=== PATIENT | female | born 1950 | race Caucasian/White ===

== ENCOUNTER 2019-03-05 12:47 | Outpatient (CLI) | payer MEDICARE, OTHER, SELFPAY ==
[2019-03-05 13:00] VITALS: BP 111/69; PULSE 90; RESP 16; TEMP 36.6; O2SAT 98
[2019-03-05] MEDS: denosumab 60 mg SDV SUBCUT (13:09)
[2019-03-05 13:19] VITALS: BP 114/70; PULSE 88; RESP 16; TEMP 36.6
== END 2019-03-05 12:48 | disposition home or self-care (01) ==
LOC: RHEOACUTE 12:50
PROVIDERS: Family Provider Family Medicine; PCP Family Medicine; Visit Provider Family Medicine
DX: M81.0 Age-related osteoporosis without current pathological fracture (principal)
CPT/HCPCS: 96372; J0897

== ENCOUNTER → 2019-03-27 10:48 | Outpatient (BNVA) | payer MEDICARE, OTHER, SELFPAY | PROVIDERS: Family Provider Family Medicine; PCP Family Medicine; Visit Provider Anesthesiology | DX: M48.061 Spinal stenosis, lumbar region without neurogenic claudication (principal); Z79.891 Long term (current) use of opiate analgesic | CPT/HCPCS: 99213; 99214 ==

== ENCOUNTER → 2019-09-28 09:53 | Outpatient (BNVA) | payer MEDICARE, OTHER, SELFPAY | PROVIDERS: Family Provider Family Medicine; PCP Family Medicine; Visit Provider Nurse Practitioner | DX: M48.061 Spinal stenosis, lumbar region without neurogenic claudication (principal); Z79.891 Long term (current) use of opiate analgesic | CPT/HCPCS: 99213 ==

== ENCOUNTER 2019-10-03 09:43 | Outpatient (CLI) | payer MEDICARE, OTHER, SELFPAY ==
[2019-10-03 10:00] VITALS: BP 127/77; PULSE 74; RESP 16; TEMP 36.8; O2SAT 91
[2019-10-03] MEDS: denosumab 60 mg SDV SUBCUT (10:00)
[2019-10-03 10:08] VITALS: BMI 39.0
[2019-10-03 10:45] VITALS: BP 109/68; PULSE 67; TEMP 36.8; O2SAT 93
== END 2019-10-03 09:44 | disposition home or self-care (01) ==
LOC: RHEOACUTE 09:46
PROVIDERS: Family Provider Family Medicine; PCP Family Medicine; Visit Provider Internal Medicine Rheumatology
DX: M81.0 Age-related osteoporosis without current pathological fracture (principal)
CPT/HCPCS: 96372; J0897

== ENCOUNTER 2019-11-16 09:39 | Outpatient (CLI) | payer MEDICARE, OTHER, SELFPAY ==
--- NOTE | 2019-11-16 09:44 | MM_ITS ---
WS: [id number] BILATERAL SCREENING DIGITAL MAMMOGRAM WITH CAD HISTORY: SCREENING COMPARISON: 12/28/2017 and 07/16/2014 Bilateral CC and MLO views submitted. Computer aided detection analyzed. Breast composition: There are scattered areas of fibroglandular density. No suspicious masses, microc alcifications or architectural distortion. Breast arterial calcifications. MM/[place] [id number] IMPRESSION: BI-RADS: 2-Benign FOLLOW UP: 1 Year Follow-up
== END 2019-11-16 09:40 | disposition home or self-care (01) ==
PROVIDERS: PCP Nurse Practitioner Family; Visit Provider Nurse Practitioner Family
DX: Z12.31 Encounter for screening mammogram for malignant neoplasm of breast (principal)
CPT/HCPCS: 77067

== ENCOUNTER → 2019-12-18 08:58 | Outpatient (BNVA) | payer MEDICARE, OTHER, SELFPAY | PROVIDERS: PCP Nurse Practitioner Family; Visit Provider Anesthesiology | DX: G89.29 Other chronic pain (principal); M48.061 Spinal stenosis, lumbar region without neurogenic claudication; Z79.891 Long term (current) use of opiate analgesic | CPT/HCPCS: 99212; 99214 ==

== ENCOUNTER → 2020-03-28 09:54 | Outpatient (BNVA) | payer MEDICARE, OTHER, SELFPAY | PROVIDERS: PCP Nurse Practitioner Family; Visit Provider Anesthesiology | DX: G89.29 Other chronic pain (principal); M48.061 Spinal stenosis, lumbar region without neurogenic claudication; Z79.891 Long term (current) use of opiate analgesic | CPT/HCPCS: 99213 ==

== ENCOUNTER 2020-05-19 09:19 | Outpatient (CLI) | payer MEDICARE, OTHER, SELFPAY ==
--- NOTE | 2020-05-19 09:34 | XR_ITS ---
WS: [id number] CERVICAL SPINE TECHNIQUE: 3 views of the cervical spine CLINICAL INFORMATION: NECK PAIN COMPARISON: March 10, 2016 FINDINGS: Straightening of the normal cervical lordosis. Anterior interbody cervical fusion C3-C7. Alignment is unchanged from previous. Slight retrolisthesis C2 on C3 is stable. Normal C1-C2 articulation. Normal prevertebral soft tissues. Moderate facet arthropathy throughout the cervical spine. XR/XR cervical spine 3V* [id number] IMPRESSION: Stable postoperative changes anterior interbody cervical fusion C3-C7.
--- NOTE | 2020-05-19 09:34 | XR_ITS ---
WS: [id number] THORACIC SPINE TECHNIQUE: 3 views of the thoracic spine CLINICAL INFORMATION: NECK PAIN COMPARISON: FINDINGS: Moderate thoracic kyphosis. Chronic anterior wedging in the lower thoracic spine and thoracolumbar ju nction. Prior vertebroplasty changes with chronic compression at the thoracolumbar junction. Dorsal s winsome stimulator. Thoracic spine appears unchanged since 2019 IMPRESSION: Thoracic spine appears unchanged since
== END 2020-05-19 09:20 | disposition home or self-care (01) ==
PROVIDERS: PCP Nurse Practitioner Family
DX: M54.2 Cervicalgia (principal)
CPT/HCPCS: 72040; 72070

== ENCOUNTER 2020-06-10 07:09 | Outpatient (CLI) | payer MEDICARE, OTHER, SELFPAY ==
--- NOTE | 2020-06-10 07:13 | USCV_ITS ---
Zoë Calderon Age: 70 Gender: F : 1950 Exam Date: 06/10/2020 07:29 Ordering Phys: Jayjay Rashid Technologist: Kati Mata [place]am Location[place] [facility] [place] Indication: MURMUR BP: 110 / 64 HR: 78 Rhythm: Sinus Technical Quality: Technically difficult study MEASUREMENTS (Male / Female) Normal Values 2D ECHO LV Diastolic Diameter PLAX 2.7 cm 4.2 - 5.9 / 3.9 - 5.3 cm LV Systolic Diameter PLAX 1.8 cm IVS Diastolic Thickness 1.5 cm 0.6 - 1.0 / 0.6 - 0.9 cm IVS Systolic Thickness 1.4 cm LVPW Diastolic Thickness 1.3 cm 0.6 - 1.0 / 0.6 - 0.9 cm LVPW Systolic Thickness 1.4 cm RV Chamber Size 3.4 cm LVOT Diameter 2.0 cm LV Ejection Fraction 2D Teich 62.9 % LV Ejection Fraction MOD 2C 55.4 % LV Ejection Fraction 2C AL 54.5 % LA Diameter 2.7 cm LA Width 3.8 cm LA Height 5.0 cm RA Width 3.6 cm RA Height 4.3 cm Aorta at Sinotubular Diameter 2.6 cm M-MODE LV Diastolic Diameter MM 3.3 cm 4.2 - 5.9 / 3.9 - 5.3 cm LV Systolic Diameter MM 2.1 cm LV Ejection Fraction MM Teich 65.9 % IVS Diastolic Thickness MM 1.1 cm 0.6 - 1.0 / 0.6 - 0.9 cm IVS Systolic Thickness MM 1.1 cm LVPW Diastolic Thickness MM 1.2 cm 0.6 - 1.0 / 0.6 - 0.9 cm LVPW Systolic Thickness MM 1.3 cm Aortic Annulus Diameter 2.9 cm LA Ao Ratio MM 0.9 DOPPLER AV Peak Velocity 194.0 cm/s LVOT Peak Velocity 100.0 cm/s AV Area Cont Eq vti 2.0 cm squared AV Area Cont Eq pk 1.6 cm squared MV Area PHT 4.5 cm squared Mitral E to A Ratio 1.0 MV E' Velocity 61.5 cm/s Mitral E to MV E' Ratio 13.2 Mitral E to LV E' Lateral Ratio 12.8 Mitral E to LV E' Septal Ratio 13.9 TR Peak Velocity 305.5 cm/s TR Peak Gradient 37.3 mmHg TV Peak E Velocity 77.0 cm/s Right Atrial Pressure 3.0 mmHg Pulmonary Artery Systolic Pressu 40.3 mmHg PV Peak Velocity 89.0 cm/s RV Acceleration Time 0.1 s RV Ejection Time 0.3 s RV AcT/ET 0.6 FINDINGS Left Ventricle Normal left ventricular size, systolic function with no regional wall motion abnormalities. LVEF is 55-60%. Normal diastolic filling pattern. Right Ventricle The right ventricle is normal in size and function. Right Atrium The right atrium is normal in size. Left Atrium The left atrium is normal in size. Mitral Valve Grossly normal without significant stenosis or prolapse. There is no mitral regurgitation. Aortic Valve Grossly normal without significant sclerosis or stenosis. There is no aortic regurgitation. Tricuspid Valve Not well visualized. No significant stenosis. Trace tricuspid regurgitation. Insufficient TR jet to calculate RVSP Pulmonic Valve Not well visualized Pericardium Normal pericardium without effusion. Aorta Normal ascending aorta dimension. CONCLUSIONS This is a technically limited study with poor ultrasonic windows LV systolic function is normal with EF of 55-60% Diastolic function is normal Trace tricuspid regurgitation is noted Compared to prior echocardiogram from 12/03/2015, no significant changes are noted Tom Guillermo MD (Electronically Signed) Final Date: 10 Jun 2020 12:26 S
== END 2020-06-10 07:10 | disposition home or self-care (01) ==
LOC: US 07:10
PROVIDERS: PCP Nurse Practitioner Family
DX: R01.1 Cardiac murmur, unspecified (principal); I07.1 Rheumatic tricuspid insufficiency
CPT/HCPCS: 93306

== ENCOUNTER → 2020-06-17 10:56 | Outpatient (BNVA) | payer MEDICARE, OTHER, SELFPAY | PROVIDERS: PCP Nurse Practitioner Family; Visit Provider Anesthesiology | DX: G89.29 Other chronic pain (principal); M48.061 Spinal stenosis, lumbar region without neurogenic claudication; Z79.891 Long term (current) use of opiate analgesic | CPT/HCPCS: 99213 ==

== ENCOUNTER 2020-06-18 11:21 | Outpatient (CLI) | payer MEDICARE, OTHER, SELFPAY ==
--- NOTE | 2020-06-18 15:25 | PC.NURSE ---
Venipuncture to right ac space with use of vacu-needle for calicum level per Rheumatology clinic orders.mm
== END 2020-06-18 11:22 | disposition home or self-care (01) ==
LOC: ONCMED 11:25
PROVIDERS: Internal Medicine Rheumatology
DX: M81.0 Age-related osteoporosis without current pathological fracture (principal)
CPT/HCPCS: 36415; 82310

== ENCOUNTER 2020-07-09 10:50 | Outpatient (CLI) | payer MEDICARE, OTHER, SELFPAY ==
[2020-07-09 12:15] LABS: Calcium 9.2 mg/dL (8.5-10.5)
[2020-07-09 12:16] LABS: 25 Hydroxy Vitamin D > 100 ng/mL (30-100)
--- NOTE | 2020-07-09 14:36 | PC.NURSE ---
Peripheral labs from left forearm using 23G butterfly needle. Site cleaned with alcohol, betadine, alcohol. Pt tolerated well and site covered with sterile gauze and coban.
== END 2020-07-09 10:51 | disposition home or self-care (01) ==
LOC: ONCMED 10:54
PROVIDERS: PCP Family Medicine; Visit Provider Clinical Nurse Specialist Adult Health
DX: M81.0 Age-related osteoporosis without current pathological fracture (principal)
CPT/HCPCS: 82306; 82310; 82565

== ENCOUNTER 2020-07-15 06:31 | Outpatient (CLI) | payer MEDICARE, OTHER, SELFPAY ==
[2020-07-15 13:32] VITALS: BP 130/81; PULSE 73; RESP 18; TEMP 36.3; O2SAT 94
[2020-07-15] MEDS: denosumab 60 mg SDV SUBCUT (14:50)
== END 2020-07-15 06:32 | disposition home or self-care (01) ==
PROVIDERS: PCP Family Medicine; Referring Provider Clinical Nurse Specialist Adult Health; Visit Provider Internal Medicine Medical Oncology
DX: M81.0 Age-related osteoporosis without current pathological fracture (principal)
CPT/HCPCS: 96372; J0897

== ENCOUNTER → 2020-09-09 09:02 | Outpatient (BNVA) | payer MEDICARE, OTHER, SELFPAY | PROVIDERS: PCP Family Medicine; Visit Provider Anesthesiology | DX: G89.29 Other chronic pain (principal); M48.061 Spinal stenosis, lumbar region without neurogenic claudication; Z79.891 Long term (current) use of opiate analgesic | CPT/HCPCS: 99213 ==

== ENCOUNTER → 2020-12-05 10:29 | Outpatient (BNVA) | payer MEDICARE, OTHER, SELFPAY | PROVIDERS: PCP Family Medicine; Visit Provider Anesthesiology | DX: G89.29 Other chronic pain (principal); M48.061 Spinal stenosis, lumbar region without neurogenic claudication; Z79.891 Long term (current) use of opiate analgesic; Z87.891 Personal history of nicotine dependence | CPT/HCPCS: 99213 ==

== ENCOUNTER 2021-01-07 08:25 | Outpatient (CLI) | payer MEDICARE, OTHER, SELFPAY ==
[2021-01-07 10:21] LABS: Alanine Aminotransferase 13 U/L (0-33); Albumin Level 3.6 g/dL (3.5-5.2); Alkaline Phosphatase 93 IU/L (35-105); Anion Gap 12.7 (5-19); Aspartate Amino Transferase 19 U/L (0-32); Blood Urea Nitrogen 24 mg/dL (8-23); Calcium 9.1 mg/dL (8.5-10.5); Carbon Dioxide 27 mmol/L (22-29); Chloride 107 mmol/L (98-107); Globulin 2.3 g/dL (1.3-4.6); Glucose 94 mg/dL (65-115); Osmolality Calculated 298 mOsm/kg (285-295); Potassium 4.7 mmol/L (3.5-5.1); Sodium 142 mmol/L (136-145); Total Bilirubin 0.2 mg/dL (0.15-1.2); Total Protein 5.9 g/dL (6.6-8.7)
== END 2021-01-07 08:26 | disposition home or self-care (01) ==
PROVIDERS: PCP Family Medicine; Visit Provider Clinical Nurse Specialist Adult Health
DX: M81.0 Age-related osteoporosis without current pathological fracture (principal)
CPT/HCPCS: 36415; 80053

== ENCOUNTER 2021-01-15 07:55 | Outpatient (CLI) | payer MEDICARE, OTHER, SELFPAY ==
[2021-01-15] MEDS: denosumab 60 mg SDV SUBCUT (08:11)
[2021-01-15 08:17] VITALS: BP 130/83; PULSE 73; RESP 18; TEMP 36.4; O2SAT 96
[2021-01-15 08:21] VITALS: BP 136/90; PULSE 78; RESP 18; TEMP 36.3; O2SAT 92
== END 2021-01-15 07:56 | disposition home or self-care (01) ==
LOC: ONCMED 07:58
PROVIDERS: PCP Family Medicine; Visit Provider Clinical Nurse Specialist Adult Health
DX: M81.0 Age-related osteoporosis without current pathological fracture (principal)
CPT/HCPCS: 96372; J0897

== ENCOUNTER → 2021-03-17 09:24 | Outpatient (BNVA) | payer MEDICARE, OTHER, SELFPAY | PROVIDERS: PCP Family Medicine; Visit Provider Anesthesiology | DX: G89.29 Other chronic pain (principal); M48.061 Spinal stenosis, lumbar region without neurogenic claudication; Z79.891 Long term (current) use of opiate analgesic; Z87.891 Personal history of nicotine dependence | CPT/HCPCS: 99213 ==

== ENCOUNTER 2021-07-20 09:44 | Outpatient (CLI) | payer MEDICARE, OTHER, SELFPAY ==
[2021-07-20 10:31] LABS: Albumin Level 3.9 g/dL (3.5-5.2); Calcium 9.3 mg/dL (8.5-10.5)
[2021-07-20 10:54] VITALS: BP 135/81; PULSE 84; RESP 18; TEMP 36.3; O2SAT 92
[2021-07-20] MEDS: denosumab 60 mg SDV SUBCUT (11:00)
[2021-07-20 11:09] VITALS: BP 135/72; PULSE 76; RESP 18; TEMP 36.4; O2SAT 93
[2021-07-20 11:13] LABS: 25 Hydroxy Vitamin D > 100 ng/mL (30-100)
== END 2021-07-20 09:45 | disposition home or self-care (01) ==
PROVIDERS: PCP Family Medicine; Referring Provider Nurse Practitioner Family; Visit Provider Nurse Practitioner Family
DX: M81.0 Age-related osteoporosis without current pathological fracture (principal)
CPT/HCPCS: 36415; 82040; 82306; 82310; 82565; 96372; J0897

== ENCOUNTER 2021-09-09 11:06 | Outpatient (CLI) | payer MEDICARE, OTHER, SELFPAY ==
[2021-09-09 12:10] LABS: Albumin Level 3.9 g/dL (3.5-5.2); Anion Gap 13.8 (5-19); Blood Urea Nitrogen 30 mg/dL (8-23); Calcium 9.4 mg/dL (8.5-10.5); Carbon Dioxide 29 mmol/L (22-29); Chloride 102 mmol/L (98-107); Glucose 108 mg/dL (65-115); Phosphorus 4.5 mg/dL (2.5-4.5); Potassium 4.8 mmol/L (3.5-5.1); Sodium 140 mmol/L (136-145)
[2021-09-09 12:14] LABS: Urine Creatinine 325 mg/dL (28-217)
[2021-09-09 12:16] LABS: Urine Protein Random 33 mg/dL
[2021-09-09 13:00] LABS: Bilirubin Urine 2+ (Negative); Blood Urine Neg (Negative); Glucose Urine UA Norm (Normal); Ketones Urine 1+ (Negative); Nitrate Urine Negative (Negative); Protein Urine Trace (Negative); Specific Gravity, Urine 1.025 (1.005-1.030); Urine Appearance Cloudy (CLEAR); Urine Color Amber (Yellow); pH Urine 5 (5-7)
[2021-09-09 13:01] LABS: Leukocyte Esterase Urine 1+ (Negative); Urobilinogen Urine 1 mg/dL (Negative)
[2021-09-09 13:02] LABS: Bacteria Urine 2+ /hpf; RBC Urine 0-4 /hpf (0-2); Squamous Epithelial Cell Urine 15-25 /hpf (0-5)
[2021-09-09 13:03] LABS: Mucus Urine TRACE /hpf
[2021-09-09 13:04] LABS: Add Urine Culture? No
[2021-09-10 05:58] LABS: PROTEIN, TOTAL 7.1 g/dL (6.1-8.1)
[2021-09-10 12:22] LABS: KAPPA LIGHT CHAIN, FREE, SERUM 48.8 mg/L (3.3-19.4); KAPPA/LAMBDA LIGHT CHAINS FREE 1.39 (0.26-1.65)
[2021-09-10 16:09] LABS: ALBUMIN 3.7 g/dL (3.8-4.8); ALPHA 1 GLOBULIN 0.3 g/dL (0.2-0.3); ALPHA 2 GLOBULIN 0.8 g/dL (0.5-0.9); BETA 1 GLOBULIN 0.5 g/dL (0.4-0.6); BETA 2 GLOBULIN 0.4 g/dL (0.2-0.5); GAMMA GLOBULIN 1.3 g/dL (0.8-1.7)
== END 2021-09-09 11:07 | disposition home or self-care (01) ==
PROVIDERS: PCP Clinical Nurse Specialist Adult Health; Visit Provider Internal Medicine Nephrology
DX: N18.32 Chronic kidney disease, stage 3b (principal)
CPT/HCPCS: 36415; 80069; 81001; 82570; 83883; 84155; 84156; 84165

== ENCOUNTER 2021-09-25 10:34 | Outpatient (CLI) | payer MEDICARE, OTHER, SELFPAY ==
[2021-09-25 12:04] LABS: Anion Gap 14.1 (5-19); Blood Urea Nitrogen 20 mg/dL (8-23); Calcium 9.6 mg/dL (8.5-10.5); Carbon Dioxide 29 mmol/L (22-29); Chloride 103 mmol/L (98-107); Glucose 91 mg/dL (65-115); Osmolality Calculated 294 mOsm/kg (285-295); Potassium 5.1 mmol/L (3.5-5.1); Sodium 141 mmol/L (136-145)
== END 2021-09-25 10:35 | disposition home or self-care (01) ==
PROVIDERS: PCP Clinical Nurse Specialist Adult Health; Visit Provider Registered Nurse
DX: N18.32 Chronic kidney disease, stage 3b (principal)
CPT/HCPCS: 36415; 80048

== ENCOUNTER 2021-10-01 11:41 | Outpatient (CLI) | payer MEDICARE, OTHER, SELFPAY ==
--- NOTE | 2021-10-01 11:49 | XR_ITS ---
WS: [id number] Right hip, 2 views, are described today. Clinical Data: right hip pain Comparison: Pelvis and right hip, 10/15/2015 Findings: No fractures or dislocations are seen. The right hip shows no erosion, sclerosis narrowing or fragmen tation of the femoral head. There is a small spur of the medial right femoral head. There is a small acetabular spur.. The soft tissues are not remarkable. The adjacent pelvis is normal. XR/XR hip RT 2-3V wo/w pel* [id number] Impression: Minimal osteoarthritis of the right hip. Tonnis classification: grade 1: sclerosis of femoral head and acetabulum or sli ght joint space narrowing or slight lipping at joint margins
== END 2021-10-01 11:42 | disposition home or self-care (01) ==
LOC: RAD 11:43
PROVIDERS: PCP Clinical Nurse Specialist Adult Health; Visit Provider Family Medicine
DX: M16.11 Unilateral primary osteoarthritis, right hip
CPT/HCPCS: 73502

== ENCOUNTER 2021-10-21 06:22 | Outpatient (CLI) | payer MEDICARE, OTHER, SELFPAY ==
--- NOTE | 2021-10-21 | US_ITS ---
WS: [id number] RENAL ULTRASOUND HISTORY: CKD STAGE 3B COMPARISON: None available. TECHNIQUE: 2-D and color Doppler imaging of the kidney submitted. Right kidney: 8.4 cm x 3.4 cm x 3.2 cm. Mild atrophy and diffuse cortical thinning of the RIGHT kidney. Cortex measures 1.0 cm in diameter. N o mass or hydronephrosis. Echogenicity is normal compared to the adjacent liver. Left kidney: 8.3 cm x 3.9 cm x 5.5 cm. Mild atrophy and diffuse cortical thinning. Cortex measures 1.1 cm in diameter. No hydronephrosis. Ec hogenicity is normal. Aorta: Mild ectasia and atherosclerosis. Urinary Bladder: Nondistended. US/US renal BI* [id number] IMPRESSION: 1. Mild renal atrophy and diffuse cortical thinning. 2. No hydronephrosis.
== END 2021-10-21 06:23 | disposition home or self-care (01) ==
LOC: RAD 06:23
PROVIDERS: PCP Clinical Nurse Specialist Adult Health; Visit Provider Internal Medicine Nephrology
DX: N18.32 Chronic kidney disease, stage 3b (principal); N26.1 Atrophy of kidney (terminal)
CPT/HCPCS: 76770

== ENCOUNTER → 2021-11-05 09:36 | Outpatient (BNVA) | payer MEDICARE, OTHER, SELFPAY | PROVIDERS: PCP Clinical Nurse Specialist Adult Health; Referring Provider Family Medicine; Visit Provider Anesthesiology Pain Medicine | DX: G89.29 Other chronic pain (principal); M48.061 Spinal stenosis, lumbar region without neurogenic claudication; M25.551 Pain in right hip; M79.604 Pain in right leg; M79.605 Pain in left leg; Z87.891 Personal history of nicotine dependence | CPT/HCPCS: 99204 ==

== ENCOUNTER 2021-12-10 06:15 | Outpatient (CLI) | payer MEDICARE, OTHER, SELFPAY ==
--- NOTE | 2021-12-10 06:30 | CTR_ITS ---
PROCEDURE INFORMATION: Exam: CT Lumbar Spine Without Contrast Exam date and time: 12/10/2021 6:32 AM Age: 71 years old Clinical indication: Low back pain and sciatica; Right; Prior surgery; Surgery type: Pain stimulator; Additional info: M54.16 - radiculopathy, lumbar region TECHNIQUE: Imaging protocol: Computed tomography of the lumbar spine without contrast. Radiation optimization: All CT scans at this facility use at least one of these dose optimization techniques: automated exposure control; mA and/or kV adjustment per patient size (includes targeted exams where dose is matched to clinical indication); or iterative reconstruction. COMPARISON: CT lumbar spine wo con* [id number] 09/25/2018 2:48 PM RADIATION DOSE METRICS: Total DLP (mGy-cm): 1585 FINDINGS: Bones/joints: T12 vertebroplasty changes, similar to prior exam. Chronic L1, L2 and L3 vertebral body compression fractures without retropulsion of bony fragments appear chronic, similar to prior exam. S1 superior endplate compression deformity without retropulsion of bony fragments appears chronic with some degenerative vacuum phenomenon, however, is new compared to prior exam. Lumbar spine dextroscoliosis. L1-L2: L1-L2 facet and mild foraminal narrowing again seen similar to prior exam. L2-L3: L2-L3 facet arthropathy and productive degenerative endplate changes are again seen resulting in moderate right and slzc-no-gzkyuzjl left foraminal narrowing, somewhat similar to prior exam. L3-L4: L3-L4 broad-based disc bulge with productive degenerative endplate changes and facet arthropathy resulting in xeum-ax-dhyckcpx bilateral foraminal narrowing similar to prior exam. L4-L5: L4-L5 broad-based posterior disc bulge resulting in mild to moderate spinal canal and bilateral foraminal narrowing similar to prior exam. L5-S1: L5/S1 broad-based disc bulge with facet arthropathy resulting in moderate spinal canal and moderate to severe bilateral foraminal narrowing, similar to prior exam. Vasculature: Fusiform aneurysmal of the abdominal aorta to 2.3 cm, similar to prior exam. Soft tissues: Unremarkable. CT/CT lumbar spine wo con* [id number] IMPRESSION: 1. T12 vertebroplasty changes, similar to prior exam. 2. Chronic L1, L2 and L3 vertebral body compression fractures without retropulsion bony fragments appear chronic, similar to prior exam. 3. S1 superior endplate compression deformity without retropulsion of bony fragments appears chronic with some degenerative vacuum phenomenon, however, is new compared to prior exam. 4. Fusiform aneurysmal of the abdominal aorta to 2.3 cm. 5. Lumbar spine dextroscoliosis, similar to prior exam. 6. L1-L2 facet and mild foraminal narrowing again seen similar to prior exam. 7. L2-L3 facet arthropathy and productive degenerative endplate changes are again seen resulting in moderate right and bedr-pp-wnvlwyiw left foraminal narrowing, somewhat similar to prior exam. 8. L3-L4 broad-based disc bulge with productive degenerative endplate changes and facet arthropathy resulting in bmuy-xu-pwzjsyvb bilateral foraminal narrowing similar to prior exam. 9. L4-L5 broad-based posterior disc bulge resulting in mild to moderate spinal canal and bilateral foraminal narrowing similar to prior exam. 10. L5/S1 broad-based disc bulge with facet arthropathy resulting in moderate spinal canal and moderate to severe bilateral foraminal narrowing, similar to prior exam.
== END 2021-12-10 06:16 | disposition home or self-care (01) ==
LOC: RAD 06:15
PROVIDERS: PCP Clinical Nurse Specialist Adult Health; Visit Provider Anesthesiology Pain Medicine
DX: M51.17 Intervertebral disc disorders with radiculopathy, lumbosacral region (principal); M41.86 Other forms of scoliosis, lumbar region; M48.07 Spinal stenosis, lumbosacral region; M48.56XA Collapsed vertebra, not elsewhere classified, lumbar region, initial encounter for fracture
CPT/HCPCS: 72131

== ENCOUNTER → 2021-12-15 10:30 | Outpatient (BNVA) | payer MEDICARE, OTHER, SELFPAY | PROVIDERS: PCP Clinical Nurse Specialist Adult Health; Visit Provider Anesthesiology Pain Medicine | DX: G89.29 Other chronic pain (principal); M48.061 Spinal stenosis, lumbar region without neurogenic claudication; M25.551 Pain in right hip; M79.604 Pain in right leg; M79.605 Pain in left leg; Z87.891 Personal history of nicotine dependence | CPT/HCPCS: 99214 ==

== ENCOUNTER → 2022-01-05 09:22 | Outpatient (BNVA) | payer MEDICARE, OTHER, SELFPAY | PROVIDERS: PCP Clinical Nurse Specialist Adult Health; Visit Provider Clinical Nurse Specialist Adult Health | DX: M25.521 Pain in right elbow (principal); M48.061 Spinal stenosis, lumbar region without neurogenic claudication; M71.9 Bursopathy, unspecified | CPT/HCPCS: 84550 ==

== ENCOUNTER → 2022-01-12 14:06 | Outpatient (BNVA) | payer MEDICARE, OTHER, SELFPAY | PROVIDERS: PCP Clinical Nurse Specialist Adult Health; Visit Provider Anesthesiology Pain Medicine | DX: G89.29 Other chronic pain (principal); M47.816 Spondylosis without myelopathy or radiculopathy, lumbar region; Z87.891 Personal history of nicotine dependence | CPT/HCPCS: 64493; 64494; 64495; J3490 ==

== ENCOUNTER 2022-02-11 08:55 | Outpatient (CLI) | payer MEDICARE, OTHER, SELFPAY ==
[2022-02-11 10:02] LABS: 25 Hydroxy Vitamin D 54 ng/mL (30-100); Calcium 9.4 mg/dL (8.5-10.5)
[2022-02-11 10:48] VITALS: BP 120/74; PULSE 77; RESP 18; TEMP 36.2; O2SAT 94
[2022-02-11] MEDS: denosumab 60 mg SDV SUBCUT (10:58)
[2022-02-11 11:05] VITALS: BP 132/73; PULSE 76; RESP 18; TEMP 36.1; O2SAT 96
== END 2022-02-11 08:56 | disposition home or self-care (01) ==
LOC: ONCMED 08:55
PROVIDERS: PCP Clinical Nurse Specialist Adult Health; Visit Provider Clinical Nurse Specialist Adult Health
DX: M81.0 Age-related osteoporosis without current pathological fracture (principal)
CPT/HCPCS: 36415; 82306; 82310; 96372; J0897

== ENCOUNTER → 2022-02-15 11:00 | Outpatient (BNVA) | payer MEDICARE, OTHER, SELFPAY | PROVIDERS: PCP Clinical Nurse Specialist Adult Health; Visit Provider Anesthesiology Pain Medicine | DX: G89.29 Other chronic pain (principal); M48.061 Spinal stenosis, lumbar region without neurogenic claudication; M79.604 Pain in right leg; M79.605 Pain in left leg; M25.551 Pain in right hip | CPT/HCPCS: 99214 ==

== ENCOUNTER 2022-02-18 13:55 | Outpatient (CLI) | payer MEDICARE, OTHER, SELFPAY ==
--- NOTE | 2022-02-18 14:30 | XR_ITS ---
WS: [id number] DEXA (DUAL ENERGY X-RAY ABSORPTIOMETRY) Bone mineral density was performed using a magnetU machine. HISTORY: osteoporosis COMPARISON: 11/10/2018 Left forearm BMD: 0.741 g/cm2. T score: -1.5 Z score: 0.5 Total hip BMD: Left: 0.755 g/cm2. T score: -2.0 Z score: -1.2 Right: 0.719 g/cm2. T score: -2.3 Z score: -1.5 10 year probability of a major osteoporotic fracture is 16.3%. Compared to the prior study from 11/10/2018. LEFT forearm bone mineral density has increased by 5.7%. Bilateral hips bone mineral density has decreased by 2.4%. XR/XR DEXA axial skeleton* [id number] IMPRESSION: OSTEOPENIA based upon the WHO classification for females. Significant decrease in bone mineral density within the hips since the prior st udy. Significant increase in bone mineral density within the LEFT forearm since the prior study.
== END 2022-02-18 13:56 | disposition home or self-care (01) ==
LOC: RAD 13:57
PROVIDERS: PCP Clinical Nurse Specialist Adult Health; Visit Provider Clinical Nurse Specialist Adult Health
DX: M81.0 Age-related osteoporosis without current pathological fracture (principal)
CPT/HCPCS: 77080

== ENCOUNTER 2022-02-22 15:15 | Outpatient (CLI) | payer MEDICARE, OTHER, SELFPAY ==
--- NOTE | 2022-02-22 15:28 | XR_ITS ---
WS: [id number] Sacrum and coccyx, 3 views, 02/22/2022 Clinical Data: fell and landed on sacrum Comparison: None. Findings: No fractures or dislocations are seen. The SI joints and pubic symphysis are unremarkable. No bone de struction or erosion is seen. The hips show no significant abnormalities. There is a generator overlying the right lower quadrant. XR/XR sacrum coccyx min 2V [id number] Impression: Negative sacrum and coccyx.
== END 2022-02-22 15:16 | disposition home or self-care (01) ==
LOC: RAD 15:21
PROVIDERS: PCP Clinical Nurse Specialist Adult Health; Visit Provider Clinical Nurse Specialist Adult Health
DX: M53.3 Sacrococcygeal disorders, not elsewhere classified (principal)
CPT/HCPCS: 72220

== ENCOUNTER → 2022-03-16 09:40 | Outpatient (BNVA) | payer MEDICARE, OTHER, SELFPAY | PROVIDERS: PCP Clinical Nurse Specialist Adult Health; Visit Provider Clinical Nurse Specialist Adult Health | DX: M81.0 Age-related osteoporosis without current pathological fracture (principal); N18.32 Chronic kidney disease, stage 3b; D63.1 Anemia in chronic kidney disease | CPT/HCPCS: 80069; 82043; 82306; 82310; 83970; 85025 ==

== ENCOUNTER → 2022-04-13 14:17 | Outpatient (BNVA) | payer MEDICARE, OTHER, SELFPAY | PROVIDERS: PCP Clinical Nurse Specialist Adult Health; Visit Provider Anesthesiology Pain Medicine | DX: M47.816 Spondylosis without myelopathy or radiculopathy, lumbar region (principal); M53.3 Sacrococcygeal disorders, not elsewhere classified | CPT/HCPCS: 64635; 64636 ==

== ENCOUNTER → 2022-06-03 10:38 | Outpatient (BNVA) | payer MEDICARE, OTHER, SELFPAY | PROVIDERS: PCP Clinical Nurse Specialist Adult Health; Visit Provider Anesthesiology Pain Medicine | DX: G89.29 Other chronic pain (principal); M48.061 Spinal stenosis, lumbar region without neurogenic claudication; M25.551 Pain in right hip; M53.3 Sacrococcygeal disorders, not elsewhere classified | CPT/HCPCS: 99214 ==

== ENCOUNTER → 2022-06-29 14:09 | Outpatient (BNVA) | payer MEDICARE, OTHER, SELFPAY | PROVIDERS: PCP Clinical Nurse Specialist Adult Health; Visit Provider Anesthesiology Pain Medicine | DX: M54.16 Radiculopathy, lumbar region (principal); M53.3 Sacrococcygeal disorders, not elsewhere classified | CPT/HCPCS: 64483; 64484; J1100; J3490 ==

== ENCOUNTER → 2022-07-13 13:48 | Outpatient (BNVA) | payer MEDICARE, OTHER, SELFPAY | PROVIDERS: PCP Clinical Nurse Specialist Adult Health; Visit Provider Anesthesiology Pain Medicine | DX: M54.16 Radiculopathy, lumbar region (principal); M53.3 Sacrococcygeal disorders, not elsewhere classified | CPT/HCPCS: 64483; 64484; J1100; J3490 ==

== ENCOUNTER → 2022-07-27 09:29 | Outpatient (BNVA) | payer MEDICARE, OTHER, SELFPAY | PROVIDERS: PCP Clinical Nurse Specialist Adult Health; Visit Provider Anesthesiology Pain Medicine | DX: G89.29 Other chronic pain (principal); M53.3 Sacrococcygeal disorders, not elsewhere classified; M48.061 Spinal stenosis, lumbar region without neurogenic claudication; M54.16 Radiculopathy, lumbar region; M25.551 Pain in right hip | CPT/HCPCS: 99214 ==

== ENCOUNTER 2022-08-17 08:33 | Oncology outpatient (recurring) (ONCR) | payer MEDICARE, OTHER, SELFPAY ==
[2022-08-17 09:12] VITALS: BP 127/73; PULSE 76; RESP 20; TEMP 36.8; O2SAT 90
[2022-08-17 10:14] LABS: Calcium 9.2 mg/dL (8.5-10.5)
[2022-08-17] MEDS: denosumab 60 mg SDV SUBCUT (10:23)
[2022-08-17 10:28] VITALS: BP 106/66; PULSE 70; RESP 16; TEMP 36.2; O2SAT 90
== END 2022-09-06 23:59 | disposition home or self-care (01) ==
PROVIDERS: PCP Clinical Nurse Specialist Adult Health; Visit Provider Clinical Nurse Specialist Adult Health
DX: M81.0 Age-related osteoporosis without current pathological fracture (principal)
CPT/HCPCS: 36415; 82310; 96372; J0897

== ENCOUNTER → 2022-08-31 08:37 | Outpatient (BNVA) | payer MEDICARE, OTHER, SELFPAY | PROVIDERS: PCP Clinical Nurse Specialist Adult Health; Visit Provider Physician Assistant | DX: M51.36 Other intervertebral disc degeneration, lumbar region (principal); M48.062 Spinal stenosis, lumbar region with neurogenic claudication | CPT/HCPCS: 72110; 99203 ==

== ENCOUNTER 2022-09-14 08:39 | Outpatient (CLI) | payer MEDICARE, OTHER, SELFPAY ==
--- NOTE | 2022-09-14 09:00 | IR_ITS ---
WS: [email or web address] MYELOGRAM LUMBAR SPINE Fluoroscopic guided lumbar myelogram CLINICAL INFORMATION: M51.36 - Other intervertebral disc degeneration, lumbar r... COMPARISON: None. TECHNIQUE: The procedure, including risks, benefits, and complications, were discussed with the patie nt who agreed to proceed. A timeout was performed to confirm correct patient, procedure, and site. Using sterile technique, the patient was prepped and draped in the usual sterile fashion. After admin istration of local anesthesia using 1% preservative-free lidocaine and using fluoroscopic guidance, a 22-gauge spinal needle was advanced into the subarachnoid space at the L3-L4 level. Subsequently 13 cc of Omnipaque 240 was administered into the thecal sac. The needle was removed and hemostasis was a chieved. Spot fluoroscopic images were obtained. FLUOROSCOPIC TIME: 2min [id number] # of spot films: 9 Spot fluoroscopic images demonstrate lumbar curve. Osteoporosis. Prior vertebroplasty changes at T12 and L1 with chronic compression. Spinal stimulator. Aortic calcification. Vacuum disc phenomenon at T 11-L3. Unilateral chronic spondylolysis at right L5-S1. Slight grade 1 anterolisthesis L5 on S1. Please see CT myelogram report for additional detail. IMPRESSION: Uncomplicated lumbar myelogram. Please see CT myelogram report for additional detail.
--- NOTE | 2022-09-14 09:00 | CT_ITS ---
WS: [email or web address] CT LUMBAR SPINE TECHNIQUE: Contrast-enhanced CT of the lumbar spine with coronal and sagittal reformatted images. CLINICAL INFORMATION: M48.062 - Spinal stenosis, lumbar region with neurogenic ... COMPARISON: CT 12/10/21 DLP: 899.[address] scans at [facility] use at least one of these dose optimization techniques: automated e xposure control; mA and/or kV adjustment per patient size (includes targeted exams where dose is matc hed to clinical indication); or iterative reconstruction. FINDINGS: Lumbar scoliosis. Chronic appearing compression fractures at T12, and L1 with anterior wedging and pr ior vertebroplasty changes. This is unchanged from previous. Disc space narrowing throughout the lumb ar spine. Grade 1 anterolisthesis L5 on S1 with right spondylolysis. Grade 1 anterolisthesis measures 4 mm. L1-L2: Mild annular bulging. Disc osteophytic ridging. Mild left and no significant right foraminal n arrowing. Slight narrowing of the left subarticular recess. L2-L3: Mild disc osteophyte complex with endplate ridging. Vacuum disc phenomenon. Narrowing of the s ubarticular recess bilaterally. Right posterior projecting osteophyte impinges the right subarticular recess and traversing right L3 nerve root. Moderate left and no significant right foraminal narrowin g. Mild facet arthropathy. L3-L4: Left hemilaminectomy. Mild disc bulging. Slight narrowing the subarticular recess bilaterally. Disc osteophytic ridging with small bilateral foraminal protrusions. Moderate right and mild left fo raminal narrowing. Moderate facet arthropathy. L4-L5: Slight anterolisthesis L4 on L5. Shallow central protrusion. Moderate right and mild left fora manuel narrowing. Moderate facet arthropathy. L5-S1: Grade 1 anterolisthesis. Moderate central canal stenosis. Impingement of traversing S1 nerve r oots. Advanced facet arthropathy. Moderate left greater than right foraminal narrowing. Visualized pelvic bony structures: Normal. Paravertebral soft tissues: Normal. Atelectasis right lower lobe with small subpleural nodule measuring 5 mm. This can be followed up wit h chest CT. Adrenal glands are normal. Splenic artery calcification. IMPRESSION: 1. Lumbar curve. Chronic compression fractures T12 and L1 with vertebroplasty changes stable compare d to previous. 2. Grade 1 anterolisthesis L5 on S1 with unilateral right spondylolysis. 3. Moderate central canal stenosis L5-S1 with impingement of traversing S1 nerve roots bilaterally. 4. Posterior protruding osteophyte in the right subarticular recess at L2-3 with impingement agustin ing right L3 nerve root. This is unchanged from previous 5. Prior left hemilaminectomy left L3-4. 6. Moderate multilevel foraminal narrowing worse at left L1-2, left L2-3, right L3-4, right L4-5, an d left L5-S1. Advanced arthropathy L4-L5 and L5-S1.
== END 2022-09-14 08:40 | disposition home or self-care (01) ==
PROVIDERS: PCP Clinical Nurse Specialist Adult Health; Visit Provider Physician Assistant
DX: G89.29 Other chronic pain (principal); M51.36 Other intervertebral disc degeneration, lumbar region; M47.817 Spondylosis without myelopathy or radiculopathy, lumbosacral region; M48.07 Spinal stenosis, lumbosacral region; M25.78 Osteophyte, vertebrae; M48.55XA Collapsed vertebra, not elsewhere classified, thoracolumbar region, initial encounter for fracture
CPT/HCPCS: 62304; 72132; Q9966

== ENCOUNTER → 2022-09-30 07:31 | Outpatient (BNVA) | payer MEDICARE, OTHER, SELFPAY | PROVIDERS: PCP Clinical Nurse Specialist Adult Health; Visit Provider Physician Assistant | DX: Z01.818 Encounter for other preprocedural examination (principal); M51.36 Other intervertebral disc degeneration, lumbar region; M48.062 Spinal stenosis, lumbar region with neurogenic claudication; M54.17 Radiculopathy, lumbosacral region | CPT/HCPCS: 36415; 80053; 81001; 85025; 99213 ==

== ENCOUNTER 2022-10-05 15:47 | Outpatient (CLI) | payer MEDICARE, OTHER, SELFPAY ==
--- NOTE | 2022-10-05 15:59 | XRR_ITS ---
PROCEDURE INFORMATION: Exam: XR Chest Exam date and time: 10/05/2022 4:02 PM Age: 72 years old Clinical indication: Other: Abnormal lung sounds in lll; Prior surgery; Surgery date: 6+ months; Surgery type: Kyphoplasty, stimulator TECHNIQUE: Imaging protocol: Radiologic exam of the chest. Views: 2 views. COMPARISON: CR XR chest 1V [id number] 07/07/2017 1:24 PM FINDINGS: Tubes, catheters and devices: Neurostimulator leads terminate in the midthoracic spine. Lungs: Unremarkable. No consolidation. Pleural spaces: Unremarkable. No pleural effusion. No pneumothorax. Heart/Mediastinum: Unremarkable. No cardiomegaly. Bones/joints: The bones are demineralized. The patient has had lower thoracic kyphoplasties. There is a metallic plate in the mid and lower cervical spine. No acute findings. XR/XR chest 2V* [id number] IMPRESSION: Nonacute findings.
== END 2022-10-05 15:48 | disposition home or self-care (01) ==
PROVIDERS: PCP Clinical Nurse Specialist Adult Health; Visit Provider Clinical Nurse Specialist Adult Health
DX: R09.89 Other specified symptoms and signs involving the circulatory and respiratory systems (principal)
CPT/HCPCS: 71046

== ENCOUNTER → 2022-10-14 15:56 | Outpatient (BNVA) | payer MEDICARE, OTHER, SELFPAY | PROVIDERS: PCP Clinical Nurse Specialist Adult Health; Visit Provider Family Medicine | DX: Z01.818 Encounter for other preprocedural examination (principal) | CPT/HCPCS: 81000 ==

== ENCOUNTER 2022-10-20 09:09 | Day surgery (SDC) | payer MEDICARE, OTHER, SELFPAY ==
[2022-10-20] VITALS (7 sets, daily range): BP systolic 127–156; BP diastolic 60–111; PULSE 70–85; RESP 15–16; TEMP 36.1–36.6; O2SAT 92–100; BMI 44.1
--- NOTE | 2022-10-20 | XR_ITS ---
WS: [id number] C-ARM RADIOGRAPHS LUMBAR SPINE; 4 IMAGES HISTORY: TEDDY PICS COMPARISON: None available. Intraoperative imaging during spinal decompression surgery. IMPRESSION: Intraoperative imaging during spinal decompression.
[2022-10-20] MEDS: sodium chloride 0.9% 1,000 ML 30 ML IV (10:07)
--- NOTE | 2022-10-20 11:25 | P.ANESASSM_ITS ---
Pre-Anesthetic Assessment Height/Weight: Height 1.52 m Weight 102.512 kg Temp Pulse Resp BP Pulse Ox O2 Del Method 97.2 F L 85 16 156/111 95 Room Air 10/20/22 09:38 10/20/22 09:38 10/20/22 09:38 10/20/22 09:38 10/20/22 09:38 10/20/22 09:38 Preop Diagnosis: Lumbar stenosis with neurogenic claudication Operation Date: 10/20/22 11:10 Proposed Procedures p Stand on Right:76098,L4/5 decompression,61902,L 5/S1 decompression(Not Applicable) - Morris Baker, Familial anesthetic complications: none Was Beta Viet taken within 24 hours: N/A Was Clonidine taken within 24 hours: N/A Last intake: Intake Last Liquid Date 10/20/22 Last Liquid Time 05:30 Last Solid Date 10/19/22 Last Solid Time 20:00 Social No alcohol and No tobacco (h/o smoking) Exam alert, oriented x 3, clear to auscultation bilaterally and regular rate & rhythm Airway Submandibular: within normal limits Cervical ROM: within normal limits Mallampati: Class II Pulmonary Chronic Obstructive Pulmonary Disease CV/HEM Anemia Metabolic Morbid Obesity [facility] [place] Lower Back Pain and Osteoarthritis/DJD Anesthetic Plan ASA status: 3 Anesthesia: General Medications/Allergies Home Medications Medication Instructions Recorded Confirmed Last Taken Type sennosides 8.6 mg capsule (senna) 8.6 mg PO BID PRN Constipation 03/27/19 10/20/22 10/17/22 History calcium carbonate 500 mg calcium 2,000 mg PO DAILY 08/14/21 10/20/22 10/19/22 History (1,250 mg) tablet diclofenac sodium 75 mg 75 mg PO DAILY #90 tabs 01/05/22 10/20/22 10/17/22 Rx tablet,delayed release gabapentin 600 mg tablet 600 mg PO QID 90 days #360 tabs 01/05/22 10/20/22 10/19/22 Rx denosumab 60 mg/mL subcutaneous 60 mg SUBCUT ONCE #1 mL 02/10/22 10/20/22 Unknown Rx syringe (Prolia) tramadol 50 mg tablet See Rx Instructions PO TID PRN 10/05/22 10/20/22 10/19/22 Rx pain 30 days #180 tabs nortriptyline 25 mg capsule 25 - 50 mg PO .BEDTIME PRN insomnia 10/20/22 10/20/22 10/19/22 History Allergies Allergy/AdvReac Type Severity Reaction Status Date / Time meperidine [From Demerol] Allergy Unknown Unknown Verified 10/14/22 10:03 codeine AdvReac Unknown UNKNOWN Verified 10/14/22 10:03 Egg Derived AdvReac Unknown UNKNOWN Verified 10/14/22 10:03 morphine AdvReac Unknown UNKNOWN Verified 10/14/22 10:03 propoxyphene [From Darvon] AdvReac Unknown UNKNOWN Verified 10/14/22 10:03 Current Medications Generic Name Dose Route Start Last Admin Trade Name Freq PRN Reason Stop Dose Admin Sodium Chloride 1,000 mls @ 30 mls/hr 10/20/22 09:30 10/20/22 10:07 Sodium Chloride 0.9% IV 10/21/22 09:29 30 mls/hr .Q24H BERNARDO Administration PFSH Anesthesia Medical History (Updated 10/05/22 @ 15:48 by Jayjay Rashid NP) Aftercare for long-term (current) use of non-steroidal anti-inflammatories Bursitis Degenerative lumbar spinal stenosis Encounter for long-term use of opiate analgesic Hx of iron deficiency anemia Opioid contract exists Osteoporosis Surgical History H/O adenoidectomy H/O cervical spine surgery H/O tubal ligation History of implanted electronic device [employer] Medical History of thoracic surgery S/P cervical spinal fusion Family History Other Cancer Denies family history of Anesthesia complication Bleeding disorder Social History Smoking and tobacco status: former smoker Second hand smoke exposure: No Alcohol intake: current Alcohol intake frequency: 0-2 Drinks per Day Alcohol type: wine Substance/Drug Use: never Data Anesthesia Cardiac Studies: Echocardiogram Ultrasound 06/10/20
--- NOTE | 2022-10-20 11:36 | W.PM.OPSUD ---
Surgery/Procedure H&P Update DATE OF PROCEDURE: October 20, 2022 DATE H&P PERFORMED: 09/30/22 H&P UPDATE INFORMATION: I have reviewed H&P completed within last 30 days, I have examined patient prior to procedure and No changes to prior documentation PREOP DIAGNOSIS: Lumbar stenosis with neurogenic claudication PLANNED PROCEDURE: Operation Date: 10/20/22 11:10 Proposed Procedures p Stand on Right:95936,L4/5 decompression,88754,L 5/S1 decompression(Not Applicable) - Morris Baker DO
[2022-10-20] MEDS: ceFAZolin 2,000 MG in sodium chloride 0.9% (plus) 50 ML 100 MG IV (11:58)
[2022-10-20] MEDS: lidocaine-epi 2% 20 mL INJ INJECTION (12:23)
--- NOTE | 2022-10-20 13:33 | PM.OP ---
Operative Report Date of procedure: October 20, 2022 Pre-op diagnosis: Lumbar stenosis with neurogenic claudication Post-op diagnosis: same Procedure done: L4-5 laminectomy with partial facetectomy L5-S1 laminectomy with partial facetectomy Surgeon: Morris Baker DO Work Station Support Specialist: Leonel Nino Work Station Support Specialist: The surgical garment fitter, NGUYỄN Mayen was needed for his expertise under the microscope. He was important and necessary throughout the procedure to complete in a safe and timely manner. He assisted with patient positioning prepping and draping tissue retraction suctioning of the operative field protection of the dural sac and tissue closure Estimated blood loss (mL): 50 Procedure: L4-5 laminectomy with partial facetectomy L5-S1 laminectomy with partial facetectomy Patient is brought to the operative suite. After undergoing anesthesia they are placed in the prone position. All areas of impingement are well padded. Patient is then prepped and draped in the normal sterile fashion. A skin incision is made over the L4/5 level. This is confirmed under c-arm guidance. A series of dilators are passed and the tubular retractor is docked on the L4 lamina. A bovie is used to clear the soft tissue off the lamina and the L 4/5 facet joint. A high speed nikolai is then used to perform the laminectomy and take down the medial aspect of the L 4/5 facet joint. A kerrison rongeure was then used to take down the remaining lamina and smooth the edge of the laminectomy up to the point where the ligamentum flavum attaches. Attention was then brought to the medial aspect of the facet joint. The remaining medial aspect of the superior and inferior aspect of the facet joint were taken down with the kerrison from the pedicle of L4 to L 5. The facet joint had significant hypertrophy. Attention was then brought to the Ligamentum Flavum. The ligament was taken down from the lamina of L4 to L5 and out medially to the remaining facet joint. The ligament was calcified and scarred. The dura was then exposed. The dura was in good repair. The L4 nerve was then traced with a curette out the L4/5 foramen and found to be adequately decompressed. The L5 nerve was traced with a curette around the L5 pedicle. The lateral recess was opened with a kerrison helping to further decompress the L5 nerve. Wound is then irrigated copiously with saline and surgiflo is used to stop any bleeding. The tubular retractor is removed and the A skin incision is made over the L5/S1 level. This is confirmed under c-arm guidance. A series of dilators are passed and the tubular retractor is docked on the L5 lamina. A bovie is used to clear the soft tissue off the lamina and the L 5/S1 facet joint. A high speed nikolai is then used to perform the laminectomy and take down the medial aspect of the L 5/S1 facet joint. A kerrison rongeure was then used to take down the remaining lamina and smooth the edge of the laminectomy up to the point where the ligamentum flavum attaches. Attention was then brought to the medial aspect of the facet joint. The remaining medial aspect of the superior and inferior aspect of the facet joint were taken down with the kerrison from the pedicle of L5 to S1. The facet joint had significant hypertrophy. Attention was then brought to the Ligamentum Flavum. The ligament was taken down from the lamina of L5 to S1 and out medially to the remaining facet joint. The ligament was calcified. The dura was then exposed. The dura was in good repair. The L5 nerve was then traced with a curette out the L5/S1 foramen and found to be adequately decompressed. The S1 nerve was traced with a curette around the S1 pedicle. The lateral recess was opened with a kerrison helping to further decompress the S1 nerve. Wound is then irrigated copiously with saline and surgiflo is used to stop any bleeding. The tubular retractor is removed and the wound is closed with vicryl and monocryl suture. Glue is then used to protect the wound. A sterile dressing is then placed. Patient was then placed in the supine position and transferred to the PACU in stable condition.
--- NOTE | 2022-10-20 14:46 | SUR.PHASEII ---
1415 pt states that she is afraid to take hydrocodone at home for pain due to allergy to codeine and she stated that she has tramadol at home for pain, i also instructed pt to also take tylenol and or ibuprofen as needed for pain,pt and verbalized understanding
--- NOTE | 2022-10-20 16:45 | ANE.PACU2 ---
Inpatient post-anesthesia follow up: Airway intact: Yes Vital signs: Temperature 98 F Pulse Rate 70 Respiratory Rate 16 Blood Pressure 139/73 Pulse Oximetry 97 Oxygen Delivery Me thod Room Air Oxygen Flow Rate 6 Fraction of Inspir ed Oxygen Hydration adequate: Yes Nausea and vomiting: No Pain level: 3 Mental status: Baseline
== END 2022-10-20 15:15 | disposition home or self-care (01) ==
PROVIDERS: PCP Clinical Nurse Specialist Adult Health; Visit Provider Orthopaedic Surgery
PROC: (CPT 63005; principal; 2022-10-20 11:00)
DX: M48.062 Spinal stenosis, lumbar region with neurogenic claudication (principal); J44.9 Chronic obstructive pulmonary disease, unspecified; E66.01 Morbid (severe) obesity due to excess calories; Z68.41 Body mass index [BMI] 40.0-44.9, adult; Z87.891 Personal history of nicotine dependence
CPT/HCPCS: 63047; 63048; 72020; 76000; J0131; J0690; J1100; J2371; J2405; J2704; J2710; J3010; J3490; J7030

== ENCOUNTER → 2022-11-04 10:38 | Outpatient (BNVA) | payer MEDICARE, OTHER, SELFPAY | PROVIDERS: PCP Clinical Nurse Specialist Adult Health; Visit Provider Orthopaedic Surgery | DX: Z47.89 Encounter for other orthopedic aftercare (principal) | CPT/HCPCS: 99024 ==

== ENCOUNTER → 2022-11-23 08:04 | Outpatient (BNVA) | payer MEDICARE, OTHER, SELFPAY | PROVIDERS: PCP Clinical Nurse Specialist Adult Health; Visit Provider Physician Assistant | DX: M54.17 Radiculopathy, lumbosacral region (principal); M51.36 Other intervertebral disc degeneration, lumbar region; M48.062 Spinal stenosis, lumbar region with neurogenic claudication; Z98.890 Other specified postprocedural states | CPT/HCPCS: 72110; 99024 ==

== ENCOUNTER → 2022-12-09 08:01 | Outpatient (BNVA) | payer MEDICARE, OTHER, SELFPAY | PROVIDERS: PCP Clinical Nurse Specialist Adult Health; Visit Provider Physician Assistant | DX: M48.062 Spinal stenosis, lumbar region with neurogenic claudication (principal); M51.36 Other intervertebral disc degeneration, lumbar region; M54.17 Radiculopathy, lumbosacral region | CPT/HCPCS: 99213 ==

== ENCOUNTER 2022-12-28 09:51 | Outpatient (CLI) | payer MEDICARE, OTHER, SELFPAY ==
[2022-12-28 10:25] LABS: Basophils # 0.1 10^3/uL (0.0-0.1); Basophils % 0.7 %; Eosinophils # 0.4 10^3/uL (0.0-0.8); Eosinophils % 5.4 %; Hematocrit 40.4 % (36-47); Lymphocytes # 2.3 10^3/uL (0.8-4.8); Lymphocytes % 32.9 %; Mean Corpuscular HGB Conc 30.7 g/dL (30-55); Mean Corpuscular Hemoglobin 28.3 pg (27-33); Mean Corpuscular Volume 92.2 fl (85-98); Mean Platelet Volume 9.9 fL (7.4-10.4); Monocytes # 0.6 10^3/uL (0.2-0.9); Monocytes % 8.9 %; Neutrophils # 3.55 10^3/uL (1.8-7.7); Neutrophils % 51.8 %; Nucleated Red Blood Cells % 0 %; Platelet Count 267 10^3/cmm (157-399); Red Blood Count 4.38 10^6/uL (3.85-5.65); Red Cell Distribution Width 16.2 % (12.1-15.1); White Blood Count 6.86 10^3/uL (3.29-11.43)
[2022-12-28 10:47] LABS: Alanine Aminotransferase 14 U/L (0-33); Albumin Level 3.8 g/dL (3.5-5.2); Alkaline Phosphatase 98 U/L (35-105); Anion Gap 13.9 (5-19); Aspartate Amino Transferase 20 U/L (0-32); Blood Urea Nitrogen 18 mg/dL (8-23); Calcium 9.5 mg/dL (8.5-10.5); Carbon Dioxide 28 mmol/L (22-29); Chloride 107 mmol/L (98-107); Globulin 3.3 g/dL (1.3-4.6); Glucose 94 mg/dL (65-115); Osmolality Calculated 300 mOsm/kg (285-295); Potassium 4.9 mmol/L (3.5-5.1); Sodium 144 mmol/L (136-145); Total Bilirubin 0.2 mg/dL (0.15-1.2); Total Protein 7.1 g/dL (6.6-8.7)
[2022-12-28 10:51] LABS: Add Urine Microscopic? YES; Bilirubin Urine 1+ (Negative); Blood Urine 2+ (Negative); Glucose Urine UA Norm (Normal); Ketones Urine 1+ (Negative); Leukocyte Esterase Urine 2+ (Negative); Nitrate Urine Negative (Negative); Protein Urine 1+ (Negative); Specific Gravity, Urine 1.025 (1.005-1.030); Urine Appearance Cloudy (CLEAR); Urine Color Yellow (Yellow); Urobilinogen Urine 4 mg/dL (Negative); pH Urine 5 (5-7)
[2022-12-28 10:58] LABS: Bacteria Urine 1+ /hpf; Mucus Urine 3+ /hpf; Squamous Epithelial Cell Urine 25-40 /hpf (0-5); Transitional Epi Cells Urine 0-4 /hpf; WBC Urine 40-55 /hpf (0-5)
[2022-12-28 10:59] LABS: Add Urine Culture? Yes; Amorphous Sediment Urine TRACE /hpf; Hyaline Casts Urine 15-25 /lpf
== END 2022-12-28 09:52 | disposition home or self-care (01) ==
LOC: LAB 09:52
PROVIDERS: PCP Clinical Nurse Specialist Adult Health; Visit Provider Physician Assistant
DX: M48.062 Spinal stenosis, lumbar region with neurogenic claudication (principal)
CPT/HCPCS: 36415; 80053; 81001; 85025; 87086

== ENCOUNTER → 2023-01-05 10:59 | Outpatient (BNVA) | payer MEDICARE, OTHER, SELFPAY | PROVIDERS: PCP Clinical Nurse Specialist Adult Health; Visit Provider Family Medicine | DX: Z01.818 Encounter for other preprocedural examination (principal) | CPT/HCPCS: 80048; 81003 ==

== ENCOUNTER 2023-01-10 13:27 | Inpatient (IN) | payer MEDICARE, OTHER, SELFPAY ==
[2023-01-10] VITALS (70 sets, daily range): BP systolic 88–162; BP diastolic 45–99; PULSE 72–93; RESP 7–98; TEMP 36.1–36.9; O2SAT 12–100; BMI 44.7
--- NOTE | 2023-01-10 | XR_ITS ---
WS: [id number] INTRAOPERATIVE TECHNIQUE: 8 Spot fluoroscopic images for intraoperative purposes. FLUOROSCOPY TIME: 48 seconds CLINICAL INFORMATION: T10 to pelvis instrumented fusion COMPARISON: None. FINDINGS: Intraoperative changes thoracolumbar fusion pedicle screw fixation. Interconnecting rods extend from the T10-S1 with bilateral sacroiliac fixation screws. Prior kyphoplasty at T12 and L1 IMPRESSION: Images obtained for intraoperative purposes.
[2023-01-10] MEDS: ceFAZolin 2,000 MG in sodium chloride 0.9% (plus) 50 ML 100 MG IV ×3 (07:16→22:48)
[2023-01-10] MEDS: sodium chloride 0.9% 1,000 ML 30 ML IV (07:16)
--- NOTE | 2023-01-10 08:04 | ANES.PREANE2 ---
Pre-Anesthetic Assessment Height/Weight: Height 1.52 m Temp Pulse Resp BP Pulse Ox O2 Del Method 98.4 F 93 16 162/87 94 Room Air 01/10/23 06:01 01/10/23 06:01 01/10/23 06:01 01/10/23 06:01 01/10/23 06:01 01/10/23 06:01 Preop Diagnosis: Lumbar stenosis with neurogenic claudication,DDD Lumbar Operation Date: 01/10/23 07:00 Proposed Procedures s Posterior Lumbar Interbody Fusion PLIF:L5/S1: 06698(Not Applicable) - Morris Baker DO p Thoracic Fusion: T10 to the pelvis instrumented fusion(Not Applicable) - DO gonzalez Johnson Sacroiliac Joint Fusion SI Joint Fusion: Open SI Joint fusion : [id number](Not Applicable) - Morris Baker DO s Lumbar Spine Decompression Lumbar Decompression: L ?: 88331 L 4/5: 59373 L 5/S1: 62658(Not Applicable) - Morris Baker DO s Spinal Stimulator Removal and Paddle removal(Not Applicable) - Morris Baker DO Familial anesthetic complications: none Was Beta Viet taken within 24 hours: N/A Was Clonidine taken within 24 hours: N/A Last intake: Intake Last Liquid Date 01/09/23 Last Liquid Time 21:00 Last Solid Date 01/09/23 Last Solid Time 19:00 Social No alcohol and No tobacco Exam alert, oriented x 3, clear to auscultation bilaterally and regular rate & rhythm Airway Submandibular: within normal limits Cervical ROM: within normal limits Mallampati: Class II Dentition: false Pulmonary Chronic Obstructive Pulmonary Disease Metabolic Morbid Obesity [facility] [place] Lower Back Pain and Osteoarthritis/DJD Anesthetic Plan ASA status: 3 Anesthesia: General Other: A.line, discussed transfusion and ICU Medications/Allergies Home Medications Medication Instructions Recorded Confirmed Last Taken Type sennosides 8.6 mg capsule (senna) 8.6 mg PO PRN PRN Constipation 03/27/19 01/10/23 01/09/23 History calcium carbonate 500 mg calcium 2,400 mg PO DAILY 08/14/21 01/10/23 01/09/23 History (1,250 mg) tablet diclofenac sodium 75 mg 75 mg PO DAILY #90 tabs 01/05/22 01/10/23 01/03/23 Rx tablet,delayed release nortriptyline 25 mg capsule 25 - 50 mg PO .BEDTIME PRN insomnia 10/20/22 01/10/23 01/09/23 History gabapentin 600 mg tablet 600 mg PO QID 90 days #360 tabs 12/09/22 01/10/23 01/09/23 Rx tramadol 50 mg tablet See Rx Instructions PO TID PRN 12/24/22 01/10/23 01/09/23 Rx pain 30 days #180 tabs denosumab 60 mg/mL subcutaneous 60 mg SUBCUT DIRECTED 01/07/23 01/07/23 Unknown History syringe (Prolia) Allergies Allergy/AdvReac Type Severity Reaction Status Date / Time meperidine [From Demerol] Allergy Unknown Unknown Verified 01/07/23 15:34 codeine AdvReac Unknown UNKNOWN Verified 01/07/23 15:34 Egg Derived AdvReac Unknown UNKNOWN Verified 01/07/23 15:34 morphine AdvReac Unknown UNKNOWN Verified 01/07/23 15:34 propoxyphene [From Darvon] AdvReac Unknown UNKNOWN Verified 01/07/23 15:34 [facility] Anesthesia Medical History Hx of iron deficiency anemia Osteoporosis Bursitis Opioid contract exists Encounter for long-term use of opiate analgesic Aftercare for long-term (current) use of non-steroidal anti-inflammatories Degenerative lumbar spinal stenosis Surgical History History of implanted electronic device Fatigue Science History of thoracic surgery H/O tubal ligation H/O cervical spine surgery S/P cervical spinal fusion H/O adenoidectomy Family History Other Cancer Denies family history of Anesthesia complication Bleeding disorder Social History Smoking and tobacco/nicotine status: former use of tobacco/nicotine Second hand smoke exposure: No Alcohol intake: current Alcohol intake frequency: 0-2 Drinks per Day Alcohol type: wine Substance/Drug Use: never Data Anesthesia Blood Bank 01/10/23 06:39 Blood Type B Positive Rho(D) Type Rh positive Antibody Screen Negative Cardiac Studies: Echocardiogram Ultrasound 06/10/20
[2023-01-10] MEDS: heparin, porcine 1,000 unit/mL INJ 10 mL 10000 UNIT IRRIGATION (08:27)
[2023-01-10] MEDS: thrombin 5,000 unit SDV 5000 UNIT XX (08:28)
[2023-01-10] MEDS: lidocaine-epi 1% 20 mL INJ INJECTION (08:28)
[2023-01-10] MEDS: vancomycin 1,000 MG SDV 1000 MG XX (08:29)
--- NOTE | 2023-01-10 08:37 | W.PM.OPSUD ---
Surgery/Procedure H&P Update DATE OF PROCEDURE: January 10, 2023 DATE H&P PERFORMED: 01/05/23 H&P UPDATE INFORMATION: I have reviewed H&P completed within last 30 days, I have examined patient prior to procedure and No changes to prior documentation PREOP DIAGNOSIS: Lumbar stenosis with neurogenic claudication,DDD Lumbar PLANNED PROCEDURE: Operation Date: 01/10/23 07:00 Proposed Procedures s Posterior Lumbar Interbody Fusion PLIF:L5/S1: 09799(Not Applicable) - Morris Baker DO p Thoracic Fusion: T10 to the pelvis instrumented fusion(Not Applicable) - Morris Baker DO s Sacroiliac Joint Fusion SI Joint Fusion: Open SI Joint fusion : 73158(Not Applicable) - Morris Baker DO s Lumbar Spine Decompression Lumbar Decompression: L ?: 01256 L 4/5: 55422 L 5/S1: 11097(Not Applicable) - Morris Baker DO s Spinal Stimulator Removal and Paddle removal(Not Applicable) - Morris Baker DO
[2023-01-10] MEDS: ceFAZolin 1,000 mg SDV 2000 MG IVP (11:18)
--- NOTE | 2023-01-10 13:39 | P.OP_ITS ---
Operative Report Date of procedure: January 10, 2023 Pre-op diagnosis: Lumbar stenosis with neurogenic claudication and degenerative scoliosis. Post-op diagnosis: same Procedure done: 1.? Posterior fusion T10 -pelvis 3.? Instrumentation T10-S1 4.? Lumbopelvic instrumentation 5. open right Sacral iliac fusion 6. open left sacral iliac fusion 7. L3/4 laminectomy with partial facetectomies 8. L4/5 laminectomy with partial facetectomies 9. L5/S1 laminectomy with facetectomies 10. use of computer navigation / stereotactic spine 11. use of autograft from same incision 12. allograft 13. Bone marrow aspirate from right iliac crest 14. Removal of spinal cord stimulatator paddle 15. Removal of spinal cord stimulatore battery Surgeon: Morris Baker DO Estimated blood loss (mL): 750 Procedure: 1.? Posterior fusion T10 -pelvis 3.? Instrumentation T10-S1 4.? Lumbopelvic instrumentation 5. open right Sacral iliac fusion 6. open left sacral iliac fusion 7. L3/4 laminectomy with partial facetectomies 8. L4/5 laminectomy with partial facetectomies 9. L5/S1 laminectomy with facetectomies 10. use of computer navigation / stereotactic spine 11. use of autograft from same incision 12. allograft 13. Bone marrow aspirate from right iliac crest 14. Removal of spinal cord stimulatator paddle 15. Removal of spinal cord stimulatore battery Patient is brought to the operative suite.? After undergoing anesthesia, the patient had neuro monitoring attached.? Patient was then placed in the prone position on the Russ table.? All areas of impingement were well-padded.? Patient was then prepped and draped in the normal sterile fashion.? Attention was first brought to the removal of the paddle for the neurostimulator. This was done by making incision over the thoracic spine where the previous incision was. Dissection was made down subperiosteally over the wires. Wires were identified and traced down into the interlaminar space. Once the location was identified and rongeur was used to bite through the lamina order from some scar tissue a curved curette and Kerrisons were used to bite around the bone. Facilitate removal of the neurotransmitter. The paddle was removed. Wires were cut. Next tension was brought to removal of the battery. Again incision was made over the right flank where the battery was. The battery was identified and then removed from the pouch then the wires were removed and pulled through from the spine. Wound was irrigated and closed with Vicryl and Monocryl suture. Skin incision was then made over the T10 to the sacrum.? Subperiosteal dissection was made out to the transverse processes of of T10 bilaterally, T11 bilaterally, T12 bilaterally, L1 bilaterally, L2 bilaterally? L3 bilaterally L4 bilaterally L5 bilaterally and sacral ala bilaterally.? The [employer] bone marrow aspirate kit was used to aspirate bone marrow aspirate.? This was done by using the sharp probe to open up the bone.? Aspiration was performed and then the blunt probe was then used to dissect down to through the bone tunnel.? An aspirating well drawn back a millimeter approximately 10 cc of bone marrow aspirate was used.? Admixed with the allograft and autograft bone that will be used. Next tension was brought to placing the fiducial for the computer navigation.? 2 pins were placed into the right iliac crest.? The fiducial was attached.? The C- arm was brought in and information from the C arm was then linked to the computer used for placing the screws.? Next attention was brought to placing the pedicle screws.? This was done by using the gearshift probe.? The probe was used to identify the pedicle.? Then the pedicle feeler was used followed by placement of screw.? This was done at T10 bilaterally, T11 bilaterally, T12 and L1 was skipped because previous kyphoplasty's were placed there. L2 on the left. Attempts were made at the right however the pedicle was extremely skinny. It felt like it had a breach. L3 bilaterally L4 bilaterally, L5 bilaterally and S1 bilaterally. Next attension was brought to placing the iliac screws.? This was done using the sacral ala iliac technique.? The gearshift probe linked to computer navigation was then placed through the sacral ala into the sacroiliac joint into the iliac crest.? Next the pedicle feeler was used followed by the computer navigated tap.? And then the screw was passed a 80 mm screw was placed on the right side and a 60 mm screw was placed on the left side.? Both the screws were 9.5 mm in diameter. Next attension was brought to performing the open and sacral iliac fusion.? This was done by again using the gearshift probe linked to computer navigation.? Followed by pedicle feeler followed by placing a wire and then the drill drilled over the wire and then bone graft was packed into the sacroiliac joint and into the drill hole.? And the sacroiliac screw was then placed.? This technique was done on both the right and left side. Next attention was brought to performing the laminectomy of L3.? This was done using the high-speed bur Kerrisons and curettes.? Once the lamina was removed and then attention was brought to performing a partial facetectomy on the contralateral side.? This was done again using the high-speed bur curettes and Kerrisons.? The ligamentum flavum was taken down bilaterally from L3 to L4.? Attention was then brought to the facet on the ipsilateral side.? The facet was taken down.? The L4 nerve was decompressed as it passed around the L4 pedicle.? The laminectomy was done for purposes of decompressing the nerve.? The L3 nerve was identified as it traversed through the L3/4 foramen.? The L4 nerve was traced around the L4 pedicles bilateral.? The scar tissue was pulled off the dura.? There was found to be in good repair. Next attention was brought to performing the laminectomy of L4.? This was done using the high-speed bur Kerrisons and curettes.? Once the lamina was removed and then attention was brought to performing a partial facetectomy on the contralateral side.? This was done again using the high-speed bur curettes and Kerrisons.? The ligamentum flavum was taken down bilaterally from L4 to L5.? Attention was then brought to the facet on the ipsilateral side.? The facet was taken down.? The L5 nerve was decompressed as it passed around the L5 pedicle.? The laminectomy was done for purposes of decompressing the nerve.? The L4 nerve was identified as it traversed through the L4/5 foramen.? The L5 nerve was traced around the L5 pedicles bilateral.? The scar tissue was pulled off the dura.? There was found to be in good repair. Next attention was brought to performing the laminectomy of L5.? This was done using the high-speed bur Kerrisons and curettes.? Once the lamina was removed and then attention was brought to performing a partial facetectomy on the contralateral side.? This was done again using the high-speed bur curettes and Kerrisons.? The ligamentum flavum was taken down bilaterally from L5 to S1.? Attention was then brought to the facet on the ipsilateral side.? The facet was taken down.? The S1 nerve was decompressed as it passed around the S1 pedicle.? The laminectomy was done for purposes of decompressing the nerve.? The L5 nerve was identified as it traversed through the L5/S1 foramen.? The S1 nerve was traced around the S1 pedicles bilateral.? The scar tissue was pulled off the dura.? There was found to be in good repair. Attention was then brought to attaching the rods to the screws placed in the T10 bilaterally, T11 bilaterally, T12 bilaterally, L 2 on the left?L3 bilaterally L4 bilaterally L5 bilaterally and S1 bilaterally.? This was then attached to the sacroiliac screw providing the lumbopelvic fixation.? Caps were torqued into position. Locking the construct in place. Wound was copiously irrigated and then attention was brought to decorticating the facets and transverse processes laterally.? Bone that was taken down from the lamina was used along with osteoamp fibers and sponges were packed into the lateral gutters along the facet joints.? This was done bilaterally. Wound was then closed in a layered fashion starting with the thoracolumbar fascia.? 0-vicryl was used the sub cutaneous tissue was closed with 2-0 vicryl and skin with 4-0 monocryl.? Glue was then used to seal the skin and a steril dressing was applied.? Patient was then placed in the supine position. The endotracheal tube was removed and patient was transferred to the PACU in stable condition.
[2023-01-10] MEDS: lactated ringers 1,000 ML 90 ML IV (14:22)
[2023-01-10] MEDS: HYDROmorphone 1 mg/mL INJ 1 mL 0.2 MG IVP ×3 (14:51→21:48)
[2023-01-10] MEDS: ketorolac 30 mg/mL INJ IVP ×2 (15:32→22:08)
[2023-01-10] MEDS: TRAMadol 50 mg Tablet PO (16:50)
[2023-01-10] MEDS: docusate sodium 100 mg Capsule PO (16:50)
[2023-01-10] MEDS: gabapentin 300 mg Capsule 600 MG PO ×2 (16:50→19:42)
--- NOTE | 2023-01-10 17:23 | P.CONIM_ITS ---
Providers/Reason For Consult Consulting Physician/Specialty*: Frase/Hospitalist Reason for Consult*: Allergy to pain medications, CKD Requesting Physician: Dr Baker Attending Physician: Morris Baker DO Primary Care Provider: Jayjay Rashid History of Present Illness History of Present Illness Zoë Calderon is a 72 year old female who presented to [facility] on the day of admission for planned fusion from T10 to the pelvis along with laminectomy with partial facetectomy at L3/4, L4/5, L5/S1. Estimated blood loss was 750 mls. She has a history of developing shock requiring ICU care many yea rs ago. At the time it was attributed to narcotic pain medication. She describes having had a tubal at the time. She had a biopsy followed by a laparoscopy followed by a laparotomy. Outpatient she takes tramadol but indicates that it does not really help her much except for maybe the first dose of the day. Perioperatively today she received fentanyl without any noted adverse events. She has been admitted to the ICU with plan to see how she tolerates Dilaudid. Current pain is rated at an 8 out of 10 and is in the low back area. No nausea or vomiting. No chest pain. Breathing is doing okay. She can feel her feet and wiggle all of her toes. Past medical history predominantly involves osteoarthritis and osteoporosis. She does take Prolia. She has stage II chronic kidney disease. She had been on statin therapy in the past. No known coronary artery disease, diabetes, strokes. She has had multiple prior back surgeries and has an idea of what to expect. Last bowel m ovements were over the weekend. She had one on Tuesday and Tuesday. She does often have constipation and will take Senokot if needed usually with good result. Review of Systems General: Reports: Other (ROS as per HPI or as noted here) Medications/Allergies Home Medications Medication Instructions Recorded Confirmed Last Taken Type sennosides 8.6 mg capsule (senna) 8.6 mg PO PRN PRN Constipation 03/27/19 01/10/23 01/09/23 History calcium carbonate 500 mg calcium 2,400 mg PO DAILY 08/14/21 01/10/23 01/09/23 History (1,250 mg) tablet diclofenac sodium 75 mg 75 mg PO DAILY #90 tabs 01/05/22 01/10/23 01/03/23 Rx tablet,delayed release nortriptyline 25 mg capsule 25 - 50 mg PO .BEDTIME PRN insomnia 10/20/22 01/10/23 01/09/23 History gabapentin 600 mg tablet 600 mg PO QID 90 days #360 tabs 12/09/22 01/10/23 01/09/23 Rx tramadol 50 mg tablet See Rx Instructions PO TID PRN 12/24/22 01/10/23 01/09/23 Rx pain 30 days #180 tabs denosumab 60 mg/mL subcutaneous 60 mg SUBCUT DIRECTED 01/07/23 01/07/23 Unknown History syringe (Prolia) Allergies Allergy/AdvReac Type Severity Reaction Status Date / Time meperidine [From Demerol] Allergy Unknown Unknown Verified 01/07/23 15:34 codeine AdvReac Unknown UNKNOWN Verified 01/07/23 15:34 Egg Derived AdvReac Unknown UNKNOWN Verified 01/07/23 15:34 morphine AdvReac Unknown UNKNOWN Verified 01/07/23 15:34 propoxyphene [From Darvon] AdvReac Unknown UNKNOWN Verified 01/07/23 15:34 Current Medications Generic Name Dose Route Start Last Admin Trade Name Freq PRN Reason Stop Dose Admin Docusate Sodium 100 mg 01/10/23 18:00 01/10/23 16:50 Docusate Sodium 100 Mg Capsule PO 100 mg BID BERNARDO Administration Gabapentin 600 mg 01/10/23 17:00 01/10/23 16:50 Gabapentin 300 Mg Capsule PO 600 mg QID BERNARDO Administration Hydromorphone HCl 0.2 mg 01/10/23 13:22 01/10/23 16:33 Hydromorphone 1 Mg/Ml Inj 1 Ml IVP 0.2 mg Q1H PRN Administration PAIN Cefazolin Sodium 2,000 mg/ 50 mls @ 100 mls/hr 01/10/23 15:15 01/10/23 14:55 Sodium Chloride IV 01/11/23 07:44 Infused Q8H BERNARDO Infusion Protocol Lactated Ringer's 1,000 mls @ 90 mls/hr 01/10/23 13:30 01/10/23 14:22 Lactated Ringers IV 90 mls/hr .[id number] BERNARDO Administration Ketorolac Tromethamine 30 mg 01/10/23 13:22 01/10/23 15:32 Ketorolac 30 Mg/Ml Inj IVP 30 mg Q6H PRN Administration BREAKTHROUGH PAIN Tramadol HCl 50 - 100 mg 01/10/23 13:30 01/10/23 16:50 Tramadol 50 Mg Tablet PO 100 mg TID PRN Administration pain PFSH Acute PFSH: Medical History (Updated 01/10/23 @ 19:11 by Reyna Teixeira MD) 4 para 3 Chronic kidney disease Osteoarthritis Hx of iron deficiency anemia Osteoporosis On Prolia Bursitis Opioid contract exists Aftercare for long-term (current) use of non-steroidal anti-inflammatories Degenerative lumbar spinal stenosis Surgical History (Updated 01/10/23 @ 17:37 by Reyna Teixeira MD) S/P epidural steroid injection History of implanted electronic device Typesafe-Epocrates spinal stimulator History of thoracic surgery H/O tubal ligation H/O cervical spine surgery S/P cervical spinal fusion H/O adenoidectomy Family History (Updated 01/10/23 @ 17:37 by Reyna Teixeira MD) Mother Ovarian cancer Other Cancer Denies family history of Anesthesia complication Bleeding disorder Social History (Updated 01/10/23 @ 17:38 by Reyna Teixeira MD) Smoking and tobacco/nicotine status: former use of tobacco/nicotine Second hand smoke exposure: No Alcohol intake: current Alcohol intake frequency: 0-2 Drinks per Day Alcohol type: wine Substance/Drug Use: never Marital status: Vitals/I&O/Wt Last Vital Signs Temp 97.0 F L 01/10/23 14:28 Pulse 74 01/10/23 15:28 Resp 16 01/10/23 16:33 BP 117/71 01/10/23 14:28 Pulse Ox 97 01/10/23 16:33 O2 Del Method Nasal Cannula 01/10/23 15:28 O2 Flow Rate 3 01/10/23 15:28 01/10/23 01/10/23 01/10/23 06:59 14:59 22:59 Intake Total 1066.667 / 1066.667 Output Total 750 / 750 Balance 316.667 / 316.667 Weight last 48 hrs Weight 103.873 kg Physical Exam Narrative: Patient is awake and alert. Able to answer questions and provide history. Lungs are clear to auscultation bilaterally. Regular rate and rhythm is noted. Abdomen is soft. Extremities no pitting edema. Sensation intact to light touch both feet and able to wiggle toes equally with strength equal via foot pumps bilaterally. Moving both arms. A drain is in place. Speech is clear, face is symmetric and extraocular movements are intact. Urinary Catheter Management: Alba: Cath Placed During This Visit: yes Urinary Catheter Date of Insertion: 01/10/23 Urinary Catheter Time of Insertion: 07:30 Data Other Labs: Laboratory Tests 12/28/22 01/05/23 09:59 10:59 WBC 6.86 Hgb 12.40 Plt Count 267 Sodium 140 Potassium 4.7 Chloride 103 Carbon Dioxide 23 BUN 17 Creatinine 1.1 H Glucose 93 Calcium 9.6 A&P Assessment and plan (1) Status post laminectomy with spinal fusion: Postop day 0 from posterior fusion [id number], bi-sacral iliac fusion, L3/4, L4/5, L5/S1 laminectomy with partial facetectomies and removal of spinal stimulator by Dr. Baker. On chronic pain control for chronic back issues usually with diclofenac, gabapentin and as needed tramadol plus laxative therapy (2) Chronic kidney disease: Stage II. Most recent creatinine 1.1. Qualifiers: Chronic kidney disease stage: stage 2 (mild) Qualified Code(s): N18.2 - Chronic kidney disease, stage 2 (mild) (3) Osteoporosis: Chronically on Prolia as well as calcium Qualifiers: Osteoporosis type: age-related Presence of current pathological frac ture: without current pathological fracture Qualified Code(s): M81.0 - Age- related osteoporosis without current pathological fracture Plan Usual post op care as per Dr Baker Pain currently being controlled with scheduled Toradol x4 doses, as needed Tylenol, as needed tramadol which is a home medication along with as needed IV Dilaudid. In addition patient is on her home gabapentin dosing. Post op antibiotics are ordered to stop after 3 doses [address] is in place DVT prophylaxis currently with SCDs Laxative therapy currently with Colace IVFs ordered with LR Recommendations: Recheck renal function and hemoglobin in the morning Monitor blood pressures and mental status and response to pain management If tolerates Dilaudid and needs something stronger than tramadol for home management could consider transition to oral using the lowest dose that provides relief We will add scheduled Senokot to Colace Initiate pharmacological DVT prophylaxis when appropriate from postoperative standpoint Ensure Alba catheter removed within 24 to 48 hours We will continue IV fluids overnight with tentative plan to stop in the morning if she is tolerating oral intake Stop ordered Prolia as she will not receive in the inpatient setting, can resume usual schedule upon discharge Stop order diclofenac while patient is on Toradol; can resume once Toradol complete or at discharge if renal function remains stable Continue home calcium dosing as ordered Okay to continue home nortriptyline as ordered so long as not excessively sedate from pain management Plans were discussed with patient and her and son, both of whom were in the room and all were given opportunity to ask questions We will follow along while patient is here Thank you for consultation Consult Attestations Medical Necessity Statement: As per surgery Diagnoses Status post laminectomy with spinal fusion Z98.1 Stage 2 chronic kidney disease N18.2 Chronic kidney disease stage: stage 2 (mild) Age-related osteoporosis without current pathological fracture M81.0 Osteoporosis type: age-related Presence of current pathological fracture: without current pathological fracture
--- NOTE | 2023-01-10 17:58 | ANE.PACU2 ---
Inpatient post-anesthesia follow up: Airway intact: Yes Vital signs: Temperature 97.0 F Pulse Rate 74 Respiratory Rate 16 Blood Pressure 117/71 Pulse Oximetry 97 Oxygen Delivery Me thod Nasal Cannula Oxygen Flow Rate 3 Fraction of Inspir ed Oxygen Hydration adequate: Yes Nausea and vomiting: No Pain level: 3 Mental status: Baseline
--- NOTE | 2023-01-10 22:02 | PC.NURSE ---
Patient educated on PRN pain medications. Patient states Tramdol doesn't help me. It never has. Explained to patient that I can call the physician to see if we can try something different than Tramadol. Patient states I'm too scared to try Oxycodone or Hydrocodone. This nurse asked patient what her reaction to morphine/codeine is and patient states shock. Patient rating pain 5/10 at beginning of shift. Currently rating pain 10/10. PRN Dilaudid given and patient repositioned in bed.
[2023-01-10] MEDS: nortriptyline 25 mg Capsule PO (22:17)
[2023-01-11] VITALS (57 sets, daily range): BP systolic 75–117; BP diastolic 32–84; PULSE 78–103; RESP 4–36; TEMP 36.7–37; O2SAT 89–99
[2023-01-11] MEDS: TRAMadol 50 mg Tablet PO (00:41)
[2023-01-11] MEDS: lactated ringers 1,000 ML 90 ML IV (00:42)
[2023-01-11] MEDS: ketorolac 30 mg/mL INJ IVP (03:57)
--- NOTE | 2023-01-11 04:23 | PC.NURSE ---
Dr. Fajardo notified of urine output of 200 ml throughout shift and soft blood pressures throughout the night with currently blood pressure of 82/46. Now new orders received.
--- NOTE | 2023-01-11 06:08 | PC.NURSE ---
Addendum entered by Shayy Lr RN 01/11/23 06:22: Patient states I'm known for low blood pressure. Original Note: MAP is still maintaining in the 50s. Patient's blood pressure is currently 81/38. Dr. Fajardo notified. Ordered to have CBC drawn as soon as possible. Lab notified. Attempt to contact Dr. Baker with no answer.
[2023-01-11 06:19] LABS: Basophils % 0.2 %; Hematocrit 24.9 % (36-47); Lymphocytes % 10.9 %; Mean Corpuscular HGB Conc 30.1 g/dL (30-55); Mean Corpuscular Hemoglobin 28.7 pg (27-33); Mean Corpuscular Volume 95.4 fl (85-98); Mean Platelet Volume 10.5 fL (7.4-10.4); Neutrophils % 77.6 %; Nucleated Red Blood Cells % 0 %; Platelet Count 158 10^3/cmm (157-399); Red Blood Count 2.61 10^6/uL (3.85-5.65); Red Cell Distribution Width 16.3 % (12.1-15.1); White Blood Count 9.28 10^3/uL (3.29-11.43)
[2023-01-11] MEDS: ceFAZolin 2,000 MG in sodium chloride 0.9% (plus) 50 ML 100 MG IV (06:20)
--- NOTE | 2023-01-11 06:23 | PC.NURSE ---
Addendum entered by Shayy Lr RN 01/11/23 06:34: One unit PRBC ordered. Original Note: Dr. Fajardo notified of hemoglobin of 7.5.
[2023-01-11 06:38] LABS: Anion Gap 12.2 (5-19); Blood Urea Nitrogen 16 mg/dL (8-23); Calcium 7.6 mg/dL (8.5-10.5); Carbon Dioxide 23 mmol/L (22-29); Chloride 108 mmol/L (98-107); Creatinine Clr Calc Pharmacy 45.7282; Glucose 108 mg/dL (65-115); Osmolality Calculated 290 mOsm/kg (285-295); Potassium 4.2 mmol/L (3.5-5.1); Sodium 139 mmol/L (136-145)
[2023-01-11 07:46] LABS: Glucose Point of Care 110 mg/dL (70-110)
[2023-01-11] MEDS: gabapentin 300 mg Capsule 600 MG PO ×4 (09:41→21:56)
[2023-01-11] MEDS: HYDROmorphone 1 mg/mL INJ 1 mL 0.2 MG IVP ×5 (09:41→23:17)
[2023-01-11] MEDS: docusate sodium 100 mg Capsule PO ×2 (09:41→17:43)
[2023-01-11 10:59] LABS: Cortisol Random 1.12 ug/dL (2.47-19.5)
[2023-01-11 11:03] LABS: Ferritin 23 ng/mL (15-150); Folate Level 9.2 ng/mL (4.8-37.3); Iron 94 ug/dL (37-145); Percent Saturation 38.2 % (20-50); Thyroid Stimulating Hormone 0.31 uIU/mL (0.27-4.20); Total Iron Binding Capacity 246 mcg/dl; Unsaturated Iron Binding 152 ug/dL (112-347); Vitamin B12 150 pg/mL (232-1245)
[2023-01-11 12:19] LABS: Glucose Point of Care 121 mg/dL (70-110)
[2023-01-11] MEDS: lactated ringers 1,000 ML 50 ML IV (13:07)
[2023-01-11] MEDS: midodrine 5 mg TABLET PO ×2 (14:54→21:57)
[2023-01-11 15:06] LABS: Basophils % 0.2 %; Eosinophils % 0.3 %; Hematocrit 26.5 % (36-47); Lymphocytes # 1.6 10^3/uL (0.8-4.8); Lymphocytes % 17.5 %; Mean Corpuscular HGB Conc 30.6 g/dL (30-55); Mean Platelet Volume 10.6 fL (7.4-10.4); Monocytes # 0.8 10^3/uL (0.2-0.9); Monocytes % 9.2 %; Neutrophils # 6.47 10^3/uL (1.8-7.7); Neutrophils % 72.4 %; Nucleated Red Blood Cells % 0 %; Platelet Count 158 10^3/cmm (157-399); Red Blood Count 2.79 10^6/uL (3.85-5.65); White Blood Count 8.95 10^3/uL (3.29-11.43)
[2023-01-11 15:24] LABS: Lactate (Lactic Acid level) 2.5 mmol/L (0.5-2.2)
--- NOTE | 2023-01-11 17:06 | P.PN_ITS ---
Subjective 2 Subjective: Patient was examined this morning, she denies a history of GI bleeds, denies a history of blood transfusions, she had a colonoscopy with polyps removed, but no blood or black stools, she denies a history of hypothyroidism, no history of adrenal insufficiency, she does report that she is sensitive to narcotic medications, her blood pressures tend to be low when she is given narcotics, Vitals/I&O/Wt Last Vital Signs Temp 98.4 F 01/11/23 12:29 Pulse 96 01/11/23 16:00 Resp 13 01/11/23 16:00 BP 106/62 01/11/23 15:30 Pulse Ox 91 01/11/23 14:30 O2 Del Method Nasal Cannula 01/11/23 08:00 O2 Flow Rate 2 01/11/23 08:00 01/11/23 01/11/23 01/11/23 06:59 14:59 22:59 Intake Total 1610 / 2916.667 1610 / 1610 Output Total 575 / 1950 125 / 125 Balance 1035 / 461.614 6818 / 1485 Weight last 48 hrs Weight 105.188 kg Weight 103.873 kg Physical Exam 2 Const: COMMON NORMALS: no acute distress and patient oriented x3 Resp: COMMON NORMALS: normal respiratory effort, No retractions, No use of accessory muscles and clear to auscultation bilaterally AUSCULTATION: clear to auscultation bilaterally Cardio: COMMON NORMALS: regular rate, regular rhythm, S1 normal heart sound present and S2 normal heart sound present RATE: regular rate RHYTHM: r egular rhythm HEART SOUNDS: S1 normal heart sound present and S2 normal heart sound present GI: COMMON NORMALS: Normal to inspection, nondistended, normoactive bowel sounds present and non-tender Extremity: COMMON NORMALS: no pedal edema Neuro: COMMON NORMALS: patient oriented x3 Psych: COMMON NORMALS: mental status grossly normal Urinary Catheter Management: Alba: Cath Placed During This Visit: yes Reason for Continuing Indwelling Catheter: Perioperative Use in Selected Surgeries Urinary Catheter Date of Insertion: 01/10/23 Urinary Catheter Time of Insertion: 07:30 Data 01/11/23 14:18 01/11/23 05:39 A&P Assessment and plan (1) Status post laminectomy with spinal fusion: Postop day 0 from posterior fusion [id number], bi-sacral iliac fusion, L3/4, L4/5, L5/S1 laminectomy with partial facetectomies and removal of spinal stimulator by Dr. Baker. On chronic pain control for chronic back issues usually with diclofenac, gabapentin and as needed tramadol plus laxative therapy (2) Chronic kidney disease: Stage II. Most recent creatinine 1.1. Qualifiers: Chronic kidney disease stage: stage 2 (mild) Qualified Code(s): N18.2 - Chronic kidney disease, stage 2 (mild) (3) Osteoporosis: Chronically on Prolia as well as calcium Qualifiers: Osteoporosis type: age-related Presence of current pathological fracture: without current pathological fracture Qualified Code(s): M81.0 - Age- related osteoporosis without current pathological fracture (4) Postoperative anemia: (5) Postoperative hypotension: (6) Adrenal insufficiency: (7) Vitamin B12 deficiency: Plan Postop day 1 from posterior fusion [id number], bi-sacral iliac fusion, L3/4, L4/5, L5/S1 laminectomy with partial facetectomies and removal of spinal stimulator by Dr. Baker. On chronic pain control for chronic back issues usually with diclofenac, gabapentin and as needed tramadol plus laxative therapy Postoperative anemia ? ESBL 750 cc, ? Hemovac in place, ? Hemoglobin 7.5, status post 1 unit PRBC, ? Monitor hemodynamics closely, iron studies, Hemoccult stool ? No flank pain, no back pain ? Spoke to Dr. Baker, hold off on anticoagulant therapy for the next 24 hours, continue SCDs Postoperative hypotension, with anemia, elevated lactic acid, ? Her cortisol levels are low, possible adrenal insufficiency ? Start fludrocortisone, with hydrocortisone, with midodrine 5 mg 3 times daily, ? Monitor blood pressures closely, ? She also has postoperative anemia that could be playing a role, ? Monitor blood pressures closely especially with ambulation, ? TSH, Vitamin B12 deficiency, start vitamin B12 Attestations 2 Medical Necessity Statement*: Patient requires hospitalization for postoperative anemia, hypotension, concerns for adrenal insufficiency, requiring blood transfusion, midodrine Diagnoses Status post laminectomy with spinal fusion Z98.1 Stage 2 chronic kidney disease N18.2 Chronic kidney disease stage: stage 2 (mild) Age-related osteoporosis without current pathological fracture M81.0 Osteoporosis type: age-related Presence of current pathological fracture: without current pathological fracture Postoperative anemia D64.9 Postoperative hypotension I95.81 Adrenal insufficiency E27.40 Vitamin B12 deficiency E53.8
[2023-01-11] MEDS: fludrocortisone 0.1 mg Tablet PO (17:43)
[2023-01-11] MEDS: cyanocobalamin 1,000 mcg Tablet 1000 MCG PO (17:43)
[2023-01-11] MEDS: sennosides 8.6 mg Tablet PO (21:57)
[2023-01-11 22:07] LABS: Cortisol Random 8.15 ug/dL (2.47-19.5)
[2023-01-12] VITALS (54 sets, daily range): BP systolic 96–131; BP diastolic 40–82; PULSE 85–99; RESP 0–36; TEMP 37; O2SAT 90–99; BMI 44.9
[2023-01-12] MEDS: HYDROmorphone 1 mg/mL INJ 1 mL 0.2 MG IVP ×6 (01:41→19:52)
[2023-01-12] MEDS: acetaminophen 325 mg Tablet 650 MG PO (01:41)
[2023-01-12 04:25] LABS: Basophils % 0.2 %; Eosinophils # 0.1 10^3/uL (0.0-0.8); Eosinophils % 1.2 %; Hematocrit 25.1 % (36-47); Lymphocytes # 1.3 10^3/uL (0.8-4.8); Lymphocytes % 15.1 %; Mean Corpuscular HGB Conc 30.7 g/dL (30-55); Mean Corpuscular Hemoglobin 28.5 pg (27-33); Mean Platelet Volume 10.4 fL (7.4-10.4); Monocytes # 0.8 10^3/uL (0.2-0.9); Monocytes % 9.5 %; Neutrophils # 6.49 10^3/uL (1.8-7.7); Neutrophils % 73.3 %; Nucleated Red Blood Cells % 0 %; Platelet Count 154 10^3/cmm (157-399); Red Cell Distribution Width 16.3 % (12.1-15.1); White Blood Count 8.86 10^3/uL (3.29-11.43)
[2023-01-12 04:43] LABS: Alanine Aminotransferase < 5 U/L (0-33); Albumin Level 2.6 g/dL (3.5-5.2); Alkaline Phosphatase 67 U/L (35-105); Anion Gap 10.9 (5-19); Aspartate Amino Transferase 24 U/L (0-32); Blood Urea Nitrogen 17 mg/dL (8-23); Calcium 8.3 mg/dL (8.5-10.5); Carbon Dioxide 25 mmol/L (22-29); Chloride 110 mmol/L (98-107); Globulin 2.3 g/dL (1.3-4.6); Glucose 111 mg/dL (65-115); Magnesium 1.9 mg/dL (1.7-2.3); Osmolality Calculated 296 mOsm/kg (285-295); Phosphorus 2.6 mg/dL (2.5-4.5); Potassium 3.9 mmol/L (3.5-5.1); Sodium 142 mmol/L (136-145); Total Bilirubin 0.2 mg/dL (0.15-1.2); Total Protein 4.9 g/dL (6.6-8.7)
[2023-01-12 04:48] LABS: Lactate (Lactic Acid level) 0.6 mmol/L (0.5-2.2)
[2023-01-12 05:00] LABS: Cortisol Random 6.38 ug/dL (2.47-19.5)
[2023-01-12] MEDS: hydrocortisone 10 mg Tablet 5 MG PO ×2 (05:12→11:53)
--- NOTE | 2023-01-12 06:18 | P.PN_ITS ---
Subjective 2 Subjective: Patient is in bed currently in the process of putting a new IV in. Patient did well throughout the night her pressures were stable. Her hemoglobin was 7.7 this morning Vitals/I&O/Wt Last Vital Signs Temp 98.6 F 01/11/23 21:30 Pulse 93 01/12/23 04:30 Resp 16 01/12/23 05:12 BP 110/62 01/12/23 04:30 Pulse Ox 93 01/12/23 05:12 O2 Del Method Nasal Cannula 01/12/23 04:30 O2 Flow Rate 1 01/12/23 04:30 01/11/23 01/11/23 01/12/23 14:59 22:59 06:59 Intake Total 1610 / 1610 Output Total 125 / 125 950 / 1075 400 / 1475 Balance 1485 / 1485 -950 / 535 -400 / 135 Weight last 48 hrs Weight 231 lb 14.4 oz Weight 229 lb Physical Exam 2 Narrative: In bed getting IV. Currently drain output looks like it was above 224.. Slowed down from yesterday planning on leaving the drain in 1 more day. Urinary Catheter Management: Alba: Cath Placed During This Visit: yes Reason for Continuing Indwelling Catheter: Accurate Measurement of Urinary Output in Critically Ill Patients Urinary Catheter Date of Insertion: 01/10/23 Urinary Catheter Time of Insertion: 07:30 Data 01/12/23 04:00 01/12/23 04:00 A&P Assessment and plan (1) Status post laminectomy with spinal fusion: Postop day 2 T10 to pelvis. At this point patient is stable was up yesterday with PT. Will continue current treatment. Encourage up with PT today. Planning on taking out the drain tomorrow. Attestations 2 Medical Necessity Statement*: Pain control Coding Level of Care Code Acute Code for Chg Fwd Diagnoses Status post laminectomy with spinal fusion Z98.1
[2023-01-12] MEDS: cyanocobalamin 1,000 mcg Tablet 1000 MCG PO (09:18)
[2023-01-12] MEDS: gabapentin 300 mg Capsule 600 MG PO ×4 (09:18→21:06)
[2023-01-12] MEDS: docusate sodium 100 mg Capsule PO ×2 (09:18→17:50)
[2023-01-12] MEDS: TRAMadol 50 mg Tablet PO ×2 (09:18→15:23)
[2023-01-12] MEDS: midodrine 5 mg TABLET PO ×3 (09:18→21:06)
[2023-01-12] MEDS: fludrocortisone 0.1 mg Tablet PO (09:18)
[2023-01-12] MEDS: lactated ringers 1,000 ML 50 ML IV (09:19)
--- NOTE | 2023-01-12 09:53 | PC.SOCIAL ---
Pg 2 IMM Explained to pt Pg 2 IMM. No questions voiced. Provided pt a copy. Initialed, dated, & timed a copy & placed in chart.
[2023-01-12] MEDS: HYDROmorphone 1 mg/mL INJ 1 mL 0.4 MG IVP (10:19)
[2023-01-12] MEDS: polyethylene glycol 3350 Pkt 17 gm PO (10:22)
--- NOTE | 2023-01-12 14:07 | P.PN_ITS ---
Subjective 2 Subjective: Patient was seen this morning, she tells me that she has not had a bowel movement, she did work with physical therapy yesterday but had a significant amount of pain, that Dilaudid she is getting, is helping with her pain, but it does not last as long, her blood pressures look better, especially with the steroids and the midodrine, we discussed giving her a dose of 0.4 mg of Dilaudid she is agreeable, she has not had a bowel movement, so we will start her on MiraLAX, she is on Colace, she tells me that she still too weak, will keep in the Alba catheter plan on taking on the next 24 hours, once her strength improves discussed with Dr. Baker, hold off on anticoagulant therapy until tomorrow Vitals/I&O/Wt Last Vital Signs Temp 98.6 F 01/11/23 21:30 Pulse 91 01/12/23 13:30 Resp 18 01/12/23 13:36 BP 124/56 01/12/23 13:30 Pulse Ox 94 01/12/23 13:36 O2 Del Method Nasal Cannula 01/12/23 06:30 O2 Flow Rate 1 01/12/23 06:30 01/11/23 01/12/23 01/12/23 22:59 06:59 14:59 Intake Total 1422 / 1422 Output Total 950 / 1075 500 / 1575 Balance -950 / 535 -500 / 35 1422 / 1422 Weight last 48 hrs Weight 104.326 kg Weight 105.188 kg Weight 103.873 kg Physical Exam 2 Const: COMMON NORMALS: no acute distress and patient oriented x3 Resp: COMMON NORMALS: normal respiratory effort, No retractions, No use of accessory muscles and clear to auscultation bilaterally AUSCULTATION: clear to auscultation bilaterally Cardio: COMMON NORMALS: regular rate, regular rhythm, S1 normal heart sound present and S2 normal heart sound present RATE: regular rate RHYTHM: r egular rhythm HEART SOUNDS: S1 normal heart sound present and S2 normal heart sound present GI: COMMON NORMALS: Normal to inspection, nondistended, normoactive bowel sounds present and non-tender Extremity: COMMON NORMALS: no pedal edema Neuro: COMMON NORMALS: patient oriented x3 Psych: COMMON NORMALS: mental status grossly normal Urinary Catheter Management: Alba: Cath Placed During This Visit: yes Reason for Continuing Indwelling Catheter: Accurate Measurement of Urinary Output in Critically Ill Patients Urinary Catheter Date of Insertion: 01/10/23 Urinary Catheter Time of Insertion: 07:30 Data 01/12/23 04:00 01/12/23 04:00 A&P Assessment and plan (1) Status post laminectomy with spinal fusion: Postop day 0 from posterior fusion [id number], bi-sacral iliac fusion, L3/4, L4/5, L5/S1 laminectomy with partial facetectomies and removal of spinal stimulator by Dr. Baker. On chronic pain control for chronic back issues usually with diclofenac, gabapentin and as needed tramadol plus laxative therapy (2) Chronic kidney disease: Stage II. Most recent creatinine 1.1. Qualifiers: Chronic kidney disease stage: stage 2 (mild) Qualified Code(s): N18.2 - Chronic kidney disease, stage 2 (mild) (3) Osteoporosis: Chronically on Prolia as well as calcium Qualifiers: Osteoporosis type: age-related Presence of current pathological fracture: without current pathological fracture Qualified Code(s): M81.0 - Age- related osteoporosis without current pathological fracture (4) Postoperative anemia: (5) Postoperative hypotension: (6) Adrenal insufficiency: (7) Vitamin B12 deficiency: Plan Postop day 1 from posterior fusion [id number], bi-sacral iliac fusion, L3/4, L4/5, L5/S1 laminectomy with partial facetectomies and removal of spinal stimulator by Dr. Baker. On chronic pain control for chronic back issues usually with diclofenac, gabapentin and as needed tramadol plus laxative therapy Postoperative anemia ? ESBL 750 cc, ? Hemovac in place, ? Hemoglobin 7.7, status post 1 unit PRBC, ? Monitor hemodynamics closely, iron studies, Hemoccult stool ? No flank pain, no back pain ? Spoke to Dr. Baker, hold off on anticoagulant therapy for the next 24 hours, continue SCDs Postoperative hypotension, with anemia, elevated lactic acid, ? Her cortisol levels are low, possible adrenal insufficiency ? Start fludrocortisone, with hydrocortisone, with midodrine 5 mg 3 times daily, ? Monitor blood pressures closely, ? She also has postoperative anemia that could be playing a role, ? Monitor blood pressures closely especially with ambulation, ? TSH, Vitamin B12 deficiency, start vitamin B12 Plan for today, continue steroids continue midodrine, pain control, up out of bed, bowel regimen Attestations 2 Medical Necessity Statement*: Patient requires hospitalization for postoperative anemia, postop hypotension, intractable back pain Diagnoses Status post laminectomy with spinal fusion Z98.1 Stage 2 chronic kidney disease N18.2 Chronic kidney disease stage: stage 2 (mild) Age-related osteoporosis without current pathological fracture M81.0 Osteoporosis type: age-related Presence of current pathological fracture: without current pathological fracture Postoperative anemia D64.9 Postoperative hypotension I95.81 Adrenal insufficiency E27.40 Vitamin B12 deficiency E53.8
[2023-01-12] MEDS: sennosides 8.6 mg Tablet PO (21:06)
[2023-01-12] MEDS: nortriptyline 25 mg Capsule PO (21:36)
[2023-01-13] VITALS (36 sets, daily range): BP systolic 86–148; BP diastolic 47–84; PULSE 86–97; RESP 6–33; TEMP 36.8–37; O2SAT 85–100
[2023-01-13] MEDS: HYDROmorphone 1 mg/mL INJ 1 mL 0.2 MG IVP ×5 (00:02→09:36)
[2023-01-13 05:03] LABS: Alanine Aminotransferase < 5 U/L (0-33); Albumin Level 2.5 g/dL (3.5-5.2); Alkaline Phosphatase 74 U/L (35-105); Anion Gap 11.2 (5-19); Aspartate Amino Transferase 18 U/L (0-32); Blood Urea Nitrogen 13 mg/dL (8-23); Calcium 8.4 mg/dL (8.5-10.5); Carbon Dioxide 24 mmol/L (22-29); Chloride 107 mmol/L (98-107); Globulin 2.6 g/dL (1.3-4.6); Glucose 103 mg/dL (65-115); Magnesium 2.1 mg/dL (1.7-2.3); Osmolality Calculated 286 mOsm/kg (285-295); Phosphorus 2.2 mg/dL (2.5-4.5); Potassium 4.2 mmol/L (3.5-5.1); Sodium 138 mmol/L (136-145); Total Bilirubin 0.3 mg/dL (0.15-1.2); Total Protein 5.1 g/dL (6.6-8.7)
[2023-01-13] MEDS: hydrocortisone 10 mg Tablet 5 MG PO ×2 (05:15→11:05)
[2023-01-13 05:38] LABS: Basophils % 0.3 %; Eosinophils # 0.3 10^3/uL (0.0-0.8); Eosinophils % 3.5 %; Hematocrit 24.9 % (36-47); Lymphocytes # 1.6 10^3/uL (0.8-4.8); Lymphocytes % 17.2 %; Mean Corpuscular HGB Conc 30.1 g/dL (30-55); Mean Corpuscular Hemoglobin 29.1 pg (27-33); Mean Corpuscular Volume 96.5 fl (85-98); Monocytes # 0.9 10^3/uL (0.2-0.9); Monocytes % 9.8 %; Neutrophils # 6.46 10^3/uL (1.8-7.7); Neutrophils % 68.7 %; Nucleated Red Blood Cells % 0 %; Platelet Count 157 10^3/cmm (157-399); Red Blood Count 2.58 10^6/uL (3.85-5.65); Red Cell Distribution Width 16.2 % (12.1-15.1); White Blood Count 9.41 10^3/uL (3.29-11.43)
[2023-01-13 06:01] LABS: Lactate (Lactic Acid level) 0.6 mmol/L (0.5-2.2)
--- NOTE | 2023-01-13 08:06 | P.PN_ITS ---
Subjective 2 Subjective: Patient resting in bed at this point she is in some pain she needs her pain medication. When she gets her pain meds it is controlled. She was up with physical therapy yesterday when she walks she does well but getting up from bed to standing is difficult. Vitals/I&O/Wt Last Vital Signs Temp 98.6 F 01/13/23 02:00 Pulse 89 01/13/23 07:10 Resp 17 01/13/23 07:44 BP 124/67 01/13/23 06:00 Pulse Ox 95 01/13/23 07:10 O2 Del Method Nasal Cannula 01/13/23 07:10 O2 Flow Rate 2 01/13/23 07:10 01/12/23 01/13/23 01/13/23 22:59 06:59 14:59 Intake Total 320 / 1964 240 / 2204 Output Total 750 / 950 400 / 1350 Balance -430 / 1014 -160 / 854 Weight last 48 hrs Weight 229 lb 3.2 oz Weight 230 lb Physical Exam 2 Narrative: 5-5 strength bilateral lower extremities . Urinary Catheter Management: Alba: Cath Placed During This Visit: yes Reason for Continuing Indwelling Catheter: Accurate Measurement of Urinary Output in Critically Ill Patients Urinary Catheter Date of Insertion: 01/10/23 Urinary Catheter Time of Insertion: 07:30 Data 01/13/23 05:20 01/13/23 04:20 A&P Assessment and plan (1) Status post laminectomy with spinal fusion: Postop day 3 from T10 to pelvis fusion. DC Hemovac drain Up with physical therapy Continue to monitor hemoglobin Possible transfer to the floor today. Attestations 2 Medical Necessity Statement*: p pain control Coding Level of Care Code Acute Code for Chg Fwd Diagnoses Status post laminectomy with spinal fusion Z98.1
[2023-01-13] MEDS: polyethylene glycol 3350 Pkt 17 gm PO (09:36)
[2023-01-13] MEDS: midodrine 5 mg TABLET PO ×3 (09:37→20:27)
[2023-01-13] MEDS: docusate sodium 100 mg Capsule PO ×2 (09:37→17:19)
[2023-01-13] MEDS: gabapentin 300 mg Capsule 600 MG PO ×4 (09:37→20:27)
[2023-01-13] MEDS: fludrocortisone 0.1 mg Tablet PO (09:38)
[2023-01-13] MEDS: cyanocobalamin 1,000 mcg Tablet 1000 MCG PO (09:38)
--- NOTE | 2023-01-13 11:02 | PC.NURSE ---
Dilaudid IV pulled and was to give to pt prior to PT; however, the MD was in the room with the pt and wants to hold off on dilaudid IVP at this time and save the medication and try oxy 5mg po now instead. Medication was placed in the pt's locked medication drawer cabinet in the ICU med room at this time.
[2023-01-13] MEDS: oxyCODONE 5 mg IR Tab/Cap PO ×4 (11:05→20:34)
[2023-01-13] MEDS: enoxaparin 40 mg/0.4 mL Syringe SUBCUT (13:04)
[2023-01-13] MEDS: ondansetron 2 mg/ML SDV 2 mL 4 MG IVP (13:04)
[2023-01-13 14:15] LABS: Basophils % 0.3 %; Eosinophils # 0.2 10^3/uL (0.0-0.8); Eosinophils % 1.7 %; Hematocrit 27.9 % (36-47); Lymphocytes # 1.3 10^3/uL (0.8-4.8); Lymphocytes % 12.5 %; Mean Corpuscular HGB Conc 30.8 g/dL (30-55); Mean Corpuscular Volume 93.9 fl (85-98); Mean Platelet Volume 10.5 fL (7.4-10.4); Monocytes % 9.9 %; Neutrophils % 73.2 %; Nucleated Red Blood Cells % 0 %; Platelet Count 184 10^3/cmm (157-399); Red Blood Count 2.97 10^6/uL (3.85-5.65); White Blood Count 10.24 10^3/uL (3.29-11.43)
--- NOTE | 2023-01-13 16:15 | P.PN_ITS ---
Subjective 2 Subjective: Patient was seen this morning, she is quite teary, as she continues to have pain Vitals/I&O/Wt Last Vital Signs Temp 98.6 F 01/13/23 02:00 Pulse 91 01/13/23 16:00 Resp 21 H 01/13/23 16:00 BP 121/73 01/13/23 16:00 Pulse Ox 100 01/13/23 16:00 O2 Del Method Nasal Cannula 01/13/23 07:10 O2 Flow Rate 2 01/13/23 07:10 01/13/23 01/13/23 01/13/23 06:59 14:59 22:59 Intake Total 240 / 2204 600 / 600 Output Total 400 / 1350 1550 / 1550 Balance -160 / 854 -950 / -950 Weight last 48 hrs Weight 103.963 kg Weight 104.326 kg Physical Exam 2 Const: COMMON NORMALS: no acute distress and patient oriented x3 Resp: COMMON NORMALS: normal respiratory effort, No retractions, No use of accessory muscles and clear to auscultation bilaterally AUSCULTATION: clear to auscultation bilaterally Cardio: COMMON NORMALS: regular rate, regular rhythm, S1 normal heart sound present and S2 normal heart sound present RATE: regular rate RHYTHM: r egular rhythm HEART SOUNDS: S1 normal heart sound present and S2 normal heart sound present GI: COMMON NORMALS: Normal to inspection, nondistended, normoactive bowel sounds present and non-tender Extremity: COMMON NORMALS: no pedal edema Neuro: COMMON NORMALS: patient oriented x3 Psych: COMMON NORMALS: mental status grossly normal Urinary Catheter Management: Alba: Cath Placed During This Visit: yes Reason for Continuing Indwelling Catheter: Accurate Measurement of Urinary Output in Critically Ill Patients Urinary Catheter Date of Insertion: 01/10/23 Urinary Catheter Time of Insertion: 07:30 Data 01/14/23 05:17 01/14/23 05:17 A&P Assessment and plan (1) Status post laminectomy with spinal fusion: Postop day 0 from posterior fusion [id number], bi-sacral iliac fusion, L3/4, L4/5, L5/S1 laminectomy with partial facetectomies and removal of spinal stimulator by Dr. Baker. On chronic pain control for chronic back issues usually with diclofenac, gabapentin and as needed tramadol plus laxative therapy (2) Chronic kidney disease: Stage II. Most recent creatinine 1.1. Qualifiers: Chronic kidney disease stage: stage 2 (mild) Qualified Code(s): N18.2 - Chronic kidney disease, stage 2 (mild) (3) Osteoporosis: Chronically on Prolia as well as calcium Qualifiers: Osteoporosis type: age-related Presence of current pathological fracture: without current pathological fracture Qualified Code(s): M81.0 - Age- related osteoporosis without current pathological fracture (4) Postoperative anemia: (5) Postoperative hypotension: (6) Adrenal insufficiency: (7) Vitamin B12 deficiency: Plan Postop day 1 from posterior fusion [id number], bi-sacral iliac fusion, L3/4, L4/5, L5/S1 laminectomy with partial facetectomies and removal of spinal stimulator by Dr. Baker. On chronic pain control for chronic back issues usually with diclofenac, gabapentin and as needed tramadol plus laxative therapy Postoperative anemia ? ESBL 750 cc, ? Hemovac in place, ? Hemoglobin 7.7, status post 1 unit PRBC, ? Monitor hemodynamics closely, iron studies, Hemoccult stool ? No flank pain, no back pain ? Spoke to Dr. Baker, hold off on anticoagulant therapy for the next 24 hours, continue SCDs Postoperative hypotension, with anemia, elevated lactic acid, ? Her cortisol levels are low, possible adrenal insufficiency ? Start fludrocortisone, with hydrocortisone, with midodrine 5 mg 3 times daily, ? Monitor blood pressures closely, ? She also has postoperative anemia that could be playing a role, ? Monitor blood pressures closely especially with ambulation, ? TSH, Vitamin B12 deficiency, start vitamin B12 Plan for today, continue steroids continue midodrine, pain control, up out of bed, bowel regimen Attestations 2 Medical Necessity Statement*: Will moved to general medical floors requires pain control, PT OT Diagnoses Status post laminectomy with spinal fusion Z98.1 Stage 2 chronic kidney disease N18.2 Chronic kidney disease stage: stage 2 (mild) Age-related osteoporosis without current pathological fracture M81.0 Osteoporosis type: age-related Presence of current pathological fracture: without current pathological fracture Postoperative anemia D64.9 Postoperative hypotension I95.81 Adrenal insufficiency E27.40 Vitamin B12 deficiency E53.8
[2023-01-13] MEDS: sennosides 8.6 mg Tablet PO (20:27)
--- NOTE | 2023-01-13 20:32 | PC.NURSE ---
Dr. Fajardo notified that patient cannot have PRN Oxy for another hour. Notified that patient was on PRN Dilaudid but that this has been discontinued due to not being renewed. Ordered to give PRN Oxy now.
--- NOTE | 2023-01-13 21:54 | PC.NURSE ---
Report called to DEANDRA Solis. Patient transferred to Med-Surg. notified.
[2023-01-14] VITALS (10 sets, daily range): BP systolic 107–113; BP diastolic 65–73; PULSE 81–91; RESP 16–19; TEMP 36.6–37.1; O2SAT 93–99
[2023-01-14] MEDS: oxyCODONE 5 mg IR Tab/Cap PO (04:59)
[2023-01-14 05:24] LABS: Basophils % 0.5 %; Eosinophils # 0.4 10^3/uL (0.0-0.8); Eosinophils % 4.6 %; Hematocrit 27.3 % (36-47); Lymphocytes # 1.6 10^3/uL (0.8-4.8); Lymphocytes % 18.2 %; Mean Corpuscular HGB Conc 30.4 g/dL (30-55); Mean Corpuscular Volume 95.5 fl (85-98); Mean Platelet Volume 9.7 fL (7.4-10.4); Monocytes % 11.5 %; Neutrophils # 5.69 10^3/uL (1.8-7.7); Neutrophils % 64.6 %; Nucleated Red Blood Cells % 0 %; Platelet Count 183 10^3/cmm (157-399); Red Blood Count 2.86 10^6/uL (3.85-5.65); White Blood Count 8.79 10^3/uL (3.29-11.43)
[2023-01-14 05:42] LABS: Alanine Aminotransferase < 5 U/L (0-33); Albumin Level 2.6 g/dL (3.5-5.2); Alkaline Phosphatase 76 U/L (35-105); Anion Gap 10.4 (5-19); Aspartate Amino Transferase 16 U/L (0-32); Blood Urea Nitrogen 10 mg/dL (8-23); Calcium 8.7 mg/dL (8.5-10.5); Carbon Dioxide 30 mmol/L (22-29); Chloride 105 mmol/L (98-107); Globulin 2.7 g/dL (1.3-4.6); Glucose 106 mg/dL (65-115); Magnesium 1.9 mg/dL (1.7-2.3); Osmolality Calculated 291 mOsm/kg (285-295); Phosphorus 2.8 mg/dL (2.5-4.5); Potassium 4.4 mmol/L (3.5-5.1); Sodium 141 mmol/L (136-145); Total Bilirubin 0.3 mg/dL (0.15-1.2); Total Protein 5.3 g/dL (6.6-8.7)
[2023-01-14] MEDS: oxyCODONE 10 mg ER (12 HR) Tablet PO ×2 (09:42→17:13)
[2023-01-14] MEDS: midodrine 5 mg TABLET PO ×3 (09:43→22:10)
[2023-01-14] MEDS: docusate sodium 100 mg Capsule PO ×2 (09:43→17:13)
[2023-01-14] MEDS: fludrocortisone 0.1 mg Tablet PO (09:43)
[2023-01-14] MEDS: gabapentin 300 mg Capsule 600 MG PO ×4 (09:43→22:10)
[2023-01-14] MEDS: cyanocobalamin 1,000 mcg Tablet 1000 MCG PO (09:43)
--- NOTE | 2023-01-14 13:27 | PC.SOCIAL ---
IMM Update pg 2 of IMM updated and reviewed w/ patient. Copy provided and Copy dated, initialed and placed in chart.
--- NOTE | 2023-01-14 13:59 | P.PN_ITS ---
Subjective 2 Subjective: Patient was seen this morning, she is quite teary this morning, she tells me that she is hurting, Vitals/I&O/Wt Last Vital Signs Temp 98.7 F 01/14/23 12:32 Pulse 89 01/14/23 12:32 Resp 18 01/14/23 12:32 BP 111/72 01/14/23 12:32 Pulse Ox 97 01/14/23 12:32 O2 Del Method Nasal Cannula 01/14/23 12:32 O2 Flow Rate 2 01/13/23 22:22 01/13/23 01/14/23 01/14/23 22:59 06:59 14:59 Intake Total 240 / 840 960 / 960 Output Total 1425 / 2975 550 / 3525 200 / 200 Balance -1185 / -2135 -550 / -2685 760 / 760 Weight last 48 hrs Weight 108.068 kg Weight 103.963 kg Physical Exam 2 Const: COMMON NORMALS: no acute distress and patient oriented x3 Resp: COMMON NORMALS: normal respiratory effort, No retractions, No use of accessory muscles and clear to auscultation bilaterally AUSCULTATION: clear to auscultation bilaterally Cardio: COMMON NORMALS: regular rate, regular rhythm, S1 normal heart sound present and S2 normal heart sound present RATE: regular rate RHYTHM: r egular rhythm HEART SOUNDS: S1 normal heart sound present and S2 normal heart sound present GI: COMMON NORMALS: Normal to inspection, nondistended, normoactive bowel sounds present and non-tender Extremity: COMMON NORMALS: no pedal edema Neuro: COMMON NORMALS: patient oriented x3 Psych: COMMON NORMALS: mental status grossly normal Urinary Catheter Management: Alba: Cath Placed During This Visit: yes, but has since been removed by the nurse Reason for Continuing Indwelling Catheter: Decision to DC Catheter Urinary Catheter Date of Insertion: 01/10/23 Urinary Catheter Time of Insertion: 07:30 Date Urinary Catheter Removed: 01/14/23 Time Urinary Catheter Discontinued: 06:23 Data 01/14/23 05:17 01/14/23 05:17 A&P Assessment and plan (1) Status post laminectomy with spinal fusion: Postop day 0 from posterior fusion [id number], bi-sacral iliac fusion, L3/4, L4/5, L5/S1 laminectomy with partial facetectomies and removal of spinal stimulator by Dr. Baker. On chronic pain control for chronic back issues usually with diclofenac, gabapentin and as needed tramadol plus laxative therapy (2) Chronic kidney disease: Stage II. Most recent creatinine 1.1. Qualifiers: Chronic kidney disease stage: stage 2 (mild) Qualified Code(s): N18.2 - Chronic kidney disease, stage 2 (mild) (3) Osteoporosis: Chronically on Prolia as well as calcium Qualifiers: Osteoporosis type: age-related Presence of current pathological fracture: without current pathological fracture Qualified Code(s): M81.0 - Age- related osteoporosis without current pathological fracture (4) Postoperative anemia: (5) Postoperative hypotension: (6) Adrenal insufficiency: (7) Vitamin B12 deficiency: Plan Postop day 1 from posterior fusion [id number], bi-sacral iliac fusion, L3/4, L4/5, L5/S1 laminectomy with partial facetectomies and removal of spinal stimulator by Dr. Baker. On chronic pain control for chronic back issues usually with diclofenac, gabapentin and as needed tramadol plus laxative therapy Postoperative anemia ? Hemoglobin 8.3, status post 1 unit PRBC, ? Monitor hemodynamics closely, iron studies, Hemoccult stool ? No flank pain, no back pain ? Started on subcu Lovenox for DVT prophylaxis, SCDs Postoperative hypotension, with anemia, elevated lactic acid, ? Her cortisol levels are low, possible adrenal insufficiency ? Start fludrocortisone, with hydrocortisone, with midodrine 5 mg 3 times daily, ? Monitor blood pressures closely, ? She also has postoperative anemia that could be playing a role, ? Monitor blood pressures closely especially with ambulation, ? TSH, Vitamin B12 deficiency, start vitamin B12 Plan for today, continue steroids continue midodrine, pain control, up out of bed, bowel regimen ? Started on oxycodone IR q4hrs prn, OxyContin 10 twice daily Attestations 2 Medical Necessity Statement*: Patient requires hospitalization postoperative anemia, postoperative hypotension, intractable back pain Diagnoses Status post laminectomy with spinal fusion Z98.1 Stage 2 chronic kidney disease N18.2 Chronic kidney disease stage: stage 2 (mild) Age-related osteoporosis without current pathological fracture M81.0 Osteoporosis type: age-related Presence of current pathological fracture: without current pathological fracture Postoperative anemia D64.9 Postoperative hypotension I95.81 Adrenal insufficiency E27.40 Vitamin B12 deficiency E53.8
[2023-01-14] MEDS: oxyCODONE 5 mg IR Tab/Cap 10 MG PO ×2 (14:14→22:09)
[2023-01-14] MEDS: hydrocortisone 10 mg Tablet 5 MG PO (14:15)
[2023-01-14] MEDS: enoxaparin 40 mg/0.4 mL Syringe SUBCUT (14:15)
[2023-01-14] MEDS: sennosides 8.6 mg Tablet PO (22:10)
[2023-01-15] VITALS (14 sets, daily range): BP systolic 96–118; BP diastolic 55–71; PULSE 71–93; RESP 16–18; TEMP 36.8–37.5; O2SAT 94–100
[2023-01-15 06:17] LABS: Basophils % 0.4 %; Eosinophils # 0.4 10^3/uL (0.0-0.8); Eosinophils % 4.5 %; Hematocrit 30.3 % (36-47); Lymphocytes # 2.2 10^3/uL (0.8-4.8); Lymphocytes % 23.9 %; Mean Corpuscular HGB Conc 30.4 g/dL (30-55); Mean Corpuscular Hemoglobin 28.8 pg (27-33); Mean Platelet Volume 10.2 fL (7.4-10.4); Monocytes % 10.5 %; Neutrophils # 5.46 10^3/uL (1.8-7.7); Nucleated Red Blood Cells % 0 %; Platelet Count 237 10^3/cmm (157-399); Red Blood Count 3.19 10^6/uL (3.85-5.65); Red Cell Distribution Width 15.9 % (12.1-15.1); White Blood Count 9.09 10^3/uL (3.29-11.43)
[2023-01-15] MEDS: hydrocortisone 10 mg Tablet 5 MG PO ×2 (06:26→12:03)
[2023-01-15] MEDS: oxyCODONE 5 mg IR Tab/Cap 10 MG PO ×3 (06:26→22:05)
[2023-01-15 06:51] LABS: Anion Gap 13.1 (5-19); Blood Urea Nitrogen 11 mg/dL (8-23); Calcium 9.1 mg/dL (8.5-10.5); Carbon Dioxide 30 mmol/L (22-29); Chloride 103 mmol/L (98-107); Glucose 103 mg/dL (65-115); Osmolality Calculated 294 mOsm/kg (285-295); Potassium 4.1 mmol/L (3.5-5.1); Sodium 142 mmol/L (136-145)
[2023-01-15] MEDS: midodrine 5 mg TABLET PO ×3 (08:25→22:06)
[2023-01-15] MEDS: cyanocobalamin 1,000 mcg Tablet 1000 MCG PO (08:25)
[2023-01-15] MEDS: docusate sodium 100 mg Capsule PO ×2 (08:25→17:01)
[2023-01-15] MEDS: polyethylene glycol 3350 Pkt 17 gm PO (08:25)
[2023-01-15] MEDS: gabapentin 300 mg Capsule 600 MG PO ×4 (08:26→22:06)
[2023-01-15] MEDS: fludrocortisone 0.1 mg Tablet PO (08:26)
[2023-01-15] MEDS: oxyCODONE 10 mg ER (12 HR) Tablet PO ×2 (08:26→17:01)
--- NOTE | 2023-01-15 09:21 | P.PN_ITS ---
Subjective 2 Subjective: Patient in much better spirits this morning said she slept well last night. Currently she is sitting in chair. Vitals/I&O/Wt Last Vital Signs Temp 98.4 F 01/15/23 08:00 Pulse 71 01/15/23 08:00 Resp 16 01/15/23 08:00 BP 118/57 01/15/23 08:00 Pulse Ox 94 01/15/23 08:00 O2 Del Method Nasal Cannula 01/15/23 07:38 O2 Flow Rate 2 01/15/23 07:38 01/14/23 01/15/23 01/15/23 22:59 06:59 14:59 Intake Total 480 / 1440 Balance 480 / 1240 Weight last 48 hrs Weight 228 lb Weight 238 lb 4 oz Physical Exam 2 Narrative: 5 5 strength bilateral lower extremities pain controlled. Urinary Catheter Management: Alba: Cath Placed During This Visit: yes, but has since been removed by the nurse Reason for Continuing Indwelling Catheter: Decision to DC Catheter Urinary Catheter Date of Insertion: 01/10/23 Urinary Catheter Time of Insertion: 07:30 Date Urinary Catheter Removed: 01/14/23 Time Urinary Catheter Discontinued: 06:23 Data 01/15/23 05:34 01/15/23 05:34 A&P Assessment and plan (1) Status post laminectomy with spinal fusion: Patient is feeling much better today. At this point plan on discharge tomorrow. Having the pharmacy deliver the meds today since the pharmacy be closed tomorrow. Up with therapy today. Attestations 2 Medical Necessity Statement*: pain control Coding Level of Care Code Acute Code for Chg Fwd Diagnoses Status post laminectomy with spinal fusion Z98.1
[2023-01-15] MEDS: Fleet Enema 133 mL Enema PR (12:03)
--- NOTE | 2023-01-15 13:44 | P.PN_ITS ---
Subjective 2 Subjective: Patient was seen this morning,, her pain is more under control, she still having difficulty ambulating, Vitals/I&O/Wt Last Vital Signs Temp 98.2 F 01/15/23 11:16 Pulse 86 01/15/23 11:16 Resp 17 01/15/23 12:03 BP 104/64 01/15/23 11:16 Pulse Ox 97 01/15/23 11:16 O2 Del Method Room Air 01/15/23 11:16 O2 Flow Rate 2 01/15/23 07:38 01/14/23 01/15/23 01/15/23 22:59 06:59 14:59 Intake Total 480 / 1440 360 / 360 Balance 480 / 1240 360 / 360 Weight last 48 hrs Weight 103.419 kg Weight 108.068 kg Physical Exam 2 Const: COMMON NORMALS: no acute distress and patient oriented x3 Resp: COMMON NORMALS: normal respiratory effort, No retractions, No use of accessory muscles and clear to auscultation bilaterally AUSCULTATION: clear to auscultation bilaterally Cardio: COMMON NORMALS: regular rate, regular rhythm, S1 normal heart sound present and S2 normal heart sound present RATE: regular rate RHYTHM: r egular rhythm HEART SOUNDS: S1 normal heart sound present and S2 normal heart sound present GI: COMMON NORMALS: Normal to inspection, nondistended, normoactive bowel sounds present and non-tender Extremity: COMMON NORMALS: no pedal edema Neuro: COMMON NORMALS: patient oriented x3 Psych: COMMON NORMALS: mental status grossly normal Urinary Catheter Management: Alba: Cath Placed During This Visit: yes, but has since been removed by the nurse Reason for Continuing Indwelling Catheter: Decision to DC Catheter Urinary Catheter Date of Insertion: 01/10/23 Urinary Catheter Time of Insertion: 07:30 Date Urinary Catheter Removed: 01/14/23 Time Urinary Catheter Discontinued: 06:23 Data 01/15/23 05:34 01/15/23 05:34 A&P Assessment and plan (1) Status post laminectomy with spinal fusion: Postop day 0 from posterior fusion [id number], bi-sacral iliac fusion, L3/4, L4/5, L5/S1 laminectomy with partial facetectomies and removal of spinal stimulator by Dr. Baker. On chronic pain control for chronic back issues usually with diclofenac, gabapentin and as needed tramadol plus laxative therapy (2) Chronic kidney disease: Stage II. Most recent creatinine 1.1. Qualifiers: Chronic kidney disease stage: stage 2 (mild) Qualified Code(s): N18.2 - Chronic kidney disease, stage 2 (mild) (3) Osteoporosis: Chronically on Prolia as well as calcium Qualifiers: Osteoporosis type: age-related Presence of current pathological fracture: without current pathological fracture Qualified Code(s): M81.0 - Age- related osteoporosis without current pathological fracture (4) Postoperative anemia: (5) Postoperative hypotension: (6) Adrenal insufficiency: (7) Vitamin B12 deficiency: Plan Postop from posterior fusion [id number], bi-sacral iliac fusion, L3/4, L4/5, L5/S1 laminectomy with partial facetectomies and removal of spinal stimulator by Dr. Baker. On chronic pain control for chronic back issues usually with diclofenac, gabapentin and as needed tramadol plus laxative therapy Postoperative anemia ? Hemoglobin 9.2, status post 1 unit PRBC, ? Monitor hemodynamics closely, iron studies, Hemoccult stool ? No flank pain, no back pain ? Started on subcu Lovenox for DVT prophylaxis, SCDs Postoperative hypotension, with anemia, elevated lactic acid, ? Her cortisol levels are low, possible adrenal insufficiency ? Start fludrocortisone, with hydrocortisone, with midodrine 5 mg 3 times daily, ? Monitor blood pressures closely, ? She also has postoperative anemia that could be playing a role, ? Monitor blood pressures closely especially with ambulation, ? TSH, Vitamin B12 deficiency, start vitamin B12 Plan for today, continue steroids continue midodrine, pain control, up out of bed, bowel regimen ? Started on oxycodone IR q4hrs prn, OxyContin 10 twice daily Attestations 2 Medical Necessity Statement*: Patient requires hospitalization postoperative anemia, postoperative hypotension Diagnoses Status post laminectomy with spinal fusion Z98.1 Stage 2 chronic kidney disease N18.2 Chronic kidney disease stage: stage 2 (mild) Age-related osteoporosis without current pathological fracture M81.0 Osteoporosis type: age-related Presence of current pathological fracture: without current pathological fracture Postoperative anemia D64.9 Postoperative hypotension I95.81 Adrenal insufficiency E27.40 Vitamin B12 deficiency E53.8
[2023-01-15] MEDS: enoxaparin 40 mg/0.4 mL Syringe SUBCUT (14:18)
[2023-01-15] MEDS: sennosides 8.6 mg Tablet PO (22:06)
[2023-01-16] VITALS (14 sets, daily range): BP systolic 91–125; BP diastolic 50–77; PULSE 84–994; RESP 17–18; TEMP 36.6–37.3; O2SAT 91–99
[2023-01-16 03:18] LABS: Basophils % 0.5 %; Eosinophils # 0.4 10^3/uL (0.0-0.8); Eosinophils % 4.8 %; Hematocrit 27.9 % (36-47); Lymphocytes # 1.9 10^3/uL (0.8-4.8); Lymphocytes % 22.7 %; Mean Corpuscular HGB Conc 30.1 g/dL (30-55); Mean Corpuscular Hemoglobin 29.1 pg (27-33); Mean Corpuscular Volume 96.5 fl (85-98); Mean Platelet Volume 9.9 fL (7.4-10.4); Monocytes # 1.2 10^3/uL (0.2-0.9); Monocytes % 14.4 %; Neutrophils # 4.68 10^3/uL (1.8-7.7); Neutrophils % 57.1 %; Nucleated Red Blood Cells % 0 %; Platelet Count 229 10^3/cmm (157-399); Red Blood Count 2.89 10^6/uL (3.85-5.65); Red Cell Distribution Width 15.9 % (12.1-15.1); White Blood Count 8.19 10^3/uL (3.29-11.43)
[2023-01-16 03:41] LABS: Anion Gap 10.2 (5-19); Blood Urea Nitrogen 11 mg/dL (8-23); Carbon Dioxide 33 mmol/L (22-29); Chloride 100 mmol/L (98-107); Glucose 104 mg/dL (65-115); Osmolality Calculated 288 mOsm/kg (285-295); Potassium 4.2 mmol/L (3.5-5.1); Sodium 139 mmol/L (136-145)
[2023-01-16] MEDS: hydrocortisone 10 mg Tablet 5 MG PO ×2 (05:54→12:53)
[2023-01-16] MEDS: oxyCODONE 5 mg IR Tab/Cap 10 MG PO ×2 (05:54→21:42)
--- NOTE | 2023-01-16 07:04 | P.PN_ITS ---
Subjective 2 Subjective: Patient is resting in bed. Her pain is little better controlled. She has pain when she lays on her right side. Did discuss with her possibly going home today she said she might need 1 more day will check back this afternoon Vitals/I&O/Wt Last Vital Signs Temp 98.1 F 01/16/23 04:00 Pulse 93 01/16/23 06:00 Resp 18 01/16/23 05:54 BP 102/60 01/16/23 06:00 Pulse Ox 99 01/16/23 05:54 O2 Del Method Nasal Cannula 01/15/23 22:09 O2 Flow Rate 1 01/15/23 22:09 01/15/23 01/16/23 01/16/23 22:59 06:59 14:59 Intake Total 480 / 840 Balance 480 / 840 Weight last 48 hrs Weight 224 lb 9.6 oz Weight 228 lb Physical Exam 2 Narrative: Patient resting in bed wounds clean dry intact 5-5 strength bilateral lower extremities Urinary Catheter Management: Alba: Cath Placed During This Visit: yes, but has since been removed by the nurse Reason for Continuing Indwelling Catheter: Decision to DC Catheter Urinary Catheter Date of Insertion: 01/10/23 Urinary Catheter Time of Insertion: 07:30 Date Urinary Catheter Removed: 01/14/23 Time Urinary Catheter Discontinued: 06:23 Data 01/16/23 03:04 01/16/23 03:04 A&P Assessment and plan (1) Status post laminectomy with spinal fusion: Postop day #6 for T10 to the pelvis. Will check in with patient this afternoon to see if she wants to go home. At this point I will likely discharge either today or tomorrow. Attestations 2 Medical Necessity Statement*: Pain control Coding Level of Care Code Acute Code for Chg Fwd Diagnoses Status post laminectomy with spinal fusion Z98.1
[2023-01-16] MEDS: cyanocobalamin 1,000 mcg Tablet 1000 MCG PO (08:57)
[2023-01-16] MEDS: gabapentin 300 mg Capsule 600 MG PO ×4 (08:57→21:41)
[2023-01-16] MEDS: oxyCODONE 10 mg ER (12 HR) Tablet PO ×2 (08:57→18:02)
[2023-01-16] MEDS: fludrocortisone 0.1 mg Tablet PO (08:57)
[2023-01-16] MEDS: midodrine 5 mg TABLET PO ×3 (08:57→21:41)
[2023-01-16] MEDS: docusate sodium 100 mg Capsule PO ×2 (08:57→18:02)
[2023-01-16] MEDS: polyethylene glycol 3350 Pkt 17 gm PO (08:57)
[2023-01-16] MEDS: enoxaparin 40 mg/0.4 mL Syringe SUBCUT (14:34)
--- NOTE | 2023-01-16 15:11 | P.PN_ITS ---
Subjective 2 Subjective: patient was seen this morning she has complaints of back pain, she states she will be ready Vitals/I&O/Wt Last Vital Signs Temp 97.9 F 01/16/23 11:56 Pulse 90 01/16/23 14:00 Resp 18 01/16/23 11:56 BP 101/65 01/16/23 11:56 Pulse Ox 94 01/16/23 11:56 O2 Del Method Nasal Cannula 01/16/23 11:56 O2 Flow Rate 1 01/16/23 08:00 01/16/23 01/16/23 01/16/23 06:59 14:59 22:59 Intake Total 360 / 360 Output Total 100 / 100 Balance 260 / 260 Weight last 48 hrs Weight 101.877 kg Weight 103.419 kg Physical Exam 2 Const: COMMON NORMALS: no acute distress and patient oriented x3 Resp: COMMON NORMALS: normal respiratory effort, No retractions, No use of accessory muscles and clear to auscultation bilaterally AUSCULTATION: clear to auscultation bilaterally Cardio: COMMON NORMALS: regular rate, regular rhythm, S1 normal heart sound present and S2 normal heart sound present RATE: regular rate RHYTHM: r egular rhythm HEART SOUNDS: S1 normal heart sound present and S2 normal heart sound present GI: COMMON NORMALS: Normal to inspection, nondistended, normoactive bowel sounds present and non-tender Extremity: COMMON NORMALS: no pedal edema Neuro: COMMON NORMALS: patient oriented x3 Psych: COMMON NORMALS: mental status grossly normal Urinary Catheter Management: Alba: Cath Placed During This Visit: yes, but has since been removed by the nurse Reason for Continuing Indwelling Catheter: Decision to DC Catheter Urinary Catheter Date of Insertion: 01/10/23 Urinary Catheter Time of Insertion: 07:30 Date Urinary Catheter Removed: 01/14/23 Time Urinary Catheter Discontinued: 06:23 Data 01/16/23 03:04 01/16/23 03:04 A&P Assessment and plan (1) Status post laminectomy with spinal fusion: Postop from posterior fusion [id number], bi-sacral iliac fusion, L3/4, L4/5, L5/S1 laminectomy with partial facetectomies and removal of spinal stimulator by Dr. Baker. On chronic pain control for chronic back issues usually with diclofenac, gabapentin and as needed tramadol plus laxative therapy (2) Chronic kidney disease: Stage II. Most recent creatinine 1.1. Qualifiers: Chronic kidney disease stage: stage 2 (mild) Qualified Code(s): N18.2 - Chronic kidney disease, stage 2 (mild) (3) Osteoporosis: Chronically on Prolia as well as calcium Qualifiers: Osteoporosis type: age-related Presence of current pathological fracture: without current pathological fracture Qualified Code(s): M81.0 - Age- related osteoporosis without current pathological fracture (4) Postoperative anemia: (5) Postoperative hypotension: (6) Adrenal insufficiency: (7) Vitamin B12 deficiency: Plan Postop from posterior fusion [id number], bi-sacral iliac fusion, L3/4, L4/5, L5/S1 laminectomy with partial facetectomies and removal of spinal stimulator by Dr. Baker. On chronic pain control for chronic back issues usually with diclofenac, gabapentin and as needed tramadol plus laxative therapy Postoperative anemia ? Hemoglobin 9.2, status post 1 unit PRBC, ? Monitor hemodynamics closely, iron studies, Hemoccult stool ? No flank pain, no back pain ? Started on subcu Lovenox for DVT prophylaxis, SCDs Postoperative hypotension, with anemia, elevated lactic acid, ? Her cortisol levels are low, possible adrenal insufficiency ? Start fludrocortisone, with hydrocortisone, with midodrine 5 mg 3 times daily, ? Monitor blood pressures closely, ? She also has postoperative anemia that could be playing a role, ? Monitor blood pressures closely especially with ambulation, ? TSH, Vitamin B12 deficiency, start vitamin B12 Plan for today, continue steroids continue midodrine, pain control, up out of bed, bowel regimen ? Started on oxycodone IR q4hrs prn, OxyContin 10 twice daily Attestations 2 Medical Necessity Statement*: patient requires hospitalization for postoperative pain Diagnoses Status post laminectomy with spinal fusion Z98.1 Stage 2 chronic kidney disease N18.2 Chronic kidney disease stage: stage 2 (mild) Age-related osteoporosis without current pathological fracture M81.0 Osteoporosis type: age-related Presence of current pathological fracture: without current pathological fracture Postoperative anemia D64.9 Postoperative hypotension I95.81 Adrenal insufficiency E27.40 Vitamin B12 deficiency E53.8
[2023-01-16] MEDS: sennosides 8.6 mg Tablet PO (21:41)
[2023-01-16] MEDS: nortriptyline 25 mg Capsule PO (21:41)
[2023-01-17] VITALS (9 sets, daily range): BP systolic 96–112; BP diastolic 58–67; PULSE 87–93; RESP 16–18; TEMP 36.6–36.9; O2SAT 84–97
[2023-01-17] MEDS: oxyCODONE 5 mg IR Tab/Cap 10 MG PO ×2 (05:15→11:26)
[2023-01-17] MEDS: hydrocortisone 10 mg Tablet 5 MG PO ×2 (05:20→11:26)
[2023-01-17 06:18] LABS: Basophils % 0.5 %; Eosinophils # 0.3 10^3/uL (0.0-0.8); Hematocrit 26.4 % (36-47); Lymphocytes # 1.8 10^3/uL (0.8-4.8); Lymphocytes % 23.3 %; Mean Corpuscular HGB Conc 29.9 g/dL (30-55); Mean Corpuscular Hemoglobin 28.5 pg (27-33); Mean Corpuscular Volume 95.3 fl (85-98); Monocytes % 13.1 %; Neutrophils # 4.61 10^3/uL (1.8-7.7); Neutrophils % 58.3 %; Nucleated Red Blood Cells % 0 %; Platelet Count 287 10^3/cmm (157-399); Red Blood Count 2.77 10^6/uL (3.85-5.65); Red Cell Distribution Width 16.1 % (12.1-15.1); White Blood Count 7.91 10^3/uL (3.29-11.43)
[2023-01-17 06:32] LABS: Anion Gap 8.9 (5-19); Blood Urea Nitrogen 11 mg/dL (8-23); Calcium 9.1 mg/dL (8.5-10.5); Carbon Dioxide 36 mmol/L (22-29); Chloride 100 mmol/L (98-107); Glucose 101 mg/dL (65-115); Osmolality Calculated 292 mOsm/kg (285-295); Potassium 3.9 mmol/L (3.5-5.1); Sodium 141 mmol/L (136-145)
--- NOTE | 2023-01-17 07:08 | P.PN_ITS ---
Subjective 2 Subjective: POD 7 Patient resting comfortably. Denies chest pain shortness of breath. Reports improvement of her legs. Reports back pain. Vitals/I&O/Wt Last Vital Signs Temp 97.8 F 01/17/23 04:00 Pulse 93 01/17/23 06:00 Resp 17 01/17/23 05:15 BP 112/67 01/17/23 04:00 Pulse Ox 96 01/17/23 05:15 O2 Del Method Nasal Cannula 01/16/23 20:18 O2 Flow Rate 1 01/16/23 20:18 01/16/23 01/17/23 01/17/23 22:59 06:59 14:59 Intake Total 600 / 960 120 / 1080 Output Total 100 / 200 Balance 500 / 760 120 / 880 Weight last 48 hrs Weight 221 lb 9.6 oz Weight 224 lb 9.6 oz Physical Exam 2 Narrative: Patient presents alert and oriented x3 with a good general appearance normal mood and affect. Normal coordination normal stability. Mild tenderness around the incisional site with the incision appear to be healing nicely. No signs of erythema or drainage. No signs of infection. Patient denies any fevers or chills. 5/5 motor strength both lower extremities with negative straight leg raise bilaterally. Calves are supple no medial thigh tenderness. Pulses are 2+ at the dorsalis pedis and posterior tibial region. Good capillary refill throughout normal sensation light touch both lower extremities. Urinary Catheter Management: Alba: Cath Placed During This Visit: yes, but has since been removed by the nurse Reason for Continuing Indwelling Catheter: Decision to DC Catheter Urinary Catheter Date of Insertion: 01/10/23 Urinary Catheter Time of Insertion: 07:30 Date Urinary Catheter Removed: 01/14/23 Time Urinary Catheter Discontinued: 06:23 Data 01/17/23 05:43 01/17/23 05:43 A&P Assessment and plan (1) Postoperative anemia: Encouraged patient to continue walking program. No bending lifting or twisting. Continue incentive spirometry at home every hour when awake. See her back in the office in 1 week's time for wound check. (2) Status post laminectomy with spinal fusion: Attestations 2 Medical Necessity Statement*: Discharge home today Coding Level of Care Code Acute Code for Chg Fwd Diagnoses Postoperative anemia D64.9 Status post laminectomy with spinal fusion Z98.1
[2023-01-17] MEDS: midodrine 5 mg TABLET PO (07:54)
[2023-01-17] MEDS: gabapentin 300 mg Capsule 600 MG PO (07:54)
[2023-01-17] MEDS: docusate sodium 100 mg Capsule PO (07:55)
[2023-01-17] MEDS: oxyCODONE 10 mg ER (12 HR) Tablet PO (07:55)
[2023-01-17] MEDS: polyethylene glycol 3350 Pkt 17 gm PO (07:55)
[2023-01-17] MEDS: cyanocobalamin 1,000 mcg Tablet 1000 MCG PO (07:55)
[2023-01-17] MEDS: fludrocortisone 0.1 mg Tablet PO (07:55)
[2023-01-17] MEDS: magnesium hydroxide 30 mL UDC PO (13:05)
--- NOTE | 2023-01-17 13:39 | PC.NURSE ---
Discharge instructions given to pt and . NO questions or concerns at this time. Scripts had already been delivered and they have been given to pt. Pt to private vehicle via wheelchair with all belongings.
--- NOTE | 2023-01-24 06:44 | P.DS_ITS ---
Discharge Providers Date of Admission: 01/10/23 13:27 Date of Discharge: January 17, 2023 Attending Provider at Admission: Morris Baker DO Attending Provider at Discharge: Morris Baker DO Primary Care Provider: Jayjay Rashid Diagnoses at Discharge Discharge Diagnosis (1) Postoperative anemia: Status: Acute (2) Status post laminectomy with spinal fusion: Status: Acute Permanent problem details: Dr Baker - Posterior fusion [id number], bi-sacral iliac fusion, L3/4, L4/5, L5/S1 laminectomy with partial facetectomies Reason for Visit Reason for Visit: 66009 Physical Exam Urinary Catheter Management: Alba: Cath Placed During This Visit: yes, but has since been removed by the nurse Reason for Continuing Indwelling Catheter: Decision to DC Catheter Urinary Catheter Date of Insertion: 01/10/23 Urinary Catheter Time of Insertion: 07:30 Date Urinary Catheter Removed: 01/14/23 Time Urinary Catheter Discontinued: 06:23 Discharge Data Studies Completed and Pending Completed Studies During Hospitalization Category Date Time Status XR lumbar spine 2-3V* 12553 Routine Exams 01/10/23 Completed Laboratory Results WBC 7.91 10^3/uL (3.29-11.43) 01/17/23 05:43 Corrected WBC Cancelled 01/13/23 04:20 RBC 2.77 10^6/uL (3.85-5.65) L 01/17/23 05:43 Hgb 7.90 g/dL (11.27-16.99) L 01/17/23 05:43 Hct 26.4 % (36-47) L 01/17/23 05:43 MCV 95.3 fl (85-98) 01/17/23 05:43 MCH 28.5 pg (27-33) 01/17/23 05:43 MCHC 29.9 g/dL (30-55) L 01/17/23 05:43 RDW 16.1 % (12.1-15.1) H 01/17/23 05:43 Plt Count 287 10^3/cmm (157-399) 01/17/23 05:43 MPV 10.0 fL (7.4-10.4) 01/17/23 05:43 Gran % Cancelled 01/13/23 04:20 Neut % (Auto) 58.3 % 01/17/23 05:43 Lymph % (Auto) 23.3 % 01/17/23 05:43 [place]ham % (Auto) 13.1 % 01/17/23 05:43 Eos % (Auto) 4.0 % 01/17/23 05:43 Baso % (Auto) 0.5 % 01/17/23 05:43 Neut # (Auto) 4.61 10^3/uL (1.8-7.7) 01/17/23 05:43 Lymph # (Auto) 1.8 10^3/uL (0.8-4.8) 01/17/23 05:43 [place]ham # (Auto) 1.0 10^3/uL (0.2-0.9) H 01/17/23 05:43 Eos # (Auto) 0.3 10^3/uL (0.0-0.8) 01/17/23 05:43 Baso # (Auto) 0.0 10^3/uL (0.0-0.1) 01/17/23 05:43 Absolute Gran (auto) Cancelled 01/13/23 04:20 Nucleated RBC % (auto) 0 % 01/17/23 05:43 Nucleated RBCs # 0.0 /100WBC 01/17/23 05:43 Sodium 141 mmol/L (136-145) 01/17/23 05:43 Potassium 3.9 mmol/L (3.5-5.1) 01/17/23 05:43 Chloride 100 mmol/L (98-107) 01/17/23 05:43 Carbon Dioxide 36 mmol/L (22-29) H 01/17/23 05:43 Anion Gap 8.9 (5-19) 01/17/23 05:43 BUN 11 mg/dL (8-23) 01/17/23 05:43 Creatinine 0.9 mg/dL (0.5-0.9) 01/17/23 05:43 GFR Calculation Not Reportable 01/17/23 05:43 Glucose 101 mg/dL (65-115) 01/17/23 05:43 POC Glucose 121 mg/dL (70-110) H 01/11/23 11:45 Calculated Osmolality 292 mOsm/kg (285-295) 01/17/23 05:43 Lactate 0.6 mmol/L (0.5-2.2) 01/13/23 05:20 Calcium 9.1 mg/dL (8.5-10.5) 01/17/23 05:43 Phosphorus 2.8 mg/dL (2.5-4.5) 01/14/23 05:17 Magnesium 1.9 mg/dL (1.7-2.3) 01/14/23 05:17 Iron 94 ug/dL (37-145) 01/11/23 05:39 TIBC 246 mcg/dl 01/11/23 05:39 % Saturation 38.2 % (20-50) 01/11/23 05:39 Unsat Iron Binding 152 ug/dL (112-347) 01/11/23 05:39 Ferritin 23 ng/mL (15-150) 01/11/23 05:39 Total Bilirubin 0.3 mg/dL (0.15-1.2) 01/14/23 05:17 AST 16 U/L (0-32) 01/14/23 05:17 ALT < 5 U/L (0-33) 01/14/23 05:17 Alkaline Phosphatase 76 U/L (35-105) 01/14/23 05:17 Total Protein 5.3 g/dL (6.6-8.7) L 01/14/23 05:17 Albumin 2.6 g/dL (3.5-5.2) L 01/14/23 05:17 Globulin 2.7 g/dL (1.3-4.6) 01/14/23 05:17 Vitamin B12 150 pg/mL (232-1245) L 01/11/23 05:39 Folate 9.2 ng/mL (4.8-37.3) 01/11/23 05:39 TSH 0.31 uIU/mL (0.27-4.20) 01/11/23 05:39 Random Cortisol 6.38 ug/dL (2.47-19.5) 01/12/23 04:00 Blood Type B Positive 01/10/23 06:39 Rho(D) Type Rh positive 01/10/23 06:39 Antibody Screen Negative 01/10/23 06:39 Crossmatch See Detail 01/10/23 06:39 Vitals Last Vital Signs Temp 98.5 F 01/17/23 13:40 Pulse 90 12/11/23 13:40 Resp 16 01/17/23 13:40 BP 99/59 01/17/23 13:40 Pulse Ox 97 01/17/23 13:40 O2 Del Method Nasal Cannula 01/17/23 08:00 O2 Flow Rate 1 01/17/23 10:01 Discharge Plan Discharge Patient Disposition: Home Health Service Condition: Stable Prescriptions: Continued senna 8.6 mg capsule 8.6 mg PO PRN PRN (Reason: Constipation) calcium carbonate 500 mg calcium (1,250 mg) tablet 2,400 mg PO DAILY diclofenac sodium 75 mg tablet,delayed release (DR/EC) 75 mg PO DAILY Qty: 90 3RF tramadol 50 mg tablet See Rx Instructions PO TID PRN (Reason: pain) 30 Days Qty: 180 0RF Rx Instructions: 1-2 tabs PO three times daily PRN; gabapentin 600 mg tablet 600 mg PO QID 90 Days Qty: 360 3RF Prolia 60 mg/mL syringe 60 mg SUBCUT DIRECTED Rx Instructions: Takes twice a year nortriptyline 25 mg capsule 25 - 50 mg PO .BEDTIME PRN (Reason: insomnia) Discharge Orders: Discharge Order (Routine); Ordered 01/17/23 Ordered By: Leonel Nino Other Ambulatory Orders: DME: Oxygen (Order) Location: None Selected Ordered By: Morris Baker Referrals: [facility] [Outside] Morris Baker DO [Physician] - 01/25/23 3:00 pm Jayjay Rashid NP [Primary Care Provider] - 01/26/23 10:00 am Discharge Diet: Advance as tolerated Discharge Activity: Limit activity as instructed Patient Instructions: Oxycodone/Acetaminophen (By mouth), Oxycodone, Slow Release (By mouth), Lumbar Spinal Fusion (GEN), Opioid Safety Activity Restrictions/Additional Instructions: Thank you for [facility] for your care! The following is a list of instructions, from your provider, to follow upon your discharge to ensure you have the optimal recovery from your recent injury orsurgery. Follow-up care is a griffin part of your treatment and safety. Be sure to make and go to all appointments, and call your doctor if you are having problems. If you do not already have a follow-up appointment made, call Dr. Baker office in the next 1-3 days to make follow up appointment for 1 weeks at [phone]. It is also a good idea to know your test results and keep a list of the medicines you take. Medications will be prescribed for you at your provider's discretion. These medications are to be used as instructed; if they are taken more often that prescribed they will not be refilled early and in most cases will not be refilled at all. > When a refill is needed,you should contact elvin mock 2-3 business days before your prescription runs out. Medications will NOT be refilled by rn prior authorization providers after hours! > Many pain medications contain Tylenol (Acetaminophen). Do not consume more than 4,000 mg of Tylenol per day in total with any combination ofmedications. > Pain medications can cause constipation. Please use an over the counter stool softener as directed, while taking pain medications. Consulty our local pharmacist with questions or recommendations on stool softeners. If constipation persists, contact our office or your primary care provider. > While under our care,you are not to receive pain medications or other controlled substances from any other provider unless our office is notified and approves. Any attempts to do so will result in refusal to prescribe any further pain medications and possible dismissal from our practice. ? ? Showering is permitted, however we ask that you do not take a bath, sit in a whirlpool / Jacuzzi, or go swimming for 1 month. For only the first 2 days after surgery, lt wilt be necessary for you to cover your wound/dressing with plastic and tape to keep it dry. ? Walking is essential for the healing process after surgery. We would like you to slowly advance your walking. This should be done on relatively flat clear ground (inside or out) or can be done on a treadmill. Remember this goal does not have to happen all at once, slowly increase your distance and duration. This can be broken into more more than one walk per day as tolerated. Patients who walk as directed after surgery rarely require Physical Therapy. In the unlikely event this issue arises your provider will direct hospital staff to make the appropriate arrangements. ? No lifting over 5 pounds {a gallon of milk) or bending/twisting until further notice. Each of these activities places an unnecessary amount of stress onto the body and can impede the delicate healing process. > Instead of bending at the waist, keep your back straight and bend at the knees. > Instead of twisting your torso, keep your back straight and turn your entire body with your feet. ? You may sleep in any position which makes you comfortable. Many patients find comfort sleeping in a reclining chair. It is not abnormal to have difficulty sleeping for the first several weeks following your surgery. We recommend trying Benadry! or Tylenol PM as directed to help with your sleeping difficulties. Both medications are over the counter and available withou tprescription. ? NO SMOKING!!! Smoking dramatically increases the probability of developing postoperative wound infections. ? Common complaints after lumbar and/or thoracic spine surgery include, but are not limited to: numbness and/or tingling in the legs, pain around the incision and surrounding tissues, muscle spasms, or stiffness of the middle to low back. Contact our office if these symptoms persist or if an acute change occurs. ? No driving for the first 3-5days, and not while taking narcotics until seen at your follow-up appointment and cleared. There are no restrictions for riding on short trips, however if you take a longer trip, arrangements should be made to make regular stops to get out of the vehicle and stretch . ? Swelling is an unfortunate event that will take place with any surgery and is the primary source of your postoperative discomfort. While walking and regular approved activities helps control inflammation, there are additional steps you can take to minimizeswelling. > Place ice over the surgical site and surrounding tissue for twenty minutes, followed by applying a low/medium heat (heating pad) for an additional twenty minutes every 1-2 hours as needed for painrelief. > You may use of over the counter anti-inflammatory medications (Ibuprofen, Motrin, Aleve, Advil, etc) as directed on the package label. These types of medicines wm significantly reduce the amount of discomfort you experience after surgery from swelling. It should be noted that if you have and allergy to any of these medications, or a history of ulcers or kidney disease you should consult you primary care provider prior to starting these medications. Discharge Attestations Time Spent in Discharge Care*: less than 30 min Quality Metrics Clinical Quality Measures [ No reported AMI, CVA or VTE this stay] Coding Level of Care Code Acute Code for Chg Fwd Diagnoses Postoperative anemia D64.9 Status post laminectomy with spinal fusion Z98.1
== END 2023-01-17 13:43 | disposition home health service (06) | DRG 454 ==
LOC: ICU 13:27 → MEDSURG 01-13 21:53
PROVIDERS: Family Medicine; Hospitalist; Admitting Provider Orthopaedic Surgery; PCP Clinical Nurse Specialist Adult Health; Visit Provider Orthopaedic Surgery
PROC: 0RG707J Fusion of 2 to 7 Thoracic Vertebral Joints with Autologous Tissue Substitute, Posterior Approach, Anterior Column, Open Approach (ICD-10-PCS; CPT 22612; principal; 2023-01-10 07:00)
PROC: 0RG707J Fusion of 2 to 7 Thoracic Vertebral Joints with Autologous Tissue Substitute, Posterior Approach, Anterior Column, Open Approach (ICD-10-PCS; 2023-01-10 07:00)
PROC: 0RG707J Fusion of 2 to 7 Thoracic Vertebral Joints with Autologous Tissue Substitute, Posterior Approach, Anterior Column, Open Approach (ICD-10-PCS; CPT 27280; 2023-01-10 07:00)
PROC: 0RG707J Fusion of 2 to 7 Thoracic Vertebral Joints with Autologous Tissue Substitute, Posterior Approach, Anterior Column, Open Approach (ICD-10-PCS; CPT 63005; 2023-01-10 07:00)
PROC: 0RG707J Fusion of 2 to 7 Thoracic Vertebral Joints with Autologous Tissue Substitute, Posterior Approach, Anterior Column, Open Approach (ICD-10-PCS; 2023-01-10 07:00)
DX: M51.16 Intervertebral disc disorders with radiculopathy, lumbar region (principal); D62 Acute posthemorrhagic anemia; E27.40 Unspecified adrenocortical insufficiency; M48.062 Spinal stenosis, lumbar region with neurogenic claudication; M54.17 Radiculopathy, lumbosacral region; M81.0 Age-related osteoporosis without current pathological fracture; G89.29 Other chronic pain; K59.00 Constipation, unspecified; E53.8 Deficiency of other specified B group vitamins; N18.2 Chronic kidney disease, stage 2 (mild); I95.81 Postprocedural hypotension
CPT/HCPCS: 36415; 36416; 36430; 51702; 72100; 76000; 80048; 80053; 82533; 82607; 82728; 82746; 82962; 83540; 83550; 83605; 83735; 84100; 84443; 85025; 86850; 86900; 86920; 94760; 94762; 96372; 96376; 97116; 97161; 97530; C1713; C1762; J0690; J1100; J1170; J1644; J1650; J1885; J2371; J2405; J2704; J3010; J3370; J3490; J7030; J7120; J8499; P9016; P9045

== ENCOUNTER → 2023-01-25 14:45 | Outpatient (BNVA) | payer MEDICARE, OTHER, SELFPAY | PROVIDERS: PCP Clinical Nurse Specialist Adult Health; Visit Provider Physician Assistant | DX: Z98.1 Arthrodesis status (principal); Z47.89 Encounter for other orthopedic aftercare | CPT/HCPCS: 36415; 72100; 80048; 85025; 99024 ==

== ENCOUNTER → 2023-01-28 08:22 | Outpatient (BNVA) | payer MEDICARE, OTHER, SELFPAY | PROVIDERS: PCP Clinical Nurse Specialist Adult Health; Visit Provider Clinical Nurse Specialist Adult Health | DX: N17.9 Acute kidney failure, unspecified (principal) | CPT/HCPCS: 80053 ==

== ENCOUNTER → 2023-02-01 12:39 | Outpatient (BNVA) | payer MEDICARE, OTHER, SELFPAY | PROVIDERS: PCP Clinical Nurse Specialist Adult Health; Visit Provider Clinical Nurse Specialist Adult Health | DX: N17.9 Acute kidney failure, unspecified (principal) | CPT/HCPCS: 80048 ==

== ENCOUNTER 2023-02-05 02:51 | Day surgery (SDC) | payer MEDICARE, OTHER, SELFPAY ==
[2023-02-05] VITALS (20 sets, daily range): BP systolic 113–155; BP diastolic 64–95; PULSE 72–97; RESP 14–20; TEMP 36.2–37.1; O2SAT 89–100; BMI 41.0
--- NOTE | 2023-02-05 05:29 | PC.NURSE ---
pt o2 pt o2 was reading 84%. this nurse woke pt and it went back up to 89/90%. this nurse had a conversation with pt about home o2 and pt states her dr told her she didnt need it because she was mid 90's in the office. this nurse offered to put o2 on pt and pt declined.
--- NOTE | 2023-02-05 06:08 | ED_ITS ---
HPI - Wound/Laceration General: Chief Complaint: Wound/Laceration Stated Complaint: bleeding back wound open , surg on 01/10 Time Seen by Provider: 02/05/23 03:31 History of Present Illness: 72-year-old female presents em ergency room with wound dehiscence. Patient further reviews that she had back surgery done earlier this month and was discharged on the . Patient reveals that she has been sleeping on recliner since discharge but today attempted to sleep on the bed and while rolling over she felt a pop in the back and the wound opened up. Minimal bleeding from the wound and dressing was applied prior comes emergency room. Patient denies any fever, chills and no pain at this time. Review of Systems General: Reports: 10 or more systems reviewed and unremarkable except in HPI and below Skin/Breast: Reports: other (Open wound) [facility] ED PFSH: Medical History Spinal stenosis, lumbar region, with neurogenic claudication Chronic kidney disease stage 3A, baseline creatinine 1.1 Osteoarthritis Hx of iron deficiency anemia Osteoporosis On Prolia Vitamin B12 deficiency Bursitis Opioid contract exists Aftercare for long-term (current) use of non-steroidal anti-inflammatories Degenerative lumbar spinal stenosis 4 para 3 Surgical History Status post laminectomy with spinal fusion (01/10/23) Dr Baker - Posterior fusion [id number], bi-sacral iliac fusion, L3/4, L4/5, L5/S1 laminectomy with partial facetectomies S/P epidural steroid injection History of implanted electronic device [employer] spinal stimulator History of thoracic surgery H/O tubal ligation H/O cervical spine surgery S/P cervical spinal fusion H/O adenoidectomy Family History Mother Ovarian cancer Other Cancer Denies family history of Anesthesia complication Bleeding disorder Social History Smoking and tobacco/nicotine status: former use of tobacco/nicotine Second hand smoke exposure: No Alcohol intake: current Alcohol intake frequency: 0-2 Drinks per Day Alcohol type: wine Substance/Drug Use: never Marital status: Physical Exam Const: COMMON NORMALS: no acute distress, average body habitus, patient oriented x3, no limitations, healthy appearing, alert and well nourished HENMT: COMMON NORMALS: normocephalic, atraumatic, hearing grossly normal bilaterally, external ears normal, EAC's normal, TM's normal bilaterally, Normal external nose present, Normal nasal mucous membranes and turbinates present, moist oral mucous membranes, oropharynx normal, dentition normal and gingiva normal HEAD & SCALP: normocephalic and atraumatic NOSE: Normal external nose present and Normal nasal mucous membranes and turbinates present EXTERNAL EAR: Yes external ears normal EXTERNAL AUDITORY CANAL: EAC's normal TYMPANIC MEMBRANE: TM's normal bilaterally Chest: COMMONS NORMALS: normal inspection of the chest, normal palpation of entire chest wall, normal inspection of the breasts and normal palpation of the breasts Breast/axilla inspection: Yes normal inspection of the breasts BREAST/AXILLA PALPATION: Yes normal palpation of the breasts Resp: COMMON NORMALS: normal respiratory effort, No retractions, No use of accessory muscles, clear to auscultation bilaterally and percussion normal AUSCULTATION: clear to auscultation bilaterally PERCUSSION: percussion normal Neuro: COMMON NORMALS: patient oriented x3 SENSORIUM/ORIENTATION: Yes alert Skin: OTHER: 2 to 3 inches wound dehiscence around th e upper lumbar area minimal bleeding. No drainage or discharge mild tenderness around the wound Course Vital Signs: Vital signs: Vital Signs Temperature 98 F 02/05/23 03:05 Pulse Rate 86 02/05/23 05:00 Respiratory Rate 17 02/05/23 05:00 Blood Pressure 117/64 02/05/23 06:06 Pulse Oximetry 89 L 02/05/23 05:00 Oxygen Delivery Me thod Room Air 02/05/23 05:00 MDM - Wound/Laceration Medical Decision Making Patient was made comfortable emergency room. I was able to review recent medical record. I discussed patient with . Picture of the wound was sent to him via the phone. I reviewed the picture and felt that patient is a good OR. We made arrangements to take patient to the OR around 8 AM Differential Diagnosis Likely laceration (Wound dehiscence), abscess, abrasion and avulsion of skin No radiology studies performed this visit Discharge Plan Discharge Patient Disposition: Placed in Observation Clinical Impression: Dehiscence of external surgical wound Condition: Stable Prescriptions: No Action senna 8.6 mg capsule 8.6 mg PO PRN PRN (Reason: Constipation) calcium carbonate 500 mg calcium (1,250 mg) tablet 2,400 mg PO DAILY (DME) TERRY MILES See Rx Instructions .Route .MEDSUPPLY Qty: 1 0RF Rx Instructions: As directed tramadol 50 mg tablet See Rx Instructions PO TID PRN (Reason: pain) 30 Days Qty: 180 0RF Hold Instructions: Doctor's Order Rx Instructions: 1-2 tabs PO three times daily PRN; mecobalamin (vitamin B12) 1,000 mcg tablet,chewable 1,000 mcg PO DAILY Qty: 30 0RF gabapentin 600 mg tablet 600 mg PO QID 90 Days Qty: 360 3RF Prolia 60 mg/mL syringe 60 mg SUBCUT DIRECTED Rx Instructions: Takes twice a year nortriptyline 25 mg capsule 25 - 50 mg PO .BEDTIME PRN (Reason: insomnia) Referrals: Jayjay Rashid NP [Primary Care Provider] - Coding Level of Care Code ED Cover Cutter Machine for David Martinez
--- NOTE | 2023-02-05 07:37 | SUR.OPER ---
9153 pt stated no numbness in lower legs or feet. strong equal bilateral strength of feet -flexion and extension
--- NOTE | 2023-02-05 07:43 | P.ANESASSM_ITS ---
Pre-Anesthetic Assessment Height/Weight: Height 1.52 m Weight 95.254 kg Temp Pulse Resp BP Pulse Ox O2 Del Method 98.8 F 89 18 142/88 90 Room Air 02/05/23 07:32 02/05/23 07:32 02/05/23 07:32 02/05/23 07:32 02/05/23 07:32 02/05/23 07:32 Operation Date: 02/05/23 08:10 Proposed Procedures p lumbar Incision and Drainage with closure(Not Applicable) - Tre Emmanuel DO Familial anesthetic complications: None Was Beta Viet taken within 24 hours: N/A Was Clonidine taken within 24 hours: N/A Last intake: > 8 hrs Social No alcohol and No tobacco Exam alert, oriented x 3, clear to auscultation bilaterally and regular rate & rhythm Airway Dentition: other (no teeth) CV/HEM Anemia CASSANDRA Metabolic Morbid Obesity Anesthetic Plan ASA status: 3 Anesthesia: General Risk of > 500 ml blood loss (7ml/kg in children): No Medications/Allergies Home Medications Medication Instructions Recorded Confirmed Last Taken Type calcium carbonate 500 mg calcium 2,400 mg PO DAILY 08/14/21 02/05/23 01/09/23 History (1,250 mg) tablet nortriptyline 25 mg capsule 25 - 50 mg PO .BEDTIME PRN insomnia 10/20/22 02/05/23 01/09/23 History denosumab 60 mg/mL subcutaneous 60 mg SUBCUT DIRECTED 01/07/23 02/05/23 Unknown History syringe (Prolia) gabapentin 600 mg tablet 600 mg PO QID 90 days #360 tabs 01/26/23 02/05/23 Unknown Rx mecobalamin (vitamin B12) 1,000 1,000 mcg PO DAILY #30 tabs 01/26/23 02/05/23 Unknown Rx mcg chewable tablet MYRA MARKS, XL #1 ea 02/02/23 02/05/23 Unknown Rx tramadol 50 mg tablet See Rx Instructions PO TID PRN 02/02/23 02/05/23 Unknown Rx pain 30 days #180 tabs diclofenac sodium 75 mg 75 mg PO DAILY 02/05/23 02/05/23 Unknown History tablet,delayed release oxycodone 10 mg tablet 10 mg PO Q4H PRN pain. 02/05/23 02/05/23 Unknown History oxycodone 10 mg tablet,crush 10 mg PO BID 02/05/23 02/05/23 Unknown History resistant,extended release 12 hr (OxyContin) Allergies Allergy/AdvReac Type Severity Reaction Status Date / Time meperidine [From Demerol] Allergy Unknown Unknown Verified 02/02/23 09:58 codeine AdvReac Unknown UNKNOWN Verified 02/02/23 09:58 Egg Derived AdvReac Unknown UNKNOWN Verified 02/02/23 09:58 morphine AdvReac Unknown UNKNOWN Verified 02/02/23 09:58 propoxyphene [From Darvon] AdvReac Unknown UNKNOWN Verified 02/02/23 09:58 PFSH Anesthesia Medical History Spinal stenosis, lumbar region, with neurogenic claudication Chronic kidney disease stage 3A, baseline creatinine 1.1 Osteoarthritis Hx of iron deficiency anemia Osteoporosis On Prolia Vitamin B12 deficiency Bursitis Opioid contract exists Aftercare for long-term (current) use of non-steroidal anti-inflammatories Degenerative lumbar spinal stenosis 4 para 3 Surgical History Status post laminectomy with spinal fusion (01/10/23) Dr Baker - Posterior fusion [id number], bi-sacral iliac fusion, L3/4, L4/5, L5/S1 laminectomy with partial facetectomies S/P epidural steroid injection History of implanted electronic device [employer] spinal stimulator History of thoracic surgery H/O tubal ligation H/O cervical spine surgery S/P cervical spinal fusion H/O adenoidectomy Family History Mother Ovarian cancer Other Cancer Denies family history of Anesthesia complication Bleeding disorder Social History Smoking and tobacco/nicotine status: former use of tobacco/nicotine Second hand smoke exposure: No Alcohol intake: current Alcohol intake frequency: 0-2 Drinks per Day Alcohol type: wine Substance/Drug Use: never Marital status: Data Anesthesia Cardiac Studies: Echocardiogram Ultrasound 06/10/20
--- NOTE | 2023-02-05 07:55 | P.CONIM_ITS ---
Providers/Reason For Consult Consulting Physician/Specialty*: Tre Emmanuel DO/orthopedic surgery Reason for Consult*: Lumbar incision wound dehiscence Attending Physician: Tre Emmanuel DO Primary Care Provider: Jayjay Rashid History of Present Illness History of Present Illness Zoë Calderon is a 72 year old female presents to the emergency department secondary to moving around and feeling a opening sensation.On her back and subsequently has wound dehiscence she is status post a lumbar fusion from T10 to the pelvis with Dr. Dr. Baker my partner on 01/10/2023. Patient been followed up in the postoperative course and there according to patient as well as reviewing of the outpatient records patient had some small delayed wound healing. I suspect this subsequently propagated there have been no signs or concerns of anything infectious. Denying any fevers or chills. Patient states this happened while just moving around overnight. Orthopedics was consulted for recommendations given large dehiscence noted. Review of Systems General: Reports: 10 or more systems reviewed and unremarkable except in HPI and below Medications/Allergies Home Medications Medication Instructions Recorded Confirmed Last Taken Type calcium carbonate 500 mg calcium 2,400 mg PO DAILY 08/14/21 02/05/23 01/09/23 History (1,250 mg) tablet nortriptyline 25 mg capsule 25 - 50 mg PO .BEDTIME PRN insomnia 10/20/22 02/05/23 01/09/23 History denosumab 60 mg/mL subcutaneous 60 mg SUBCUT DIRECTED 01/07/23 02/05/23 Unkn own History syringe (Prolia) gabapentin 600 mg tablet 600 mg PO QID 90 days #360 tabs 01/26/23 02/05/23 Unknown Rx mecobalamin (vitamin B12) 1,000 1,000 mcg PO DAILY #30 tabs 01/26/23 02/05/23 Unknown Rx mcg chewable tablet MYRA MARKS, XL #1 ea 02/02/23 02/05/23 Unknown Rx tramadol 50 mg tablet See Rx Instructions PO TID PRN 02/02/23 02/05/23 Unknown Rx pain 30 days #180 tabs cephalexin 500 mg capsule 500 mg PO BID 7 days #14 caps 02/05/23 Unknown Rx diclofenac sodium 75 mg 75 mg PO DAILY 02/05/23 02/05/23 Unknown History tablet,delayed release ondansetron 4 mg disintegrating 4 mg PO Q8H Nausea and vomiting 02/05/23 Unknown Rx tablet postop 3 days #9 tabs oxycodone 10 mg tablet 10 mg PO Q4H PRN pain. 7 days #42 02/05/23 Unknown Rx tabs oxycodone 10 mg tablet,crush 10 mg PO BID 02/05/23 02/05/23 Unknown History resistant,extended release 12 hr (OxyContin) Allergies Allergy/AdvReac Type Severity Reaction Status Date / Time meperidine [From Demerol] Allergy Unknown Unknown Verified 02/02/23 09:58 codeine AdvReac Unknown UNKNOWN Verified 02/02/23 09:58 Egg Derived AdvReac Unknown UNKNOWN Verified 02/02/23 09:58 morphine AdvReac Unknown UNKNOWN Verified 02/02/23 09:58 propoxyphene [From Darvon] AdvReac Unknown UNKNOWN Verified 02/02/23 09:58 PFSH Acute PFSH: Medical History Spinal stenosis, lumbar region, with neurogenic claudication Chronic kidney disease stage 3A, baseline creatinine 1.1 Osteoarthritis Hx of iron deficiency anemia Osteoporosis On Prolia Vitamin B12 deficiency Bursitis Opioid contract exists Aftercare for long-term (current) use of non-steroidal anti-inflammatories Degenerative lumbar spinal stenosis 4 para 3 Surgical History Status post laminectomy with spinal fusion (01/10/23) Dr Baker - Posterior fusion [id number], bi-sacral iliac fusion, L3/4, L4/5, L5/S1 laminectomy with partial facetectomies S/P epidural steroid injection History of implanted electronic device [employer] spinal stimulator History of thoracic surgery H/O tubal ligation H/O cervical spine surgery S/P cervical spinal fusion H/O adenoidectomy Family History Mother Ovarian cancer Other Cancer Denies family history of Anesthesia complication Bleeding disorder Social History Smoking and tobacco/nicotine status: former use of tobacco/nicotine Second hand smoke exposure: No Alcohol intake: current Alcohol intake frequency: 0-2 Drinks per Day Alcohol type: wine Substance/Drug Use: never Marital status: Vitals/I&O/Wt Last Vital Signs Temp 98.8 F 02/05/23 07:32 Pulse 89 02/05/23 07:32 Resp 18 02/05/23 07:32 BP 142/88 02/05/23 07:32 Pulse Ox 90 02/05/23 07:32 O2 Del Method Room Air 02/05/23 07:32 Weight last 48 hrs Weight 210 lb Physical Exam Narrative: Obese female: Examination of the lumbar spine demonstrates a mid substance wound dehiscence opening of roughly 7 cm with deep wound exposure. There is no erythema or purulent drainage appreciated this just appears to be consistent with wound dehiscence and no signs of infection. Deep fascial layer is closed and there is no exposed hardware noted. Mild tenderness to palpation posterior at the site. Patient and pain and discomfort secondary to dehiscence. Const: COMMON NORMALS: no acute distress and alert HENMT: COMMON NORMALS: normocephalic and atraumatic HEAD & SCALP: nor mocephalic and atraumatic Resp: COMMON NORMALS: normal respiratory effort and No retractions Cardio: COMMON NORMALS: Peripheral pulses 2+ throughout PERIPHERAL PULSES: Peripheral pulses 2+ throughout Neuro: SENSORIUM/ORIENTATION: Yes alert A&P Assessment and plan (1) Dehiscence of external surgical wound: Qualifiers: Encounter type: initial encounter Qualified Code(s): T81.31XA - Disruption of external operation (surgical) wound, not elsewhere classified, initial encounter Plan Patient's been n.p.o. since last night Plan to take to the OR given the large amount of wound dehiscence and for infec tion prophylaxis plan for right lumbar incision irrigation and debridement with primary closure and incisional VAC placement. Talked about the ins and outs procedure the risk benefits complication alternatives with surgery through shared decision making patient and agreed to proceed with plan risk of surgery include not limited to make it better make it worse, further wound dehiscence or breakdown, infection. Understand risk of surgery she elects to proceed all questions answered at this time. Plan will be to discharge from PACU postoperatively as this is simply a wound dehiscence and closure and no concerning signs for infection or exposed hardware. MDM: Ms. Calderon is a 72-year-old female status post lumbar fusion with Dr. Dr. Baker on 01/10/2023 she had an episode this evening rolled over and had dehiscence of her incision site this is apparently had some issues in the postoperative course of some slow or delayed healing no signs or concerns of infection at this time given the large dehiscence and inability to close this in the emergency department plan was to take this back to the OR for I&D with primary closure and incisional VAC placement patient and understand agree with current plan. Questions answered. We will obtain intraoperative cultures as well as place her on antibiotics as a prophylaxis. She will discharge from PACU postoperatively and follow-up with Dr. Dr. Baker. Patient understands and agrees with current plan. All questions answered. Consult Attestations Medical Necessity Statement: Postoperative wound dehiscence lumbar spine Coding Level of Care Code Acute Code for Chg Fwd Diagnoses Dehiscence of external surgical wound T81.31XA Encounter type: initial encounter Time Spent (min) 45
[2023-02-05] MEDS: ceFAZolin 1,000 mg SDV 2000 MG IVP (07:56)
[2023-02-05] MEDS: sodium chloride 0.9% 1,000 ML 30 ML IV (08:00)
--- NOTE | 2023-02-05 08:05 | W.PM.OPSUD ---
Surgery/Procedure H&P Update DATE OF PROCEDURE: February 05, 2023 DATE H&P PERFORMED: 02/05/23 H&P UPDATE INFORMATION: I have reviewed H&P completed within last 30 days, I have examined patient prior to procedure and No changes to prior documentation CHANGES TO PREVIOUS DOCUMENTATION: Refer to consult note for full H&P PREOP DIAGNOSIS: Lumbar incision wound dehiscence PRIMARY INDICATION FOR PROCEDURE: Lumbar incision wound dehiscence PLANNED PROCEDURE: Operation Date: 02/05/23 08:10 Proposed Procedures p lumbar Incision and Drainage with closure(Not Applicable) - Tre Emmanuel DO
--- NOTE | 2023-02-05 08:53 | SUR.OPER ---
0853 back wound size measured by DR. LOPEZ: 8X2X4 cm.
--- NOTE | 2023-02-05 09:30 | P.BOP_ITS ---
Date of Procedure: 02/05/2023 Surgeon: Tre Emmanuel DO Pediatrician Active Practice(s): None Procedure(s) performed: Lumbar spine irrigation and debridement Lumbar wound dehiscence primary closure Lumbar incisional VAC placement Findings of the procedure(s): Patient was found to have wound dehiscence wound measuring 8 cm x 2 cm x 4 cm no enrico purulence and a close deep fascial layer noted. Procedure went as planned with a primary closure with a wilner incisional VAC applied. Estimated blood loss: 10 mL Specimen(s) removed: Cultures aerobic and anaerobic of the lumbar incision above the level of the deep fascial closure Post-operative diagnosis: Postop lumbar fusion incision wound dehiscence
[2023-02-05] MEDS: vancomycin 1,000 MG SDV 1000 MG XX (09:32)
--- NOTE | 2023-02-05 09:32 | P.OP_ITS ---
Operative Report Date of procedure: February 05, 2023 Pre-op diagnosis: Lumbar spine wound dehiscence Post-op diagnosis: same Procedure done: Lumbar spine irrigation and debridement (8 cm x 2 cm x 4 cm) Lumbar spine incision primary closure Lumbar incisional VAC wilner dressing applied Specimens removed/disposition: Cultures aerobic and anaerobic of the wound bed were taken sent for microbiology Surgeon: Tre Emmanuel DO Anesthesia: General Estimated blood loss: 10 mL IV fluids: See anesthesia record Complications: None Findings: See operative report narrative Condition: stable Disposition: same day Brief History: Patient is a 72-year-old female who underwent spine surgery with Dr. Dr. Baker on 01/10/2023. Patient has been followed up at 2-week follow-up visit there is some delayed closing of the wound bed noted but this was treating conservatively with local wound care. Patient subsequently last night moving around felt a opening sensation on her back and has subsequently wound dehiscence there is no enrico infection was noted given this is just a localized wound dehiscence spoke with emergency department. Recommendation at that time for lumbar irrigation debridement with primary closure. Talked about the ins and outs procedure risk benefits complication alternatives with patient as well as at bedside understand agree with current plan. All questions answered. My partner Dr. Dr. Baker is out of town we will plan to proceed as planned. All questions answered. Procedure: Patient was seen evaluate in the preoperative holding area. Consent was reviewed and signed with patient correct incision site was then subsequently marked. Explained the procedure in's and outs in detail. Once cleared for surgery by anesthesia was taken back to the operative suite. Patient underwent general anesthesia per the anesthesia part was placed in prone position all bony prominences well-padded patient appropriate secured to the bed. Patient's lumbar spine was then prepped and draped in standard orthopedic fashion. Final timeout performed. Patient received appropriate perioperative antibiotics. Patient was found to have dehiscence of the lumbar spine I subsequently started with cultures of the deep wound bed of aerobic and anaerobic and were sent for microbiology. There is no enrico purulence infection or erythema noted throughout the diane-incisional area. This appears to be a wound dehiscence. I subsequently thoroughly irrigated the wound bed and then evaluated its extent measuring 8 cm x 2 cm x 4 cm. The deep fascial layer over the hardware was close there is no evidence of infection or any tunneling deep to the hardware as the fascial layer was primarily closed and intact. At this point in time I u tilized a rongeur sharp scalpel excision and curette to debride the wound bed including muscle fascia tendon skin and subcutaneous tissue. This was all debrided of devitalized tissue to stable healthy bleeding tissue. Once this was then subsequently performed I then performed thoroughly irrigation of 3 L of normal saline. Once this was done I then performed hemostasis with electrocautery and once satisfied with this I then placed 1 g of vancomycin powder within the wound bed and then subsequently closed this in standard layered fashion with PDS suture Vicryl plus suture as well as close the incision with PDS 2-0 suture. This was closed in interrupted fashion. I then subsequently applied a wilner incisional VAC dressing that had good seal to help encourage blood flow healing as well as prevention of fluid accumulation at the incision site. Patient was then subsequently awakened from anesthesia and taken to PACU in stable condition. Disposition: Patient taken back in stable condition recovering well will discharge from PACU. Will be discharged on appropriate discharge instructions will be wilner incisional VAC dressing and will follow-up with with the spine team this coming week. Patient understands agrees current plan. Questions answered.
[2023-02-05] MEDS: fentaNYL 50 mcg/mL INJ 2mL IVP (09:57)
[2023-02-05] MEDS: oxyCODONE 5 mg IR Tab/Cap 10 MG PO (10:56)
== END 2023-02-05 11:17 | disposition home or self-care (01) ==
LOC: ER 06:16 → OR 07:07
PROVIDERS: Emergency Provider Family Medicine; PCP Clinical Nurse Specialist Adult Health; Visit Provider Student in an Organized Health Care Education/Training Program
PROC: (CPT 11043; principal; 2023-02-05 08:00)
DX: T81.30XA Disruption of wound, unspecified, initial encounter (principal); E66.01 Morbid (severe) obesity due to excess calories; Z68.41 Body mass index [BMI] 40.0-44.9, adult; N18.30 Chronic kidney disease, stage 3 unspecified; M81.0 Age-related osteoporosis without current pathological fracture; Z79.1 Long term (current) use of non-steroidal anti-inflammatories (NSAID); Z87.891 Personal history of nicotine dependence
CPT/HCPCS: 11043; 11046; 87070; 87075; 87205; J0690; J1100; J1170; J2405; J2704; J2710; J3010; J3370; J3490; J7030; P9045

== ENCOUNTER → 2023-02-08 14:09 | Outpatient (BNVA) | payer MEDICARE, OTHER, SELFPAY | PROVIDERS: PCP Clinical Nurse Specialist Adult Health; Visit Provider Physician Assistant | DX: Z98.1 Arthrodesis status (principal); Z47.89 Encounter for other orthopedic aftercare | CPT/HCPCS: 99024 ==

== ENCOUNTER → 2023-02-09 10:22 | Outpatient (BNVA) | payer MEDICARE, OTHER, SELFPAY | PROVIDERS: PCP Clinical Nurse Specialist Adult Health; Visit Provider Clinical Nurse Specialist Adult Health | DX: N17.9 Acute kidney failure, unspecified (principal) | CPT/HCPCS: 80048; 83880 ==

== ENCOUNTER 2023-02-15 15:38 | Outpatient (CLI) | payer MEDICARE, OTHER, SELFPAY ==
[2023-02-15 17:39] LABS: Alanine Aminotransferase < 5 U/L (0-33); Albumin Level 3.3 g/dL (3.5-5.2); Alkaline Phosphatase 175 U/L (35-105); Anion Gap 17.1 (5-19); Aspartate Amino Transferase 14 U/L (0-32); Blood Urea Nitrogen 13 mg/dL (8-23); Calcium 8.7 mg/dL (8.5-10.5); Carbon Dioxide 29 mmol/L (22-29); Chloride 99 mmol/L (98-107); Globulin 3.7 g/dL (1.3-4.6); Glucose 97 mg/dL (65-115); Osmolality Calculated 292 mOsm/kg (285-295); Potassium 4.1 mmol/L (3.5-5.1); Sodium 141 mmol/L (136-145); Total Bilirubin 0.3 mg/dL (0.15-1.2)
== END 2023-02-15 15:39 | disposition home or self-care (01) ==
LOC: LAB 15:40
PROVIDERS: Absent Provider Orthopaedic Surgery; PCP Clinical Nurse Specialist Adult Health; Visit Provider Clinical Nurse Specialist Adult Health
DX: M54.17 Radiculopathy, lumbosacral region (principal)
CPT/HCPCS: 36415; 80053; 99024

== ENCOUNTER 2023-02-16 18:00 | Inpatient (IN) | payer MEDICARE, OTHER, SELFPAY ==
[2023-02-16] VITALS (10 sets, daily range): BP systolic 67–170; BP diastolic 36–111; PULSE 78–109; RESP 17; TEMP 39.3; O2SAT 91–100; BMI 43.0
--- NOTE | 2023-02-16 18:22 | ECG_ITS ---
[facility] Test Date: 2023-02-16 Pat Name: Zoë Calderon Department: Room: Gender: Female Maintenance Analyst: : 1950 Requested By: Colby Emmanuel Order Number: [id number] Reveles MD: Tom Guillermo M.D. Measurements Intervals [place] Rate: 88 P: 24 DE: 145 QRS: 1 QRSD: 86 T: 4 QT: 342 QTc: 415 Interpretive Statements SINUS RHYTHM WITH OCCASIONAL SUPRAVENTRICULAR PREMATURE COMPLEXES Compared to ECG 05/18/2017 10:23:19 No significant changes Electronically Signed On 02-16-2023 19:41:18 MANAGEMENT DEPARTMENT CHAIR by Tom Guillermo M.D. [email or web address] [id number]
--- NOTE | 2023-02-16 18:23 | XRR_ITS ---
PROCEDURE INFORMATION: Exam: XR Chest Exam date and time: 02/16/2023 6:54 PM Age: 72 years old Clinical indication: Other: Weakness TECHNIQUE: Imaging protocol: Radiologic exam of the chest. Views: 1 view. COMPARISON: CR XR chest 2V* [id number] 10/05/2022 4:02 PM FINDINGS: Lungs: Left lower lobe retrocardiac atelectasis versus infiltrate. Pleural spaces: Unremarkable. No pleural effusion. No pneumothorax. Heart/Mediastinum: Cardiomegaly mild pulmonary vascular congestion. Bones/joints: Unremarkable. XR/XR chest 1V portable [id number] IMPRESSION: 1. Cardiomegaly mild pulmonary vascular congestion. 2. Left lower lobe retrocardiac atelectasis versus infiltrate.
--- NOTE | 2023-02-16 18:24 | ED_ITS ---
HPI - Weakness 2 General: Chief complaint: Weakness Stated complaint: Poss sepsis Time Seen by Provider: 02/16/23 18:12 History of Present Illness: 72-year-old female presents the emergenc y department with complaints of increased weakness throughout the day today. She states she is had a recent back surgery on January 10, [address] Emmanuel she states that she had to go back for a revision of her back surgery on February 05, 2023 and since that time she has had drainage from her back. She states that she was having difficulty ambulating today and her became concerned. She states she can move her feet and has sensation to her feet and that has not changed but she was unable to stand. She states that she has had increasing weakness and fatigue she states she did have a fever of 102.7 ?F today. She denies urinary incontinence or retention. She denies bowel incontinence or retention. Associated symptoms: Reports fever(s) Review of Systems 2 General: Reports: 10 or more systems reviewed and unremarkable except in HPI and below Const: Reports: fever(s) and fatigue Musc: Reports: back pain PFSH ED 2 PFSH: Medical History Spinal stenosis, lumbar region, with neurogenic claudication Chronic kidney disease stage 3A, baseline creatinine 1.1 Osteoarthritis Hx of iron deficiency anemia Osteoporosis On Prolia Vitamin B12 deficiency Bursitis Opioid contract exists Aftercare for long-term (current) use of non-steroidal anti-inflammatories Degenerative lumbar spinal stenosis 4 para 3 Surgical History Status post laminectomy with spinal fusion (01/10/23) Dr Baker - Posterior fusion [id number], bi-sacral iliac fusion, L3/4, L4/5, L5/S1 laminectomy with partial facetectomies S/P epidural steroid injection History of implanted electronic device [employer] spinal stimulator History of thoracic surgery H/O tubal ligation H/O cervical spine surgery S/P cervical spinal fusion H/O adenoidectomy Family History Mother Ovarian cancer Other Cancer Denies family history of Anesthesia complication Bleeding disorder Social History Smoking and tobacco/nicotine status: former use of tobacco/nicotine Second hand smoke exposure: No Alcohol intake: current Alcohol intake frequency: 0-2 Drinks per Day Alcohol type: wine Substance/Drug Use: never Marital status: Physical Exam 2 Narrative: EXAM NARRATIVE: Constitutional: the patient appears well nourished and with normal development. Vital signs reviewed as documented. HENMT: Normocephalic, atraumatic. Extermal ears with normal appearance without drainage. Nose without drainage, normal appearance. Mucus membranes moist. Neck is supple, No jugular venous distension, trachea is midline, no appreciable carotid bruits. No lymphadenopathy. No meningeal signs. Flexion, extension and lateral rotation is without pain. Eyes: Pupils are equal, round, reactive to light and accommodation. No scleral icterus. Extra-ocular movement are intact. Thorax is symmetrical and with equal rise and fall with respirations. Resp: Lungs are clear to auscultation. No wheezes, rales, crackles or ronchi at present. Cardio: Regular rate and rhythm. Positive S1, S2. No appreciable murmurs, rubs or gallops. GI: Abdominal exam reveals normal bowel sounds to all quadrants. No organomegaly. No obvious palpable masses noted. No hepatomegally appreciated. Soft, nontender to palpation. Extremity: Extremities are non-edematous and both femoral and pedal pulses are 2+ and equal bilaterally. Moves all extremities well, sensation in all extremities. Neuro: Alert and oriented x4, person, place, time and situation. Cranial nerves II through XII are grossly intact, there is no focal neurological deficits that I can appreciate at present. Motor strength in the upper and lower extremities are equal and bilateral 5/5. Psych: Cooperative, calm, normal thought process, appropriate judgment. Skin: No lesions, rashes. No gross abnormalities noted. Back: Symmetrical, no obvious deformity, No CVA tenderness Course 2 ED course: Procedure Note: Ultrasound Guided Central Venous Catheter (CVC) Placement Indication: Hemodynamic monitoring/Intravenous access Consent obtain as documented. Maximal Sterile Barrier Technique utilized and included appropriate hand washing before and after the procedure, use of Cap, mask, sterile gown, sterile gloves and sterile full body drape. A time-out was completed verifying correct patient, procedure, site, positioning, and special equipment if applicable. The patient was placed in a dependent position appropriate for central line placement based on the vein to be cannulated. The patient?s <right> < neck> was prepped and draped in sterile fashion. 1% Lidocaine was used to anesthetize the surrounding skin area. A triple lumen <9-Bulgarian> Cordis catheter was introduced into the the </internal jugular vein> using the Seldinger technique <and under ultrasound guidance>. The catheter was threaded smoothly over the guide wire and appropriate blood return was obtained. Each lumen of the catheter was evacuated of air and flushed with sterile saline. The catheter was then sutured in place to the skin and a sterile dressing applied. Perfusion to the extremity distal to the point of catheter insertion was checked and found to be adequate. Post-procedure xray was obtained and reviewed and proper placement of the catheter was verified. Estimated Blood Loss: <__5__> The patient tolerated the procedure well and there were no complications. Reevaluation(s): Reevaluation #1: I discussed the plan of care with the patient and advised her that I had contact the hospitalist physician for admission to the hospital and diet also contacted the on-call orthopedic physician Dr. Rubio who advised that we could consult Dr. Baker in the morning as he was the orthopedic physician that completed the patient's initial surgery. Time: 23:11 Vital Signs: Vital signs: Vital Signs Temperature 98.2 F 02/17/23 00:15 Pulse Rate 82 02/17/23 02:00 Respiratory Rate 15 02/17/23 02:00 Blood Pressure 122/74 02/17/23 02:00 Pulse Oximetry 100 02/17/23 01:10 Oxygen Delivery Me thod Nasal Cannula 02/17/23 00:57 Oxygen Flow Rate 4 02/16/23 21:24 MDM - Weakness Medical Decision Making Physical exam completed and documented, I will obtain a CBC CMP ESR CRP blood cultures as well as radiographic examination of the patient's back given her elevated temperature and her recent back surgery and continued drainage. I will also request that the nursing staff obtain wound cultures of the drainage from the postsurgical wound. Medical Records I reviewed the patient's medical records. Lab Data I reviewed the patient's lab results. 02/16/23 18:52 02/16/23 18:52 Radiology Impressions Lumbar Spine CT 02/16/23 18:59 IMPRESSION: 1. Bilateral pedicle screws seen at L2/3/4/5/S1/S2 with posterior fixation hardware which also extends superiorly off the field of view. 2. T12 and L1 vertebroplasty changes. 3. Fluid seen in the subcutaneous fat overlying the visualized thoracolumbar spine measuring up to 6.3 cm transverse by 3.5 cm AP by 11 cm craniocaudal may be postsurgical in nature, infection is not excluded. 4. L2-L3 moderate bilateral foraminal narrowing secondary to productive degenerative changes. 5. L3-L4 broad-based disc bulge with moderate bilateral foraminal narrowing. 6. L4-L5 broad-based disc bulge with mild spinal canal and moderate bilateral foraminal narrowing. 7. L5/S1 broad-based disc bulge with [id number] bilateral foraminal narrowing. 8. Trace right pleural effusion. 9. Right lower lobe atelectasis versus infiltrate. Thoracic Spine CT 02/16/23 18:59 IMPRESSION: 1. Fluid in the midline posterior subcutaneous fat overlying the spine extending from approximately level of T7 to the level of L2 with a small amount of air may reflect postsurgical fluid, infection is not excluded, measuring up to approximately 12 cm craniocaudal by 2.4 cm transverse. 2. Bilateral pedicle screws seen at T10, T11, L2 and L3 with posterior fixation hardware bridging this area. 3. Vertebroplasty changes seen in place at T12 and L1. 4. Surgical hardware seen in the cervical spine. 5. Cardiomegaly. 6. Diverticulosis without diverticulitis. 7. Bilateral dependent atelectasis. Chest X-Ray 02/16/23 21:08 IMPRESSION: 1. Right central venous catheter tip in the superior vena cava. 2. Cardiomegaly and pulmonary vascular congestion. 3. Surgical hardware somewhat visualized in the spine. Laboratory Results WBC 14.33 10^3/uL (3.29-11.43) H 02/16/23 18:52 RBC 2.87 10^6/uL (3.85-5.65) L 02/16/23 18:52 Hgb 7.40 g/dL (11.27-16.99) L 02/16/23 18:52 Hct 25.3 % (36-47) L 02/16/23 18:52 MCV 88.2 fl (85-98) 02/16/23 18:52 MCH 25.8 pg (27-33) L 02/16/23 18:52 MCHC 29.2 g/dL (30-55) L 02/16/23 18:52 RDW 17.3 % (12.1-15.1) H 02/16/23 18:52 Plt Count 400 10^3/cmm (157-399) H 02/16/23 18:52 MPV 9.5 fL (7.4-10.4) 02/16/23 18:52 Neut % (Auto) 89.5 % 02/16/23 18:52 Lymph % (Auto) 4.2 % 02/16/23 18:52 [place] % (Auto) 4.7 % 02/16/23 18:52 Eos % (Auto) 0.0 % 02/16/23 18:52 Baso % (Auto) 0.5 % 02/16/23 18:52 Neut # (Auto) 12.82 10^3/uL (1.8-7.7) H 02/16/23 18:52 Lymph # (Auto) 0.6 10^3/uL (0.8-4.8) L 02/16/23 18:52 [place] # (Auto) 0.7 10^3/uL (0.2-0.9) 02/16/23 18:52 Eos # (Auto) 0.0 10^3/uL (0.0-0.8) 02/16/23 18:52 Baso # (Auto) 0.1 10^3/uL (0.0-0.1) 02/16/23 18:52 Nucleated RBC % (auto) 0.3 % 02/16/23 18:52 Nucleated RBCs # 0.1 /100WBC 02/16/23 18:52 ESR 20 mm/hr (0-15) H 02/16/23 18:52 Sodium 139 mmol/L (136-145) 02/16/23 18:52 Potassium 4.7 mmol/L (3.5-5.1) 02/16/23 18:52 Chloride 102 mmol/L (98-107) 02/16/23 18:52 Carbon Dioxide 27 mmol/L (22-29) 02/16/23 18:52 Anion Gap 14.7 (5-19) 02/16/23 18:52 BUN 16 mg/dL (8-23) 02/16/23 18:52 Creatinine 1.5 mg/dL (0.5-0.9) H 02/16/23 18:52 GFR Calculation Not Reportable 02/16/23 18:52 Glucose 123 mg/dL (65-115) H 02/16/23 18:52 Calculated Osmolality 291 mOsm/kg (285-295) 02/16/23 18:52 Lactic Acid 1.8 mmol/L (0.5-2.2) 02/16/23 22:58 Calcium 8.1 mg/dL (8.5-10.5) L 02/16/23 18:52 Total Bilirubin 0.3 mg/dL (0.15-1.2) 02/16/23 18:52 AST 15 U/L (0-32) 02/16/23 18:52 ALT < 5 U/L (0-33) 02/16/23 18:52 Alkaline Phosphatase 146 U/L (35-105) H 02/16/23 18:52 Troponin T Baseline 32 ng/L (0-10) H 02/16/23 22:58 C-Reactive Protein 77.9 mg/L (0.0-4.9) H 02/16/23 18:52 Total Protein 6.0 g/dL (6.6-8.7) L 02/16/23 18:52 Albumin 2.8 g/dL (3.5-5.2) L 02/16/23 18:52 Globulin 3.2 g/dL (1.3-4.6) 02/16/23 18:52 Random Cortisol 16.67 ug/dL (2.47-19.5) 02/16/23 22:58 Urine Color Yellow (Yellow) 02/16/23 18:38 Urine Appearance Cloudy (CLEAR) A 02/16/23 18:38 Urine pH 6.5 (5-7) 02/16/23 18:38 Ur Specific [place] 1.015 (1.005-1.030) 02/16/23 18:38 Urine Protein Neg (Negative) 02/16/23 18:38 Urine Glucose (UA) Norm (Normal) 02/16/23 18:38 Urine Ketones Negative (Negative) 02/16/23 18:38 Urine Blood Neg (Negative) 02/16/23 18:38 Urine Nitrate Negative (Negative) 02/16/23 18:38 Urine Bilirubin Neg (Negative) 02/16/23 18:38 Urine Urobilinogen 4 mg/dL (Negative) H 02/16/23 18:38 Ur Leukocyte Esterase Negative (Negative) 02/16/23 18:38 Urine RBC 0-4 /hpf (0-2) H 02/16/23 18:38 Urine WBC 0-4 /hpf (0-5) H 02/16/23 18:38 Ur Squamous Epith Cells 25-40 /hpf (0-5) H 02/16/23 18:38 Ur Transition Epith Cell 0-4 /hpf 02/16/23 18:38 Amorphous Sediment Not Reportable 02/16/23 18:38 Urine Bacteria None /hpf (NONE) 02/16/23 18:38 Urine Mucus None /hpf 02/16/23 18:38 Influenza Type A Ag negative (Negative) 02/16/23 22:56 Influenza Type B Ag negative (Negative) 02/16/23 22:56 SARS-CoV-2 Ag (Rapid) negative (Negative) 02/16/23 22:56 All radiology interpretation(s) finalized by discharge Critical Care Time 2 Critical Care Time: Critical Care Time: Yes Total Critical Care Time: 70 Attestation: The patients was emergently evaluated as this patient's presentation and case had a high probability of a clinically significant, sudden, or life threatening deterioration of this patient's initial critical presentation or condition which required my full and direct attention, intervention and personal management. 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
[2023-02-16] MEDS: sodium chloride 0.9% 1,000 ML 999 ML IV ×2 (18:27→19:09)
[2023-02-16 18:55] LABS: Urine Appearance Cloudy (CLEAR); Urine Color Yellow (Yellow)
[2023-02-16 18:56] LABS: Bilirubin Urine Neg (Negative); Blood Urine Neg (Negative); Glucose Urine UA Norm (Normal); Ketones Urine Negative (Negative); Leukocyte Esterase Urine Negative (Negative); Nitrate Urine Negative (Negative); Protein Urine Neg (Negative); Specific Gravity, Urine 1.015 (1.005-1.030); Urobilinogen Urine 4 mg/dL (Negative); pH Urine 6.5 (5-7)
--- NOTE | 2023-02-16 18:59 | CTR_ITS ---
PROCEDURE INFORMATION: Exam: CT Lumbar Spine With Contrast Exam date and time: 02/16/2023 9:57 PM Age: 72 years old Clinical indication: Other: Infection; Prior surgery; Surgery date: 1-6 months; Surgery type: 01/10/2023; Additional info: Back pain/ R/O post-operative infection TECHNIQUE: Imaging protocol: Computed tomography of the lumbar spine with contrast. Radiation optimization: All CT scans at this facility use at least one of these dose optimization techniques: automated exposure control; mA and/or kV adjustment per patient size (includes targeted exams where dose is matched to clinical indication); or iterative reconstruction. Contrast material: OMNI 350; Contrast volume: 125 ml; Contrast route: INTRAVENOUS (IV); COMPARISON: CT lumbar spine w con [id number] 09/14/2022 9:55 AM RADIATION DOSE METRICS: Total DLP (mGy-cm): 1300 FINDINGS: Bones/joints: Bilateral pedicle screws seen at L2/3/4/5/S1/S2 with posterior fixation hardware which also extends superiorly off the field of view. Fluid seen in the subcutaneous fat overlying the visualized thoracolumbar spine measuring up to 6.3 cm transverse by 3.5 cm AP by 11 cm craniocaudal may be postsurgical in nature, infection is not excluded. T12-L1: T12 and L1 vertebroplasty changes. L1-L2: No significant disc bulge or herniation. No severe spinal canal stenosis. No significant neural foraminal narrowing. L2-L3: L2-L3 moderate bilateral foraminal narrowing secondary to productive degenerative changes. L3-L4: L3-L4 broad-based disc bulge with moderate bilateral foraminal narrowing. L4-L5: L4-L5 broad-based disc bulge with mild spinal canal and moderate bilateral foraminal narrowing. L5-S1: L5/S1 broad-based disc bulge with [id number] bilateral foraminal narrowing. Lungs: Right lower lobe atelectasis versus infiltrate. Pleural spaces: Trace right pleural effusion. Soft tissues: Unremarkable. CT/CT lumbar spine w con [id number] IMPRESSION: 1. Bilateral pedicle screws seen at L2/3/4/5/S1/S2 with posterior fixation hardware which also extends superiorly off the field of view. 2. T12 and L1 vertebroplasty changes. 3. Fluid seen in the subcutaneous fat overlying the visualized thoracolumbar spine measuring up to 6.3 cm transverse by 3.5 cm AP by 11 cm craniocaudal may be postsurgical in nature, infection is not excluded. 4. L2-L3 moderate bilateral foraminal narrowing secondary to productive degenerative changes. 5. L3-L4 broad-based disc bulge with moderate bilateral foraminal narrowing. 6. L4-L5 broad-based disc bulge with mild spinal canal and moderate bilateral foraminal narrowing. 7. L5/S1 broad-based disc bulge with [id number] bilateral foraminal narrowing. 8. Trace right pleural effusion. 9. Right lower lobe atelectasis versus infiltrate.
--- NOTE | 2023-02-16 18:59 | CTR_ITS ---
PROCEDURE INFORMATION: Exam: CT Thoracic Spine With Contrast Exam date and time: 02/16/2023 9:57 PM Age: 72 years old Clinical indication: Other: Infection; Prior surgery; Surgery date: 1-6 months; Surgery type: 01/10/2023; Additional info: Back pain/ R/O post-operative infection TECHNIQUE: Imaging protocol: Computed tomography of the thoracic spine with contrast. Radiation optimization: All CT scans at this facility use at least one of these dose optimization techniques: automated exposure control; mA and/or kV adjustment per patient size (includes targeted exams where dose is matched to clinical indication); or iterative reconstruction. Contrast material: OMNI 350; Contrast volume: 125 ml; Contrast route: INTRAVENOUS (IV); COMPARISON: CT thoracic spin wo con* [id number] 10/02/2018 4:03 PM RADIATION DOSE METRICS: Total DLP (mGy-cm): 1382 FINDINGS: Bones/joints: Fluid in the midline posterior subcutaneous fat overlying the spine extending from approximately level of T7 to the level of L2 with a small amount of air may reflect postsurgical fluid, infection is not excluded, measuring up to approximately 12 cm craniocaudal by 2.4 cm transverse. Bilateral pedicle screws seen at T10, T11, L2 and L3 with posterior fixation hardware bridging this area. Vertebroplasty changes seen in place at T12 and L1. Surgical hardware seen in the cervical spine. Left 10th chronic posterior rib fracture. T1-T2: No significant disc bulge or herniation. No severe spinal canal stenosis. No significant neural foraminal narrowing. T2-T3: No significant disc bulge or herniation. No severe spinal canal stenosis. No significant neural foraminal narrowing. T3-T4: No significant disc bulge or herniation. No severe spinal canal stenosis. No significant neural foraminal narrowing. T4-T5: No significant disc bulge or herniation. No severe spinal canal stenosis. No significant neural foraminal narrowing. T5-T6: No significant disc bulge or herniation. No severe spinal canal stenosis. No significant neural foraminal narrowing. T6-T7: No significant disc bulge or herniation. No severe spinal canal stenosis. No significant neural foraminal narrowing. T7-T8: No significant disc bulge or herniation. No severe spinal canal stenosis. No significant neural foraminal narrowing. T8-T9: No significant disc bulge or herniation. No severe spinal canal stenosis. No significant neural foraminal narrowing. T9-T10: No significant disc bulge or herniation. No severe spinal canal stenosis. No significant neural foraminal narrowing. T10-T11: No significant disc bulge or herniation. No severe spinal canal stenosis. No significant neural foraminal narrowing. T11-T12: No significant disc bulge or herniation. No severe spinal canal stenosis. No significant neural foraminal narrowing. T12-L1: No significant disc bulge or herniation. No severe spinal canal stenosis. No significant neural foraminal narrowing. Lungs: Bilateral dependent atelectasis. Heart: Cardiomegaly. Stomach and bowel: Diverticulosis without diverticulitis. CT/CT thoracic spine w con [id number] IMPRESSION: 1. Fluid in the midline posterior subcutaneous fat overlying the spine extending from approximately level of T7 to the level of L2 with a small amount of air may reflect postsurgical fluid, infection is not excluded, measuring up to approximately 12 cm craniocaudal by 2.4 cm transverse. 2. Bilateral pedicle screws seen at T10, T11, L2 and L3 with posterior fixation hardware bridging this area. 3. Vertebroplasty changes seen in place at T12 and L1. 4. Surgical hardware seen in the cervical spine. 5. Cardiomegaly. 6. Diverticulosis without diverticulitis. 7. Bilateral dependent atelectasis.
[2023-02-16 19:07] LABS: Add Urine Culture? No; RBC Urine 0-4 /hpf (0-2); Squamous Epithelial Cell Urine 25-40 /hpf (0-5); Transitional Epi Cells Urine 0-4 /hpf; WBC Urine 0-4 /hpf (0-5)
[2023-02-16] MEDS: acetaminophen 500 mg Tablet 1000 MG PO (19:08)
[2023-02-16 19:18] LABS: Basophils # 0.1 10^3/uL (0.0-0.1); Basophils % 0.5 %; Hematocrit 25.3 % (36-47); Lymphocytes # 0.6 10^3/uL (0.8-4.8); Lymphocytes % 4.2 %; Mean Corpuscular HGB Conc 29.2 g/dL (30-55); Mean Corpuscular Hemoglobin 25.8 pg (27-33); Mean Corpuscular Volume 88.2 fl (85-98); Mean Platelet Volume 9.5 fL (7.4-10.4); Monocytes # 0.7 10^3/uL (0.2-0.9); Monocytes % 4.7 %; Neutrophils # 12.82 10^3/uL (1.8-7.7); Neutrophils % 89.5 %; Nucleated Red Blood Cells # 0.1 /100WBC; Nucleated Red Blood Cells % 0.3 %; Platelet Count 400 10^3/cmm (157-399); Red Blood Count 2.87 10^6/uL (3.85-5.65); Red Cell Distribution Width 17.3 % (12.1-15.1); White Blood Count 14.33 10^3/uL (3.29-11.43)
[2023-02-16 19:34] LABS: Alanine Aminotransferase < 5 U/L (0-33); Albumin Level 2.8 g/dL (3.5-5.2); Alkaline Phosphatase 146 U/L (35-105); Anion Gap 14.7 (5-19); Aspartate Amino Transferase 15 U/L (0-32); Blood Urea Nitrogen 16 mg/dL (8-23); C Reactive Protein 77.9 mg/L (0.0-4.9); Calcium 8.1 mg/dL (8.5-10.5); Carbon Dioxide 27 mmol/L (22-29); Chloride 102 mmol/L (98-107); Globulin 3.2 g/dL (1.3-4.6); Glucose 123 mg/dL (65-115); Osmolality Calculated 291 mOsm/kg (285-295); Potassium 4.7 mmol/L (3.5-5.1); Sodium 139 mmol/L (136-145); Total Bilirubin 0.3 mg/dL (0.15-1.2)
[2023-02-16 19:37] LABS: Erythrocyte Sedimentation Rate 20 mm/hr (0-15)
[2023-02-16] MEDS: norepinephrine 4 MG/250 ML BAG 30 MG IV (20:26)
--- NOTE | 2023-02-16 21:08 | XRR_ITS ---
PROCEDURE INFORMATION: Exam: XR Chest Exam date and time: 02/16/2023 9:13 PM Age: 72 years old Clinical indication: Device placement; Other: Central line placement TECHNIQUE: Imaging protocol: Radiologic exam of the chest. Views: 1 view. COMPARISON: CR (CHEST, ) 02/16/2023 6:54 PM FINDINGS: Tubes, catheters and devices: Right central venous catheter tip in the superior vena cava. Lungs: See Heart/Mediastinum finding. Pleural spaces: Unremarkable. No pleural effusion. No pneumothorax. Heart/Mediastinum: Cardiomegaly and pulmonary vascular congestion. Bones/joints: Surgical hardware somewhat visualized in the spine. XR/XR chest 1V portable [id number] IMPRESSION: 1. Right central venous catheter tip in the superior vena cava. 2. Cardiomegaly and pulmonary vascular congestion. 3. Surgical hardware somewhat visualized in the spine.
--- NOTE | 2023-02-16 21:16 | PC.NURSE ---
ANTIBIOTIC DELAYED DUE TO NEED FOR CENTRAL LINE AND ONLY IV ACCESS USED FOR LEVOPHED.
[2023-02-16] MEDS: iohexol 350 mg/mL 500 mL Btl (per mL) IV (22:10)
--- NOTE | 2023-02-16 23:10 | ECG_ITS ---
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 Measurements Intervals [place] Rate: 91 P: 38 MT: 159 QRS: 3 QRSD: 92 T: 5 QT: 341 QTc: 420 Interpretive Statements SINUS RHYTHM Compared to ECG 02/16/2023 19:01:05 No significant changes Electronically Signed On 02-17-2023 21:47:19 DONATIONS ATTENDANT by Solis Dillon M.D. [id number]
--- NOTE | 2023-02-16 23:13 | PM.HP ---
Providers/Chief Complaint Admitting Physician: Debby Trimble MD Primary Care Provider: Jayjay Rashid Chief Complaint: Poss sepsis History of Present Illness Zoë Calderon is a 72 year old female without known significant comorbidities other than chronic low back, lumbar stenosis with neurogenic claudication, pain for which she has undergone L4-L5 S1 laminectomy with partial facetectomy in October 2022 and then more recently she underwent posterior fusion and instrumentation of T10-S1 and laminectomy with partial facetectomies at levels L3-S1 with Dr. Baker. She had a previously placed spinal cord stimulator which was also removed during the surgery as it was not really helping. Postop course was complicated by anemia, CASSANDRA on CKD and hypotension, she was thought to possibly have adrenal insufficiency for which she received fludrocortisone and midodrine while she was inpatient but it appears this was discontinued by the time she was discharged on 01/24/2023. Her postop course was then complicated by wound dehiscence for which she returned to the ER on 02/05/2023. She was evaluated by Dr. Emmanuel and underwent lumbar spine irrigation and debridement, primary closure and placement of lumbar incisional wound VAC. Area of wound dehiscence at the time was noted to be 8 x 2 cm. No enrico purulence was encountered at the time per review of brief operative note. Cultures were taken and were negative from the wound. Patient was discharged with cephalexin for 7 days. She reports that her wound VAC stopped working after 5 days as it ran out of battery and she has not used it since then. She was evaluated by Dr. Baker in the clinic yesterday where his wound was noted to be draining, she was started on Bactrim DS twice daily. She was brought into the emergency room by her today as she was very lethargic, disoriented at home and was unable to be awakened. Upon arrival to the emergency room she was hypotensive with blood pressure of 70 systolic, Tmax of 102.7 Fahrenheit, and pus discharge encountered at the wound over her back. She received 2 L fluid resuscitation in the emergency room and was started on Levophed infusion, which is currently running at 8 mics. Blood pressure is improved with these interventions, currently at 138/94 at the time of my assessment. With improvement in her blood pressure mental status has recovered. She is currently awake alert oriented, able to recall all events leading up to today's admission. She denies having any fever at home. Denies any chills. Denies any other symptoms such as runny nose cough dyspnea palpitations abdominal pain nausea or vomiting. Denies any past history of diabetes mellitus or hypertension. No significant known cardiac history in the past. She takes Lasix 40 mg p.o. daily but is unsure regarding indication of the same. Review of Systems General: Reports: 10 or more systems reviewed and unremarkable except in HPI and below Const: Denies: fever(s), chills or body aches Eyes: Denies: change in vision, blurry vision or photophobia ENMT: Reports: hoarseness; Denies: throat pain, enlarged tonsils, odynophagia or nasal congestion Card: Denies: chest pain, palpitations, irregular heart rhythm, edema, swelling of feet/ankles, lightheadedness, pre-syncope, dyspnea on exertion or orthopnea Resp: Denies: dyspnea, productive cough, non-productive cough, wheezing, stridor, pain on inspiration, change in phlegm color, hemoptysis or chest congestion GI: Denies: abdominal pain, nausea, vomiting, hematemesis, coffee ground emesis, dysphagia, heartburn, diarrhea, constipation, GI cramping, change in stool character, hematochezia or melena : Denies: flank pain, difficulty voiding, dysuria, urinary frequency, urinary urgency, urinary hesitancy or hematuria Musc: Denies: neck pain, back pain, extremity pain, joint swelling, joint warmth or deformity Neuro: Denies: headache(s), numbness in extremities, weakness in extremities, sensory changes, difficulty walking, frequent falls, dizziness, vertigo, behavioral changes, Slurred speech present or seizure-like activity Psych: Denies: anxiety, depression, suicidal ideation or homicidal ideation Endo: Denies: polyuria, polydipsia, tired all the time, cold intolerance or hot flashes Keanu/Lymph: Denies: easy bruising or easy bleeding Medications/Allergies Home Medications Medication Instructions Recorded Confirmed Last Taken Type calcium carbonate 500 mg calcium 2,400 mg PO DAILY 08/14/21 02/15/23 01/09/23 History (1,250 mg) tablet nortriptyline 25 mg capsule 25 - 50 mg PO .BEDTIME PRN insomnia 09/02/15/23 01/09/23 History denosumab 60 mg/mL subcutaneous 60 mg SUBCUT DIRECTED 01/07/23 02/15/23 Unknown History syringe (Prolia) gabapentin 600 mg tablet 600 mg PO QID 90 days #360 tabs 01/26/23 02/15/23 Unknown Rx mecobalamin (vitamin B12) 1,000 1,000 mcg PO DAILY #30 tabs 01/26/23 02/15/23 Unknown Rx mcg chewable tablet TERRY MILES #1 ea 02/02/23 02/15/23 Unknown Rx tramadol 50 mg tablet See Rx Instructions PO TID PRN 02/02/23 02/15/23 Unknown Rx pain 30 days #180 tabs oxycodone 10 mg tablet 10 mg PO Q4H PRN pain. 7 days #42 02/05/23 02/15/23 Unknown Rx tabs oxycodone 10 mg tablet,crush 10 mg PO BID 02/05/23 02/15/23 Unknown History resistant,extended release 12 hr (OxyContin) escitalopram oxalate 5 mg tablet 5 mg PO DAILY #30 tabs 02/09/23 02/15/23 Unknown Rx (Lexapro) furosemide 40 mg tablet 40 mg PO QAM #30 tabs 02/09/23 02/15/23 Unknown Rx potassium chloride 10 mEq 10 meq PO DAILY #30 tabs 02/09/23 02/15/23 Unknown Rx tablet,extended release sulfamethoxazole 800 1 tab PO BID #14 tabs 02/15/23 02/15/23 Unknown Rx mg-trimethoprim 160 mg tablet (Bactrim DS) Allergies Allergy/AdvReac Type Severity Reaction Status Date / Time meperidine [From Demerol] Allergy Unknown Unknown Verified 02/16/23 18:18 codeine AdvReac Unknown UNKNOWN Verified 02/16/23 18:18 Egg Derived AdvReac Unknown UNKNOWN Verified 02/16/23 18:18 morphine AdvReac Unknown UNKNOWN Verified 02/16/23 18:18 propoxyphene [From Darvon] AdvReac Unknown UNKNOWN Verified 02/16/23 18:18 PFSH Acute PFSH: Medical History Spinal stenosis, lumbar region, with neurogenic claudication Chronic kidney disease stage 3A, baseline creatinine 1.1 Osteoarthritis Hx of iron deficiency anemia Osteoporosis On Prolia Vitamin B12 deficiency Bursitis Opioid contract exists Aftercare for long-term (current) use of non-steroidal anti-inflammatories Degenerative lumbar spinal stenosis 4 para 3 Surgical History Status post laminectomy with spinal fusion (01/10/23) Dr Baker - Posterior fusion [id number], bi-sacral iliac fusion, L3/4, L4/5, L5/S1 laminectomy with partial facetectomies S/P epidural steroid injection History of implanted electronic device [email or web address] spinal stimulator History of thoracic surgery H/O tubal ligation H/O cervical spine surgery S/P cervical spinal fusion H/O adenoidectomy Family History Mother Ovarian cancer Other Cancer Denies family history of Anesthesia complication Bleeding disorder Social History Smoking and tobacco/nicotine status: former use of tobacco/nicotine Second hand smoke exposure: No Alcohol intake: current Alcohol intake frequency: 0-2 Drinks per Day Alcohol type: wine Substance/Drug Use: never Marital status: Vitals/I&O/Wt Last Vital Signs Temp 102.7 F H 02/16/23 18:06 Pulse 94 02/16/23 21:41 Resp 17 02/16/23 21:41 BP 138/94 02/16/23 21:41 Pulse Ox 92 02/16/23 21:41 O2 Del Method Nasal Cannula 02/16/23 21:24 O2 Flow Rate 4 02/16/23 21:24 02/16/23 02/16/23 02/17/23 14:59 22:59 06:59 Intake Total 1000 / 1000 81.5 / 1081.5 Balance 1000 / 1000 81.5 / 1081.5 Weight last 48 hrs Weight 99.79 kg Physical Exam Narrative: General: No acute distress, AO x3 HEENT: PERRLA, pupils bilaterally equal and reactive, pallors not present Chest: Normal vesicular breath sounds, no added sounds, equal good air entry bilaterally CVS: S1-S2 regular, no murmurs, no tachycardia, no gallops, no rubs Abdomen: Soft, nontender, no organomegaly, bowel sounds present Neuro: No focal deficits, no facial deformity, AO x3, power 5/5 in all limbs Extremities: No edema clubbing or cyanosis. Noted to have a midline spinal incision over lumbar sacral spine. Sutures in place. Noted to have pus discharge in between the sutures. Spontaneous oozing, unable to express any enrico purulence. Data 02/16/23 18:52 02/16/23 18:52 Other Labs: [employer] [address] [address] [address] Scan Report Signed Patient: Zoë Calderon Unit #: [id number] : 1950 Age/Sex: 72 / F ADM Date: 02/16/23 Loc: ER Room/Bed: Attending Dr: Debby Trimble MD Ordering Provider/Ordering MD: Colby Emmanuel MD Date of Service: 02/16/23 Procedure(s): CT thoracic spine w con [id number] Accession Number(s): [id number] Report Number: [id number] PROCEDURE INFORMATION: Exam: CT Thoracic Spine With Contrast Exam date and time: 02/16/2023 9:57 PM Age: 72 years old Clinical indication: Other: Infection; Prior surgery; Surgery date: 1-6 months; Surgery type: 01/10/2023; Additional info: Back pain/ R/O post-operative infection TECHNIQUE: Imaging protocol: Computed tomography of the thoracic spine with contrast. Radiation optimization: All CT scans at this facility use at least one of these dose optimization techniques: automated exposure control; mA and/or kV adjustment per patient size (includes targeted exams where dose is matched to clinical indication); or iterative reconstruction. Contrast material: OMNI 350; Contrast volume: 125 ml; Contrast route: INTRAVENOUS (IV); COMPARISON: CT thoracic spin wo con* [id number] 10/02/2018 4:03 PM RADIATION DOSE METRICS: Total DLP (mGy-cm): 1382 FINDINGS: Bones/joints: Fluid in the midline posterior subcutaneous fat overlying the spine extending from approximately level of T7 to the level of L2 with a small amount of air may reflect postsurgical fluid, infection is not excluded, measuring up to approximately 12 cm craniocaudal by 2.4 cm transverse. Bilateral pedicle screws seen at T10, T11, L2 and L3 with posterior fixation hardware bridging this area. Vertebroplasty changes seen in place at T12 and L1. Surgical hardware seen in the cervical spine. Left 10th chronic posterior rib fracture. T1-T2: No significant disc bulge or herniation. No severe spinal canal stenosis. No significant neural foraminal narrowing. T2-T3: No significant disc bulge or herniation. No severe spinal canal stenosis. No significant neural foraminal narrowing. T3-T4: No significant disc bulge or herniation. No severe spinal canal stenosis. No significant neural foraminal narrowing. T4-T5: No significant disc bulge or herniation. No severe spinal canal stenosis. No significant neural foraminal narrowing. T5-T6: No significant disc bulge or herniation. No severe spinal canal stenosis. No significant neural foraminal narrowing. T6-T7: No significant disc bulge or herniation. No severe spinal canal stenosis. No significant neural foraminal narrowing. T7-T8: No significant disc bulge or herniation. No severe spinal canal stenosis. No significant neural foraminal narrowing. T8-T9: No significant disc bulge or herniation. No severe spinal canal stenosis. No significant neural foraminal narrowing. T9-T10: No significant disc bulge or herniation. No severe spinal canal stenosis. No significant neural foraminal narrowing. T10-T11: No significant disc bulge or herniation. No severe spinal canal stenosis. No significant neural foraminal narrowing. T11-T12: No significant disc bulge or herniation. No severe spinal canal stenosis. No significant neural foraminal narrowing. T12-L1: No significant disc bulge or herniation. No severe spinal canal stenosis. No significant neural foraminal narrowing. Lungs: Bilateral dependent atelectasis. Heart: Cardiomegaly. Stomach and bowel: Diverticulosis without diverticulitis. CT/CT thoracic spine w con [id number] IMPRESSION: 1. Fluid in the midline posterior subcutaneous fat overlying the spine extending from approximately level of T7 to the level of L2 with a small amount of air may reflect postsurgical fluid, infection is not excluded, measuring up to approximately 12 cm craniocaudal by 2.4 cm transverse. 2. Bilateral pedicle screws seen at T10, T11, L2 and L3 with posterior fixation hardware bridging this area. 3. Vertebroplasty changes seen in place at T12 and L1. 4. Surgical hardware seen in the cervical spine. 5. Cardiomegaly. 6. Diverticulosis without diverticulitis. 7. Bilateral dependent atelectasis. Date of Service: 02/16/23 Procedure(s): CT lumbar spine w con [id number] CT/CT lumbar spine w con [id number] IMPRESSION: 1. Bilateral pedicle screws seen at L2/3/4/5/S1/S2 with posterior fixation hardware which also extends superiorly off the field of view. 2. T12 and L1 vertebroplasty changes. 3. Fluid seen in the subcutaneous fat overlying the visualized thoracolumbar spine measuring up to 6.3 cm transverse by 3.5 cm AP by 11 cm craniocaudal may be postsurgical in nature, infection is not excluded. 4. L2-L3 moderate bilateral foraminal narrowing secondary to productive degenerative changes. 5. L3-L4 broad-based disc bulge with moderate bilateral foraminal narrowing. 6. L4-L5 broad-based disc bulge with mild spinal canal and moderate bilateral foraminal narrowing. 7. L5/S1 broad-based disc bulge with [id number] bilateral foraminal narrowing. 8. Trace right pleural effusion. 9. Right lower lobe atelectasis versus infiltrate. [address] [address] XRay Report Signed Patient: Zoë Calderon Unit #: [id number] : 1950 Age/Sex: 72 / F ADM Date: 02/16/23 Loc: ER Room/Bed: Attending Dr: Ordering Provider/Ordering MD: Colby Emmanuel MD Date of Service: 02/16/23 Procedure(s): XR chest 1V portable [id number] Accession Number(s): [id number] Report Number: [id number] PROCEDURE INFORMATION: Exam: XR Chest Exam date and time: 02/16/2023 9:13 PM Age: 72 years old Clinical indication: Device placement; Other: Central line placement TECHNIQUE: Imaging protocol: Radiologic exam of the chest. Views: 1 view. COMPARISON: CR (CHEST, ) 02/16/2023 6:54 PM FINDINGS: Tubes, catheters and devices: Right central venous catheter tip in the superior vena cava. Lungs: See Heart/Mediastinum finding. Pleural spaces: Unremarkable. No pleural effusion. No pneumothorax. Heart/Mediastinum: Cardiomegaly and pulmonary vascular congestion. Bones/joints: Surgical hardware somewhat visualized in the spine. XR/XR chest 1V portable [id number] IMPRESSION: 1. Right central venous catheter tip in the superior vena cava. 2. Cardiomegaly and pulmonary vascular congestion. 3. Surgical hardware somewhat visualized in the spine. Micro: [facility] [address] [place] [id number] MERYL JEFFERY, WATCH GUARD GATE NAME: Zoë Calderon Yfn LOC: OR U #: [id number] AGE/SX: 72/F ROOM: RE02/05/[address]: Tre Emmanuel : 1950 BED: DIS: FAX #: STATUS: [facility] TLOC: Spec #: [id number] Pattie: 02/05/23 Status: COMP Req #: [id number] Recd: 02/05/[address]: Tre Emmanuel Src: Back SpDesc: Ordered: WC and GS, Anaer Comments: Comment lumbar wound aerobes gram stain c/s Comment lumbar wound anaerobes Procedure Result Verified Site Gram Stain Final 02/05/23-1355 Result FEW WHITE BLOOD CELLS NO ORGANISMS SEEN Anaerobic Culture Final 02/13/23-1534 NO ANAEROBES ISOLATED ON DAY 7 Anaerobic Culture Preliminary (changed) 02/12/23-1406 NO ANAEROBES ISOLATED ON DAY 6 Anaerobic Culture Preliminary (changed) 02/10/23-25 NO ANAEROBES ISOLATED ON DAY 5 Anaerobic Culture Preliminary (changed) 02/09/23-1134 NO ANAEROBES ISOLATED ON DAY 4 Anaerobic Culture Preliminary (changed) 02/08/23-1431 NO ANAEROBES ISOLATED ON DAY 3 Anaerobic Culture Preliminary (changed) 02/07/23-1239 NO ANAEROBES ISOLATED ON DAY 2 Anaerobic Culture Preliminary (changed) 02/06/23-1227 NO ANAEROBES ISOLATED ON DAY 1 Wound Culture Final 02/08/23-0900 NO GROWTH ON DAY 3 Wound Culture Preliminary (changed) 02/07/23-1005 NO GROWTH ON DAY 2 Wound Culture Preliminary (changed) 02/06/23-1102 NO GROWTH AFTER 1 DAY A&P Assessment and plan (1) Post-operative infection: (2) Sepsis: Qualifiers: Sepsis type: sepsis due to unspecified organism Sepsis acute organ dysfunction status: without acute organ dysfunction Qualified Code(s): A41.9 - Sepsis, unspecified organism Plan 72-year-old lady with recent T10-S1 spinal fusion surgery on January 10, 2023 complicated by postop wound dehiscence for which she underwent lumbar spine I&D, primary closure and incisional VAC placement on February 05, 2023. Wound cultures negative from this day. Thereafter course has been complicated by postoperative wound infection. She has previously been on cephalexin and most recently on Bactrim as outpatient. Currently has evidence of sepsis with fever 102.7, leukocytosis, hypotension, and source of infection by way of wound infection. Check stat lactate with reflex. Capillary refill is currently normal. She has received 2 L of normal saline bolus in the emergency room, continue IV hydration with D5 normal saline at 50 cc an hour. Gentle IV hydration being utilized currently due to elevated BNP and chest x-ray noting pulmonary vascular congestion. Continue Levophed infusion with a map goal of 65. On recent admission she was suspected to have adrenal insufficiency, will check random cortisol. It does not appear she has been on any fludrocortisone or midodrine since her discharge on January 24. Blood cultures taken prior to starting antibiotics. She has received empiric doses of piperacillin/tazobactam and vancomycin in the ER, will continue antibiotic coverage with cefepime 2 g IV every 12 hours and vancomycin at this time. CT of her lumbosacral spine is showing fluid collection posteriorly extending from T7-L2 with small amount of air which may be reflective of expected postsurgical changes, however given other peripheral signs of infection cannot rule out possibility of abscess. Spine surgery consultation with Dr. Baker to assess for surgical exploration and debridement. N.p.o. postmidnight UA not a clean-catch. Chest x-ray without any gross infiltrates. Noted to have some cardiomegaly and possibility of pulmonary vascular congestion without any other clinical signs of CHF. No reported cardiac history. Will check EKG and troponin series. Check rapid COVID and influenza antigens as viral pneumonitis could have similar radiological findings. DVT prophylaxis: Lovenox Full code Attestations Medical Necessity Statement*: Greater than 2 midnight admission is anticipated for management of sepsis, pressor support, wound infection, spine surgery assessment and possible debridements Critical Care Time: The high probability of a clinically significant, sudden or life threatening deterioration of the patient's [ID, circulatory] system(s) required my full and direct attention, intervention and personal management. The critical care time is as shown. This time is in addition to time spent performing any reported procedures but includes the following: [x] Data and vital sign review and interpretation [x] Patient assessment, examination and intervention [x] Documentation [x] Medication orders and management Critical Care Time (min): 60 Coding Level of Care Code Acute Code for Chg Fwd Diagnoses Post-operative infection T81.40XA Sepsis without acute organ dysfunction, due to unspecified organism A41.9 Sepsis type: sepsis due to unspecified organism Sepsis acute organ dysfunction status: without acute organ dysfunction
[2023-02-16 23:29] LABS: Influenza A by IFA negative (Negative); Influenza B by IFA negative (Negative)
[2023-02-16 23:31] LABS: SARS Covid-2 Antigen negative (Negative)
[2023-02-16 23:43] LABS: Troponin(5th) Baseline 32 ng/L (0-10)
[2023-02-16 23:44] LABS: Lactic Sepsis W/Reflex 1.8 mmol/L (0.5-2.2)
[2023-02-17] VITALS (101 sets, daily range): BP systolic 71–162; BP diastolic 39–98; PULSE 43–92; RESP 9–27; TEMP 35.9–36.8; O2SAT 81–100; BMI 44.5
[2023-02-17 00:06] LABS: Cortisol Random 16.67 ug/dL (2.47-19.5)
[2023-02-17] MEDS: vancomycin 1,500 MG/300 ML PIGGYBACK 200 MG IV (00:46)
[2023-02-17] MEDS: dextrose 5%-sod chloride 0.9% 1,000 ML 50 ML IV (00:46)
[2023-02-17] MEDS: piperacillin-tazobactam 3.375 GM in sodium chloride 0.9% (plus) 50 ML IV (01:10)
[2023-02-17 01:17] LABS: Troponin 5 2HR 36.02 ng/L (0-10); Troponin 5 2HR Delta 4.02 ABS# (0-10)
--- NOTE | 2023-02-17 05:12 | ECG_ITS ---
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 Measurements Intervals [place] Rate: 78 P: 12 AL: 168 QRS: 6 QRSD: 93 T: -3 QT: 375 QTc: 429 Interpretive Statements SINUS RHYTHM Compared to ECG 02/16/2023 23:10:32 No significant changes Electronically Signed On 02-17-2023 21:50:54 [employer] by Solis Dillon M.D. [id number]
[2023-02-17 05:42] LABS: Basophils % 0.3 %; Eosinophils # 0.4 10^3/uL (0.0-0.8); Eosinophils % 3.5 %; Hematocrit 24.8 % (36-47); Lymphocytes # 0.9 10^3/uL (0.8-4.8); Lymphocytes % 7.2 %; Mean Corpuscular HGB Conc 28.2 g/dL (30-55); Mean Corpuscular Hemoglobin 25.3 pg (27-33); Mean Corpuscular Volume 89.5 fl (85-98); Mean Platelet Volume 9.7 fL (7.4-10.4); Monocytes # 0.6 10^3/uL (0.2-0.9); Monocytes % 5.2 %; Neutrophils # 9.98 10^3/uL (1.8-7.7); Neutrophils % 83.1 %; Nucleated Red Blood Cells % 0 %; Platelet Count 365 10^3/cmm (157-399); Red Blood Count 2.77 10^6/uL (3.85-5.65); Red Cell Distribution Width 17.1 % (12.1-15.1); White Blood Count 12.02 10^3/uL (3.29-11.43)
[2023-02-17 06:08] LABS: Troponin 5 6HR 36.07 ng/L (0-10); Troponin 5 6HR Delta 4.07 ng/L (0-12)
[2023-02-17 06:09] LABS: Alanine Aminotransferase 9 U/L (0-33); Albumin Level 2.7 g/dL (3.5-5.2); Alkaline Phosphatase 141 U/L (35-105); Anion Gap 13.3 (5-19); Aspartate Amino Transferase 24 U/L (0-32); Blood Urea Nitrogen 19 mg/dL (8-23); Calcium 7.9 mg/dL (8.5-10.5); Carbon Dioxide 26 mmol/L (22-29); Chloride 104 mmol/L (98-107); Globulin 2.6 g/dL (1.3-4.6); Glucose 120 mg/dL (65-115); Osmolality Calculated 291 mOsm/kg (285-295); Potassium 4.3 mmol/L (3.5-5.1); Sodium 139 mmol/L (136-145); Total Bilirubin 0.2 mg/dL (0.15-1.2); Total Protein 5.3 g/dL (6.6-8.7)
[2023-02-17] MEDS: hydrocortisone 100 mg/2 mL SDV IVP (08:42)
[2023-02-17] MEDS: cefepime 2,000 MG in sodium chloride 0.9% (plus) 50 ML 100 MG IV ×2 (08:42→21:04)
[2023-02-17] MEDS: escitalopram 10 mg Tablet 5 MG PO (08:43)
[2023-02-17] MEDS: pantoprazole DR 40 mg Tablet PO (08:44)
[2023-02-17] MEDS: gabapentin 300 mg Capsule 600 MG PO ×3 (08:44→21:04)
[2023-02-17] MEDS: enoxaparin 40 mg/0.4 mL Syringe SUBCUT (08:45)
--- NOTE | 2023-02-17 08:47 | P.CONIM_ITS ---
Providers/Reason For Consult 2 Consulting Physician/Specialty*: Hospitalist Reason for Consult*: Wound infection Attending Physician: Sonny Lomas MD Primary Care Provider: Jayjay Rashid History of Present Illness History of Present Illness Zoë Calderon is a 72 year old female patient had a T10 to pelvis fusion on 01/10/2023. She had had to sit in bed and dehisced her wound open on 1230. She was taken back to the OR on 02/05/2023 for wound closure. I saw her in clinic yesterday the wound looked red but had minimal drainage looks serous in nature. She came to the OR last night with possible sepsis and some drainage. At this point I am going to take her back to the OR to explore the wound. Review of Systems 2 General: Reports: 10 or more systems reviewed and unremarkable except in HPI and below Const: Denies: fever(s), chills or body aches Eyes: Denies: change in vision, blurry vision or photophobia ENMT: Reports: hoarseness; Denies: throat pain, enlarged tonsils, odynophagia or nasal congestion Card: Denies: chest pain, palpitations, irregular heart rhythm, edema, swelling of feet/ankles, lightheadedness, pre-syncope, dyspnea on exertion or orthopnea Resp: Denies: dyspnea, productive cough, non-productive cough, wheezing, stridor, pain on inspiration, change in phlegm color, hemoptysis or chest congestion GI: Denies: abdominal pain, nausea, vomiting, hematemesis, coffee ground emesis, dysphagia, heartburn, diarrhea, constipation, GI cramping, change in stool character, hematochezia or melena : Denies: flank pain, difficulty voiding, dysuria, urinary frequency, urinary urgency, urinary hesitancy or hematuria Musc: Denies: neck pain, back pain, extremity pain, joint swelling, joint warmth or deformity Neuro: Denies: headache(s), numbness in extremities, weakness in extremities, sensory changes, difficulty walking, frequent falls, dizziness, vertigo, behavioral changes, Slurred speech present or seizure-like activity Psych: Denies: anxiety, depression, suicidal ideation or homicidal ideation Endo: Denies: polyuria, polydipsia, tired all the time, cold intolerance or hot flashes Keanu/Lymph: Denies: easy bruising or easy bleeding Medications/Allergies Home Medications Medication Instructions Recorded Confirmed Last Taken Type calcium carbonate 500 mg calcium 2,400 mg PO DAILY 08/14/21 02/15/23 01/09/23 History (1,250 mg) tablet nortriptyline 25 mg capsule 25 - 50 mg PO .BEDTIME PRN insomnia 10/20/22 02/15/23 01/09/23 History denosumab 60 mg/mL subcutaneous 60 mg SUBCUT DIRECTED 01/07/23 02/15/23 Unknown History syringe (Prolia) gabapentin 600 mg tablet 600 mg PO QID 90 days #360 tabs 01/26/23 02/15/23 Unknown Rx mecobalamin (vitamin B12) 1,000 1,000 mcg PO DAILY #30 tabs 01/26/23 02/15/23 Unknown Rx mcg chewable tablet MYRA SELINA, XL #1 ea 02/02/23 02/15/23 Unknown Rx tramadol 50 mg tablet See Rx Instructions PO TID PRN 02/02/23 02/15/23 Unknown Rx pain 30 days #180 tabs oxycodone 10 mg tablet 10 mg PO Q4H PRN pain. 7 days #42 02/05/23 02/15/23 Unknown Rx tabs oxycodone 10 mg tablet,crush 10 mg PO BID 02/05/23 02/15/23 Unknown History resistant,extended release 12 hr (OxyContin) escitalopram oxalate 5 mg tablet 5 mg PO DAILY #30 tabs 02/09/23 02/15/23 Unknown Rx (Lexapro) furosemide 40 mg tablet 40 mg PO QAM #30 tabs 02/09/23 02/15/23 Unknown Rx potassium chloride 10 mEq 10 meq PO DAILY #30 tabs 02/09/23 02/15/23 Unknown Rx tablet,extended release sulfamethoxazole 800 1 tab PO BID #14 tabs 02/15/23 02/15/23 Unknown Rx mg-trimethoprim 160 mg tablet (Bactrim DS) Allergies Allergy/AdvReac Type Severity Reaction Status Date / Time meperidine [From Demerol] Allergy Unknown Unknown Verified 02/16/23 18:18 codeine AdvReac Unknown UNKNOWN Verified 02/16/23 18:18 Egg Derived AdvReac Unknown UNKNOWN Verified 02/16/23 18:18 morphine AdvReac Unknown UNKNOWN Verified 02/16/23 18:18 propoxyphene [From Darvon] AdvReac Unknown UNKNOWN Verified 02/16/23 18:18 Current Medications Generic Name Dose Route Start Last Admin Trade Name Isabela PRN Reason Stop Dose Admin Enoxaparin Sodium 40 mg 02/17/23 09:00 02/17/23 08:45 Enoxaparin 40 Mg/0.4 Ml Syringe SUBCUT 40 mg DAILY BERNARDO Administration Escitalopram Oxalate 5 mg 02/17/23 09:00 02/17/23 08:43 Escitalopram 10 Mg Tablet PO 5 mg DAILY BERNARDO Administration Gabapentin 600 mg 02/17/23 09:00 02/17/23 08:44 Gabapentin 300 Mg Capsule PO 600 mg QID BERNARDO Administration norepinephrine 4 mg in 250 mls @ 0 mls/hr 02/16/23 20:30 02/17/23 06:25 Levophed IV 2 mcg/min .Q0M BERNARDO 7.5 mls/hr Titration Protocol Per Protocol Dextrose/Sodium Chloride 1,000 mls @ 50 mls/hr 02/16/23 23:15 02/17/23 00:46 Dextrose 5%-Sod Chloride 0.9% IV 50 mls/hr .Q20H BERNARDO Administration Cefepime HCl 2,000 mg/ Sodium 50 mls @ 100 mls/hr 02/17/23 09:30 02/17/23 08:42 Chloride IV 100 mls/hr Q12H BERNARDO Administration Protocol Vancomycin/PEG/NADA/Lysine/Water 1,500 mg in 300 mls @ 200 mls/hr 02/16/23 23:30 02/17/23 02:32 Vancocin IV Infused Q24H BERNARDO Infusion Pantoprazole Sodium 40 mg 02/17/23 09:00 02/17/23 08:[address] 40 Mg Tablet PO 40 mg DAILY BERNARDO Administration PFSH Acute 2 PFSH: Medical History Spinal stenosis, lumbar region, with neurogenic claudication Chronic kidney disease stage 3A, baseline creatinine 1.1 Osteoarthritis Hx of iron deficiency anemia Osteoporosis On Prolia Vitamin B12 deficiency Bursitis Opioid contract exists Aftercare for long-term (current) use of non-steroidal anti-inflammatories Degenerative lumbar spinal stenosis 4 para 3 Surgical History Status post laminectomy with spinal fusion (01/10/23) Dr Baker - Posterior fusion [id number], bi-sacral iliac fusion, L3/4, L4/5, L5/S1 laminectomy with partial facetectomies S/P epidural steroid injection History of implanted electronic device [employer] spinal stimulator History of thoracic surgery H/O tubal ligation H/O cervical spine surgery S/P cervical spinal fusion H/O adenoidectomy Family History Mother Ovarian cancer Other Cancer Denies family history of Anesthesia complication Bleeding disorder Social History Smoking and tobacco/nicotine status: former use of tobacco/nicotine Second hand smoke exposure: No Alcohol intake: current Alcohol intake frequency: 0-2 Drinks per Day Alcohol type: wine Substance/Drug Use: never Marital status: Vitals/I&O/Wt Last Vital Signs Temp 97.8 F 02/17/23 04:45 Pulse 77 02/17/23 06:15 Resp 19 H 02/17/23 06:15 BP 108/55 02/17/23 06:15 Pulse Ox 99 02/17/23 06:15 O2 Del Method Nasal Cannula 02/17/23 06:15 O2 Flow Rate 2 02/17/23 06:15 02/16/23 02/17/23 02/17/23 22:59 06:59 14:59 Intake Total 1999 535.875 / 2535.875 Balance 1999 535.875 / 2535.875 Weight last 48 hrs Weight 228 lb 2.855 oz Weight 228 lb 2.855 oz Weight 220 lb Physical Exam 2 Narrative: Neurovascular intact Data 02/17/23 05:17 02/17/23 05:17 A&P Assessment and plan (1) Post-operative infection: Patient is taken back to the OR today. Qualifiers: Encounter type: initial encounter Postoperative infection type: deep incisional surgical site Qualified Code(s): T81.42XA - Infection following a procedure, deep incisional surgical site, initial encounter Coding Level of Care Code Acute Code for [facility] Fwd Diagnoses Post-operative infection T81.42XA Encounter type: initial encounter Postoperative infection type: deep incisional surgical site
[2023-02-17 08:59] LABS: Cortisol Random 20.14 ug/dL (2.47-19.5)
--- NOTE | 2023-02-17 09:03 | PC.PHAR ---
PT STATES SHE TAKES CARE OF HER OWN MEDICATIONS-PT STATES SHE TAKES GABAPENTIN 600MG BID EXT SHOWS LAST FILLED 01/13/23 90D/S 600MG QID-PT STATES STOP TAKING THE KEFLEX 500MG BID FILLED 02/05/23 7D/S AND STARTED TAKING BACTRIM DS 1 TAB BID FILLED 02/15/23 7D/S-
--- NOTE | 2023-02-17 09:36 | ANES.PREANE2 ---
Pre-Anesthetic Assessment Height/Weight: Height 1.52 m Weight 103.5 kg Temp Pulse Resp BP Pulse Ox O2 Del Method O2 Flow Rate 98.1 F 85 19 H 113/65 90 Nasal Cannula 2 02/17/23 08:45 02/17/23 08:45 02/17/23 08:45 02/17/23 08:30 02/17/23 08:15 02/17/23 08:45 02/17/23 08:45 Operation Date: 02/17/23 09:10 Proposed Procedures p Incision and Drainage t-10 pelvis(Not Applicable) - Morris H Olivia, DO Familial anesthetic complications: None Was Beta Viet taken within 24 hours: N/A Was Clonidine taken within 24 hours: N/A Last intake: > 8 hrs Social No alcohol and No tobacco Exam alert and oriented x 3 Airway Submandibular: within normal limits Cervical ROM: within normal limits Mallampati: Class II Dentition: false Comments: Comments: Full dentures History/ROS No significant history except as noted and No significant complaints CV/HEM Anemia Sepsis from back incision wound, on norepinephrine CASSANDRA Metabolic Morbid Obesity Musc/[facility] Lower Back Pain Hx spine fusion, now with incision wound dehiscence Anesthetic Plan ASA status: 3 Anesthesia: General Other: Central line already in place; will place a-line in OR and transfuse PRBCs prior to surgery. Risk of > 500 ml blood loss (7ml/kg in children): Yes, adequate IV access and fluids planned Medications/Allergies Home Medications Medication Instructions Recorded Confirmed Last Taken Type calcium carbonate 500 mg calcium 2,500 mg PO BID 08/14/21 02/17/23 01/09/23 History (1,250 mg) tablet nortriptyline 25 mg capsule 25 - 50 mg PO BEDTIME PRN insomnia 10/20/22 02/17/23 01/09/23 History denosumab 60 mg/mL subcutaneous 60 mg SUBCUT DIRECTED 01/07/23 02/17/23 Unknown History syringe (Prolia) mecobalamin (vitamin B12) 1,000 1,000 mcg PO DAILY #30 tabs 01/26/23 02/17/23 Unknown Rx mcg chewable tablet MYRA SELINA, XL #1 ea 02/02/23 02/17/23 Unknown Rx oxycodone 10 mg tablet 10 mg PO Q4H PRN pain. 7 days #42 02/05/23 02/17/23 Unknown Rx tabs furosemide 40 mg tablet 40 mg PO QAM #30 tabs 02/09/23 02/17/23 Unknown Rx potassium chloride 10 mEq 10 meq PO DAILY #30 tabs 02/09/23 02/17/23 Unknown Rx tablet,extended release sulfamethoxazole 800 1 tab PO BID #14 tabs 02/15/23 02/17/23 02/16/23 Rx mg-trimethoprim 160 mg tablet (Bactrim DS) escitalopram oxalate 5 mg tablet 5 mg PO QAM 02/17/23 02/17/23 Unknown History gabapentin 600 mg tablet 600 mg PO BID 02/17/23 02/17/23 Unknown History ondansetron 4 mg disintegrating 4 mg PO Q8H PRN Nausea And Vomiting 02/17/23 02/17/23 Unknown History tablet tramadol 50 mg tablet 50 - 100 mg PO TID PRN Pain 02/17/23 02/17/23 Unknown History Allergies Allergy/AdvReac Type Severity Reaction Status Date / Time meperidine [From Demerol] Allergy Unknown Unknown Verified 02/16/23 18:18 codeine AdvReac Unknown UNKNOWN Verified 02/16/23 18:18 Egg Derived AdvReac Unknown UNKNOWN Verified 02/16/23 18:18 morphine AdvReac Unknown UNKNOWN Verified 02/16/23 18:18 propoxyphene [From Darvon] AdvReac Unknown UNKNOWN Verified 02/16/23 18:18 Current Medications Generic Name Dose Route Start Last Admin Trade Name Freq PRN Reason Stop Dose Admin Enoxaparin Sodium 40 mg 02/17/23 09:00 02/17/23 08:45 Enoxaparin 40 Mg/0.4 Ml Syringe SUBCUT 40 mg DAILY BERNARDO Administration Escitalopram Oxalate 5 mg 02/17/23 09:00 02/17/23 08:43 Escitalopram 10 Mg Tablet PO 5 mg DAILY BERNARDO Administration Gabapentin 600 mg 02/17/23 09:00 02/17/23 08:44 Gabapentin 300 Mg Capsule PO 600 mg QID BERNARDO Administration norepinephrine 4 mg in 250 mls @ 0 mls/hr 02/16/23 20:30 02/17/23 06:25 Levophed IV 2 mcg/min .Q0M BERNARDO 7.5 mls/hr Titration Protocol Per Protocol Dextrose/Sodium Chloride 1,000 mls @ 50 mls/hr 02/16/23 23:15 02/17/23 00:46 Dextrose 5%-Sod Chloride 0.9% IV 50 mls/hr .Q20H BERNARDO Administration Cefepime HCl 2,000 mg/ Sodium 50 mls @ 100 mls/hr 02/17/23 09:30 02/17/23 09:12 Chloride IV Infused Q12H BERNARDO Infusion Protocol Vancomycin/PEG/NADA/Lysine/Water 1,500 mg in 300 mls @ 200 mls/hr 02/16/23 23:30 02/17/23 02:32 Vancocin IV Infused Q24H BERNARDO Infusion Pantoprazole Sodium 40 mg 02/17/23 09:00 02/17/23 08:[address] 40 Mg Tablet PO 40 mg DAILY BERNARDO Administration PFSH Anesthesia Medical History Spinal stenosis, lumbar region, with neurogenic claudication Chronic kidney disease stage 3A, baseline creatinine 1.1 Osteoarthritis Hx of iron deficiency anemia Osteoporosis On Prolia Vitamin B12 deficiency Bursitis Opioid contract exists Aftercare for long-term (current) use of non-steroidal anti-inflammatories Degenerative lumbar spinal stenosis 4 para 3 Surgical History Status post laminectomy with spinal fusion (01/10/23) Dr Baker - Posterior fusion [id number], bi-sacral iliac fusion, L3/4, L4/5, L5/S1 laminectomy with partial facetectomies S/P epidural steroid injection History of implanted electronic device [employer] spinal stimulator History of thoracic surgery H/O tubal ligation H/O cervical spine surgery S/P cervical spinal fusion H/O adenoidectomy Family History Mother Ovarian cancer Other Cancer Denies family history of Anesthesia complication Bleeding disorder Social History Smoking and tobacco/nicotine status: former use of tobacco/nicotine Second hand smoke exposure: No Alcohol intake: current Alcohol intake frequency: 0-2 Drinks per Day Alcohol type: wine Substance/Drug Use: never Marital status: Data Anesthesia 02/17/23 05:17 02/17/23 05:17 Short CBC 02/16/23 02/17/23 Range/Units 18:52 05:17 WBC 14.33 H 12.02 H (3.29-11.43) 10^3/uL Hgb 7.40 L 7.00 L (11.27-16.99) g/dL Hct 25.3 L 24.8 L (36-47) % MCV 88.2 89.5 (85-98) fl Plt Count 400 H 365 (157-399) 10^3/cmm Neut % (Auto) 89.5 83.1 % Neut # (Auto) 12.82 H 9.98 H (1.8-7.7) 10^3/uL BMP 02/16/23 02/17/23 18:52 05:17 Sodium 139 139 Potassium 4.7 4.3 Chloride 102 104 Carbon Dioxide 27 26 BUN 16 19 Creatinine 1.5 H 1.5 H Glucose 123 H 120 H Calcium 8.1 L 7.9 L Cardiac Enzymes 02/16/23 02/17/23 02/17/23 Range/Units 22:58 00:52 05:17 Troponin T Baseline 32 H (0-10) ng/L Troponin T 120 Minute 36.02 H (0-10) ng/L Delta Troponin T 4.02 (0-10) ABS# Troponin T Hi Sens 6Hr 36.07 H (0-10) ng/L Troponin T Hi Sens 6Hr Delta 4.07 (0-12) ng/L Liver Function 02/16/23 02/17/23 Range/Units 18:52 05:17 Total Bilirubin 0.3 0.2 (0.15-1.2) mg/dL AST 15 24 (0-32) U/L ALT < 5 9 (0-33) U/L Alkaline Phosphatase 146 H 141 H (35-105) U/L Albumin 2.8 L 2.7 L (3.5-5.2) g/dL Urine 02/16/23 Range/Units 18:38 Urine Color Yellow (Yellow) Urine Appearance Cloudy A (CLEAR) Urine pH 6.5 (5-7) Ur Specific [place] 1.015 (1.005-1.030) Urine Protein Neg (Negative) Urine Glucose (UA) Norm (Normal) Urine Ketones Negative (Negative) Urine Nitrate Negative (Negative) Urine Bilirubin Neg (Negative) Ur Leukocyte Esterase Negative (Negative) Urine RBC 0-4 H (0-2) /hpf Urine WBC 0-4 H (0-5) /hpf COVID Results 02/16/23 22:56 SARS-CoV-2 Ag (Rapid) negative Coags 02/16/23 18:52 ESR 20 H C-Reactive Protein 77.9 H Cardiac Studies: Echocardiogram Ultrasound 06/10/20
--- NOTE | 2023-02-17 12:24 | PC.NURSE ---
Transfer Note Patient transferred to OR from ICU via bed. Patient oriented to environment and equipment. Covering service notified. Orders reviewed and will continue to monitor. Family notified. Upon transfer patient is alert/oriented x4 on 2LNC. Levophed infusing per protocol, see MAR for details.
--- NOTE | 2023-02-17 12:42 | ANES.PROC ---
Anesthesia Procedures Procedure/Date: 02/17/23 Arterial Line: Time Out Performed: Yes Consent: risks and benefits reviewed and patient agrees to proceed Size (Gauge): 20 Technique Used: guide wire technique Post-Procedure: dry sterile dressing placed Patient Tolerated Procedure: well and no complications Complications: none Site: right and radial Additional Comments: Line monitored
[2023-02-17] MEDS: vancomycin 1,000 MG SDV 1000 MG INTRA-ARTI (13:13)
[2023-02-17] MEDS: HYDROmorphone 1 mg/mL INJ 1 mL 0.5 MG IVP (14:56)
--- NOTE | 2023-02-17 15:00 | ANE.PACU2 ---
Inpatient post-anesthesia follow up: Airway intact: Yes Vital signs: Temperature 98.1 F Pulse Rate 78 Respiratory Rate 20 Blood Pressure 126/69 Pulse Oximetry 94 Oxygen Delivery Me thod Nasal Cannula Oxygen Flow Rate 2 Fraction of Inspir ed Oxygen Hydration adequate: Yes Nausea and vomiting: No Pain level: 3 Mental status: Baseline Additional Comments: Stable transfer back to ICU
[2023-02-17] MEDS: oxyCODONE 5 mg IR Tab/Cap 10 MG PO (16:22)
--- NOTE | 2023-02-17 17:02 | P.PN_ITS ---
Subjective 2 Subjective: Patient was seen preoperatively, does report feeling feverish, and chills, episodes of confusion, she is going to surgery with Dr. baker Vitals/I&O/Wt Last Vital Signs Temp 97.8 F 02/17/23 16:00 Pulse 77 02/17/23 16:39 Resp 14 02/17/23 16:22 BP 119/75 02/17/23 16:15 Pulse Ox 92 02/17/23 16:07 O2 Del Method Nasal Cannula 02/17/23 16:07 O2 Flow Rate 2 02/17/23 16:07 02/17/23 02/17/23 02/17/23 06:59 14:59 22:59 Intake Total 535.875 / 2535.875 1034.792 / 1034.792 Output Total 500 / 500 Balance 535.875 / 2535.875 534.792 / 534.792 Weight last 48 hrs Weight 103.5 kg Weight 103.5 kg Weight 99.79 kg Physical Exam 2 Const: COMMON NORMALS: no acute distress and patient oriented x3 Resp: COMMON NORMALS: normal respiratory effort, No retractions, No use of accessory muscles and clear to auscultation bilaterally AUSCULTATION: clear to auscultation bilaterally Cardio: COMMON NORMALS: regular rate, regular rhythm, S1 normal heart sound present and S2 normal heart sound present RATE: regular rate RHYTHM: r egular rhythm HEART SOUNDS: S1 normal heart sound present and S2 normal heart sound present GI: COMMON NORMALS: Normal to inspection, nondistended, normoactive bowel sounds present and non-tender Extremity: COMMON NORMALS: no pedal edema Neuro: COMMON NORMALS: patient oriented x3 Psych: COMMON NORMALS: mental status grossly normal Urinary Catheter Management: Alba: Cath Placed During This Visit: yes Urinary Catheter Date of Insertion: 02/17/23 Urinary Catheter Time of Insertion: 09:30 Data 02/17/23 05:17 02/17/23 05:17 A&P Assessment and plan (1) Post-operative infection: Qualifiers: Encounter type: initial encounter Postoperative infection type: deep incisional surgical site Qualified Code(s): T81.42XA - Infection following a procedure, deep incisional surgical site, initial encounter (2) Sepsis: Qualifiers: Sepsis acute organ dysfunction status: without acute organ dysfunction Sepsis type: sepsis due to unspecified organism Qualified Code(s): A41.9 - Sepsis, unspecified organism Plan 72-year-old lady with recent T10-S1 spinal fusion surgery on January 10, 2023 complicated by postop wound dehiscence for which she underwent lumbar spine I&D, primary closure and incisional VAC placement on February 05, 2023. Wound cultures negative from this day. Thereafter course has been complicated by postoperative wound infection. She has previously been on cephalexin and most recently on Bactrim as outpatient. Currently has evidence of sepsis with fever 102.7, leukocytosis, hypotension, and source of infection by way of wound infection. Continue Levophed infusion with a map goal of 65. Will give stress dose steroids for concerns for adrenal insufficiency, start fludrocortisone hydrocortisone tomorrow She has received empiric doses of piperacillin/tazobactam and vancomycin in the ER, will continue antibiotic coverage with cefepime 2 g IV every 12 hours and vancomycin at this time. CT of her lumbosacral spine is showing fluid collection posteriorly extending from T7-L2 with small amount of air which may be reflective of expected postsurgical changes, however given other peripheral signs of infection cannot rule out possibility of abscess. Spine surgery consultation with Dr. Baker to assess for surgical exploration and debridement. N.p.o. UA not a clean-catch. Chest x-ray without any gross infiltrates. Noted to have some cardiomegaly and possibility of pulmonary vascular congestion without any other clinical signs of CHF. No reported cardiac history. DVT prophylaxis: Lovenox Full code Attestations 2 Medical Necessity Statement*: Patient requires hospitalization for postoperative infection, requiring surgical intervention IV antibiotics, with anemia repeating hemoglobin Procedures Arterial Line Size (Gauge): 20 Diagnoses Post-operative infection T81.42XA Encounter type: initial encounter Postoperative infection type: deep incisional surgical site Sepsis without acute organ dysfunction, due to unspecified organism A41.9 Sepsis acute organ dysfunction status: without acute organ dysfunction Sepsis type: sepsis due to unspecified organism
[2023-02-17 17:04] LABS: Basophils % 0.2 %; Hematocrit 30.4 % (36-47); Lymphocytes # 0.4 10^3/uL (0.8-4.8); Lymphocytes % 3.8 %; Mean Corpuscular HGB Conc 28.9 g/dL (30-55); Mean Corpuscular Hemoglobin 25.7 pg (27-33); Mean Corpuscular Volume 88.6 fl (85-98); Mean Platelet Volume 9.3 fL (7.4-10.4); Monocytes # 0.1 10^3/uL (0.2-0.9); Monocytes % 1.1 %; Neutrophils # 10.81 10^3/uL (1.8-7.7); Neutrophils % 94.3 %; Nucleated Red Blood Cells % 0 %; Platelet Count 336 10^3/cmm (157-399); Red Blood Count 3.43 10^6/uL (3.85-5.65); Red Cell Distribution Width 16.6 % (12.1-15.1); White Blood Count 11.46 10^3/uL (3.29-11.43)
[2023-02-17 19:07] LABS: Erythrocyte Sedimentation Rate 23 mm/hr (0-15)
[2023-02-18] VITALS (54 sets, daily range): BP systolic 99–159; BP diastolic 53–93; PULSE 62–103; RESP 11–24; TEMP 36.6–36.7; O2SAT 71–100
[2023-02-18] MEDS: vancomycin 1,500 MG/300 ML PIGGYBACK 200 MG IV ×2 (01:48→23:19)
[2023-02-18 05:58] LABS: Basophils % 0.2 %; Eosinophils % 0.1 %; Lymphocytes # 0.7 10^3/uL (0.8-4.8); Lymphocytes % 5.5 %; Mean Corpuscular HGB Conc 28.9 g/dL (30-55); Mean Corpuscular Hemoglobin 25.9 pg (27-33); Mean Corpuscular Volume 89.5 fl (85-98); Monocytes # 0.4 10^3/uL (0.2-0.9); Monocytes % 3.6 %; Neutrophils # 10.87 10^3/uL (1.8-7.7); Neutrophils % 89.9 %; Nucleated Red Blood Cells % 0 %; Platelet Count 322 10^3/cmm (157-399); Red Blood Count 3.13 10^6/uL (3.85-5.65); White Blood Count 12.08 10^3/uL (3.29-11.43)
[2023-02-18] MEDS: hydrocortisone 10 mg Tablet 5 MG PO (06:22)
[2023-02-18 06:27] LABS: Alanine Aminotransferase 8 U/L (0-33); Albumin Level 2.4 g/dL (3.5-5.2); Alkaline Phosphatase 136 U/L (35-105); Anion Gap 12.4 (5-19); Aspartate Amino Transferase 15 U/L (0-32); Blood Urea Nitrogen 20 mg/dL (8-23); C Reactive Protein 101.4 mg/L (0.0-4.9); Calcium 8.1 mg/dL (8.5-10.5); Carbon Dioxide 25 mmol/L (22-29); Chloride 106 mmol/L (98-107); Globulin 3.1 g/dL (1.3-4.6); Glucose 108 mg/dL (65-115); Magnesium 2.1 mg/dL (1.7-2.3); Osmolality Calculated 291 mOsm/kg (285-295); Phosphorus 3.4 mg/dL (2.5-4.5); Potassium 4.4 mmol/L (3.5-5.1); Sodium 139 mmol/L (136-145); Total Bilirubin 0.2 mg/dL (0.15-1.2); Total Protein 5.5 g/dL (6.6-8.7)
--- NOTE | 2023-02-18 06:27 | W.PM.BPON ---
Date: 02/17/23 pre op dx: Possible infected wound post op dx: Seroma Procedure: 1. I+D of wound down to fascia 2. Complex closure of wound EBL:50 findings: NO enrico pus. Looked more like a sermoma No breaches in thoracolumbar fascia. Harware was not involved
[2023-02-18 06:28] LABS: Lactate (Lactic Acid level) 0.8 mmol/L (0.5-2.2)
[2023-02-18 06:34] LABS: Procalcitonin 0.21 ng/mL (0-0.5)
--- NOTE | 2023-02-18 06:35 | P.PN_ITS ---
Subjective 2 Subjective: Discussed with nurse. Patient is feeling better, Blood pressure improved, no fever Vitals/I&O/Wt Last Vital Signs Temp 98.1 F 02/18/23 04:30 Pulse 75 02/18/23 05:00 Resp 16 02/18/23 05:00 BP 118/78 02/18/23 05:00 Pulse Ox 93 02/18/23 05:00 O2 Del Method Room Air 02/18/23 00:15 O2 Flow Rate 2 02/17/23 16:07 02/17/23 02/17/23 02/18/23 14:59 22:59 06:59 Intake Total 1034.792 / 1034.792 80 / 1114.792 300 / 1414.792 Output Total 500 / 500 400 / 900 300 / 1200 Balance 534.792 / 534.792 -320 / 214.792 0 / 214.792 Weight last 48 hrs Weight 228 lb 2.855 oz Weight 228 lb 2.855 oz Weight 220 lb Physical Exam 2 Narrative: miinimal output from drain Urinary Catheter Management: Alba: Cath Placed During This Visit: yes Reason for Continuing Indwelling Catheter: Accurate Measurement of Urinary Output in Critically Ill Patients Urinary Catheter Date of Insertion: 02/17/23 Urinary Catheter Time of Insertion: 09:30 Data 02/18/23 05:19 02/18/23 05:19 A&P Assessment and plan (1) Status post lumbar spinal fusion: POD#1 I+D wound on back continue drain up with PT when able Attestations 2 Medical Necessity Statement*: per primary service Procedures Arterial Line Size (Gauge): 20 Coding Level of Care Code Acute Code for [facility] Fwd Diagnoses Status post lumbar spinal fusion Z98.1
[2023-02-18] MEDS: gabapentin 300 mg Capsule 600 MG PO ×4 (08:35→21:27)
[2023-02-18] MEDS: escitalopram 10 mg Tablet 5 MG PO (08:36)
[2023-02-18] MEDS: enoxaparin 40 mg/0.4 mL Syringe SUBCUT (08:36)
[2023-02-18] MEDS: pantoprazole DR 40 mg Tablet PO (08:36)
[2023-02-18] MEDS: cefepime 2,000 MG in sodium chloride 0.9% (plus) 50 ML 100 MG IV ×2 (08:37→21:27)
[2023-02-18] MEDS: oxyCODONE 5 mg IR Tab/Cap 10 MG PO ×2 (09:49→15:17)
--- NOTE | 2023-02-18 10:46 | PC.SOCIAL ---
IMM UPdate pg 2 of IMM updated and reviewed w/ patient. Copy provided and copy dated, initialed and placed in chart.
[2023-02-18] MEDS: FUROsemide 10 mg/mL SDV 4mL 40 MG IVP (12:10)
--- NOTE | 2023-02-18 12:24 | P.PN_ITS ---
Subjective 2 Subjective: Patient is sitting up in a chair in the care unit following I&D of her back per Dr. Reich yesterday. She is comfortable and doing well. Vitals/I&O/Wt Last Vital Signs Temp 98.1 F 02/18/23 08:00 Pulse 88 02/18/23 12:00 Resp 16 02/18/23 12:00 BP 108/75 02/18/23 11:45 Pulse Ox 71 L 02/18/23 12:00 O2 Del Method Room Air 02/18/23 00:15 O2 Flow Rate 2 02/17/23 16:07 02/17/23 02/18/23 02/18/23 22:59 06:59 14:59 Intake Total 80 / 1114.792 300 / 1414.792 530 / 530 Output Total 400 / 900 300 / 1200 Balance -320 / 214.792 0 / 214.792 530 / 530 Weight last 48 hrs Weight 228 lb 2.855 oz Weight 228 lb 2.855 oz Weight 220 lb Physical Exam 2 Const: COMMON NORMALS: no acute distress, average body habitus, patient oriented x3 and alert GENERAL APPEARANCE: cooperative and comfortable O RIENTATION/CONSCIOUSNESS: Yes awake HENMT: COMMON NORMALS: normocephalic and atraumatic HEAD & SCALP: n ormocephalic and atraumatic Eye: GENERAL EYE: appearance normal, both eyes and all related structures Chest: COMMONS NORMALS: normal inspection of the chest Resp: COMMON NORMALS: normal respiratory effort EFFORT & INSPECTION: Yes able to speak in complete sentences and Yes symmetric chest movement Back/Pelvis: OTHER: Patient has a Hemovac in place Neuro: COMMON NORMALS: patient oriented x3 SENSORIUM/ORIENTATION: Yes alert Psych: COMMON NORMALS: mental status grossly normal APPEARANCE: Yes grossly normal ATTITUDE: Yes calm and Yes engaged ATTENTION/CONCENTRATION: Yes attention grossly intact Skin: COMMON NORMALS: no rashes or lesions noted GENERAL SKIN EXAM: no rashes or lesions noted Urinary Catheter Management: Alba: Cath Placed During This Visit: yes Reason for Continuing Indwelling Catheter: Accurate Measurement of Urinary Output in Critically Ill Patients Urinary Catheter Date of Insertion: 02/17/23 Urinary Catheter Time of Insertion: 09:30 Data 02/18/23 05:19 02/18/23 05:19 Micro: Microbiology 02/17/23 13:01 Gram Stain - Final Back A&P Assessment and plan (1) Status post lumbar spinal fusion: Patient is postop day 1 following I&D of a back wound with placement of Hemovac. She is sitting up while in the ICU in a chair. She was admitted to the ICU secondary to medical issues following her surgical procedure. The patient is doing well today. Plans are made for possible transfer to the floor. Attestations 2 Medical Necessity Statement*: Patient requires ongoing care after I&D of lower back incision with placement of Hemovac. Procedures Arterial Line Size (Gauge): 20 Coding Level of Care Code Acute Code for Chg Fwd Diagnoses Status post lumbar spinal fusion Z98.1
--- NOTE | 2023-02-18 12:25 | P.CONIM_ITS ---
Providers/Reason For Consult 2 Consulting Physician/Specialty*: Debby Trimble MD/ Infectious Disease Reason for Consult*: post op infection Requesting Physician: Sonny Lomas MD Attending Physician: Sonny Lomas MD Primary Care Provider: Jayjay Rashid History of Present Illness History of Present Illness Zoë Calderon is a 72 year old female without known significant comorbidities other than chronic low back, lumbar stenosis with neurogenic claudication, pain for which she has undergone L4-L5 S1 laminectomy with partial facetectomy in October 2022 and then more recently she underwent posterior fusion and instrumentation of T10-S1 and laminectomy with partial facetectomies at levels L3-S1 with Dr. Baker. She had a previously placed spinal cord stimulator which was also removed during the surgery as it was not really helping. Her postop course was then complicated by wound dehiscence for which she returned to the ER on 02/05/2023. She was evaluated by Dr. Emmanuel and underwent lumbar spine irrigation and debridement, primary closure and placement of lumbar incisional wound VAC. Area of wound dehiscence at the time was noted to be 8 x 2 cm. No enrico purulence was encountered at the time per review of brief operative note. Cultures were taken and were negative from the wound. Patient was discharged with cephalexin for 7 days. She reports that her wound VAC stopped working after 5 days as it ran out of battery and she has not used it since then. She was evaluated by Dr. Baker in the clinic on 02/15 where his wound was noted to be serous draining, she was started on Bactrim DS twice daily. She was brought into the emergency room by her on 02/16 as she was very lethargic, disoriented at home and was unable to be awakened. Upon arrival to the emergency room she was hypotensive with blood pressure of 70 systolic, Tmax of 102.7 Fahrenheit, and pus discharge encountered at the wound over her back. She received 2 L fluid resuscitation in the emergency room and was started on Levophed infusion, with overall impression that of septic shock. She was taken to OR on 02/17 for I&D and wound exploration. Review of op note reveals NO enrico pus. Looked more like a sermoma No breaches in thoracolumbar fascia. Harware was not involved. CX taken and currently pending Review of Systems 2 General: Reports: 10 or more systems reviewed and unremarkable except in HPI and below Const: Denies: fever(s), chills or body aches Eyes: Denies: change in vision, blurry vision or photophobia ENMT: Reports: hoarseness; Denies: throat pain, enlarged tonsils, odynophagia or nasal congestion Card: Denies: chest pain, palpitations, irregular heart rhythm, edema, swelling of feet/ankles, lightheadedness, pre-syncope, dyspnea on exertion or orthopnea Resp: Denies: dyspnea, productive cough, non-productive cough, wheezing, stridor, pain on inspiration, change in phlegm color, hemoptysis or chest congestion GI: Denies: abdominal pain, nausea, vomiting, hematemesis, coffee ground emesis, dysphagia, heartburn, diarrhea, constipation, GI cramping, change in stool character, hematochezia or melena : Denies: flank pain, difficulty voiding, dysuria, urinary frequency, urinary urgency, urinary hesitancy or hematuria Musc: Denies: neck pain, back pain, extremity pain, joint swelling, joint warmth or deformity Neuro: Denies: headache(s), numbness in extremities, weakness in extremities, sensory changes, difficulty walking, frequent falls, dizziness, vertigo, behavioral changes, Slurred speech present or seizure-like activity Psych: Denies: anxiety, depression, suicidal ideation or homicidal ideation Endo: Denies: polyuria, polydipsia, tired all the time, cold intolerance or hot flashes Keanu/Lymph: Denies: easy bruising or easy bleeding Medications/Allergies Home Medications Medication Instructions Recorded Confirmed Last Taken Type calcium carbonate 500 mg calcium 2,500 mg PO BID 08/14/21 02/17/23 01/09/23 History (1,250 mg) tablet nortriptyline 25 mg capsule 25 - 50 mg PO BEDTIME PRN insomnia 10/20/22 02/17/23 01/09/23 History denosumab 60 mg/mL subcutaneous 60 mg SUBCUT DIRECTED 01/07/23 02/17/23 Unknown History syringe (Prolia) mecobalamin (vitamin B12) 1,000 1,000 mcg PO DAILY #30 tabs 01/26/23 02/17/23 Unknown Rx mcg chewable tablet TERRY MILES #1 ea 02/02/23 02/17/23 Unknown Rx oxycodone 10 mg tablet 10 mg PO Q4H PRN pain. 7 days #42 02/05/23 02/17/23 Unknown Rx tabs furosemide 40 mg tablet 40 mg PO QAM #30 tabs 02/09/23 02/17/23 Unknown Rx potassium chloride 10 mEq 10 meq PO DAILY #30 tabs 02/09/23 02/17/23 Unknown Rx tablet,extended release sulfamethoxazole 800 1 tab PO BID #14 tabs 02/15/23 02/17/23 02/16/23 Rx mg-trimethoprim 160 mg tablet (Bactrim DS) escitalopram oxalate 5 mg tablet 5 mg PO QAM 02/17/23 02/17/23 Unknown History gabapentin 600 mg tablet 600 mg PO BID 02/17/23 02/17/23 Unknown History ondansetron 4 mg disintegrating 4 mg PO Q8H PRN Nausea And Vomiting 02/17/23 02/17/23 Unknown History tablet tramadol 50 mg tablet 50 - 100 mg PO TID PRN Pain 02/17/23 02/17/23 Unknown History Allergies Allergy/AdvReac Type Severity Reaction Status Date / Time meperidine [From Demerol] Allergy Unknown Unknown Verified 02/16/23 18:18 codeine AdvReac Unknown UNKNOWN Verified 02/16/23 18:18 Egg Derived AdvReac Unknown UNKNOWN Verified 02/16/23 18:18 morphine AdvReac Unknown UNKNOWN Verified 02/16/23 18:18 propoxyphene [From Darvon] AdvReac Unknown UNKNOWN Verified 02/16/23 18:18 Current Medications Generic Name Dose Route Start Last Admin Trade Name Arnaldoq PRN Reason Stop Dose Admin Enoxaparin Sodium 40 mg 02/17/23 09:00 02/18/23 08:36 Enoxaparin 40 Mg/0.4 Ml Syringe SUBCUT 40 mg DAILY BERNARDO Administration Escitalopram Oxalate 5 mg 02/17/23 09:00 02/18/23 08:36 Escitalopram 10 Mg Tablet PO 5 mg DAILY BERNARDO Administration Gabapentin 600 mg 02/17/23 09:00 02/18/23 12:10 Gabapentin 300 Mg Capsule PO 600 mg QID BERNARDO Administration Cefepime HCl 2,000 mg/ Sodium 50 mls @ 100 mls/hr 02/17/23 09:30 02/18/23 09:14 Chloride IV Infused Q12H BERNARDO Infusion Protocol Vancomycin/PEG/NADA/Lysine/Water 1,500 mg in 300 mls @ 200 mls/hr 02/16/23 23:30 02/18/23 03:24 Vancocin IV Infused Q24H BERNARDO Infusion Oxycodone HCl 10 mg 02/17/23 00:21 02/18/23 09:49 Oxycodone 5 Mg Ir Tab/Cap PO 10 mg Q6H PRN Administration SEVERE PAIN Pantoprazole Sodium 40 mg 02/17/23 09:00 02/18/23 08:[address] 40 Mg Tablet PO 40 mg DAILY BERNARDO Administration PFSH Acute 2 PFSH: Medical History Spinal stenosis, lumbar region, with neurogenic claudication Chronic kidney disease stage 3A, baseline creatinine 1.1 Osteoarthritis Hx of iron deficiency anemia Osteoporosis On Prolia Vitamin B12 deficiency Bursitis Opioid contract exists Aftercare for long-term (current) use of non-steroidal anti-inflammatories Degenerative lumbar spinal stenosis 4 para 3 Surgical History Status post laminectomy with spinal fusion (01/10/23) Dr Baker - Posterior fusion [id number], bi-sacral iliac fusion, L3/4, L4/5, L5/S1 laminectomy with partial facetectomies S/P epidural steroid injection History of implanted electronic device [employer] spinal stimulator History of thoracic surgery H/O tubal ligation H/O cervical spine surgery S/P cervical spinal fusion H/O adenoidectomy Family History Mother Ovarian cancer Other Cancer Denies family history of Anesthesia complication Bleeding disorder Social History Smoking and tobacco/nicotine status: former use of tobacco/nicotine Second hand smoke exposure: No Alcohol intake: current Alcohol intake frequency: 0-2 Drinks per Day Alcohol type: wine Substance/Drug Use: never Marital status: Dietary Habits: Current diet type/program: regular Caffeine: Yes Caffeine intake frequency: carbonated beverages and coffee Vitals/I&O/Wt Last Vital Signs Temp 98.1 F 02/18/23 08:00 Pulse 88 02/18/23 12:00 Resp 16 02/18/23 12:00 BP 108/75 02/18/23 11:45 Pulse Ox 71 L 02/18/23 12:00 O2 Del Method Room Air 02/18/23 00:15 O2 Flow Rate 2 02/17/23 16:07 02/17/23 02/18/23 02/18/23 22:59 06:59 14:59 Intake Total 80 / 1114.792 300 / 1414.792 530 / 530 Output Total 400 / 900 300 / 1200 Balance -320 / 214.792 0 / 214.792 530 / 530 Weight last 48 hrs Weight 103.5 kg Weight 103.5 kg Weight 99.79 kg Physical Exam 2 Narrative: General: No acute distress, AO x3 HEENT: PERRLA, pupils bilaterally equal and reactive, pallors not present Chest: Normal vesicular breath sounds, no added sounds, equal good air entry bilaterally CVS: S1-S2 regular, no murmurs, no tachycardia, no gallops, no rubs Abdomen: Soft, nontender, no organomegaly, bowel sounds present Neuro: No focal deficits, no facial deformity, AO x3, power 5/5 in all limbs Urinary Catheter Management: Alba: Cath Placed During This Visit: yes Reason for Continuing Indwelling Catheter: Accurate Measurement of Urinary Output in Critically Ill Patients Urinary Catheter Date of Insertion: 02/17/23 Urinary Catheter Time of Insertion: 09:30 Data 02/19/23 05:03 02/19/23 05:03 Micro: Microbiology 02/17/23 13:01 Gram Stain - Final Back A&P Assessment and plan (1) Post-operative infection: Qualifiers: Encounter type: initial encounter Postoperative infection type: deep incisional surgical site Qualified Code(s): T81.42XA - Infection following a procedure, deep incisional surgical site, initial encounter (2) Sepsis: Qualifiers: Sepsis acute organ dysfunction status: without acute organ dysfunction Sepsis type: sepsis due to unspecified organism Qualified Code(s): A41.9 - Sepsis, unspecified organism Plan 72-year-old lady with recent T10-S1 spinal fusion surgery on January 10, 2023 complicated by postop wound dehiscence for which she underwent lumbar spine I&D, primary closure and incisional VAC placement on February 05, 2023. Wound cultures negative from this day. Thereafter course has been complicated by postoperative wound infection. She has previously been on cephalexin and most recently on Bactrim as outpatient. Admitetd sepsis with fever 102.7, leukocytosis, hypotension, and source of infection by way of wound infection. CT with fluid collection along surgical bed- abscess vs post op seroma. s/p wound exploration and I&D with findings of likely seroma, no hardware involvement noted intraoperatively. I&D perfromed to level of thoracolumbar fascia. OR cx awaited Blood cultures taken prior to starting antibiotics, currently awaited . continue antibiotic coverage with cefepime 2 g IV every 12 hours and vancomycin at this time while pending culture data UA not a clean-catch. Chest x-ray without any gross infiltrates. will follow with cx results Consult Attestations 2 Medical Necessity Statement: per admitting Procedures Arterial Line Size (Gauge): 20 Coding Level of Care Code Acute Code for g Fwd Diagnoses Post-operative infection T81.42XA Encounter type: initial encounter Postoperative infection type: deep incisional surgical site Sepsis without acute organ dysfunction, due to unspecified organism A41.9 Sepsis acute organ dysfunction status: without acute organ dysfunction Sepsis type: sepsis due to unspecified organism
--- NOTE | 2023-02-18 15:16 | ECG_ITS ---
[facility] Test Date: 2023-02-18 Pat Name: Zoë Calderon Department: Room: 260 Gender: Female Skip Miner: : 1950 Requested By: Sonny Lomas Order Number: [id number] Abdirizak MD: Solis Dillon M.D. Measurements Intervals [place] Rate: 71 P: 11 [place]: 115 QRS: -2 QRSD: 94 T: -3 QT: 381 QTc: 417 Interpretive Statements SINUS RHYTHM WITH SINUS ARRHYTHMIA WITH SHORT [place] INTERVAL Compared to ECG 02/17/2023 05:12:21 Short [place] interval now present Electronically Signed On 02-18-2023 18:13:09 FUSION OPERATOR by Solis Dillon M.D. [id number]
--- NOTE | 2023-02-18 17:23 | ECG_ITS ---
[facility] Test Date: 2023-02-18 Pat Name: Zoë Calderon Department: Room: 260 Gender: Female Architect Intern: : 1950 Requested By: Sonny Lomas Order Number: [id number] Abdirizak MD: Solis Dillon M.D. Measurements Intervals [place] Rate: 92 P: 9 [place]: 128 QRS: -3 QRSD: 90 T: -13 QT: 337 QTc: 417 Interpretive Statements SINUS RHYTHM Compared to ECG 02/18/2023 15:12:30 Sinus arrhythmia no longer present Short [place] interval no longer present Electronically Signed On 02-18-2023 18:14:00 SENIOR SOLUTIONS CONSULTANT by Solis Dillon M.D. [id number]
[2023-02-18 17:36] LABS: Troponin(5th) Baseline 23 ng/L (0-10)
[2023-02-18 19:54] LABS: Troponin 5 2HR 23.47 ng/L (0-10); Troponin 5 2HR Delta 0.47 ABS# (0-10)
[2023-02-18 23:09] LABS: Troponin 5 6HR 21.82 ng/L (0-10)
[2023-02-18 23:10] LABS: Troponin 5 6HR Delta -1.18 ng/L (0-12)
[2023-02-19] VITALS (8 sets, daily range): BP systolic 88–121; BP diastolic 49–76; PULSE 87–97; RESP 16–17; TEMP 36.7–37.1; O2SAT 90–95; BMI 44.9
[2023-02-19 05:32] LABS: Basophils % 0.2 %; Eosinophils # 0.7 10^3/uL (0.0-0.8); Eosinophils % 7.1 %; Hematocrit 26.3 % (36-47); Lymphocytes # 1.5 10^3/uL (0.8-4.8); Lymphocytes % 15.5 %; Mean Corpuscular HGB Conc 29.3 g/dL (30-55); Mean Corpuscular Hemoglobin 25.8 pg (27-33); Mean Platelet Volume 9.7 fL (7.4-10.4); Monocytes # 0.7 10^3/uL (0.2-0.9); Monocytes % 7.6 %; Neutrophils # 6.64 10^3/uL (1.8-7.7); Neutrophils % 69.2 %; Nucleated Red Blood Cells % 0 %; Platelet Count 307 10^3/cmm (157-399); Red Blood Count 2.99 10^6/uL (3.85-5.65); Red Cell Distribution Width 17.1 % (12.1-15.1)
[2023-02-19 05:45] LABS: Lactate (Lactic Acid level) 0.8 mmol/L (0.5-2.2)
[2023-02-19 05:46] LABS: Alanine Aminotransferase 7 U/L (0-33); Albumin Level 2.5 g/dL (3.5-5.2); Alkaline Phosphatase 118 U/L (35-105); Anion Gap 12.7 (5-19); Aspartate Amino Transferase 10 U/L (0-32); Blood Urea Nitrogen 18 mg/dL (8-23); C Reactive Protein 54.1 mg/L (0.0-4.9); Calcium 7.9 mg/dL (8.5-10.5); Carbon Dioxide 29 mmol/L (22-29); Chloride 104 mmol/L (98-107); Globulin 2.5 g/dL (1.3-4.6); Glucose 90 mg/dL (65-115); Osmolality Calculated 295 mOsm/kg (285-295); Phosphorus 2.8 mg/dL (2.5-4.5); Potassium 3.7 mmol/L (3.5-5.1); Sodium 142 mmol/L (136-145); Total Bilirubin 0.2 mg/dL (0.15-1.2)
[2023-02-19 05:49] LABS: Procalcitonin 0.16 ng/mL (0-0.5)
[2023-02-19] MEDS: cefepime 2,000 MG in sodium chloride 0.9% (plus) 50 ML 100 MG IV ×2 (09:32→18:36)
[2023-02-19] MEDS: gabapentin 300 mg Capsule 600 MG PO ×4 (09:32→21:54)
[2023-02-19] MEDS: escitalopram 10 mg Tablet 5 MG PO (09:32)
[2023-02-19] MEDS: pantoprazole DR 40 mg Tablet PO (09:32)
[2023-02-19] MEDS: fludrocortisone 0.1 mg Tablet PO (09:32)
[2023-02-19] MEDS: midodrine 5 mg TABLET PO ×3 (09:32→21:55)
[2023-02-19] MEDS: enoxaparin 40 mg/0.4 mL Syringe SUBCUT (09:33)
--- NOTE | 2023-02-19 12:21 | PM.PN ---
Subjective Subjective: Infectious disease progress note No acute intermittent events. [facility] Clinically improving. Afebrile and hemodynamically stable. Cultures from the OR with gram-negative rods identified as Pseudomonas aeruginosa. Susceptibility remains pending. Medications: Reviewed: Yes Vitals/I&O/Wt Last Vital Signs Temp 98.2 F 02/19/23 11:41 Pulse 88 02/19/23 11:41 Resp 16 02/19/23 11:41 BP 121/76 02/19/23 11:41 Pulse Ox 90 02/19/23 11:41 O2 Del Method Nasal Cannula 02/19/23 04:00 O2 Flow Rate 2 02/19/23 04:00 02/18/23 02/19/23 02/19/23 22:59 06:59 14:59 Intake Total 410 / 940 300 / 1240 170 / 170 Output Total 1200 / 1200 800 / 2000 Balance -790 / -260 -500 / -760 170 / 170 Weight last 48 hrs Weight 104.417 kg Physical Exam Narrative: General: No acute distress, AO x3 HEENT: PERRLA, pupils bilaterally equal and reactive, pallors not present Chest: Normal vesicular breath sounds, no added sounds, equal good air entry bilaterally CVS: S1-S2 regular, no murmurs, no tachycardia, no gallops, no rubs Abdomen: Soft, nontender, no organomegaly, bowel sounds present Neuro: No focal deficits, no facial deformity, AO x3, power 5/5 in all limbs Urinary Catheter Management: Alba: Cath Placed During This Visit: yes Reason for Continuing Indwelling Catheter: Accurate Measurement of Urinary Output in Critically Ill Patients Urinary Catheter Date of Insertion: 02/17/23 Urinary Catheter Time of Insertion: 09:30 Data 02/22/23 05:44 02/22/23 05:44 Micro: Microbiology 02/16/23 18:52 Blood Culture - Preliminary Blood 02/16/23 18:45 Blood Culture - Preliminary Blood 02/16/23 22:59 Wound Culture - Preliminary Back Gram Negative Rods Pseudomonas aeruginosa 02/17/23 13:01 Gram Stain - Final Back Anaerobic Culture - Preliminary Wound Culture - Preliminary Gram Negative Rods Abscess Culture - Preliminary Gram Negative Rods A&P Assessment and plan (1) Post-operative infection: Qualifiers: Encounter type: initial encounter Postoperative infection type: deep incisional surgical site Qualified Code(s): T81.42XA - Infection following a procedure, deep incisional surgical site, initial encounter (2) Sepsis: Qualifiers: Sepsis acute organ dysfunction status: without acute organ dysfunction Sepsis type: sepsis due to unspecified organism Qualified Code(s): A41.9 - Sepsis, unspecified organism Plan 72-year-old lady with recent T10-S1 spinal fusion surgery on January 10, 2023 complicated by postop wound dehiscence for which she underwent lumbar spine I&D, primary closure and incisional VAC placement on February 05, 2023. Wound cultures negative from this day. Thereafter course has been complicated by postoperative wound infection. She has previously been on cephalexin and most recently on Bactrim as outpatient. Admitted sepsis with fever 102.7, leukocytosis, hypotension, and source of infection by way of wound infection. CT with fluid collection along surgical bed- abscess vs post op seroma. s/p wound exploration and I&D with findings of likely seroma, no hardware involvement noted intraoperatively. I&D perfromed to level of thoracolumbar fascia. OR cx preliminary appear to reveal Pseudomonas aeruginosa, susceptibilities are pending Optimize cefepime dosing to pseudomonal dosing of 2 g IV every 8 hours now that renal function is improving. discontinue vancomycin Blood cultures is negative to date Anticipate needing 2 to 3 weeks of antibiotics for wound infection without hardware involvement. will follow with final cx results Attestations Medical Necessity Statement*: per admitting Procedures Arterial Line Size (Gauge): 20 Coding Level of Care Code Acute Code for Chg Fwd Diagnoses Post-operative infection T81.42XA Encounter type: initial encounter Postoperative infection type: deep incisional surgical site Sepsis without acute organ dysfunction, due to unspecified organism A41.9 Sepsis acute organ dysfunction status: without acute organ dysfunction Sepsis type: sepsis due to unspecified organism
--- NOTE | 2023-02-19 13:08 | P.PN_ITS ---
Subjective 2 Subjective: Patient is sitting up in her chair. She is doing well. She is neurologically intact. She states Hemovac drainage is approximately 50 cc. Medications: Reviewed: Yes Vitals/I&O/Wt Last Vital Signs Temp 98.2 F 02/19/23 11:41 Pulse 88 02/19/23 11:41 Resp 16 02/19/23 11:41 BP 121/76 02/19/23 11:41 Pulse Ox 90 02/19/23 11:41 O2 Del Method Nasal Cannula 02/19/23 04:00 O2 Flow Rate 2 02/19/23 04:00 02/18/23 02/19/23 02/19/23 22:59 06:59 14:59 Intake Total 410 / 940 300 / 1240 290 / 290 Output Total 1200 / 1200 800 / 2000 Balance -790 / -260 -500 / -760 290 / 290 Weight last 48 hrs Weight 230 lb 3.2 oz Physical Exam 2 Const: COMMON NORMALS: no acute distress, average body habitus, patient oriented x3 and alert GENERAL APPEARANCE: cooperative and comfortable O RIENTATION/CONSCIOUSNESS: Yes awake HENMT: COMMON NORMALS: normocephalic and atraumatic HEAD & SCALP: n ormocephalic and atraumatic Eye: GENERAL EYE: appearance normal, both eyes and all related structures Chest: COMMONS NORMALS: normal inspection of the chest Resp: COMMON NORMALS: normal respiratory effort EFFORT & INSPECTION: Yes able to speak in complete sentences and Yes symmetric chest movement Back/Pelvis: OTHER: Patient has a Hemovac in place Neuro: COMMON NORMALS: patient oriented x3 SENSORIUM/ORIENTATION: Yes alert Psych: COMMON NORMALS: mental status grossly normal APPEARANCE: Yes grossly normal ATTITUDE: Yes calm and Yes engaged ATTENTION/CONCENTRATION: Yes attention grossly intact Skin: COMMON NORMALS: no rashes or lesions noted GENERAL SKIN EXAM: no rashes or lesions noted Urinary Catheter Management: Alba: Cath Placed During This Visit: yes Reason for Continuing Indwelling Catheter: Accurate Measurement of Urinary Output in Critically Ill Patients Urinary Catheter Date of Insertion: 02/17/23 Urinary Catheter Time of Insertion: 09:30 Data 02/19/23 05:03 02/19/23 05:03 Micro: Microbiology 02/16/23 18:52 Blood Culture - Preliminary Blood 02/16/23 18:45 Blood Culture - Preliminary Blood 02/16/23 22:59 Wound Culture - Preliminary Back Gram Negative Rods Pseudomonas aeruginosa 02/17/23 13:01 Gram Stain - Final Back Anaerobic Culture - Preliminary Wound Culture - Preliminary Gram Negative Rods Abscess Culture - Preliminary Gram Negative Rods A&P Assessment and plan (1) Status post lumbar spinal fusion: Patient is postop day 2 following I&D of a back wound with placement of Hemovac. She is sitting up while in the ICU in a chair. She was admitted to the ICU secondary to medical issues following her surgical procedure. The patient is doing well today and has been transferred to the [facility] floor. She is up in a chair without complaints. Hemovac remains intact. Attestations 2 Medical Necessity Statement*: Per medical service Procedures Arterial Line Size (Gauge): 20 Coding Level of Care Code Acute Code for Chg Fwd Diagnoses Status post lumbar spinal fusion Z98.1
--- NOTE | 2023-02-19 15:15 | P.PN_ITS ---
Subjective 2 Subjective: Patient was seen this morning, she is sitting up in a chair, denies any fevers, no chills, no cough, we discussed her culture results, continue antibiotics for now, her blood pressures have been soft, during her last hospitalization there was concerns for adrenal insufficiency with low cortisol levels despite being hypotensive so I started her back on fludrocortisone I have also started on midodrine, I started her on hydrocortisone yesterday however she was developing lower extremity edema likely sec and hydrocortisone which had to stop and I gave her a dose of Lasix her swelling has significantly resolved for now the plan is to continue antibiotics follow cultures DC Alba catheter continue to monitor her, spoke to patient, spoke to at bedside Vitals/I&O/Wt Last Vital Signs Temp 98.2 F 02/19/23 11:41 Pulse 88 02/19/23 11:41 Resp 16 02/19/23 11:41 BP 121/76 02/19/23 11:41 Pulse Ox 90 02/19/23 11:41 O2 Del Method Nasal Cannula 02/19/23 04:00 O2 Flow Rate 2 02/19/23 04:00 02/19/23 02/19/23 02/19/23 06:59 14:59 22:59 Intake Total 300 / 1240 290 / 290 Output Total 800 / 2000 Balance -500 / -760 290 / 290 Weight last 48 hrs Weight 104.417 kg Physical Exam 2 Const: COMMON NORMALS: no acute distress and patient oriented x3 Resp: COMMON NORMALS: normal respiratory effort, No retractions, No use of accessory muscles and clear to auscultation bilaterally AUSCULTATION: clear to auscultation bilaterally Cardio: COMMON NORMALS: regular rate, regular rhythm, S1 normal heart sound present and S2 normal heart sound present RATE: regular rate RHYTHM: r egular rhythm HEART SOUNDS: S1 normal heart sound present and S2 normal heart sound present GI: COMMON NORMALS: Normal to inspection, nondistended, normoactive bowel sounds present and non-tender Extremity: COMMON NORMALS: no pedal edema Neuro: COMMON NORMALS: patient oriented x3 Psych: COMMON NORMALS: mental status grossly normal Urinary Catheter Management: Alba: Cath Placed During This Visit: yes Reason for Continuing Indwelling Catheter: Accurate Measurement of Urinary Output in Critically Ill Patients Urinary Catheter Date of Insertion: 02/17/23 Urinary Catheter Time of Insertion: 09:30 Data 01/13/24 05:03 02/19/23 05:03 Micro: Microbiology 02/16/23 18:52 Blood Culture - Preliminary Blood 02/16/23 18:45 Blood Culture - Preliminary Blood 02/16/23 22:59 Wound Culture - Preliminary Back Gram Negative Rods Pseudomonas aeruginosa 02/17/23 13:01 Gram Stain - Final Back Anaerobic Culture - Preliminary Wound Culture - Preliminary Gram Negative Rods Abscess Culture - Preliminary Gram Negative Rods A&P Assessment and plan (1) Post-operative infection: Qualifiers: Encounter type: initial encounter Postoperative infection type: deep incisional surgical site Qualified Code(s): T81.42XA - Infection following a procedure, deep incisional surgical site, initial encounter (2) Sepsis: Qualifiers: Sepsis acute organ dysfunction status: without acute organ dysfunction Sepsis type: sepsis due to unspecified organism Qualified Code(s): A41.9 - Sepsis, unspecified organism Plan 72-year-old lady with recent T10-S1 spinal fusion surgery on January 10, 2023 complicated by postop wound dehiscence for which she underwent lumbar spine I&D, primary closure and incisional VAC placement on February 05, 2023. Wound cultures negative from this day. Thereafter course has been complicated by postoperative wound infection. She has previously been on cephalexin and most recently on Bactrim as outpatient. on admission had evidence of sepsis with fever 102.7, leukocytosis, hypotension, and source of infection by way of wound infection. off Levophed infusion with a map goal of 65. She has received empiric doses of piperacillin/tazobactam and vancomycin in the ER -continue antibiotic coverage with cefepime 2 g IV every 12 hours and vancomycin at this time. -cultures showing Pseudomonas species, gram-negative rods CT of her lumbosacral spine is showing fluid collection posteriorly extending from T7-L2 with small amount of air which may be reflective of expected postsurgical changes, however given other peripheral signs of infection cannot rule out possibility of abscess. Spine surgery consultation with Dr. Baker, status post incision and drainage of wound down to fascia, with complex closure wound no enrico pus, look more like seroma no breaches and thoracolumbar fascia, hardware was not involved UA not a clean-catch. Chest x-ray without any gross infiltrates. Noted to have some cardiomegaly and possibility of pulmonary vascular congestion without any other clinical signs of CHF. No reported cardiac history. DVT prophylaxis: Lovenox Full code -Plan monitor cultures ? Continue antibiotics as above ? Follow cultures?PT OT?monitor for fluid overload, ? Monitor blood pressures, added midodrine, fludrocortisone ?monitor for fluid overload -Hemovac in place Patient was seen this morning, she is sitting up in a chair, denies any fevers, no chills, no cough, we discussed her culture results, continue antibiotics for now, her blood pressures have been soft, during her last hospitalization there was concerns for adrenal insufficiency with low cortisol levels despite being hypotensive so I started her back on fludrocortisone I have also started on midodrine, I started her on hydrocortisone yesterday however she was developing lower extremity edema likely sec and hydrocortisone which had to stop and I gave her a dose of Lasix her swelling has significantly resolved for now the plan is to continue antibiotics follow cultures DC Alba catheter continue to monitor her, spoke to patient, spoke to at bedside Attestations 2 Medical Necessity Statement*: Patient requires hospitalization for surgical site infection, with sepsis, requiring surgical debridement, culture showing Pseudomonas requiring IV antibiotics Procedures Arterial Line Size (Gauge): 20 Diagnoses Post-operative infection T81.42XA Encounter type: initial encounter Postoperative infection type: deep incisional surgical site Sepsis without acute organ dysfunction, due to unspecified organism A41.9 Sepsis acute organ dysfunction status: without acute organ dysfunction Sepsis type: sepsis due to unspecified organism
[2023-02-20] VITALS (9 sets, daily range): BP systolic 117–145; BP diastolic 58–77; PULSE 82–94; RESP 15–18; TEMP 36.5–36.9; O2SAT 85–96; BMI 44.9
[2023-02-20] MEDS: cefepime 2,000 MG in sodium chloride 0.9% (plus) 50 ML 100 MG IV (02:45)
[2023-02-20 04:48] LABS: Basophils % 0.5 %; Eosinophils # 0.8 10^3/uL (0.0-0.8); Eosinophils % 10.4 %; Lymphocytes # 1.4 10^3/uL (0.8-4.8); Lymphocytes % 16.7 %; Mean Corpuscular HGB Conc 29.6 g/dL (30-55); Mean Corpuscular Hemoglobin 25.5 pg (27-33); Mean Platelet Volume 9.6 fL (7.4-10.4); Monocytes # 0.8 10^3/uL (0.2-0.9); Monocytes % 9.5 %; Neutrophils # 5.05 10^3/uL (1.8-7.7); Neutrophils % 62.5 %; Nucleated Red Blood Cells % 0 %; Platelet Count 322 10^3/cmm (157-399); Red Blood Count 3.14 10^6/uL (3.85-5.65); Red Cell Distribution Width 16.9 % (12.1-15.1); White Blood Count 8.08 10^3/uL (3.29-11.43)
[2023-02-20 05:05] LABS: Alanine Aminotransferase < 5 U/L (0-33); Albumin Level 2.5 g/dL (3.5-5.2); Alkaline Phosphatase 113 U/L (35-105); Anion Gap 8.6 (5-19); Aspartate Amino Transferase 10 U/L (0-32); Blood Urea Nitrogen 13 mg/dL (8-23); C Reactive Protein 33.6 mg/L (0.0-4.9); Calcium 8.3 mg/dL (8.5-10.5); Carbon Dioxide 32 mmol/L (22-29); Chloride 104 mmol/L (98-107); Creatinine Clr Calc Pharmacy 60.6999; Globulin 2.8 g/dL (1.3-4.6); Glucose 97 mg/dL (65-115); Osmolality Calculated 292 mOsm/kg (285-295); Phosphorus 2.6 mg/dL (2.5-4.5); Potassium 3.6 mmol/L (3.5-5.1); Sodium 141 mmol/L (136-145); Total Bilirubin 0.3 mg/dL (0.15-1.2); Total Protein 5.3 g/dL (6.6-8.7)
[2023-02-20 05:08] LABS: Procalcitonin 0.08 ng/mL (0-0.5)
--- NOTE | 2023-02-20 07:37 | PC.PHAR ---
Pharmacy to dose Vancomycin: Use this page to adjust dose, Tinf, or tau when only a TROUGH is taken. VANCOMYCIN or AMINOGLYCOSIDE: VANCO mg/kg Last Name Calderon Dose(mg) 1500 21.72 First Name Zoë Tinf (hrs) 1 hrs : 49 Tau=freq (hrs) 24 hrs Location: 260-1 Cmax (calculated) 50.1 mcg/ml Cpeak (calculated) 48.4 mcg/ml Sex (M/F) F Cmin (trough): 22 mcg/ml AGE (yrs) 72 Calculated Vd: 51.8 liters Ht (inches) 60.0 Calculated Ke: 0.035 hrs-1 ABW (Kg) 104.4 Calculated T1/2: 19.80 hrs IBW (Kg) 45.5 mg/kg DW (Kg) 69.1 NEW Dose (mg) 1250 18.10 NEW Tinf (hrs) 1 NEW Tau (hrs) 24 VANCO GENT TARGETS Expected Cmax: 41.7 Targets Standard Dosing High Dose Expected Cpeak: 40.3 25 to 40 6 - 12 mcg/ml 20 - 24 mcg/ml Expected Cmin: 18.7 10 to 20 0.5 - 2 mcg/ml < 1 mcg/ml WHEN DO I GIVE THE NEXT DOSE? When will the Blood Conc. Be Equal to my New Expected Cmin? If Dose was HELD If Dose was GIVEN Give Next Dose In: (From time trough drawn) 5 hrs 29 hrs Where will the Conc. Be if I wait : 11.7 mcg/ml 27.1 mcg/ml 18 hrs
--- NOTE | 2023-02-20 08:00 | P.PN_ITS ---
Subjective 2 Subjective: Infectious disease progress note. Pseudomonas aeruginosa susceptibilities now available. Susceptible to ciprofloxacin. No acute interim events. Wound to be evaluated later today by Dr. Baker Medications: Reviewed: Yes Vitals/I&O/Wt Last Vital Signs Temp 98.1 F 02/22/23 14:17 Pulse 84 02/22/23 14:17 Resp 17 02/22/23 14:17 BP 131/52 02/22/23 14:17 Pulse Ox 97 02/22/23 14:17 O2 Del Method Room Air 02/22/23 11:42 O2 Flow Rate 2.5 02/22/23 03:47 02/21/23 02/22/23 02/22/23 22:59 06:59 14:59 Intake Total 720 / 1080 240 / 240 Balance 720 / 1080 240 / 240 Weight last 48 hrs Weight 99.201 kg Weight 104.417 kg Physical Exam 2 Narrative: General: No acute distress, AO x3 HEENT: PERRLA, pupils bilaterally equal and reactive, pallors not present Chest: Normal vesicular breath sounds, no added sounds, equal good air entry bilaterally CVS: S1-S2 regular, no murmurs, no tachycardia, no gallops, no rubs Abdomen: Soft, nontender, no organomegaly, bowel sounds present Neuro: No focal deficits, no facial deformity, AO x3, power 5/5 in all limbs EXT: lumbar drain in place., blood notes, no pus Urinary Catheter Management: Alba: Cath Placed During This Visit: yes, but has since been removed by the nurse Reason for Continuing Indwelling Catheter: Decision to DC Catheter Urinary Catheter Date of Insertion: 02/17/23 Urinary Catheter Time of Insertion: 09:30 Date Urinary Catheter Removed: 02/20/23 Time Urinary Catheter Discontinued: 06:09 Data 02/22/23 05:44 02/22/23 05:44 Micro: Microbiology 02/17/23 13:01 Gram Stain - Final Back Anaerobic Culture - Preliminary Wound Culture - Final Pseudomonas aeruginosa Abscess Culture - Final Pseudomonas aeruginosa Organism 1 Pseudomonas aeruginosa Growth SCANT DAY 2 P aerugino [facility] RX --------- ------ * Amikacin <=16 S * Aztreonam <=4 S * Cefepime <=8 S * Ciprofloxacin <=1 S * Gentamicin 4 S * Imipenem <=1 S * Levofloxacin <=2 S * Piperacillin/Tazobactam <=16 S A&P Assessment and plan (1) Post-operative infection: Qualifiers: Encounter type: initial encounter Postoperative infection type: deep incisional surgical site Qualified Code(s): T81.42XA - Infection following a procedure, deep incisional surgical site, initial encounter (2) Sepsis: resolved Qualifiers: Sepsis acute organ dysfunction status: without acute organ dysfunction Sepsis type: sepsis due to unspecified organism Qualified Code(s): A41.9 - Sepsis, unspecified organism Plan 72-year-old lady with recent T10-S1 spinal fusion surgery on January 10, 2023 complicated by postop wound dehiscence for which she underwent lumbar spine I&D, primary closure and incisional VAC placement on February 05, 2023. Wound cultures negative from this day. Thereafter course has been complicated by postoperative wound infection. She has previously been on cephalexin and most recently on Bactrim as outpatient. Admitted on 02/16 with sepsis with fever 102.7, leukocytosis, hypotension, and source of infection by way of wound infection. CT with fluid collection along surgical bed- abscess vs post op seroma. s/p wound exploration and I&D on 02/17 with findings of likely seroma, no hardware involvement noted intraoperatively. I&D performed to level of thoracolumbar fascia. OR cx with Pseudomonas aeruginosa, susceptibilities as above D/c cefepime Can change treatment to Po ciprofloxacin 500mg BID for the next 3 weeks. Anticipate needing 2 to 3 weeks of antibiotics for wound infection without hardware involvement per review of op note. Infected seroma is a possibility. F/up ID clinic on Mar 08 at 12:00 pm please call with any other questions or concerns Attestations 2 Medical Necessity Statement*: per admitting Procedures Arterial Line Size (Gauge): 20 Coding Level of Care Code Acute Code for Chg Fwd Diagnoses Post-operative infection T81.42XA Encounter type: initial encounter Postoperative infection type: deep incisional surgical site Sepsis without acute organ dysfunction, due to unspecified organism A41.9 Sepsis acute organ dysfunction status: without acute organ dysfunction Sepsis type: sepsis due to unspecified organism
[2023-02-20] MEDS: enoxaparin 40 mg/0.4 mL Syringe SUBCUT (09:34)
[2023-02-20] MEDS: midodrine 5 mg TABLET PO ×3 (09:36→20:46)
[2023-02-20] MEDS: pantoprazole DR 40 mg Tablet PO (09:36)
[2023-02-20] MEDS: gabapentin 300 mg Capsule 600 MG PO ×4 (09:36→20:46)
[2023-02-20] MEDS: escitalopram 10 mg Tablet 5 MG PO (09:37)
[2023-02-20] MEDS: ciprofloxacin 500 mg Tablet PO ×2 (09:37→20:46)
[2023-02-20] MEDS: fludrocortisone 0.1 mg Tablet PO (09:38)
--- NOTE | 2023-02-20 13:49 | CTR_ITS ---
PROCEDURE INFORMATION: Exam: CTA Chest With Contrast Exam date and time: 02/20/2023 4:09 PM Age: 72 years old Clinical indication: Shortness of breath; Additional info: SOB TECHNIQUE: Imaging protocol: Computed tomographic angiography of the chest with contrast. Exam focused on the arteries. 3D rendering (Not supervised by radiologist): MIP and/or 3D reconstructed images were created by the technologist. Radiation optimization: All CT scans at this facility use at least one of these dose optimization techniques: automated exposure control; mA and/or kV adjustment per patient size (includes targeted exams where dose is matched to clinical indication); or iterative reconstruction. Contrast material: OMNI 350; Contrast volume: 49 ml; Contrast route: INTRAVENOUS (IV); COMPARISON: CR (CHEST, ) 02/16/2023 9:13 PM RADIATION DOSE METRICS: Total DLP (mGy-cm): 477.31 FINDINGS: Limitations: Images degraded by artifact from spine hardware. Tubes, catheters and devices: Evidence of central venous line partially included following right internal jugular venous route with tip projecting over superior vena cava. Pulmonary arteries: Small hypodense filling defects within pulmonary arteries to right upper lobe compatible with pulmonary emboli. Images degraded by artifact. No additional obvious pulmonary embolism seen. Great vessels off aortic arch: Typical three-vessel origins of great vessels off the thoracic aortic arch. Suspicion for stenosis base, origin of left common carotid artery, and also perhaps proximal brachiocephalic artery, origin, proximal left subclavian artery. Aorta: Atherosclerotic disease, but no aneurysm and no dissection seen of visualized portions thoracic aorta. Lungs: Pulmonary emphysematous changes. Evidence of atelectasis and/or infiltrate lung bases, right greater than left. Visualized portions trachea, main bronchi bilaterally appear patent. Pleural spaces: Small pleural effusions, right greater than left. No pneumothorax seen.. Heart: No pericardial effusion seen. No obvious right heart strain seen. RV/LV ratio appears to be about 1 or slightly less than 1. Mitral valve, aortic valve calcifications. Coronary arteries: Coronary artery calcifications. Lymph nodes: Calcifications anterior mediastinum possibly lymph node calcifications, phleboliths, fat necrosis, or other process. Right paratracheal lymph node measured at about 7 mm short axis, nonspecific. Scattered small mediastinal, hilar, axillary lymph nodes, nonspecific. Diaphragm: Evidence of fat containing hiatal hernia. Bones/joints: Sclerosis, linear lucency left scapula anterolaterally below glenoid suggesting prior fracture. Postoperative changes metallic rods, screws and evidence of prior kyphoplasty/vertebroplasties thoracic spine. Postoperative changes cervical spine. Curvature, degenerative changes spine. Soft tissues: See Lymph nodes finding. CT/CT angio chest PE protcl [id number] IMPRESSION: 1. Small hypodense filling defects within pulmonary arteries to right upper lobe compatible with pulmonary emboli. 2. Pleural effusions bilaterally, right greater than left. 3. Atelectasis and/or infiltrate lung bases, right greater than left. 4. Please see body of report for additional findings. COMMENTS: The presence of pulmonary emphysema on CT is an independent risk factor for lung cancer. In the absence of a history or active diagnosis of lung cancer, it is recommended that this patient with emphysema be evaluated for enrollment in a low dose CT lung cancer screening program.
--- NOTE | 2023-02-20 15:51 | P.PN_ITS ---
Subjective 2 Subjective: Patient doing well and anticipate discharge however she send shortness of breath or getting a CTA scan if this is negative the planning on discharging her today. Vitals/I&O/Wt Last Vital Signs Temp 98.5 F 02/20/23 12:00 Pulse 87 02/20/23 12:00 Resp 18 02/20/23 12:00 BP 126/75 02/20/23 12:00 Pulse Ox 85 L 02/20/23 13:29 O2 Del Method Nasal Cannula 02/20/23 12:00 O2 Flow Rate 2 02/20/23 13:29 02/20/23 02/20/23 02/20/23 06:59 14:59 22:59 Intake Total 50 / 640 720 / 720 Output Total 1235 / 2885 Balance -1185 / -2245 720 / 720 Weight last 48 hrs Weight 230 lb 3.2 oz Weight 230 lb 3.2 oz Physical Exam 2 Narrative: Patient is feeling much better that good strength bilateral lower extremities Urinary Catheter Management: Alba: Cath Placed During This Visit: yes, but has since been removed by the nurse Reason for Continuing Indwelling Catheter: Decision to DC Catheter Urinary Catheter Date of Insertion: 02/17/23 Urinary Catheter Time of Insertion: 09:30 Date Urinary Catheter Removed: 02/20/23 Time Urinary Catheter Discontinued: 06:09 Data 02/20/23 04:30 02/20/23 04:30 Micro: Microbiology 02/17/23 13:01 Gram Stain - Final Back Anaerobic Culture - Preliminary Wound Culture - Final Pseudomonas aeruginosa Abscess Culture - Final Pseudomonas aeruginosa 02/16/23 22:59 Wound Culture - Final Back Pseudomonas aeruginosa A&P Assessment and plan (1) Status post lumbar spinal fusion: Wound grew out Pseudomonas will be treated with oral Cipro. Attestations 2 Medical Necessity Statement*: Per primary service Procedures Arterial Line Size (Gauge): 20 Coding Level of Care Code Acute Code for Chg Fwd Diagnoses Status post lumbar spinal fusion Z98.1
[2023-02-20] MEDS: iohexol 350 mg/mL 500 mL Btl (per mL) IV (16:14)
--- NOTE | 2023-02-20 17:43 | P.PN_ITS ---
Subjective 2 Subjective: patient was seen this morning, she denies any fevers, chills, she is requiring 2 L, no chest pain, palpitations, she did have an episode of chest pain roughly 2 days ago, no significant delta troponin, no lightheadedness, dizziness, calf pain, calf swelling, hemoptysis, the plan was to discharge her home on p.o. ciprofloxacin, Home O2 eval showed that she needed 2 L, she does not normally use oxygen, she did have fluid overload that required diuresis, -CT angiogram the chest shows pulmonary emboli, I went back and spoke to patient, in the evening time, given her pulmonary emboli or her hypoxia, she has been on DVT prophylaxis Lovenox throughout her hospitalization, I recommend monitoring her in the hospital for at least 24 hours, cardiac echo, venous ultrasound, troponin series, monitoring her clinical status closely on heparin drip, I think that the episode of chest pain that she had roughly 48 hours ago was possibly embolic pulmonary emboli, we discussed monitoring her on heparin drip, monitoring her hemoglobin, cardiac echo, venous ultrasound, she voiced understanding, all questions answered, Vitals/I&O/Wt Last Vital Signs Temp 98.1 F 02/20/23 16:00 Pulse 85 02/20/23 16:00 Resp 18 02/20/23 16:00 BP 127/58 02/20/23 16:00 Pulse Ox 95 02/20/23 16:00 O2 Del Method Nasal Cannula 02/20/23 16:00 O2 Flow Rate 2 02/20/23 13:29 02/20/23 02/20/23 02/20/23 06:59 14:59 22:59 Intake Total 50 / 640 720 / 720 Output Total 1235 / 2885 Balance -1185 / -2245 720 / 720 Weight last 48 hrs Weight 104.417 kg Weight 104.417 kg Physical Exam 2 Const: COMMON NORMALS: no acute distress and patient oriented x3 Resp: COMMON NORMALS: normal respiratory effort, No retractions, No use of accessory muscles and clear to auscultation bilaterally AUSCULTATION: clear to auscultation bilaterally Cardio: COMMON NORMALS: regular rate, regular rhythm, S1 normal heart sound present and S2 normal heart sound present RATE: regular rate RHYTHM: r egular rhythm HEART SOUNDS: S1 normal heart sound present and S2 normal heart sound present GI: COMMON NORMALS: Normal to inspection, nondistended, normoactive bowel sounds present and non-tender Extremity: COMMON NORMALS: no pedal edema Neuro: COMMON NORMALS: patient oriented x3 Psych: COMMON NORMALS: mental status grossly normal Urinary Catheter Management: Alba: Cath Placed During This Visit: yes, but has since been removed by the nurse Reason for Continuing Indwelling Catheter: Decision to DC Catheter Urinary Catheter Date of Insertion: 02/17/23 Urinary Catheter Time of Insertion: 09:30 Date Urinary Catheter Removed: 02/20/23 Time Urinary Catheter Discontinued: 06:09 Data 02/20/23 04:30 02/20/23 04:30 Micro: Microbiology 02/17/23 13:01 Gram Stain - Final Back Anaerobic Culture - Preliminary Wound Culture - Final Pseudomonas aeruginosa Abscess Culture - Final Pseudomonas aeruginosa 02/16/23 22:59 Wound Culture - Final Back Pseudomonas aeruginosa A&P Assessment and plan (1) Post-operative infection: Qualifiers: Encounter type: initial encounter Postoperative infection type: deep incisional surgical site Qualified Code(s): T81.42XA - Infection following a procedure, deep incisional surgical site, initial encounter (2) Sepsis: Qualifiers: Sepsis acute organ dysfunction status: without acute organ dysfunction Sepsis type: sepsis due to unspecified organism Qualified Code(s): A41.9 - Sepsis, unspecified organism (3) Acute respiratory failure with hypoxia: (4) Pulmonary embolism: Plan 72-year-old lady with recent T10-S1 spinal fusion surgery on January 10, 2023 complicated by postop wound dehiscence for which she underwent lumbar spine I&D, primary closure and incisional VAC placement on February 05, 2023. Wound cultures negative from this day. Thereafter course has been complicated by postoperative wound infection. She has previously been on cephalexin and most recently on Bactrim as outpatient. on admission had evidence of sepsis with fever 102.7, leukocytosis, hypotension, and source of infection by way of wound infection. off Levophed infusion with a map goal of 65. She has received empiric doses of piperacillin/tazobactam and vancomycin in the ER -continue antibiotic coverage with cefepime 2 g IV every 12 hours and vancomycin at this time. -cultures showing Pseudomonas species, gram-negative rods CT of her lumbosacral spine is showing fluid collection posteriorly extending from T7-L2 with small amount of air which may be reflective of expected postsurgical changes, however given other peripheral signs of infection cannot rule out possibility of abscess. Spine surgery consultation with Dr. Baker, status post incision and drainage of wound down to fascia, with complex closure wound no enrico pus, look more like seroma no breaches and thoracolumbar fascia, hardware was not involved UA not a clean-catch. Chest x-ray without any gross infiltrates. Noted to have some cardiomegaly and possibility of pulmonary vascular congestion without any other clinical signs of CHF. No reported cardiac history. DVT prophylaxis: Lovenox Full code -Plan ? Managed with ciprofloxacin 500 twice daily for at least 3 to 4 weeks ? Follow cultures?PT OT?monitor for fluid overload, ? Monitor blood pressures, added midodrine, fludrocortisone -Will discharge her on fludrocortisone for concerns for adrenal insufficiency, weaning dose of midodrine ?monitor for fluid overload -Hemovac removed Acute hypoxic respiratory failure -Secondary to PE CT/CT angio chest PE protcl [id number] IMPRESSION: 1. Small hypodense filling defects within pulmonary arteries to right upper lobe compatible with pulmonary emboli. 2. Pleural effusions bilaterally, right greater than left. 3. Atelectasis and/or infiltrate lung bases, right greater than left. 4. Please see body of report for additional findings. -Patient cannot tolerate IVs, had 2 attempts both IVs blew, for heparin drip, and her central line was removed, in anticipation for discharge, ?placed on therapeutic Lovenox, ? Cardiac echo, venous ultrasound, serial EKGs, serial troponins, telemetry monitoring, D-dimer, monitor for 24 hours, if stable, will discharge home on Eliquis -Spoke to Dr. Elizondo Attestations 2 Medical Necessity Statement*: Patient requires hospitalization for acute hypoxic respiratory failure secondary to PE, requiring inpatient monitoring Procedures Arterial Line Size (Gauge): 20 Diagnoses Post-operative infection T81.42XA Encounter type: initial encounter Postoperative infection type: deep incisional surgical site Sepsis without acute organ dysfunction, due to unspecified organism A41.9 Sepsis acute organ dysfunction status: without acute organ dysfunction Sepsis type: sepsis due to unspecified organism Acute respiratory failure with hypoxia J96.01 Pulmonary embolism I26.99
--- NOTE | 2023-02-20 18:01 | ECG_ITS ---
[facility] Test Date: 2023-02-20 Pat Name: Zoë Calderon Department: Room: 260 Gender: Female Serger: : 1950 Requested By: Sonny Lomas Order Number: [id number] Abdirizak MD: Tom Guillermo M.D. Measurements Intervals [place] Rate: 86 P: 31 IA: 165 QRS: 0 QRSD: 90 T: -13 QT: 343 QTc: 411 Interpretive Statements SINUS RHYTHM Compared to ECG 02/18/2023 17:23:18 No significant changes Electronically Signed On 02-21-2023 7:54:13 EYEGLASS INSPECTOR by Tom Guillermo M.D. [id number]
[2023-02-20] MEDS: doxycycline 100 mg Tablet PO (18:23)
[2023-02-20] MEDS: FUROsemide 20 mg Tablet PO (18:23)
[2023-02-20] MEDS: enoxaparin 100 mg/mL Syringe SUBCUT (18:24)
[2023-02-20] MEDS: potassium chloride ER 20 mEq Tablet PO (18:24)
[2023-02-20 18:52] LABS: Troponin(5th) Baseline 19 ng/L (0-10)
[2023-02-20 18:56] LABS: D Dimer 6.54 ug/mLFEU (0-0.59)
--- NOTE | 2023-02-20 19:22 | ECG_ITS ---
[facility] Test Date: 2023-02-20 Pat Name: Zoë Calderon Department: Room: 260 Gender: Female Communications Coordinator: : 1950 Requested By: Sonny Lomas Order Number: [id number] Abdirizak MD: Tom Guillermo M.D. Measurements Intervals [place] Rate: 96 P: 8 [place]: 139 QRS: -10 QRSD: 98 T: -6 QT: 342 QTc: 432 Interpretive Statements SINUS RHYTHM WITH OCCASIONAL ECTOPIC PREMATURE COMPLEXES Compared to ECG 02/20/2023 18:01:33 No significant changes Electronically Signed On 02-21-2023 8:01:17 SCREEN MACHINE OPERATOR by Tom Guillermo M.D. [id number]
[2023-02-20 20:49] LABS: Troponin 5 2HR 20.32 ng/L (0-10); Troponin 5 2HR Delta 1.32 ABS# (0-10)
--- NOTE | 2023-02-20 23:22 | ECG_ITS ---
[facility] Test Date: 2023-02-21 Pat Name: Zoë Calderon Department: Room: 260 Gender: Female Steel Erector: : 1950 Requested By: Sonny Lomas Order Number: [id number] Abdirizak MD: Tom Guillermo M.D. Measurements Intervals [place] Rate: 88 P: 32 [place]: 158 QRS: -3 QRSD: 87 T: -15 QT: 362 QTc: 439 Interpretive Statements SINUS RHYTHM Compared to ECG 02/20/2023 20:19:58 No significant changes Electronically Signed On 02-21-2023 7:59:46 TALENT ANALYST by Tom Guillermo M.D. [id number]
[2023-02-21] VITALS (10 sets, daily range): BP systolic 108–123; BP diastolic 59–75; PULSE 81–94; RESP 15–18; TEMP 36.6–37; O2SAT 94–98
[2023-02-21 01:24] LABS: Basophils % 0.3 %; Eosinophils # 0.7 10^3/uL (0.0-0.8); Hematocrit 26.9 % (36-47); Lymphocytes # 1.7 10^3/uL (0.8-4.8); Lymphocytes % 19.1 %; Mean Corpuscular HGB Conc 29.7 g/dL (30-55); Mean Corpuscular Volume 87.3 fl (85-98); Mean Platelet Volume 9.3 fL (7.4-10.4); Monocytes # 0.9 10^3/uL (0.2-0.9); Monocytes % 10.6 %; Neutrophils # 5.31 10^3/uL (1.8-7.7); Neutrophils % 61.5 %; Nucleated Red Blood Cells % 0 %; Platelet Count 293 10^3/cmm (157-399); Red Blood Count 3.08 10^6/uL (3.85-5.65); Red Cell Distribution Width 16.9 % (12.1-15.1); White Blood Count 8.64 10^3/uL (3.29-11.43)
[2023-02-21 01:44] LABS: Alanine Aminotransferase 7 U/L (0-33); Chloride 103 mmol/L (98-107); Sodium 143 mmol/L (136-145)
[2023-02-21 01:45] LABS: Troponin 5 6HR 20.91 ng/L (0-10); Troponin 5 6HR Delta 1.91 ng/L (0-12)
[2023-02-21 01:52] LABS: Albumin Level 2.6 g/dL (3.5-5.2); Alkaline Phosphatase 118 U/L (35-105); Anion Gap 12.3 (5-19); Aspartate Amino Transferase 10 U/L (0-32); Blood Urea Nitrogen 13 mg/dL (8-23); Calcium 8.8 mg/dL (8.5-10.5); Carbon Dioxide 31 mmol/L (22-29); Globulin 2.9 g/dL (1.3-4.6); Glucose 124 mg/dL (65-115); Osmolality Calculated 296 mOsm/kg (285-295); Phosphorus 2.5 mg/dL (2.5-4.5); Potassium 3.3 mmol/L (3.5-5.1); Total Bilirubin 0.2 mg/dL (0.15-1.2); Total Protein 5.5 g/dL (6.6-8.7)
[2023-02-21 01:54] LABS: NT Pro B Type Natriuretic Pept 6151 pg/mL (0-125)
--- NOTE | 2023-02-21 06:00 | USCV_ITS ---
Zoë Calderon Age: 72 Gender: F : 1950 Exam Date: 02/21/2023 09:24 Ordering Phys: Sonny Lomas MD Technologist: Regan Diez Exam Location: [facility] [place] Indication: murmur heart function BP: 145 / 75 HR: 87 Rhythm: Sinus Technical Quality: Adequate MEASUREMENTS (Male / Female) Normal Values 2D ECHO LV Diastolic Diameter PLAX 3.7 cm 4.2 - 5.9 / 3.9 - 5.3 cm LV Systolic Diameter PLAX 2.3 cm IVS Diastolic Thickness 1.1 cm 0.6 - 1.0 / 0.6 - 0.9 cm IVS Systolic Thickness 1.3 cm LVPW Diastolic Thickness 1.1 cm 0.6 - 1.0 / 0.6 - 0.9 cm LVPW Systolic Thickness 1.5 cm LVOT Diameter 2.0 cm LV Ejection Fraction 2D Teich 70.1 % LV Ejection Fraction MOD 2C 69.4 % LV Ejection Fraction 2C AL 68.0 % LA Diameter 4.0 cm M-MODE Aortic Annulus Diameter 3.6 cm LA Ao Ratio MM 1.3 MV E Point Septal Separation 1.7 cm DOPPLER AV Peak Velocity 294.7 cm/s LVOT Peak Velocity 114.0 cm/s AV Area Cont Eq vti 1.6 cm squared AV Area Cont Eq pk 1.2 cm squared MV Area PHT 4.9 cm squared Mitral E to A Ratio 0.8 MV E' Velocity 55.5 cm/s Mitral E to MV E' Ratio 14.4 Mitral E to LV E' Lateral Ratio 15.0 Mitral E to LV E' Septal Ratio 14.0 TR Peak Velocity 162.0 cm/s TR Peak Gradient 10.5 mmHg TV Peak E Velocity 98.0 cm/s Right Atrial Pressure 3.0 mmHg Pulmonary Artery Systolic Pressu 13.5 mmHg FINDINGS Left Ventricle Normal left ventricular size and systolic function, EF 58 %. Mild left ventricular hypertrophy. No regional wall motion abnormalities. Grade I/IV diastolic dysfunction (abnormal relaxation filling pattern), normal to mildly elevated filling pressures. Right Ventricle The right ventricle is normal in size and function. Right Atrium The right atrium is normal in size. Left Atrium Mildly increased left atrial size. Mitral Valve Thickened mitral valve. Moderate mitral annular calcification. Mild mitral valve regurgitation. Aortic Valve Mild to moderate aortic valve regurgitation. Mild aortic valve stenosis, mean gradient 14.8 mmHg, CEZAR 1.6 cm squared. Tricuspid Valve No gross abnormalities noted Pulmonic Valve No gross abnormalities noted Pericardium No pericardial effusion. Aorta Normal aortic annulus size. IVC Inferior vena cava not visualized. CONCLUSIONS Normal left ventricular size and systolic function, EF 58 %. Mild left ventricular hypertrophy. No regional wall motion abnormalities. Grade I/IV diastolic dysfunction (abnormal relaxation filling pattern), normal to mildly elevated filling pressures. Moderate mitral annular calcification. Mild mitral valve regurgitation. Thickened mitral valve. Mild to moderate aortic valve regurgitation. Mild aortic valve stenosis, mean gradient 14.8 mmHg, CEZAR 1.6 cm squared. Peak velocity of 2.94 m/s with a peak gradient of 35 and a mean gradient of 15 mmHg There is no pericardial effusion. There are no intracardiac masses. Compared to the study from 06/10/2020, there is development of aortic valve stenosis Dr Solis Dillon MD [facility] (Electronically Signed) Final Date: 21 February 2023 16:21 S
--- NOTE | 2023-02-21 06:00 | USCV_ITS ---
Zoë Calderon Age: 72 Gender: F : 1950 Exam Date: 02/21/2023 09:41 Ordering Phys: Sonny Lomas MD Technologist: Regan Diez Exam Location: [facility] [place] Indication: bilat edema PROCEDURES: The venous duplex Doppler examination of both lower extremities was performed in the standard fashion. The following venous structures were evaluated: common femoral vein, profunda vein, proximal portion of the greater saphenous vein, superficial femoral vein, and the popliteal vein. FINDINGS: Normal 2-D Doppler and augmentation and compressibility throughout the lower extremity venous structures. Additional imaging through the proximal calf veins also reveals no thrombus. Limited evaluation of the greater saphenous vein is patent with no thrombus. CONCLUSIONS No evidence of right lower extremity DVT. No evidence of left lower extremity DVT. Yosi Mukherjee MD (Electronically Signed) Final Date: 21 February 2023 11:08 S
[2023-02-21] MEDS: enoxaparin 100 mg/mL Syringe SUBCUT ×2 (06:14→17:14)
--- NOTE | 2023-02-21 06:22 | PM.OP ---
Operative Report Date of procedure: February 17, 2023 Pre-op diagnosis: Wound dehiscence and possible infection Post-op diagnosis: same Procedure done: Irrigation debridement down to the thoracolumbar fascia Complex wound closure approximately 14 inches long and 2 inches deep Surgeon: Morris Baker DO Estimated blood loss (mL): 50 Procedure: Irrigation debridement down to the thoracolumbar fascia Complex wound closure approximately 14 inches long and 2 inches deep Is ready to proceed after undergoing anesthesia is placed in prone position. All areas measure well-padded patient's prepped draped also fashion. The wound was opened up there was large amount of serous fluid cultures were taken this was all irrigated out did not track past the thoracolumbar fascia this layer was washed out and then closed in layered fashion using PDS to close all the space. Once this was all closed up nylon was used to close the skin over a drain. And patient was transferred to the PACU in stable condition.
[2023-02-21] MEDS: doxycycline 100 mg Tablet PO ×2 (08:32→17:14)
[2023-02-21] MEDS: gabapentin 300 mg Capsule 600 MG PO ×4 (08:33→20:18)
[2023-02-21] MEDS: midodrine 5 mg TABLET PO ×3 (08:33→20:18)
[2023-02-21] MEDS: escitalopram 10 mg Tablet 5 MG PO (08:33)
[2023-02-21] MEDS: fludrocortisone 0.1 mg Tablet PO (08:33)
[2023-02-21] MEDS: pantoprazole DR 40 mg Tablet PO (08:34)
[2023-02-21] MEDS: ciprofloxacin 500 mg Tablet PO ×2 (08:34→20:18)
--- NOTE | 2023-02-21 14:14 | PC.SOCIAL ---
IMM Update pg 2 of IMM updated and reviewed w/ patient. Copy provided and copy dated, initialed and placed in chart.
--- NOTE | 2023-02-21 20:08 | PM.PN ---
Subjective Subjective: She states overall she is doing better. She has gotten up and ambulated to the restroom and back to the chair. Did not get lightheaded, no presyncopal symptoms. Had 2 liquid stools today. Vitals/I&O/Wt Last Vital Signs Temp 98.3 F 02/21/23 16:00 Pulse 89 02/21/23 16:00 Resp 16 02/21/23 16:00 BP 123/59 02/21/23 16:00 Pulse Ox 96 02/21/23 16:00 O2 Del Method Nasal Cannula 02/21/23 16:00 O2 Flow Rate 2.5 02/21/23 04:00 02/21/23 02/21/23 02/21/23 06:59 14:59 22:59 Intake Total 360 / 360 480 / 840 Balance 360 / 360 480 / 840 Weight last 48 hrs Weight 104.417 kg Weight 104.417 kg Physical Exam Narrative: Sitting up in a chair. Const: COMMON NORMALS: patient oriented x3 and alert GENERAL APPEARANCE: cooperative ORIENTATION/CONSCIOUSNESS: Yes awake HENMT: COMMON NORMALS: oropharynx normal Eye: OTHER: Right IJ CVC. Neck/C-Spine: COMMON NORMALS: no JVD Resp: COMMON NORMALS: normal respiratory effort and clear to auscultation bilaterally AUSCULTATION: clear to auscultation bilaterally Cardio: COMMON NORMALS: no JVD, regular rhythm, S1 normal heart sound present, S2 normal heart sound present and No murmurs present (Cardio) RHYTHM: regular rhythm HEART SOUNDS: S1 normal heart sound present and S2 normal heart sound present GI: COMMON NORMALS: Normal to inspection, nondistended, normoactive bowel sounds present, Soft to palpation and non-tender PALPATION: Yes Soft to palpation Extremity: COMMON NORMALS: no joint enlargement and no pedal edema Neuro: COMMON NORMALS: patient oriented x3 and moves all extremities SENSORIUM/ORIENTATION: Yes alert Skin: COMMON NORMALS: no rashes or lesions noted GENERAL SKIN EXAM: no rashes or lesions noted Urinary Catheter Management: Alba: Cath Placed During This Visit: yes, but has since been removed by the nurse Reason for Continuing Indwelling Catheter: Decision to DC Catheter Urinary Catheter Date of Insertion: 02/17/23 Urinary Catheter Time of Insertion: 09:30 Date Urinary Catheter Removed: 02/20/23 Time Urinary Catheter Discontinued: 06:09 Data 02/21/23 01:00 02/21/23 01:00 Micro: Microbiology 02/17/23 13:01 Gram Stain - Final Back Anaerobic Culture - Preliminary Wound Culture - Final Pseudomonas aeruginosa Abscess Culture - Final Pseudomonas aeruginosa A&P Assessment and plan (1) Post-operative infection: Qualifiers: Encounter type: initial encounter Postoperative infection type: deep incisional surgical site Qualified Code(s): T81.42XA - Infection following a procedure, deep incisional surgical site, initial encounter (2) Sepsis: Qualifiers: Sepsis acute organ dysfunction status: without acute organ dysfunction Sepsis type: sepsis due to unspecified organism Qualified Code(s): A41.9 - Sepsis, unspecified organism (3) Acute respiratory failure with hypoxia: (4) Pulmonary embolism: Plan She has been switched over to oral ciprofloxacin. Remove CVC. Reviewed ID note. Continue ciprofloxacin for 3-[address] of her lumbosacral spine is showing fluid collection posteriorly extending from T7-L2 with small amount of air which may be reflective of expected postsurgical changes, however given other peripheral signs of infection cannot rule out possibility of abscess. Spine surgery consultation with Dr. Baker, status post incision and drainage of wound down to fascia, with complex closure wound no enrico pus, look more like seroma no breaches and thoracolumbar fascia, hardware was not involved UA not a clean-catch. Chest x-ray without any gross infiltrates. Noted to have some cardiomegaly and possibility of pulmonary vascular congestion without any other clinical signs of CHF. No reported cardiac history. DVT prophylaxis: Lovenox Full code Reviewed vitals, WBC, hemoglobin, noted anemia but hemoglobin without change from yesterday. Reassess blood count. Discussed with director case. Reviewed orthopedic note. ? Follow cultures?PT OT?monitor for fluid overload, ? Monitor blood pressures, added midodrine, fludrocortisone -Will discharge her on fludrocortisone for concerns for adrenal insufficiency, weaning dose of midodrine ?monitor for fluid overload -Hemovac removed Echocardiogram pending. Diarrhea: C. difficile requested due to multiple episodes of liquid stools. Hypokalemia: Replace potassium. Acute hypoxic respiratory failure -Secondary to PE CT/CT angio chest PE protcl [id number] IMPRESSION: 1. Small hypodense filling defects within pulmonary arteries to right upper lobe compatible with pulmonary emboli. 2. Pleural effusions bilaterally, right greater than left. 3. Atelectasis and/or infiltrate lung bases, right greater than left. 4. Please see body of report for additional findings. -Patient cannot tolerate IVs, had 2 attempts both IVs blew, for heparin drip, and her central line was removed, in anticipation for discharge, ?placed on therapeutic Lovenox, ? Cardiac echo, venous ultrasound, serial EKGs, serial troponins, telemetry monitoring, D-dimer, monitor for 24 hours, if stable, will discharge home on [facility] Medical Necessity Statement*: Continue admission for additional assessment for possible C. difficile with multiple episodes of liquid stools, continue. Antibiotics with lumbosacral spine collection, status post debridement for thoracolumbar wound dehiscence. Procedures Arterial Line Size (Gauge): 20 and High MDM includes amount and/or complexity of data reviewed/ordered [ previous or external records, resulted lab(s)/test(s), ordered lab(s)/test(s) and other healthcare professional discussion] as documented Diagnoses Post-operative infection T81.42XA Encounter type: initial encounter Postoperative infection type: deep incisional surgical site Sepsis without acute organ dysfunction, due to unspecified organism A41.9 Sepsis acute organ dysfunction status: without acute organ dysfunction Sepsis type: sepsis due to unspecified organism Acute respiratory failure with hypoxia J96.01 Pulmonary embolism I26.99
[2023-02-21] MEDS: potassium chloride ER 20 mEq Tablet 40 MEQ PO (20:18)
[2023-02-22 03:47] VITALS: BP 108/69; PULSE 89; RESP 17; TEMP 36.9; O2SAT 97
[2023-02-22 05:32] VITALS: PULSE 88
[2023-02-22 06:03] LABS: Basophils # 0.1 10^3/uL (0.0-0.1); Basophils % 0.6 %; Eosinophils # 0.7 10^3/uL (0.0-0.8); Eosinophils % 8.7 %; Hematocrit 27.9 % (36-47); Lymphocytes # 1.4 10^3/uL (0.8-4.8); Lymphocytes % 17.1 %; Mean Corpuscular HGB Conc 28.3 g/dL (30-55); Mean Corpuscular Hemoglobin 24.8 pg (27-33); Mean Corpuscular Volume 87.7 fl (85-98); Monocytes # 0.9 10^3/uL (0.2-0.9); Monocytes % 10.7 %; Neutrophils # 5.01 10^3/uL (1.8-7.7); Neutrophils % 62.3 %; Nucleated Red Blood Cells % 0 %; Platelet Count 317 10^3/cmm (157-399); Red Blood Count 3.18 10^6/uL (3.85-5.65); Red Cell Distribution Width 16.9 % (12.1-15.1); White Blood Count 8.05 10^3/uL (3.29-11.43)
[2023-02-22] MEDS: enoxaparin 100 mg/mL Syringe SUBCUT (06:12)
[2023-02-22 06:41] LABS: Alanine Aminotransferase 8 U/L (0-33); Albumin Level 2.8 g/dL (3.5-5.2); Alkaline Phosphatase 131 U/L (35-105); Anion Gap 11.2 (5-19); Aspartate Amino Transferase 12 U/L (0-32); Blood Urea Nitrogen 8 mg/dL (8-23); Carbon Dioxide 31 mmol/L (22-29); Chloride 108 mmol/L (98-107); Globulin 2.9 g/dL (1.3-4.6); Glucose 99 mg/dL (65-115); Magnesium 2.1 mg/dL (1.7-2.3); NT Pro B Type Natriuretic Pept 5866 pg/mL (0-125); Osmolality Calculated 300 mOsm/kg (285-295); Phosphorus 3.1 mg/dL (2.5-4.5); Potassium 4.2 mmol/L (3.5-5.1); Sodium 146 mmol/L (136-145); Total Bilirubin 0.2 mg/dL (0.15-1.2); Total Protein 5.7 g/dL (6.6-8.7)
[2023-02-22 07:54] VITALS: BP 131/67; PULSE 86; RESP 18; TEMP 37; O2SAT 98
[2023-02-22] MEDS: pantoprazole DR 40 mg Tablet PO (10:05)
[2023-02-22] MEDS: midodrine 5 mg TABLET PO (10:05)
[2023-02-22] MEDS: gabapentin 300 mg Capsule 600 MG PO (10:05)
[2023-02-22] MEDS: fludrocortisone 0.1 mg Tablet PO (10:05)
[2023-02-22] MEDS: escitalopram 10 mg Tablet 5 MG PO (10:06)
[2023-02-22] MEDS: doxycycline 100 mg Tablet PO (10:06)
[2023-02-22] MEDS: ciprofloxacin 500 mg Tablet PO (10:06)
[2023-02-22 11:42] VITALS: BP 131/52; PULSE 84; RESP 17; TEMP 36.7; O2SAT 97
--- NOTE | 2023-02-22 12:21 | PM.DCS ---
Discharge Providers Date of Admission: 02/16/23 23:32 Date of Discharge: February 22, 2023 Attending Provider at Admission: Debby Trimble MD Attending Provider at Discharge: Alex Landaverde Primary Care Provider: Jayjay Rashid Diagnoses at Discharge Discharge Diagnosis (1) Post-operative infection: Status: Acute Qualifiers: Encounter type: initial encounter Postoperative infection type: deep incisional surgical site Qualified Code(s): T81.42XA - Infection following a procedure, deep incisional surgical site, initial encounter (2) Sepsis: Status: Acute Qualifiers: Sepsis acute organ dysfunction status: without acute organ dysfunction Sepsis type: sepsis due to unspecified organism Qualified Code(s): A41.9 - Sepsis, unspecified organism (3) Acute respiratory failure with hypoxia: Status: Acute (4) Pulmonary embolism: Status: Acute Reason for Visit Reason for Visit: Poss sepsis Brief History: 72-year-old lady with recent T10-S1 spinal fusion surgery on January 10, 2023 complicated by postop wound dehiscence for which she underwent lumbar spine I&D, primary closure and incisional VAC placement on February 05, 2023. Wound cultures negative from this day. Thereafter course has been complicated by postoperative wound infection. She has previously been on cephalexin and most recently on Bactrim as outpatient. on admission had evidence of sepsis with fever 102.7, leukocytosis, hypotension, and source of infection by way of wound infection. off Levophed infusion with a map goal of 65. She has received empiric doses of piperacillin/tazobactam and vancomycin in the ER Hospital Course Hospital Course She was seen by orthopedics, underwent debridement and wound irrigation. No history of with antibiotics while in the hospital. Culture eventually growing Pseudomonas. On discussion with infectious disease recommendation to continue with ciprofloxacin 3 to 4 weeks and will switch to p.o. ciprofloxacin. While in the hospital CT angiogram of the chest also found pulmonary emboli for which was started on anticoagulation. During hospitalization also had difficulties with soft blood pressure, orthostasis, started on midodrine, fludrocortisone, hydrocortisone, with peripheral edema, glucocorticoid de-escalated, with blood pressure improvement, is not continuing on mineralocorticoid. Continues on midodrine for now, asked to continue reassessment of blood pressures. Please follow-up, consider de-escalation of midodrine if blood pressure with persistent improvement. Echo cardiogram was obtained while in the hospital with finding of mild aortic stenosis, mild to moderate regurgitation. During hospitalization also started to have diarrhea, possibly related to antibiotics. C. difficile sample sent out and pending. Please follow-up. She is asked to follow-up for reassessment with orthopedics and infectious disease. Physical Exam Narrative: Sitting up in a chair. Reports she is feeling well. Wanting to go home. Const: COMMON NORMALS: patient oriented x3 and alert GENERAL APPEARANCE: cooperative ORIENTATION/CONSCIOUSNESS: Yes awake HENMT: COMMON NORMALS: oropharynx normal Eye: OTHER: Right IJ CVC has been removed. Neck/C-Spine: COMMON NORMALS: no JVD Resp: COMMON NORMALS: normal respiratory effort and clear to auscultation bilaterally AUSCULTATION: clear to auscultation bilaterally Cardio: COMMON NORMALS: no JVD, regular rhythm, S1 normal heart sound present, S2 normal heart sound present and No murmurs present (Cardio) RHYTHM: regular rhythm HEART SOUNDS: S1 normal heart sound present and S2 normal heart sound present GI: COMMON NORMALS: Normal to inspection, nondistended, normoactive bowel sounds present, Soft to palpation and non-tender PALPATION: Yes Soft to palpation Extremity: COMMON NORMALS: no joint enlargement and no pedal edema Neuro: COMMON NORMALS: patient oriented x3 and moves all extremities SENSORIUM/ORIENTATION: Yes alert Skin: COMMON NORMALS: no rashes or lesions noted GENERAL SKIN EXAM: no rashes or lesions noted Urinary Catheter Management: Alba: Cath Placed During This Visit: yes, but has since been removed by the nurse Reason for Continuing Indwelling Catheter: Decision to DC Catheter Urinary Catheter Date of Insertion: 02/17/23 Urinary Catheter Time of Insertion: 09:30 Date Urinary Catheter Removed: 02/20/23 Time Urinary Catheter Discontinued: 06:09 Discharge Data Studies Completed and Pending Completed Studies During Hospitalization Category Date Time Status CT lumbar spine w con [id number] Stat Cat Scan 02/16/23 18:[address] thoracic spine w con [id number] Stat Cat Scan 02/16/23 18:59 Completed CTA PE [CT angio chest PE protcl [id number]] Stat Cat Scan 02/20/23 13:49 Completed XR chest 1V portable [id number] Stat Exams 02/16/23 18:23 Completed XR chest 1V portable [id number] Stat Exams 02/16/23 21:08 [place] [id number] Routine Ultrasound 02/21/23 06:00 Completed CV. echo complete* [id number] Routine Ultrasound 02/21/23 06:00 Completed Pending at discharge Category Date Time Status Abscess Culture and Gram Stain Routine Lab 02/17/23 13:01 Results Anaerobic Culture Routine Lab 02/17/23 13:01 Results Blood Cultures ([facility]) Routine Lab 02/16/23 18:45 Results Blood Cultures ([facility]) Routine Lab 02/16/23 18:52 Results Clostridium Difficile PCR Routine Lab 02/21/23 19:07 Received Complete Blood Count w/Auto AM LABS Lab 02/23/23 04:00 Ordered Comprehensive Metabolic Panel AM LABS Lab 02/23/23 04:00 Ordered Magnesium AM LABS Lab 02/23/23 04:00 Ordered NT Pro B Type Natriuretic Pept QAM Lab 02/23/23 06:00 Ordered Phosphorus AM LABS Lab 02/23/23 04:00 Ordered Wound Culture Routine Lab 02/17/23 13:01 Results Radiology Impressions Lumbar Spine CT 02/16/23 18:59 IMPRESSION: 1. Bilateral pedicle screws seen at L2/3/4/5/S1/S2 with posterior fixation hardware which also extends superiorly off the field of view. 2. T12 and L1 vertebroplasty changes. 3. Fluid seen in the subcutaneous fat overlying the visualized thoracolumbar spine measuring up to 6.3 cm transverse by 3.5 cm AP by 11 cm craniocaudal may be postsurgical in nature, infection is not excluded. 4. L2-L3 moderate bilateral foraminal narrowing secondary to productive degenerative changes. 5. L3-L4 broad-based disc bulge with moderate bilateral foraminal narrowing. 6. L4-L5 broad-based disc bulge with mild spinal canal and moderate bilateral foraminal narrowing. 7. L5/S1 broad-based disc bulge with [id number] bilateral foraminal narrowing. 8. Trace right pleural effusion. 9. Right lower lobe atelectasis versus infiltrate. Thoracic Spine CT 02/16/23 18:59 IMPRESSION: 1. Fluid in the midline posterior subcutaneous fat overlying the spine extending from approximately level of T7 to the level of L2 with a small amount of air may reflect postsurgical fluid, infection is not excluded, measuring up to approximately 12 cm craniocaudal by 2.4 cm transverse. 2. Bilateral pedicle screws seen at T10, T11, L2 and L3 with posterior fixation hardware bridging this area. 3. Vertebroplasty changes seen in place at T12 and L1. 4. Surgical hardware seen in the cervical spine. 5. Cardiomegaly. 6. Diverticulosis without diverticulitis. 7. Bilateral dependent atelectasis. Chest X-Ray 02/16/23 21:08 IMPRESSION: 1. Right central venous catheter tip in the superior vena cava. 2. Cardiomegaly and pulmonary vascular congestion. 3. Surgical hardware somewhat visualized in the spine. Chest CTA 02/20/23 13:49 IMPRESSION: 1. Small hypodense filling defects within pulmonary arteries to right upper lobe compatible with pulmonary emboli. 2. Pleural effusions bilaterally, right greater than left. 3. Atelectasis and/or infiltrate lung bases, right greater than left. 4. Please see body of report for additional findings. COMMENTS: The presence of pulmonary emphysema on CT is an independent risk factor for lung cancer. In the absence of a history or active diagnosis of lung cancer, it is recommended that this patient with emphysema be evaluated for enrollment in a low dose CT lung cancer screening program. ADDENDUM: 02/20/23 1732 ADDENDUM: Per operation center (OC): Zoë Garcia pt has received the report, has no questions or concerns, declined cc. Will document, ty. COMMENTS: THIS REPORT CONTAINS FINDINGS THAT MAY BE CRITICAL TO PATIENT CARE. As of 5:28 PM VISUAL C DEVELOPER on 02/20/2023. Rica Paulino (operations center) confirmed that MARIFER GANNON has received the exam report, is aware of the critical finding, and indicated no conference call was necessary to discuss the exam findings. Laboratory Results WBC 8.05 10^3/uL (3.29-11.43) 02/22/23 05:44 RBC 3.18 10^6/uL (3.85-5.65) L 02/22/23 05:44 Hgb 7.90 g/dL (11.27-16.99) L 02/22/23 05:44 Hct 27.9 % (36-47) L 02/22/23 05:44 MCV 87.7 fl (85-98) 02/22/23 05:44 MCH 24.8 pg (27-33) L 02/22/23 05:44 MCHC 28.3 g/dL (30-55) L 02/22/23 05:44 RDW 16.9 % (12.1-15.1) H 02/22/23 05:44 Plt Count 317 10^3/cmm (157-399) 02/22/23 05:44 MPV 10.0 fL (7.4-10.4) 02/22/23 05:44 Neut % (Auto) 62.3 % 02/22/23 05:44 Lymph % (Auto) 17.1 % 02/22/23 05:44 [place] % (Auto) 10.7 % 02/22/23 05:44 Eos % (Auto) 8.7 % 02/22/23 05:44 Baso % (Auto) 0.6 % 02/22/23 05:44 Neut # (Auto) 5.01 10^3/uL (1.8-7.7) 02/22/23 05:44 Lymph # (Auto) 1.4 10^3/uL (0.8-4.8) 02/22/23 05:44 [place] # (Auto) 0.9 10^3/uL (0.2-0.9) 02/22/23 05:44 Eos # (Auto) 0.7 10^3/uL (0.0-0.8) 02/22/23 05:44 Baso # (Auto) 0.1 10^3/uL (0.0-0.1) 02/22/23 05:44 Nucleated RBC % (auto) 0 % 02/22/23 05:44 Nucleated RBCs # 0.0 /100WBC 02/22/23 05:44 ESR 23 mm/hr (0-15) H 02/17/23 16:51 D-Dimer 6.54 ug/mLFEU (0-0.59) H 02/20/23 18:23 Sodium 146 mmol/L (136-145) H 02/22/23 05:44 Potassium 4.2 mmol/L (3.5-5.1) 02/22/23 05:44 Chloride 108 mmol/L (98-107) H 02/22/23 05:44 Carbon Dioxide 31 mmol/L (22-29) H 02/22/23 05:44 Anion Gap 11.2 (5-19) 02/22/23 05:44 BUN 8 mg/dL (8-23) 02/22/23 05:44 Creatinine 0.8 mg/dL (0.5-0.9) 02/22/23 05:44 GFR Calculation Not Reportable 02/22/23 05:44 Glucose 99 mg/dL (65-115) 02/22/23 05:44 Calculated Osmolality 300 mOsm/kg (285-295) H 02/22/23 05:44 Lactic Acid 1.8 mmol/L (0.5-2.2) 02/16/23 22:58 Lactate 0.8 mmol/L (0.5-2.2) 02/19/23 05:03 Calcium 9.0 mg/dL (8.5-10.5) 02/22/23 05:44 Phosphorus 3.1 mg/dL (2.5-4.5) 02/22/23 05:44 Magnesium 2.1 mg/dL (1.7-2.3) 02/22/23 05:44 Total Bilirubin 0.2 mg/dL (0.15-1.2) 02/22/23 05:44 AST 12 U/L (0-32) 02/22/23 05:44 ALT 8 U/L (0-33) 02/22/23 05:44 Alkaline Phosphatase 131 U/L (35-105) H 02/22/23 05:44 Troponin T Baseline 19 ng/L (0-10) H 02/20/23 18:23 Troponin T 120 Minute 20.32 ng/L (0-10) H 02/20/23 20:14 Delta Troponin T 1.32 ABS# (0-10) 02/20/23 20:14 Troponin T Hi Sens 6Hr 20.91 ng/L (0-10) H 02/21/23 01:00 Troponin T Hi Sens 6Hr Delta 1.91 ng/L (0-12) 02/21/23 01:00 C-Reactive Protein 33.6 mg/L (0.0-4.9) H 02/20/23 04:30 NT-Pro-B Natriuret Pep 5866 pg/mL (0-125) H 02/22/23 05:44 NT-Pro-B Natriuret Pep Cancelled 02/22/23 05:44 Total Protein 5.7 g/dL (6.6-8.7) L 02/22/23 05:44 Albumin 2.8 g/dL (3.5-5.2) L 02/22/23 05:44 Globulin 2.9 g/dL (1.3-4.6) 02/22/23 05:44 Procalcitonin 0.08 ng/mL (0-0.5) 02/20/23 04:30 Random Cortisol 20.14 ug/dL (2.47-19.5) H 02/17/23 05:17 Urine Color Yellow (Yellow) 02/16/23 18:38 Urine Appearance Cloudy (CLEAR) A 02/16/23 18:38 Urine pH 6.5 (5-7) 02/16/23 18:38 Ur Specific [place] 1.015 (1.005-1.030) 02/16/23 18:38 Urine Protein Neg (Negative) 02/16/23 18:38 Urine Glucose (UA) Norm (Normal) 02/16/23 18:38 Urine Ketones Negative (Negative) 02/16/23 18:38 Urine Blood Neg (Negative) 02/16/23 18:38 Urine Nitrate Negative (Negative) 02/16/23 18:38 Urine Bilirubin Neg (Negative) 02/16/23 18:38 Urine Urobilinogen 4 mg/dL (Negative) H 02/16/23 18:38 Ur Leukocyte Esterase Negative (Negative) 02/16/23 18:38 Urine RBC 0-4 /hpf (0-2) H 02/16/23 18:38 Urine WBC 0-4 /hpf (0-5) H 02/16/23 18:38 Ur Squamous Epith Cells 25-40 /hpf (0-5) H 02/16/23 18:38 Ur Transition Epith Cell 0-4 /hpf 02/16/23 18:38 Amorphous Sediment Not Reportable 02/16/23 18:38 Urine Bacteria None /hpf (NONE) 02/16/23 18:38 Urine Mucus None /hpf 02/16/23 18:38 Vancomycin Trough 22.0 ug/mL (10-15) H 02/19/23 22:31 Influenza Type A Ag negative (Negative) 02/16/23 22:56 Influenza Type B Ag negative (Negative) 02/16/23 22:56 SARS-CoV-2 Ag (Rapid) negative (Negative) 02/16/23 22:56 Blood Type B Positive 02/17/23 09:15 Rho(D) Type Rh positive 02/17/23 09:15 Antibody Screen Positive 02/17/23 09:15 PEG Antibody Screen Negative 02/17/23 09:15 Antibody Identification Anti-E 02/17/23 09:15 Crossmatch See Detail 02/17/23 09:15 Vitals Last Vital Signs Temp 98.1 F 02/22/23 11:42 Pulse 84 02/22/23 11:42 Resp 17 02/22/23 11:42 BP 131/52 02/22/23 11:42 Pulse Ox 97 02/22/23 11:42 O2 Del Method Room Air 02/22/23 11:42 O2 Flow Rate 2.5 02/22/23 03:47 Discharge Plan Discharge Patient Disposition: Home Health Service Condition: Stable Prescriptions: New midodrine 5 mg Tablet See Rx Instructions .ROUTE .COMPLEX Qty: 18 0RF Rx Instructions: 5mg TID for 3 days, 5mg bid for 3 days, 2.5mg bid for 3 days, stop ciprofloxacin HCl 500 mg Tablet 500 mg PO BID@0900,2100 30 Days Qty: 60 0RF apixaban 5 mg (74 tabs) tablets,dose pack See Rx Instructions .ROUTE .COMPLEX Qty: 74 0RF Rx Instructions: orally per package directions 10mg twice daily for 7 days, then 5mg twice daily. Continued calcium carbonate 500 mg calcium (1,250 mg) tablet 2,500 mg PO BID (DME) TERRY MILES See Rx Instructions .Route .MEDSUPPLY Qty: 1 0RF Rx Instructions: As directed mecobalamin (vitamin B12) 1,000 mcg tablet,chewable 1,000 mcg PO DAILY Qty: 30 0RF Prolia 60 mg/mL syringe 60 mg SUBCUT DIRECTED Rx Instructions: Takes twice a year gabapentin 600 mg tablet 600 mg PO BID tramadol 50 mg tablet 50 - 100 mg PO TID PRN (Reason: Pain) ondansetron 4 mg tablet,disintegrating 4 mg PO Q8H PRN (Reason: Nausea And Vomiting) escitalopram oxalate 5 mg tablet 5 mg PO QAM nortriptyline 25 mg capsule 25 - 50 mg PO BEDTIME PRN (Reason: insomnia) Changed oxycodone 10 mg tablet 10 mg PO Q6H PRN (Reason: pain.) 7 Days Qty: 42 0RF Held furosemide 40 mg tablet 40 mg PO QAM Qty: 30 0RF Hold Instructions: Resume on 02/21/23. potassium chloride 10 mEq tablet extended release 10 meq PO DAILY Qty: 30 0RF Hold Instructions: Resume on 02/21/23. Discontinued sulfamethoxazole-trimethoprim [Bactrim DS] 800-160 mg tablet 1 tab PO BID Qty: 14 0RF Rx Instructions: FOR 7 DAYS (RX FILLED 02/15/23) Discharge Orders: Discharge Order (Routine); Ordered 02/22/23 Ordered By: Alex Landaverde Other Ambulatory Orders: DME: Oxygen (Order) Location: None Selected Ordered By: Alex Landaverde Referrals: CARDIOLOGY [Provider Group] - 2 weeks (Valve disease We have notified your physician's clinic of the need for a follow-up appointment to be scheduled. If you have not heard from them within the next 2 business days, please call them directly. ) [facility] [Provider Group] - 03/08/23 12:00 pm [facility] [Outside] [facility] [place] Morris Baker DO [Physician] - 03/01/23 3:45 pm Jayjay Rashid NP [Primary Care Provider] - 02/28/23 1:30 pm () Discharge Diet: Cardiac Discharge Activity: Resume usual activity and Oxygen as instructed Patient Instructions: Ciprofloxacin (By mouth), Midodrine (By mouth), Apixaban (By mouth) (Eliquis), Laminectomy (DC), Opioid Safety Activity Restrictions/Additional Instructions: Follow-up with orthopedic doctor for reassessment in office. Follow-up with your primary doctor for reassessment of wound infection, continued antibiotics, diarrhea, C. difficile sample has been sent. Please have your primary doctor follow-up on the results. Follow-up with your primary doctor for reassessment of pulmonary emboli. Continue blood thinner medication. Follow-up with your primary doctor for reassessment of fluid under your lungs. Follow-up with your primary doctor and cardiology for reassessment of aortic valve narrowing and leakage. Follow-up with your primary doctor regarding anemia. Monitor your blood pressures twice daily, write down values to bring to your appointment. Discuss with your primary doctor regarding midodrine, and if blood pressures continue to improve with there can de-escalate and come off of it. Return to the hospital in case of any worsening or new concerning symptoms. Discharge Attestations Time Spent in Discharge Care*: greater than 30 min Quality Metrics Clinical Quality Measures [ No reported AMI, CVA or VTE this stay] Coding Level of Care Code 94171 Total time (in minutes) for Discharge: 50 Diagnoses Post-operative infection T81.42XA Encounter type: initial encounter Postoperative infection type: deep incisional surgical site Sepsis without acute organ dysfunction, due to unspecified organism A41.9 Sepsis acute organ dysfunction status: without acute organ dysfunction Sepsis type: sepsis due to unspecified organism Acute respiratory failure with hypoxia J96.01 Pulmonary embolism I26.99
[2023-02-22 14:17] VITALS: BP 131/52; PULSE 84; RESP 17; TEMP 36.7; O2SAT 97
[2023-02-23 12:34] LABS: Clostridium Difficile PCR NOT DETECTED (NOT DETECTED)
== END 2023-02-22 14:21 | disposition home health service (06) | DRG 856 ==
LOC: ER 23:10 → ICU 23:32 → MEDSURG 02-18 14:58
PROVIDERS: Family Medicine; Orthopaedic Surgery; Admitting Provider Student in an Organized Health Care Education/Training Program; Emergency Provider Internal Medicine; PCP Clinical Nurse Specialist Adult Health; Visit Provider Internal Medicine
PROC: 0JD70ZZ Extraction of Back Subcutaneous Tissue and Fascia, Open Approach (ICD-10-PCS; principal; 2023-02-17 09:00)
DX: T81.42XA Infection following a procedure, deep incisional surgical site, initial encounter (principal); A41.9 Sepsis, unspecified organism; J96.01 Acute respiratory failure with hypoxia; I26.99 Other pulmonary embolism without acute cor pulmonale; L76.34 Postprocedural seroma of skin and subcutaneous tissue following other procedure; Z68.41 Body mass index [BMI] 40.0-44.9, adult; K52.1 Toxic gastroenteritis and colitis; T81.44XA Sepsis following a procedure, initial encounter; Y83.1 Surgical operation with implant of artificial internal device as the cause of abnormal reaction of the patient, or of later complication, without mention of misadventure at the time of the procedure; N18.31 Chronic kidney disease, stage 3a; M19.90 Unspecified osteoarthritis, unspecified site; M81.0 Age-related osteoporosis without current pathological fracture; E53.8 Deficiency of other specified B group vitamins; Z87.891 Personal history of nicotine dependence; E66.01 Morbid (severe) obesity due to excess calories; D64.9 Anemia, unspecified; B96.5 Pseudomonas (aeruginosa) (mallei) (pseudomallei) as the cause of diseases classified elsewhere; T36.8X5A Adverse effect of other systemic antibiotics, initial encounter; Y92.238 Other place in hospital as the place of occurrence of the external cause; R60.0 Localized edema; Z98.1 Arthrodesis status
CPT/HCPCS: 36415; 36556; 36592; 51702; 71045; 71275; 72129; 72132; 80053; 80202; 80503; 81001; 82533; 83605; 83735; 83880; 84100; 84145; 84484; 85025; 85378; 85651; 86140; 86850; 86870; 86900; 86920; 87040; 87070; 87075; 87077; 87186; 87205; 87426; 87493; 87804; 93005; 93306; 93970; 94760; 96365; 96366; 96367; 96372; 96375; 96376; 97116; 97161; 97530; 99024; 99285; J0330; J0692; J1100; J1170; J1650; J1720; J1940; J2405; J2543; J2704; J2710; J3010; J3370; J3490; J7030; J7042; J8499; P9016; Q9967

== ENCOUNTER → 2023-02-25 07:47 | Outpatient (BNVA) | payer MEDICARE, OTHER, SELFPAY | PROVIDERS: PCP Clinical Nurse Specialist Adult Health; Visit Provider Clinical Nurse Specialist Adult Health | DX: N18.2 Chronic kidney disease, stage 2 (mild) (principal); I26.99 Other pulmonary embolism without acute cor pulmonale | CPT/HCPCS: 85025 ==

== ENCOUNTER 2023-03-01 11:26 | Outpatient (CLI) | payer MEDICARE, OTHER, SELFPAY ==
--- NOTE | 2023-03-01 11:32 | XR_ITS ---
WS: [id number] CHEST 2 VIEWS HISTORY: ronchi/shortness of breath/hypoxia/fall COMPARISON: 02/16/2023 Lungs: There is very minimal fluid overload and pulmonary congestion. No dense consolidation or pneum onia. Slight elevation of the LEFT hemidiaphragm is stable. Cardiac size: Normal. Mediastinum/Aorta: Ectatic thoracic aorta. Bones: Surgical fusion hardware in the cervical spine and at the thoracolumbar junction. Increase in thoracic kyphosis with osteopenia. IMPRESSION: 1. Very mild pulmonary edema. 2. No pneumonia.
== END 2023-03-01 11:27 | disposition home or self-care (01) ==
LOC: RAD 11:30
PROVIDERS: PCP Clinical Nurse Specialist Adult Health; Visit Provider Clinical Nurse Specialist Adult Health
DX: J96.01 Acute respiratory failure with hypoxia (principal); R09.02 Hypoxemia; Z99.81 Dependence on supplemental oxygen; N17.9 Acute kidney failure, unspecified; J81.1 Chronic pulmonary edema
CPT/HCPCS: 71046; 80048; 81000; 83880; 85025; 86140; 87086

== ENCOUNTER → 2023-03-10 15:35 | Outpatient (BNVA) | payer MEDICARE, OTHER, SELFPAY | PROVIDERS: PCP Clinical Nurse Specialist Adult Health; Visit Provider Orthopaedic Surgery | DX: Z98.1 Arthrodesis status (principal); Z47.89 Encounter for other orthopedic aftercare | CPT/HCPCS: 99024 ==

== ENCOUNTER → 2023-03-11 12:08 | Outpatient (BNVA) | payer MEDICARE, OTHER, SELFPAY | PROVIDERS: PCP Clinical Nurse Specialist Adult Health; Visit Provider Clinical Nurse Specialist Adult Health | DX: N18.2 Chronic kidney disease, stage 2 (mild) (principal) | CPT/HCPCS: 80048; 83735 ==

== ENCOUNTER → 2023-03-16 12:05 | Outpatient (BNVA) | payer MEDICARE, OTHER, SELFPAY | PROVIDERS: PCP Clinical Nurse Specialist Adult Health; Visit Provider Internal Medicine | DX: I26.93 Single subsegmental thrombotic pulmonary embolism without acute cor pulmonale (principal); N18.2 Chronic kidney disease, stage 2 (mild); I08.0 Rheumatic disorders of both mitral and aortic valves; Z87.891 Personal history of nicotine dependence; Z79.01 Long term (current) use of anticoagulants | CPT/HCPCS: 99204 ==

== ENCOUNTER → 2023-03-22 13:39 | Outpatient (BNVA) | payer MEDICARE, OTHER, SELFPAY | PROVIDERS: PCP Clinical Nurse Specialist Adult Health; Visit Provider Student in an Organized Health Care Education/Training Program | DX: T50.905A Adverse effect of unspecified drugs, medicaments and biological substances, initial encounter (principal); D72.12 Drug rash with eosinophilia and systemic symptoms syndrome; T81.49XA Infection following a procedure, other surgical site, initial encounter; Z98.1 Arthrodesis status; X58.XXXA Exposure to other specified factors, initial encounter | CPT/HCPCS: 36415; 80053; 85007; 85027; 99205 ==

== ENCOUNTER → 2023-03-25 10:46 | Outpatient (BNVA) | payer MEDICARE, OTHER, SELFPAY | PROVIDERS: PCP Clinical Nurse Specialist Adult Health; Visit Provider Orthopaedic Surgery | DX: Z98.1 Arthrodesis status (principal); Z47.89 Encounter for other orthopedic aftercare | CPT/HCPCS: 99024 ==

== ENCOUNTER → 2023-03-31 09:34 | Outpatient (BNVA) | payer MEDICARE, OTHER, SELFPAY | PROVIDERS: PCP Clinical Nurse Specialist Adult Health; Visit Provider Clinical Nurse Specialist Adult Health | DX: N18.2 Chronic kidney disease, stage 2 (mild) (principal); D72.12 Drug rash with eosinophilia and systemic symptoms syndrome; T50.905A Adverse effect of unspecified drugs, medicaments and biological substances, initial encounter | CPT/HCPCS: 80053; 84100; 85007; 85027 ==

== ENCOUNTER → 2023-04-12 10:05 | Outpatient (BNVA) | payer MEDICARE, OTHER, SELFPAY | PROVIDERS: PCP Clinical Nurse Specialist Adult Health; Visit Provider Clinical Nurse Specialist Adult Health | DX: N18.2 Chronic kidney disease, stage 2 (mild) (principal); E55.9 Vitamin D deficiency, unspecified | CPT/HCPCS: 80048; 82306 ==

== ENCOUNTER 2023-04-18 08:22 | Oncology outpatient (recurring) (ONCR) | payer MEDICARE, OTHER, SELFPAY ==
[2023-04-18 08:47] VITALS: BP 125/79; PULSE 86; TEMP 36.2; O2SAT 95
[2023-04-18] MEDS: denosumab 60 mg SDV SUBCUT (08:50)
== END 2023-05-08 23:59 | disposition home or self-care (01) ==
LOC: ONCMED 08:23
PROVIDERS: PCP Clinical Nurse Specialist Adult Health; Visit Provider Clinical Nurse Specialist Adult Health
DX: M81.0 Age-related osteoporosis without current pathological fracture (principal)
CPT/HCPCS: 80503; 96372; J0897

== ENCOUNTER → 2023-05-03 08:46 | Outpatient (BNVA) | payer MEDICARE, OTHER, SELFPAY | PROVIDERS: PCP Clinical Nurse Specialist Adult Health; Visit Provider Orthopaedic Surgery | DX: Z98.1 Arthrodesis status (principal) | CPT/HCPCS: 72100; 99024 ==

== ENCOUNTER 2023-06-07 09:12 | Outpatient (RCR) | payer MEDICARE, OTHER, SELFPAY | END 2023-06-07 23:59 | disposition home or self-care (01) | LOC: SPT 09:12 | PROVIDERS: PCP Clinical Nurse Specialist Adult Health; Visit Provider Orthopaedic Surgery | DX: M43.25 Fusion of spine, thoracolumbar region (principal) | CPT/HCPCS: 97110; 97161 ==

== ENCOUNTER 2023-06-08 06:00 | Outpatient (RCR) | payer MEDICARE, OTHER, SELFPAY | END 2023-07-08 23:59 | disposition home or self-care (01) | LOC: SPT 06:00 | PROVIDERS: PCP Clinical Nurse Specialist Adult Health; Visit Provider Orthopaedic Surgery | DX: M43.25 Fusion of spine, thoracolumbar region (principal) | CPT/HCPCS: 97110 ==

== ENCOUNTER 2023-07-09 06:00 | Outpatient (RCR) | payer MEDICARE, OTHER, SELFPAY | END 2023-08-07 23:59 | disposition home or self-care (01) | LOC: SPT 06:00 | PROVIDERS: PCP Clinical Nurse Specialist Adult Health; Visit Provider Orthopaedic Surgery | DX: M43.25 Fusion of spine, thoracolumbar region (principal) | CPT/HCPCS: 97110 ==

== ENCOUNTER → 2023-07-28 09:05 | Outpatient (BNVA) | payer MEDICARE, OTHER, SELFPAY | PROVIDERS: PCP Clinical Nurse Specialist Adult Health; Visit Provider Orthopaedic Surgery | DX: M54.17 Radiculopathy, lumbosacral region (principal); Z98.1 Arthrodesis status | CPT/HCPCS: 72100; 99213 ==

== ENCOUNTER 2023-08-08 06:00 | Outpatient (RCR) | payer MEDICARE, OTHER, SELFPAY | END 2023-09-07 23:59 | disposition home or self-care (01) | LOC: SPT 06:00 | PROVIDERS: PCP Clinical Nurse Specialist Adult Health; Visit Provider Orthopaedic Surgery | DX: Z98.890 Other specified postprocedural states (principal) | CPT/HCPCS: 97110 ==

== ENCOUNTER → 2023-10-25 10:33 | Outpatient (BNVA) | payer MEDICARE, OTHER, SELFPAY | PROVIDERS: PCP Clinical Nurse Specialist Adult Health; Visit Provider Clinical Nurse Specialist Adult Health | DX: N18.2 Chronic kidney disease, stage 2 (mild) (principal) | CPT/HCPCS: 80053; 82728; 85025 ==

== ENCOUNTER → 2023-11-03 07:46 | Outpatient (BNVA) | payer MEDICARE, OTHER, SELFPAY | PROVIDERS: PCP Clinical Nurse Specialist Adult Health; Visit Provider Orthopaedic Surgery | DX: Z98.1 Arthrodesis status (principal) | CPT/HCPCS: 72100; 99214 ==

== ENCOUNTER → 2023-11-17 08:19 | Outpatient (BNVA) | payer MEDICARE, OTHER, SELFPAY | PROVIDERS: PCP Clinical Nurse Specialist Adult Health; Visit Provider Orthopaedic Surgery | DX: M54.9 Dorsalgia, unspecified (principal); Z09 Encounter for follow-up examination after completed treatment for conditions other than malignant neoplasm | CPT/HCPCS: 99214 ==

== ENCOUNTER → 2023-11-18 11:10 | Outpatient (BNVA) | payer MEDICARE, OTHER, SELFPAY | PROVIDERS: PCP Clinical Nurse Specialist Adult Health; Visit Provider Family Medicine | DX: Z01.818 Encounter for other preprocedural examination (principal) | CPT/HCPCS: 93005 ==

== ENCOUNTER 2023-11-21 07:49 | Day surgery (SDC) | payer MEDICARE, OTHER, SELFPAY ==
[2023-11-21] VITALS (11 sets, daily range): BP systolic 116–145; BP diastolic 49–70; PULSE 72–82; RESP 12–18; TEMP 36.1–36.4; O2SAT 93–100; BMI 43.3
[2023-11-21] MEDS: sodium chloride 0.9% 1,000 ML 30 ML IV (08:09)
--- NOTE | 2023-11-21 08:22 | ANES.PREANE2 ---
Pre-Anesthetic Assessment Height/Weight: Height 5 ft Weight 222 lb Temp Pulse Resp BP Pulse Ox O2 Del Method 97 F L 82 16 127/61 93 Room Air 11/21/23 08:07 11/21/23 08:07 11/21/23 08:07 11/21/23 08:07 11/21/23 08:07 11/21/23 08:15 Preop Diagnosis: Painful hardware in the spine Operation Date: 11/21/23 09:45 Proposed Procedures p Hardware Removal Iliac Screw(Bilateral) - Morris Baker, DO Was Beta Viet taken within 24 hours: N/A Was Clonidine taken within 24 hours: N/A Last intake: Intake Last Liquid Date 11/20/23 Last Liquid Time 20:00 Last Solid Date 11/20/23 Last Solid Time 19:00 Last Intake: 22:00 Social No alcohol and No tobacco Quit smoking 6 years ago Exam alert, oriented x 3, clear to auscultation bilaterally and regular rate & rhythm (Significant systolic flow murmur noted on auscultation) Airway Submandibular: within normal limits Cervical ROM: within normal limits Mallampati: Class I Dentition: false, partials and other (Upper false teeth, lower partial) Anesthetic Plan ASA status: 3 Anesthesia: General Other: No prior issues with anesthesia NPO since yesterday Very significant past medical history including aortic stenosis. Valve area 1.2. PA pressure 13. EF 58% EKG showing sinus rhythm Prior PE when she had sepsis earlier this year COPD on inhalers CKD Labs 11/17/2023 reviewed. Hemoglobin 9.7 sodium 142, K+ 4.9, creatinine 1.9 Patient states that she is able to perform ADLs but does ambulate with a walker and is limited secondary to pain Plan for general anesthesia Medications/Allergies Home Medications Medication Instructions Recorded Confirmed Last Taken Type calcium carbonate 2,500 mg PO BID 08/14/21 11/18/23 11/18/23 History denosumab 60 mg/mL subcutaneous 60 mg SUBCUT DIRECTED 01/07/23 11/18/23 11/15/23 History syringe (Prolia) mecobalamin (vitamin B12) 1,000 1,000 mcg PO DAILY #30 tabs 01/26/23 11/18/23 11/17/23 Rx mcg chewable tablet TERRY MILES #1 ea 02/02/23 11/17/23 Unknown Rx gabapentin 600 mg tablet 600 mg PO .four times per day #360 10/25/23 11/18/23 11/21/23 05:00 Rx tabs nortriptyline 25 mg capsule 50 mg (2 x 25 mg) PO BEDTIME PRN 10/25/23 11/18/23 11/17/23 Rx insomnia #180 caps bumetanide 1 mg tablet 1 mg PO .every other day #90 tabs 11/17/23 11/18/23 11/04/23 Rx ferrous sulfate 325 mg (65 mg 325 mg PO DAILY #30 tabs 11/17/23 11/18/23 Unknown Rx iron) tablet tramadol 50 mg tablet 100 mg (2 x 50 mg) PO TID PRN pain 11/17/23 11/18/23 11/21/23 05:00 Rx #180 tabs escitalopram oxalate 5 mg tablet 5 mg PO DAILY 11/18/23 11/18/23 11/18/23 History Allergies Allergy/AdvReac Type Severity Reaction Status Date / Time ciprofloxacin [From Cipro] Allergy Intermediate DRESS Verified 11/21/23 08:01 syndrome meperidine [From Demerol] Allergy Unknown Unknown Verified 11/21/23 08:01 codeine AdvReac Unknown UNKNOWN Verified 11/21/23 08:01 Egg Derived AdvReac Unknown ADR-Abdominal Verified 11/21/23 08:01 Pain morphine AdvReac Unknown UNKNOWN Verified 11/21/23 08:01 propoxyphene [From Darvon] AdvReac Unknown ADR-Vomitin Verified 11/21/23 08:01 g Current Medications Generic Name Dose Route Start Last Admin Trade Name Freq PRN Reason Stop Dose Admin Sodium Chloride 1,000 mls @ 30 mls/hr 11/21/23 08:00 11/21/23 08:09 Sodium Chloride 0.9% IV 11/22/23 07:59 30 mls/hr .Q24H BERNARDO Administration PFSH Anesthesia Medical History Insomnia Pulmonary embolism February 2023. provoked. Chronic kidney disease stage 3A, baseline creatinine 1.3 Osteoarthritis Hypoxemia requiring supplemental oxygen Hx of iron deficiency anemia Osteoporosis On Prolia Emphysema/COPD emphysema seen on CT chest Feb 2023 Vitamin B12 deficiency Bursitis Spinal stenosis, lumbar region, with neurogenic claudication Degenerative lumbar spinal stenosis 4 para 3 Aortic stenosis echo Feb 2023-EF 58%. mild to moderate AVR, mild AVS, mild mitral regurg. mild LVH. grade I/IV diastolic dysfunction. Mitral regurgitation DRESS syndrome r/t cipro Surgical History Status post laminectomy with spinal fusion (01/10/23) Dr Baker - Posterior fusion [id number], bi-sacral iliac fusion, L3/4, L4/5, L5/S1 laminectomy with partial facetectomies S/P epidural steroid injection History of implanted electronic device [employer] spinal stimulator History of thoracic surgery H/O tubal ligation H/O cervical spine surgery S/P cervical spinal fusion H/O adenoidectomy Family History Mother Ovarian cancer Other Cancer Denies family history of Anesthesia complication Bleeding disorder Social History Smoking and tobacco/nicotine status: never used tobacco/nicotine Second hand smoke exposure: No Alcohol intake: current Alcohol intake frequency: 0-2 Drinks per Day Alcohol type: wine Substance/Drug Use: never Marital status: Data Anesthesia Cardiac Studies: Echocardiogram 02/21/23 Echocardiogram Ultrasound 06/10/20
--- NOTE | 2023-11-21 10:19 | W.PM.OPSUD ---
Surgery/Procedure H&P Update DATE OF PROCEDURE: November 21, 2023 DATE H&P PERFORMED: 11/18/23 H&P UPDATE INFORMATION: I have reviewed H&P completed within last 30 days, I have examined patient prior to procedure and No changes to prior documentation PREOP DIAGNOSIS: Painful hardware in the spine PLANNED PROCEDURE: Operation Date: 11/21/23 09:45 Proposed Procedures p Hardware Removal Iliac Screw(Bilateral) - Mroris Baker DO
[2023-11-21] MEDS: ceFAZolin 2,000 mg SDV 2000 MG IVP (10:39)
[2023-11-21] MEDS: lidocaine-epi 2% PF 1:200,000 20 mL SDV XX (11:08)
[2023-11-21] MEDS: vancomycin 1,000 MG SDV 1000 MG XX (11:27)
--- NOTE | 2023-11-21 12:01 | PM.OP ---
Operative Report Date of procedure: November 21, 2023 Pre-op diagnosis: Painful hardware in spine Post-op diagnosis: same Procedure done: Removal of deep hardware from spine Surgeon: Morris Baker DO Estimated blood loss (mL): 5 Procedure: Removal of deep hardware from spine Patient brought the operative suite after an [place] to be placed in the prone position. All areas impingement well-padded. Patient's prepped and draped normal sterile fashion. Skin incisions made at the distal end of the previous incision. Dissection was made down to the fascia. Wiltsie approach was made in each side in order to come directly down on the hardware. The iliac screw was identified. The Was removed. And then a metal cutting bur was used to cut the fox. The fox was cut the fox was removed and then the iliac screw was backed out. This was done on both the right and left side. Wounds were irrigated and fascia was closed with 0 Vicryl and then the wound was closed with 0 Vicryl 2-0 Vicryl and Monocryl suture. Sterile dressings were applied patient is transferred to the PACU in stable condition.
[2023-11-21] MEDS: HYDROcodone-acetaminophen 5-325 mg Tablet 1 TAB PO (12:52)
--- NOTE | 2023-11-21 13:12 | XR_ITS ---
WS: [id number] C-ARM RADIOGRAPHS LUMBAR SPINE; 2 IMAGES HISTORY: OR pic, illiac screw removal. COMPARISON: None available. Intraoperative imaging during hardware revision. Long pedicle screws have been removed. [place] pedic le screws extending across the SI joints are still present. XR/XR lumbar spine 1V [id number] IMPRESSION: Intraoperative imaging during spinal hardware revision.
--- NOTE | 2023-11-21 13:26 | ANE.PACU2 ---
Inpatient post-anesthesia follow up: Airway intact: Yes Vital signs: Temperature 97.4 F Pulse Rate 74 Respiratory Rate 18 Blood Pressure 129/65 Pulse Oximetry 97 Oxygen Delivery Me thod Room Air Oxygen Flow Rate 6 Fraction of Inspir ed Oxygen Hydration adequate: Yes Nausea and vomiting: No Pain level: 1 Mental status: Baseline
== END 2023-11-21 13:26 | disposition home or self-care (01) ==
PROVIDERS: PCP Clinical Nurse Specialist Adult Health; Visit Provider Orthopaedic Surgery
PROC: (CPT 20680; principal; 2023-11-21 09:25)
DX: T84.84XA Pain due to internal orthopedic prosthetic devices, implants and grafts, initial encounter (principal); Y82.8 Other medical devices associated with adverse incidents; J44.9 Chronic obstructive pulmonary disease, unspecified; N18.31 Chronic kidney disease, stage 3a; M81.0 Age-related osteoporosis without current pathological fracture
CPT/HCPCS: 20680; 72020; 76000; J0690; J1100; J2371; J2405; J2704; J3010; J3370; J3490; J7030

== ENCOUNTER 2023-11-29 06:15 | Oncology outpatient (recurring) (ONCR) | payer MEDICARE, OTHER, SELFPAY ==
--- NOTE | 2023-11-15 08:45 | CTR_ITS ---
PROCEDURE INFORMATION: Exam: CT Abdomen And Pelvis Without Contrast Exam date and time: 11/15/2023 8:44 AM Age: 73 years old Clinical indication: Abdominal pain; Localized; Lower; Prior surgery; Surgery date: 6+ months; Surgery type: Tubal, gb, [id number]; Patient HX: Pelvic pain since surgery in January TECHNIQUE: Imaging protocol: Computed tomography of the abdomen and pelvis without contrast. Radiation optimization: All CT scans at this facility use at least one of these dose optimization techniques: automated exposure control; mA and/or kV adjustment per patient size (includes targeted exams where dose is matched to clinical indication); or iterative reconstruction. COMPARISON: CR XR hip RT 2-3V wo/w pel* [id number] 10/01/2021 11:53 AM RADIATION DOSE METRICS: Total DLP (mGy-cm): 926.07 FINDINGS: Liver: Normal. No mass. Gallbladder and biliary ducts: Normal. No calcified stones. No ductal dilation. Pancreas: Normal. No ductal dilation. Spleen: Normal. No splenomegaly. Adrenal glands: Normal. No mass. Kidneys and ureters: Normal. No hydronephrosis. Stomach and bowel: Diverticulosis without evidence of diverticulitis. Appendix: No evidence of appendicitis. Intraperitoneal space: Unremarkable. No free air. No significant fluid collection. Vasculature: Unremarkable. No abdominal aortic aneurysm. Lymph nodes: Unremarkable. No enlarged lymph nodes. Urinary bladder: Unremarkable as visualized. Reproductive: Unremarkable as visualized. Bones/joints: Extensive thoracolumbar surgery including lumbar laminectomy. Soft tissues: Unremarkable. CT/CT abdomen pelvis wo con [id number] IMPRESSION: No acute findings.
[2023-11-17] MEDS: denosumab 60 mg SDV SUBCUT (09:38)
--- NOTE | 2023-11-29 06:15 | USCV_ITS ---
Zoë Calderon Age: 73 Gender: F : 1950 Exam Date: 11/29/2023 06:26 Ordering Phys: Tom Guillermo M.D ([email or web address]) Technologist: KENNEY Exam Location: [facility] [place] Indication: MITRAL REGURG BP: 110 / 62 HR: 73 Rhythm: Sinus Technical Quality: Suboptimal MEASUREMENTS (Male / Female) Normal Values 2D ECHO LV Diastolic Diameter PLAX 4.3 cm 4.2 - 5.9 / 3.9 - 5.3 cm IVS Diastolic Thickness 1.0 cm 0.6 - 1.0 / 0.6 - 0.9 cm IVS Systolic Thickness 1.7 cm LVPW Diastolic Thickness 1.3 cm 0.6 - 1.0 / 0.6 - 0.9 cm LVPW Systolic Thickness 1.7 cm LVOT Diameter 2.0 cm LV Ejection Fraction 2D Teich 65.3 % LV Ejection Fraction MOD 4C 59.8 % LV Ejection Fraction MOD 2C 57.6 % LV Ejection Fraction 2C AL 58.0 % LA Diameter 2.3 cm RA Systolic Volume 4C AL 32.1 ml RA Systolic Volume 4C MOD 30.4 ml LA Sys Volume AL 45.7 cm cubed LA Sys Volume Index AL 21.0 cm cubed/m squared Aorta at Sinotubular Diameter 2.3 cm M-MODE LA Ao Ratio MM 0.9 AV Cusp Separation MM 1.2 cm DOPPLER AV Peak Velocity 260.0 cm/s LVOT Peak Velocity 128.0 cm/s AV Area Cont Eq vti 1.6 cm squared AV Area Cont Eq pk 1.5 cm squared MV Peak Velocity 141.0 cm/s MV Area PHT 3.2 cm squared Mitral E to A Ratio 0.9 TR Peak Velocity 151.0 cm/s TR Peak Gradient 9.1 mmHg TR Mean Velocity 124.0 cm/s TR Mean Gradient 7.0 mmHg TR Velocity Time Integral 45.1 cm TV Peak E Velocity 38.0 cm/s Right Atrial Pressure 3.0 mmHg Pulmonary Artery Systolic Pressu 12.1 mmHg PV Peak Velocity 124.0 cm/s RV Ejection Time 0.3 s FINDINGS Left Ventricle Normal left ventricular size, systolic function and wall thickness, with no regional wall motion abnormalities. Left ventricular ejection fraction is estimated at 60 %. Normal left ventricular filling pressure. Grade I/IV diastolic dysfunction (abnormal relaxation filling pattern), normal to mildly elevated filling pressures. Right Ventricle The right ventricle is normal in size and function. Right Atrium The right atrium is normal in size. Left Atrium The left atrium is normal in size. Mitral Valve Structurally normal mitral valve without significant stenosis or prolapse. There is no mitral regurgitation. Aortic Valve Moderate aortic valve calcification. No aortic valve stenosis. Mild aortic valve regurgitation. Tricuspid Valve Thickened tricuspid valve. [id number] tricuspid valve regurgitation. Pulmonic Valve Mild pulmonary valve regurgitation. Pericardium Normal pericardium without effusion. Aorta Normal ascending aorta dimension. IVC The inferior vena cava appears normal. CONCLUSIONS Normal left ventricular size, systolic function and wall thickness, with no regional wall motion abnormalities. Left ventricular ejection fraction is estimated at 60 %. Normal left ventricular filling pressure. Grade I/IV diastolic dysfunction (abnormal relaxation filling pattern), normal to mildly elevated filling pressures. Moderate aortic valve calcification. No aortic valve stenosis. Mild aortic valve regurgitation. Thickened tricuspid valve. [id number] tricuspid valve regurgitation. There is no pericardial effusion. Pulmonary artery systolic pressure is within normal limits. Right atrial pressure is around 5 mm of mercury. Komal Deng MD (Electronically Signed) Final Date: 29 November 2023 20:39 S
== END 2023-12-08 23:59 | disposition home or self-care (01) ==
LOC: RAD 11-30 00:01 → ONCMED 12-05 10:31
PROVIDERS: PCP Clinical Nurse Specialist Adult Health; Visit Provider Internal Medicine
DX: Z53.9 Procedure and treatment not carried out, unspecified reason (principal); I34.0 Nonrheumatic mitral (valve) insufficiency; I36.1 Nonrheumatic tricuspid (valve) insufficiency; I70.0 Atherosclerosis of aorta; R93.1 Abnormal findings on diagnostic imaging of heart and coronary circulation
CPT/HCPCS: 74176; 80053; 81001; 85025; 93306; 96372; J0897

== ENCOUNTER → 2023-12-06 12:11 | Outpatient (BNVA) | payer MEDICARE, OTHER, SELFPAY | PROVIDERS: PCP Clinical Nurse Specialist Adult Health; Visit Provider Orthopaedic Surgery | DX: Z98.1 Arthrodesis status (principal) | CPT/HCPCS: 99024 ==

== ENCOUNTER → 2023-12-13 09:33 | Outpatient (BNVA) | payer MEDICARE, OTHER, SELFPAY | PROVIDERS: PCP Clinical Nurse Specialist Adult Health; Visit Provider Clinical Nurse Specialist Adult Health | DX: N18.2 Chronic kidney disease, stage 2 (mild) (principal); D50.9 Iron deficiency anemia, unspecified | CPT/HCPCS: 80048; 82728; 83540; 85014; 85018 ==

== ENCOUNTER → 2024-01-10 08:41 | Outpatient (BNVA) | payer MEDICARE, OTHER, SELFPAY | PROVIDERS: PCP Clinical Nurse Specialist Adult Health; Visit Provider Orthopaedic Surgery | DX: Z98.890 Other specified postprocedural states (principal) | CPT/HCPCS: 72100; 99024 ==

== ENCOUNTER → 2024-01-12 10:02 | Outpatient (BNVA) | payer MEDICARE, OTHER, SELFPAY | PROVIDERS: PCP Clinical Nurse Specialist Adult Health; Visit Provider Clinical Nurse Specialist Adult Health | DX: Z86.2 Personal history of diseases of the blood and blood-forming organs and certain disorders involving the immune mechanism (principal) | CPT/HCPCS: 82728; 83540; 85025 ==

== ENCOUNTER → 2024-02-15 10:21 | Outpatient (BNVA) | payer MEDICARE, OTHER, SELFPAY | PROVIDERS: PCP Clinical Nurse Specialist Adult Health; Visit Provider Clinical Nurse Specialist Adult Health | DX: Z86.2 Personal history of diseases of the blood and blood-forming organs and certain disorders involving the immune mechanism (principal) | CPT/HCPCS: 82728; 83540; 85025 ==

== ENCOUNTER → 2024-03-14 12:07 | Outpatient (BNVA) | payer MEDICARE, OTHER, SELFPAY | PROVIDERS: PCP Clinical Nurse Specialist Adult Health; Visit Provider Internal Medicine | DX: I08.0 Rheumatic disorders of both mitral and aortic valves (principal) | CPT/HCPCS: 99213 ==

== ENCOUNTER → 2024-04-04 09:38 | Outpatient (BNVA) | payer MEDICARE, OTHER, SELFPAY | PROVIDERS: PCP Clinical Nurse Specialist Adult Health; Visit Provider Clinical Nurse Specialist Adult Health | DX: N17.9 Acute kidney failure, unspecified (principal); N18.2 Chronic kidney disease, stage 2 (mild); D50.9 Iron deficiency anemia, unspecified; E55.9 Vitamin D deficiency, unspecified; Z94.0 Kidney transplant status; N18.9 Chronic kidney disease, unspecified; Z86.2 Personal history of diseases of the blood and blood-forming organs and certain disorders involving the immune mechanism | CPT/HCPCS: 80048; 82040; 82306; 82310; 82728; 83550; 83735; 83970; 84100; 84550; 85018 ==

== ENCOUNTER → 2024-08-21 10:10 | Outpatient (BNVA) | payer MEDICARE, OTHER, SELFPAY | PROVIDERS: PCP Clinical Nurse Specialist Adult Health; Visit Provider Clinical Nurse Specialist Adult Health | DX: Z86.2 Personal history of diseases of the blood and blood-forming organs and certain disorders involving the immune mechanism (principal); E53.8 Deficiency of other specified B group vitamins; M81.0 Age-related osteoporosis without current pathological fracture; N18.2 Chronic kidney disease, stage 2 (mild) | CPT/HCPCS: 80053; 80061; 82306; 82607; 85025 ==

== ENCOUNTER 2024-08-30 11:06 | Outpatient (CLI) | payer MEDICARE, OTHER, SELFPAY ==
--- NOTE | 2024-08-30 11:15 | CT_ITS ---
WS: [id number] LDCT LUNG CANCER SCREENING HISTORY: J43.9 - Emphysema, unspecified TECHNIQUE: Axial imaging performed from the apices to 1 cm below the costophrenic angles. Coronal and sagittal reformats are submitted with axial MIP series. All CT scans at [facility] use at least one of these dose optimization techniques: automated exposure control; mA and/or kV adjustment per patient size (includes targeted exams where dose is matched to clinical indication); or iterative reconstruction. DLP: 128.80 mGy.cm DIvol: Mean CTDIvol: 3.40 (mGy) COMPARISON: 02/20/2023 Diagnostic quality: Poor inspiratory effort. Lungs: Decreased lung volumes. No pulmonary mass or nodule. No endobronchial lesions. Heart: Normal size heart with no pericardial effusion.. Other findings: Dilated pulmonary artery. Mild atherosclerosis aorta. No pathologically enlarged lymph nodes. Prior cervical fusion hardware. Thoracolumbar fusion hardware. Mild elevation LEFT hemidiaphragm. No adrenal mass. CT/CT lung screening [id number] IMPRESSION: LUNG-RADS: 1-Negative FOLLOW UP: 12 Month: Continue annual screening with LDCT OTHER FINDINGS (S MODIFIER): None.
== END 2024-08-30 11:07 | disposition home or self-care (01) ==
LOC: RAD 11:08
PROVIDERS: PCP Clinical Nurse Specialist Adult Health; Visit Provider Clinical Nurse Specialist Adult Health
DX: Z12.2 Encounter for screening for malignant neoplasm of respiratory organs (principal); J43.9 Emphysema, unspecified
CPT/HCPCS: 71271

== ENCOUNTER 2024-09-03 10:04 | Oncology outpatient (recurring) (ONCR) | payer MEDICARE, OTHER, SELFPAY ==
[2024-09-03] MEDS: denosumab 60 mg SDV SUBCUT (12:13)
== END 2024-09-06 23:59 | disposition home or self-care (01) ==
PROVIDERS: PCP Clinical Nurse Specialist Adult Health; Visit Provider Clinical Nurse Specialist Adult Health
DX: M81.0 Age-related osteoporosis without current pathological fracture (principal); Z79.899 Other long term (current) drug therapy
CPT/HCPCS: 96372; J0897